=== PATIENT | female | born 2005 | race Caucasian/White ===

== ENCOUNTER 2023-05-20 01:05 | Emergency (ER) | payer OTHER, SELFPAY ==
[2023-05-20 01:08] VITALS: BP 148/87; PULSE 98; RESP 18; TEMP 36.8; O2SAT 100; BMI 17.7
--- NOTE | 2023-05-20 01:26 | ED_ITS ---
HPI - Female Genitourinary General Chief complaint: OB/Uterine Contractions Stated complaint: issues, Bleeding less than 20-weeks Time Seen by Provider: 05/20/23 01:14 Source: patient Mode of arrival: walk-in Limitations: no limitations History of Present Illness HPI Narrative: vaginal bleed. LMP March 2023. Has taken 2 home test and is positive. [id number]. tonight vaginal bleeding. Not much pain. States her last was complicated during the after . Describes Uterine prolaspe that had to be repaired. Has done well since. No urinary complaint or fever. Patient has no pain MD elicited complaint: Reports vaginal bleeding Related Data Home Medications Medication Instructions Recorded Confirmed No Known Home Medications 05/20/23 05/20/23 Allergies Allergy/AdvReac Type Severity Reaction Status Date / Time No Known Drug Allergies Allergy Verified 05/20/23 01:12 Review of Systems ROS Status of ROS 10 or more systems reviewed and unremarkable except as noted in history and below PFSH PFSH Social History Smoking status: Never smoker Exam Constitutional Vital Signs, click to edit/add: Last Vital Signs Temp 98.2 F 05/20/23 01:08 Pulse 98 H 05/20/23 01:08 Resp 18 05/20/23 01:08 BP 148/87 H 05/20/23 01:08 Pulse Ox 100 05/20/23 01:08 O2 Del Method Room Air 05/20/23 01:08 Common normals: no apparent distress, average body habitus, oriented x3, no limitations, healthy appearing, alert and well nourished Eye Common normals: PERRL, EOMs intact bilaterally and conjunctivae normal Respiratory Common normals: normal respiratory effort, no retractions, no use of accessory muscles and clear to auscultation bilaterally Cardio Common normals: regular rate, regular rhythm, S1 normal heart sound and S2 normal heart sound GI Common normals: Normal to inspection, nondistended, normoactive bowel sounds present, soft to palpation and non-tender Other: abdomen is nontender Common normals: external appearance normal, appearance of the vagina normal and appearance of the cervix normal Other: exam of the cervix demonstrates not active bleeding at this time Extremity Common normals: normal to inspection and full ROM Neuro Common normals: oriented x3, CN's II-XII intact bilaterally, moves all extremities, no focal motor deficits and no sensory deficits noted Psych Appearance: grossly normal Course Vital Signs Vital signs: Vital Signs Temperature 98.2 F 05/20/23 01:08 Pulse Rate 98 H 05/20/23 01:08 Respiratory Rate 18 05/20/23 01:08 Blood Pressure 148/87 H 05/20/23 01:08 Pulse Oximetry 100 05/20/23 01:08 Oxygen Delivery Method Room Air 05/20/23 01:08 Temperature 98.2 F 05/20/23 01:08 Pulse Rate 98 H 05/20/23 01:08 Respiratory Rate 18 05/20/23 01:08 Blood Pressure 148/87 H 05/20/23 01:08 Pulse Oximetry 100 05/20/23 01:08 Oxygen Delivery Method Room Air 05/20/23 01:08 MDM - Female Genitourinary MDM Narrative Medical decision making narrative: patient presents with less than one month . LMP 04/18. Bleeding before coming to the ER. None during exam. No pain or tenderness. This is her 2nd . First was complicated by complete uterine prolapse during passage of after . Labs with Hgb12.3 and Quant HCG 2751. 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 Lab Data Labs: Lab Results 05/20/23 Range/Units 01:30 WBC 8.7 (4.0-11.0) 10^3/uL RBC 4.29 (4.20-5.40) 10^6/uL Hgb 12.3 (12.0-16.0) g/dL Hct 38.3 (36.0-48.0) % MCV 89.3 (81.0-99.0) fL MCH 28.7 (26.7-34.0) pg MCHC 32.1 (29.9-35.2) g/dL RDW 12.3 (11.0-15.0) % Plt Count 378 (150-450) 10^3/uL MPV 9.7 (9.5-13.5) fL Neut % (Auto) 53.7 (43.0-75.0) % Lymph % (Auto) 38.8 (20.5-60.0) % [place] % (Auto) 6.7 (1.7-12.0) % Eos % (Auto) 0.1 L (0.9-7.0) % Baso % (Auto) 0.5 (0.2-2.0) % Neut # (Auto) 4.7 (1.4-6.5) 10^3/uL Lymph # (Auto) 3.4 (1.2-3.8) 10^3/uL Noble # (Auto) 0.6 (0.3-0.8) 10^3/uL Eos # (Auto) 0.0 (0.0-0.7) 10^3/uL Baso # (Auto) 0.0 (0.0-0.1) 10^3/uL Abs Immat Gran (auto) 0.02 (0.00-0.03) 10^3/uL Imm/Tot Granulo (auto) 0.2 (0.0-0.5) % Sodium 140 (136-145) mmol/L Potassium 3.5 (3.5-5.1) mmol/L Chloride 104 (98-107) mmol/L Carbon Dioxide 24.6 (21.0-32.0) mmol/L Anion Gap 14.9 BUN 15.0 (7.0-18.0) mg/dL Creatinine 0.75 (0.55-1.02) mg/dL Est GFR ( Amer) >60 (>=60) Est GFR (Non-Af Amer) >60 (>=60) BUN/Creatinine Ratio 20.0 Glucose 95 (74-106) mg/dL Calcium 8.9 (8.5-10.1) mg/dL HCG, Quant 2751 mIU/mL Urine Color Yellow (YELLOW) Urine Clarity Clear (CLEAR) Urine pH 6.0 (5.0-9.0) Ur Specific [place] >=1.030 A (1.005-1.025) Urine Protein 30 A (NEG/TRACE) mg/dL Urine Glucose (UA) Negative (NEGATIVE) mg/dL Urine Ketones Negative (NEGATIVE) mg/dL Urine Occult Blood Large A (NEGATIVE) Urine Nitrite Negative (NEGATIVE) Urine Bilirubin Negative (NEGATIVE) Urine Urobilinogen 1.0 (0.2-1.0) EU/dL Ur Leukocyte Esterase Negative (NEGATIVE) Urine RBC 10-20 A (0-2) #/HPF Urine WBC 0-2 A (NONE SEEN) #/HPF Ur Squamous Epith Cells Few A (NONE/RARE) #/LPF Urine Crystals None seen (None Seen) #/HPF Urine Bacteria None seen (NONE SEEN) #/HPF Urine Casts None seen (NONE SEEN) #/LPF Urine Mucus Small A (NONE SEEN) Ur Culture Indicated? 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
[2023-05-20 01:36] LABS: Basophils Percent Auto 0.5 % (0.2-2.0); Eosinophils Percent Auto 0.1 % (0.9-7.0); Hematocrit 38.3 % (36.0-48.0); Hemoglobin 12.3 g/dL (12.0-16.0); Immature Granulocytes Abs Auto 0.02 10^3/uL (0.00-0.03); Immature Granulocytes Pct Auto 0.2 % (0.0-0.5); Lymphocytes Absolute Auto 3.4 10^3/uL (1.2-3.8); Lymphocytes Percent Auto 38.8 % (20.5-60.0); Mean Corpuscular HGB Conc 32.1 g/dL (29.9-35.2); Mean Corpuscular Hemoglobin 28.7 pg (26.7-34.0); Mean Corpuscular Volume 89.3 fL (81.0-99.0); Mean Platelet Volume 9.7 fL (9.5-13.5); Monocytes Absolute Auto 0.6 10^3/uL (0.3-0.8); Monocytes Percent Auto 6.7 % (1.7-12.0); Neutrophils Absolute Auto 4.7 10^3/uL (1.4-6.5); Neutrophils Percent Auto 53.7 % (43.0-75.0); Platelet Count 378 10^3/uL (150-450); Red Blood Count 4.29 10^6/uL (4.20-5.40); Red Cell Distribution Width 12.3 % (11.0-15.0); White Blood Count 8.7 10^3/uL (4.0-11.0)
[2023-05-20 01:37] LABS: Bilirubin Urine NEGATIVE (NEGATIVE); Blood Urine LARGE (NEGATIVE); Clarity Urine CLEAR (CLEAR); Color Urine YELLOW (YELLOW); Glucose Urine UA NEGATIVE (NEGATIVE); Ketones Urine NEGATIVE (NEGATIVE); Leukocyte Esterase Urine NEGATIVE (NEGATIVE); Nitrite Urine NEGATIVE (NEGATIVE); Protein Urine 30 mg/dL (NEG/TRACE); Specific Gravity Urine >=1.030 (1.005-1.025)
[2023-05-20 01:43] LABS: Urine Microscopic Indicated YES
[2023-05-20 01:46] LABS: Bacteria Urine NONE SEEN #/HPF (NONE SEEN); Cast Seen? NONE SEEN #/LPF (NONE SEEN); Crystals Seen? None Seen #/HPF (None Seen); Mucus Urine SMALL (NONE SEEN); Squamous Epithelial Cell Urine FEW #/LPF (NONE/RARE); Urine Culture Indicated NO; WBC Urine 0-2 #/HPF (NONE SEEN)
[2023-05-20 02:18] LABS: Anion Gap 14.9; Calcium 8.9 mg/dL (8.5-10.1); Carbon Dioxide 24.6 mmol/L (21.0-32.0); Chloride 104 mmol/L (98-107); Estimated GFR (African America >60 (>=60); Estimated GFR (Non-African Ame >60 (>=60); Glucose 95 mg/dL (74-106); HCG Quantitative 2751 mIU/mL; Potassium 3.5 mmol/L (3.5-5.1); Sodium 140 mmol/L (136-145)
== END 2023-05-20 03:19 | disposition home or self-care (01) ==
PROVIDERS: Emergency Provider Internal Medicine
DX: O20.0 Threatened abortion (principal); Z3A.00 Weeks of gestation of pregnancy not specified
CPT/HCPCS: 36415; 80048; 81001; 84702; 85025; 86900; 86901; 99283

== ENCOUNTER 2023-05-21 16:20 | Outpatient (OUT) | payer OTHER, SELFPAY ==
[2023-05-21 17:28] LABS: HCG Quantitative 3973 mIU/mL
== END 2023-05-21 16:21 | disposition home or self-care (01) ==
LOC: LAB 16:21
PROVIDERS: Visit Provider Internal Medicine
DX: O20.0 Threatened abortion (principal)
CPT/HCPCS: 36415; 84702

== ENCOUNTER 2023-06-07 13:39 | Outpatient (OUT) | payer OTHER, SELFPAY ==
--- NOTE | 2023-06-07 13:42 | US_ITS ---
[address] [address] Patient Name: JAMES PURDY MRN: [id number] date: 2005 Sex: F Assigned Patient Location: US Current Patient Location: US Accession/Order Number: [id number] Exam Date: 06/07/2023 13:42 Report Date: 06/07/2023 17:16 At the request of: RICHARD EDDY Procedure: US OB transvaginal EXAMINATION: US OB transvaginal HISTORY: MISSED MENSES COMPARISON: No relevant comparison available. FINDINGS: GESTATIONAL SAC: Present and normal appearing. YOLK SAC: Present and normal appearing. POLE: Present and normal appearing. CARDIAC: Present. UTERUS: Normal size and appearance. OVARIES: Right: Normal. Left: Normal. CERVIX: 3.4 cm in length and closed. CUL-DE-SAC: Normal. OTHER: None. AGE BY LMP: 9 weeks 3 days FRANCIS[place] BY LMP: 01/07/2024 AGE BY US CRL: 7 weeks 1 day FRANCISCO BY US CRL: 01/23/2024 US/US OB transvaginal IMPRESSION: 1. Single live intrauterine . Electronically authenticated by: VI COOPER Date: 06/07/2023 17:16
== END 2023-06-07 13:40 | disposition home or self-care (01) ==
LOC: US 13:39
PROVIDERS: Visit Provider Obstetrics & Gynecology
DX: Z34.91 Encounter for supervision of normal pregnancy, unspecified, first trimester (principal); Z3A.09 9 weeks gestation of pregnancy
CPT/HCPCS: 76817

== ENCOUNTER 2023-06-21 16:05 | Outpatient (OUT) | payer OTHER, SELFPAY ==
[2023-06-21 16:45] LABS: Basophils Percent Auto 0.3 % (0.2-2.0); Eosinophils Percent Auto 0.1 % (0.9-7.0); Hematocrit 33.7 % (36.0-48.0); Immature Granulocytes Abs Auto 0.03 10^3/uL (0.00-0.03); Immature Granulocytes Pct Auto 0.3 % (0.0-0.5); Lymphocytes Absolute Auto 2.6 10^3/uL (1.2-3.8); Lymphocytes Percent Auto 27.1 % (20.5-60.0); Mean Corpuscular HGB Conc 32.6 g/dL (29.9-35.2); Mean Corpuscular Volume 88.9 fL (81.0-99.0); Mean Platelet Volume 9.9 fL (9.5-13.5); Monocytes Absolute Auto 0.6 10^3/uL (0.3-0.8); Monocytes Percent Auto 6.1 % (1.7-12.0); Neutrophils Absolute Auto 6.2 10^3/uL (1.4-6.5); Neutrophils Percent Auto 66.1 % (43.0-75.0); Platelet Count 254 10^3/uL (150-450); Red Blood Count 3.79 10^6/uL (4.20-5.40); Red Cell Distribution Width 13.3 % (11.0-15.0); White Blood Count 9.4 10^3/uL (4.0-11.0)
[2023-06-21 16:56] LABS: Estimated Average Glucose 94 mg/dL; Glycohemoglobin A1C 4.9 % (4.5-6.2)
[2023-06-21 17:20] LABS: Thyroid Stimulating Hormone 0.083 uIU/mL (0.358-3.740)
[2023-06-23 06:09] LABS: Rubella Antibodies, IgG 1.93 index (Immune >0.99)
[2023-06-23 07:09] LABS: HBsAg Screen Negative (Negative); HCV Ab Non Reactive (Non Reactive); HIV Ab/p24 Ag Screen Non Reactive (Non Reactive)
[2023-06-23 09:10] LABS: Rapid Plasma Reagin, Quant Non Reactive titer (NonRea<1:1)
== END 2023-06-21 16:06 | disposition home or self-care (01) ==
LOC: LAB 16:06
PROVIDERS: Visit Provider Obstetrics & Gynecology
DX: N91.2 Amenorrhea, unspecified (principal)
CPT/HCPCS: 36415; 83036; 84443; 85025; 86592; 86762; 86803; 86850; 86900; 86901; 87086; 87340; 87389

== ENCOUNTER 2023-07-18 15:10 | Outpatient (OUT) | payer OTHER, SELFPAY ==
[2023-07-18 15:33] LABS: BOX Test Sent Out Y
== END 2023-07-18 15:11 | disposition home or self-care (01) ==
LOC: LAB 15:12
PROVIDERS: Visit Provider Obstetrics & Gynecology
DX: Z34.80 Encounter for supervision of other normal pregnancy, unspecified trimester (principal)
CPT/HCPCS: 36415

== ENCOUNTER 2023-09-05 13:06 | Outpatient (OUT) | payer OTHER, SELFPAY ==
--- NOTE | 2023-09-05 13:09 | US_ITS ---
[address] [address] Patient Name: JAMES PURDY MRN: [id number] date: 2005 Sex: F Assigned Patient Location: US Current Patient Location: Accession/Order Number: [id number] Exam Date: 09/05/2023 13:10 Report Date: 09/05/2023 14:55 At the request of: RICHARD EDDY Procedure: US OB cervical length EXAMINATION: US OB anatomy, US OB cervical length HISTORY: ANATOMY COMPARISON: No relevant comparison available. TECHNIQUE: Transabdominal sonographic examination was performed for obstetrical and evaluation. FINDINGS: Number: 1 Heart Rate: Present; rate not recorded H.B. /min Amniotic Fluid Volume: Subjectively normal Placental Location: POSTERIOR with lower margin 7.0 cm from os. Cervix Length: 4.2 cm, closed. ANATOMY: Normal Structures -cerebellum, choroid plexus, cisterna magna, lateral cerebral ventricles, orbits, midline falx, hard palate, four-chamber heart, RVOT, LVOT, stomach, kidneys, bladder, umbilical cord insertion into abdomen, three-vessel cord, cervical spine, thoracic spine, lumbar spine, sacral spine, right upper extremity, left upper extremity, right lower extremity, left lower extremity. SUBOPTIMALLY SEEN: None ABNORMALITIES: None BIOMETRY: BPD: 4.9 cm 20 weeks 5 days HC: 18.3 cm 20 weeks 5 days AC: 15.6 cm 20 weeks 5 days FL: 3.2 cm 20 weeks 0 days EFW:353.9 grams; 71% FL/AC: 20.6 FL/BPD: 66.2 HC/AC: 1.2 GESTATIONAL AGE: Age by EDC: 20 weeks 0 days FRANCISCO by EDC: 01/23/2024 Age by current US: 20 weeks 4 days FRANCISCO by current US: 01/19/2024 US/US OB cervical length IMPRESSION: 1. Single live intrauterine with growth detailed above. Electronically authenticated by: VI COOPER Date: 09/05/2023 14:55
--- NOTE | 2023-09-05 13:09 | US_ITS ---
[address] [address] Patient Name: JAMES PURDY MRN: [id number] date: 2005 Sex: F Assigned Patient Location: US Current Patient Location: Accession/Order Number: [id number] Exam Date: 09/05/2023 13:10 Report Date: 09/05/2023 14:55 At the request of: RICHARD EDDY Procedure: US OB anatomy EXAMINATION: US OB anatomy, US OB cervical length HISTORY: ANATOMY COMPARISON: No relevant comparison available. TECHNIQUE: Transabdominal sonographic examination was performed for obstetrical and evaluation. FINDINGS: Number: 1 Heart Rate: Present; rate not recorded H.B. /min Amniotic Fluid Volume: Subjectively normal Placental Location: POSTERIOR with lower margin 7.0 cm from os. Cervix Length: 4.2 cm, closed. ANATOMY: Normal Structures -cerebellum, choroid plexus, cisterna magna, lateral cerebral ventricles, orbits, midline falx, hard palate, four-chamber heart, RVOT, LVOT, stomach, kidneys, bladder, umbilical cord insertion into abdomen, three-vessel cord, cervical spine, thoracic spine, lumbar spine, sacral spine, right upper extremity, left upper extremity, right lower extremity, left lower extremity. SUBOPTIMALLY SEEN: None ABNORMALITIES: None BIOMETRY: BPD: 4.9 cm 20 weeks 5 days HC: 18.3 cm 20 weeks 5 days AC: 15.6 cm 20 weeks 5 days FL: 3.2 cm 20 weeks 0 days EFW:353.9 grams; 71% FL/AC: 20.6 FL/BPD: 66.2 HC/AC: 1.2 GESTATIONAL AGE: Age by EDC: 20 weeks 0 days FRANCISCO by EDC: 01/23/2024 Age by current US: 20 weeks 4 days FRANCISCO by current US: 01/19/2024 US/US OB anatomy IMPRESSION: 1. Single live intrauterine with growth detailed above. Electronically authenticated by: VI COOPER Date: 09/05/2023 14:55
--- OUTSIDE RECORDS SUMMARY | 2023-09-05 13:09 | XMS_ITS | CCD ---
Author Name Unknown Address [address] [place] [address] Organization [facility] Care Team Providers Care Counseling Psychologist Name Role Phone NATE SNELL Unavailable Unavailable MARCELO, DEBBY Unavailable Unavailable MARCELO, DEBBY Unavailable Unavailable JOSE CULVER Unavailable Unavailable Nataliia Pérez Unavailable MISC, DR MARIN Primary Care Unavailable KARASIK, DR BLUM Attending Unavailable KARASIK, DR BLUM Admitting Unavailable KARASIK, DR BLUM Consulting Unavailable MISC, DR MARIN Primary Care Unavailable KARASIK, DR BLUM Attending Unavailable KARASIK, DR BLUM Admitting Unavailable KARASIK, DR BLUM Consulting Unavailable GRANT, DR JACOBO Bunn Consulting Unavailable KARASIK, DR BLUM Admitting Unavailable KARASIK, DR BLUM Consulting Unavailable KARASIK, DR BLUM Attending Unavailable MISC, DR MARIN Primary Care Unavailable KARASIK, DR BLUM Attending Unavailable KARASIK, DR BLUM Admitting Unavailable KARASIK, DR BLUM Consulting Unavailable MISC, DR MARIN Primary Care Unavailable KARASIK, DR BLUM Admitting Unavailable KARASIK, DR BLUM Consulting Unavailable KARASIK, DR BLUM Attending Unavailable MISC, DR MARIN Primary Care Unavailable KARASIK, DR BLUM Admitting Unavailable KARASIK, DR BLUM Attending Unavailable MISC, DR MARIN Primary Care Unavailable ANG, DR LARA Consulting Unavailable ANG, DR LARA Attending Unavailable MISC, DR MARIN Primary Care Unavailable ANG, DR LARA Admitting Unavailable NUNU, DR RAMOS Consulting Unavailable NUNU, DR RAMOS Attending Unavailable NUNU, DR RAMOS Admitting Unavailable MISC, DR MARIN Primary Care Unavailable CHOCO SAUNDERS Consulting Unavailable KARASIK, DR BLUM Admitting Unavailable KARASIK, DR BLUM Consulting Unavailable KARASIK, DR BLUM Attending Unavailable MISC, DR MARIN Primary Care Unavailable NUNU, DR RAMOS Consulting Unavailable MORGOS, EDWIGE Consulting Unavailable TREY, NELI BECK Consulting Unava ilable KARASIK, DR BLUM Procedure Practitioner Unava ilable KARASIK, DR BLUM Attending Unavailable KARASIK, DR BLUM Admitting Unavailable KARASIK, DR BLUM Consulting Unavailable REQUEST, DR NONE LISTED Primary Care Unavaila ble WEST, DR JACOBO Bunn Consulting Unavailable KARASIK, DR BLUM Attending Unavailable KARASIK, DR BLUM Admitting Unavailable KARASIK, DR BLUM Consulting Unavailable REQUEST, DR NONE LISTED Primary Care Unavaila ble WEST, DR JACOBO Bunn Consulting Unavailable KARASIK, DR BLUM Attending Unavailable KARASIK, DR BLUM Admitting Unavailable KARASIK, DR BLUM Consulting Unavailable MISC, DR MARIN Primary Care Unavailable Precious Mi Unavailable Iraida Btucher Referring Unavailable Iraida Butcher Attending Unavailable Iraida Butcher Admitting Unavailable DANYELLE GRACIA Attending Unavailable DANYELLE GRACIA Attending Unavailable Medications Current Medications Medication Drug Class(es) Dates Sig (Normalized) Sig (Original) amoxicillin 500 mg oral capsule (1 source) Penicillin-class Antibacterial Start: 05-28-2023 take 1 capsule by mouth every twelve hours Amoxicillin 500 MG 1 capsule Orally Twice a day for 10 days May, Active Pre- (3 sources) Pre- Active Problems Active Problems Problem Classification Problem Date Documented Date Episodic/Chronic Hemorrhage during ; abruptio placenta; placenta previa (4 sources) Antepartum hemorrhage, unspecified, third trimester; Translations: [ANTEPARTUM HEMORR UNS 3RD TRIMESTER] Onset: 03-09-2022 Episodic Immunizations and screening for infectious disease (5 sources) Encounter for screening for infections with a predominantly sexual mode of transmission; Translations: [Contact with and (suspected) exposure to infections with a predominantly sexual mode of transmission] Onset: 10-25-2021 Episodic Menstrual disorders (4 sources) Irregular menstruation, unspecified; Translations: [IRREGULAR MENSTRUATION UNSPECIFIED] Onset: 09-27-2021 Chronic Other complications of ; puerperium affecting management of mother (1 source) Obstetric laceration of cervix; Translations: [OBSTETRIC LACERATION OF CERVIX] Onset: 05-15-2022 Episodic Other complications of ; puerperium affecting management of mother (1 source) Other immediate hemorrhage; Translations: [OTH IMMEDIATE HEMORRHAGE] Onset: 05-15-2022 Episodic Other complications of ; puerperium affecting management of mother (1 source) inversion of uterus; Translations: [ INVERSION OF UTERUS] Onset: 05-15-2022 Episodic Other and delivery including normal (16 sources) Encounter for routine follow-up; Translations: [Encounter for supervision of normal first , third trimester] Onset: 09-29-2021 Episodic Other screening for suspected conditions (not mental disorders or infectious disease) (14 sources) Encounter for screening for Streptococcus B; Translations: [Encounter for screening for diabetes mellitus] Onset: 10-27-2021 Episodic Other upper respiratory infections (5 sources) Acute pharyngitis, unspecified; Translations: [Acute upper respiratory infection, unspecified] Onset: 08-13-2018 Resolved: 02-21-2022 Episodic Residual codes; unclassified (1 source) 39 weeks gestation of ; Translations: [39 WEEKS GESTATION OF ] Onset: 05-15-2022 Episodic Residual codes; unclassified (1 source) 31 weeks gestation of ; Translations: [31 WEEKS GESTATION OF ] Onset: 03-10-2022 Episodic Unclassified (2 sources) COUGH, UNSPECIFIED; Translations: [COUGH, UNSPECIFIED] Onset: 05-29-2022 Unclassified (1 source) CONTACT W/AND (SUSP) EXPOS COVID-19; Translations: [CONTACT W/AND (SUSP) EXPOS COVID-19] Onset: 05-29-2022 Past or Other Problems Problem Classification Problem Date Documented Da te Episodic/Chronic Other ear and sense organ disorders (1 source) Impacted cerumen, left ear Onset: 11-07-2021 Resolved: 11-07-2021 Episodic Residual codes; unclassified (1 source) 20 weeks gestation of ; Translations: [20 WEEKS GESTATION OF ] Onset: 12-21-2021 Episodic Superficial injury; contusion (1 source) Contusion of left foot, initial encounter; Translations: [Contusion of left foot, initial encounter] Onset: 01-30-2018 Episodic Unclassified (1 source) COUGH, UNSPECIFIED; Translations: [COUGH, UNSPECIFIED] Onset: 05-26-2022 Viral infection (1 source) COVID-19 Onset: 02-21-2022 Resolved: 02-21-2022 Results Test Name Value Interpretation Reference Range Facility Quick Strepon 05-28-2023 S. pyogenes Org specific cx Ql (Throat) Positive [employer] [facility] [employer] Other Quick Strep [employer] [facility] [employer] Other Covid-19 PCR ([facility])on 04-29 SARS-CoV-2 (COVID-19) RNA SHANEKA+probe Ql (Unsp spec) Not detected Normal NOT DETECTED [facility] Comment on above: Result Comment: When diagnostic testing is negative, the possibility of a false negative should be considered in the context of a patient's recent exposures and the presence of clinical signs and symptoms consistent with SARS-CoV-2. This test is not yet approved or cleared by the [place] FDA. When there are no FDA-approved or cleared tests available, and other criteria are met, FDA can make tests available under an emergency access mechanism called an Emergency Use Authorization (EUA). The EUA for this test is supported by the [place] of Health and Human Service's declaration that circumstances exist to justify the emergency use of in vitro diagnostics for the detection and/or diagnosis of the virus that causes COVID-19. This EUA will remain in effect for the duration of the COVID-19 declaration justifying emergency of IVDs, unless it is terminated or revoked by the FDA (after which the test may no longer be used). Performed By: #### H BSANS #### [facility] [address] [place] [address] Dr. Marvin Ashford GROUP A STREP CULTUREon 04-29 S. pyogenes Ag Ql (Unsp spec) Culture Observations: NEGATIVE FOR GROUP A STREPTOCOCCUS. Normal [facility] Comment on above: Performed By: #### C BC #### [facility] [address] [place] [address] Dr. Marvin Ashford STREPT SCREENon 05-26-2022 STREP SCREEN A Negative Normal NEGATIVE [facility] Comment on above: Performed By: #### C BC #### [facility] [address] [place] [address] Dr. Marvin Ashford FRESH FROZ PLASMAon 05-07-20 22 FRESH FROZ PLASMA Unit Blood Type A Pos Unit Number [id number] Status Information Transfused Product ID FFP Product Code [id number] [facility] Comment on above: Performed By: #### F FP #### [facility] [address] [place] [address] Dr. Marvin Ashford FRESH FROZ PLASMA Unit Blood Type A Pos Unit Number [id number] Status Information Transfused Product ID FFP Product Code [id number] Normal [facility] Comment on above: Performed By: #### F FP #### [facility] [address] [place] [address] Dr. Marvin Ashford PRBC LEUKOREDUCEDon 05-07-20 22 ABO and Rh group Nom (Bld) Cross Match Result Compatible Unit Blood Type A Pos Unit Number [id number] Status Information Transfused Product ID Red Blood Cells Product Code [id number] Cross Match Result Compatible Unit Blood Type A Pos Unit Number [id number] Status Information Released Specimen Exp Date Product ID Red Blood Cells Product Code [id number] [facility] Comment on above: Performed By: #### P RBC #### [facility] [address] [place] [address] Dr. Marvin Ashford ABO and Rh group Nom (Bld) Cross Match Result Compatible Unit Blood Type A Pos Unit Number [id number] Status Information Released Specimen Exp Date Product ID Red Blood Cells Product Code [id number] Cross Match Result Compatible Unit Blood Type A Pos Unit Number [id number] Status Information Transfused Product ID Red Blood Cells Product Code [id number] [facility] Comment on above: Performed By: #### H BSANS #### [facility] [address] [place] [address] Dr. Marvin Ashford CBC AUTO DIFFon 05-05-2022 BASO # 0.1 103/ul Normal 0.0-0.1 [facility] Comment on above: Performed By: #### G BSCX #### [facility] [address] [place] [address] Dr. Marvin Ashford Basophils/100 WBC (Bld) 0.3 % Normal 0.2-2.0 [facility] Comment on above: Performed By: #### G BSCX #### [facility] [address] [place] [address] Dr. Marvin Ashford EO # 0.0 103/ul Normal 0.0-0.7 [facility] Comment on above: Performed By: #### G BSCX #### [facility] [address] [place] [address] Dr. Marvin Ashford Eosinophils/100 WBC (Bld) 0.2 % Critically low 0.9-7.0 [facility] Comment on above: Performed By: #### G BSCX #### [facility] [address] [place] [address] Dr. Marvin Ashford Erythrocyte distribution width (RBC) [Ratio] 14.6 % Normal 11.0-15.0 [facility] Comment on above: Performed By: #### G BSCX #### [facility] [address] [place] [address] Dr. Marvin Ashford Hematocrit (Bld) [Volume fraction] 25.6 % Critically low 36.0-48.0 [facility] Comment on above: Performed By: #### G BSCX #### [facility] [address] [place] [address] Dr. Marvin Ashford Hemoglobin (Bld) [Mass/Vol] 8.8 g/dL Critically low 12.0-16.0 [facility] Comment on above: Performed By: #### G BSCX #### [facility] [address] [place] [address] Dr. Marvin Ashford IG # 0.14 10e3/ul Critically high 0.00-0.03 [facility] Comment on above: Performed By: #### G BSCX #### [facility] [address] [place] [address] Dr. Marvin Ashford IG % 0.9 % Critically high 0.0-0.5 [facility] Comment on above: Performed By: #### G BSCX #### [facility] [address] [address] [address] Marvin Ashford LYMPH # 2.7 103/ul Normal 1.2-3.8 [facility] Comment on above: Performed By: #### G BSCX #### [facility] [address] [place] [address] Dr. Marvin Ashford Lymphocytes/100 WBC (Bld) 17.1 % Critically low 20.5-60.0 [facility] Comment on above: Performed By: #### G BSCX #### [facility] [address] [place] [address] Dr. Marvin Ashford MANUAL DIFF REQ NO Normal [facility] Comment on above: Performed By: #### G BSCX #### [facility] [address] [place] [address] Dr. Marvin Ashford MCH (RBC) [Entitic mass] 31.1 pg Normal 26.7-34.0 [facility] Comment on above: Performed By: #### G BSCX #### [facility] [address] [place] [address] Dr. Marvin Ashford MCHC (RBC) [Mass/Vol] 34.4 g/dL Normal 29.9-35.2 [facility] Comment on above: Performed By: #### G BSCX #### [facility] [address] [place] [address] Dr. Marvin Ashford MCV (RBC) [Entitic vol] 90.5 fL Normal 81.0-99.0 [facility] Comment on above: Performed By: #### G BSCX #### [facility] [address] [address] [address] Marvin Ashford MONO # 1.0 103/ul Critically high 0.3-0.8 [facility] Comment on above: Performed By: #### G BSCX #### [facility] [address] [place] [address] Dr. Marvin Ashford Monocytes/100 WBC (Bld) 6.4 % Normal 1.7-12.0 [facility] Comment on above: Performed By: #### G BSCX #### [facility] [address] [address] [address] Marvin Ashford NEUT # 11.7 103/ul Critically high 1.4-6.5 [facility] Comment on above: Performed By: #### G BSCX #### [facility] [address] [address] [address] Marvin Ashford Neutrophils/100 WBC (Bld) 75.1 % Critically high 43.0-75.0 [facility] Comment on above: Performed By: #### G BSCX #### [facility] [address] [place] [address] Dr. Marvin Ashford Platelet mean volume (Bld) [Entitic vol] 10.2 fL Normal 9.5-13.5 [facility] Comment on above: Performed By: #### G BSCX #### [facility] [address] [place] [address] Dr. Marvin Ashford PLT 114 103/ul Critically low 150-450 [facility] Comment on above: Performed By: #### G BSCX #### [facility] [address] [place] [address] Dr. Marvin Ashford RBC 2.83 106/ul Critically low 4.20-5.40 [facility] Comment on above: Performed By: #### G BSCX #### [facility] [address] [place] [address] Dr. Marvin Ashford WBC 15.5 103/ul Critically high 4.0-11.0 [facility] Comment on above: Performed By: #### G BSCX #### [facility] [address] [place] [address] Dr. Marvin Ashford CBC AUTO DIFFon 05-04-2022 BASO # 0.1 103/ul Normal 0.0-0.1 [facility] Comment on above: Performed By: #### C BC #### [facility] [address] [place] [address] Dr. Marvin Ashford Basophils/100 WBC (Bld) 0.2 % Normal 0.2-2.0 [facility] Comment on above: Performed By: #### C BC #### [facility] [address] [place] [address] Dr. Marvin Ashford EO # 0.0 103/ul Normal 0.0-0.7 [facility] Comment on above: Performed By: #### C BC #### [facility] [address] [place] [address] Dr. Marvin Ashford Eosinophils/100 WBC (Bld) 0.0 % Critically low 0.9-7.0 [facility] Comment on above: Performed By: #### C BC #### [facility] [address] [place] [address] Dr. Marvin Ashford Erythrocyte distribution width (RBC) [Ratio] 14.1 % Normal 11.0-15.0 [facility] Comment on above: Performed By: #### C BC #### [facility] [address] [place] [address] Dr. Marvin Ashford Hematocrit (Bld) [Volume fraction] 26.6 % Critically low 36.0-48.0 [facility] Comment on above: Performed By: #### C BC #### [facility] [address] [place] [address] Dr. Marvin Ashford Hemoglobin (Bld) [Mass/Vol] 9.2 g/dL Critically low 12.0-16.0 [facility] Comment on above: Performed By: #### C BC #### [facility] [address] [place] [address] Dr. Marvin Ashford IG # 0.24 10e3/ul Critically high 0.00-0.03 [facility] Comment on above: Performed By: #### C BC #### [facility] [address] [place] [address] Dr. Marvin Ashford IG % 1.0 % Critically high 0.0-0.5 [facility] Comment on above: Performed By: #### C BC #### [facility] [address] [place] [address] Dr. Marvin Ashford LYMPH # 2.0 103/ul Normal 1.2-3.8 [facility] Comment on above: Performed By: #### C BC #### [facility] [address] [place] [address] Dr. Marvin Ashford Lymphocytes/100 WBC (Bld) 8.3 % Critically low 20.5-60.0 [facility] Comment on above: Performed By: #### C BC #### [facility] [address] [place] [address] Dr. Marvin Ashford MANUAL DIFF REQ NO Normal [facility] Comment on above: Performed By: #### C BC #### [facility] [address] [place] [address] Dr. Marvin Ashford MCH (RBC) [Entitic mass] 30.8 pg Normal 26.7-34.0 [facility] Comment on above: Performed By: #### C BC #### [facility] [address] [place] [address] Dr. Marvin Ashford MCHC (RBC) [Mass/Vol] 34.6 g/dL Normal 29.9-35.2 [facility] Comment on above: Performed By: #### C BC #### [facility] [address] [place] [address] Dr. Marvin Ashford MCV (RBC) [Entitic vol] 89.0 fL Normal 81.0-99.0 [facility] Comment on above: Performed By: #### C BC #### [facility] [address] [place] [address] Dr. Marvin Ashford MONO # 2.6 103/ul Critically high 0.3-0.8 [facility] Comment on above: Performed By: #### C BC #### [facility] [address] [place] [address] Dr. Marvin Ashford Monocytes/100 WBC (Bld) 10.6 % Normal 1.7-12.0 [facility] Comment on above: Performed By: #### C BC #### [facility] [address] [place] [address] Dr. Marvin Ashford NEUT # 19.3 103/ul Critically high 1.4-6.5 [facility] Comment on above: Performed By: #### C BC #### [facility] [address] [address] [address] Marvin Ashford Neutrophils/100 WBC (Bld) 79.9 % Critically high 43.0-75.0 [facility] Comment on above: Performed By: #### C BC #### [facility] [address] [address] [address] Marvin Ashford Platelet mean volume (Bld) [Entitic vol] 9.7 fL Normal 9.5-13.5 [facility] Comment on above: Performed By: #### C BC #### [facility] [address] [place] [address] Dr. Marvin Ashford PLT 98 103/ul Critically low 150-450 [facility] Comment on above: Performed By: #### C BC #### [facility] [address] [place] [address] Dr. Marvin Ashford RBC 2.99 106/ul Critically low 4.20-5.40 [facility] Comment on above: Performed By: #### C BC #### [facility] [address] [address] [address] Marvin Ashford WBC 24.1 103/ul Critically high 4.0-11.0 [facility] Comment on above: Performed By: #### C BC #### [facility] [address] [place] [address] Dr. Marvin Ashford CBC W MANUAL DIFFon 05-04-20 22 ATYPICAL LYMPH # Normal [facility] Comment on above: Performed By: #### H BSANS #### [facility] [address] [place] [address] Dr. Marvin Ashford ATYPICAL LYMPH % Normal [facility] Comment on above: Performed By: #### H BSANS #### [facility] [address] [place] [address] Dr. Marvin Ashford BAND # Normal 0.0-0.3 [facility] Comment on above: Performed By: #### H BSANS #### [facility] [address] [place] [address] Dr. Marvin Ashford BAND % Normal 0-5 [facility] Comment on above: Performed By: #### H BSANS #### [facility] [address] [place] [address] Dr. Marvin Ashford BASOM # 0.00 103/ul Normal 0.00-0.10 [facility] Comment on above: Performed By: #### H BSANS #### [facility] [address] [place] [address] Dr. Marvin Ashford BASOM % 0.0 % Critically low 0.2-2.0 [facility] Comment on above: Performed By: #### H BSANS #### [facility] [address] [place] [address] Dr. Marvin Ashford BLAST # Normal [facility] Comment on above: Performed By: #### H BSANS #### [facility] [address] [place] [address] Dr. Marvin Ashford BLAST % Normal [facility] Comment on above: Performed By: #### H BSANS #### [facility] [address] [place] [address] Dr. Marvin Ashford CORRECTED WBC Normal 4.0-11.0 [facility] Comment on above: Performed By: #### H BSANS #### [facility] [address] [place] [address] Dr. Marvin Ashford EOS # 0.00 103/ul Normal 0.00-0.70 [facility] Comment on above: Performed By: #### H BSANS #### [facility] [address] [place] [address] Dr. Marvin Ashford EOS% 0.0 % Critically low 0.9-7.0 [facility] Comment on above: Performed By: #### H BSANS #### [facility] [address] [place] [address] Dr. Marvin Ashford HCT 25.6 % Critically low 36.0-48.0 [facility] Comment on above: Performed By: #### H BSANS #### [facility] [address] [place] [address] Dr. Marvin Ashford HGB 8.9 g/dl Critically low 12.0-16.0 [facility] Comment on above: Performed By: #### H BSANS #### [facility] [address] [address] [address] Marvin Ashford HYPOCHROMASIA SLIGHT Normal [facility] Comment on above: Performed By: #### H BSANS #### [facility] [address] [address] [address] Marvin Ashford LYMPHM # 1.92 103/ul Normal 1.20-3.80 [facility] Comment on above: Performed By: #### H BSANS #### [facility] [address] [place] [address] Dr. Marvin Ashford LYMPHM% 8.0 % Critically low 20.5-60.0 [facility] Comment on above: Performed By: #### H BSANS #### [facility] [address] [place] [address] Dr. Marvin Ashford MCH 31.0 pg Normal 26.7-34.0 [facility] Comment on above: Performed By: #### H BSANS #### [facility] [address] [place] [address] Dr. Marvin Ashford MCHC 34.8 g/dl Normal 29.9-35.2 [facility] Comment on above: Performed By: #### H BSANS #### [facility] Laboratory [address] [place] [address] Dr. Marvin Ashford MCV 89.2 fL Normal 81.0-99.0 [facility] Comment on above: Performed By: #### H BSANS #### [facility] [address] [place] [address] Dr. Marvin Ashford METAMYELOCYTE # Normal [facility] Comment on above: Performed By: #### H BSANS #### [facility] [address] [place] [address] Dr. Marvin Ashford METAMYELOCYTE % Normal [facility] Comment on above: Performed By: #### H BSANS #### [facility] [address] [address] [address] Marvin Ashford MONOM# 0.48 103/ul Normal 0.30-0.80 [facility] Comment on above: Performed By: #### H BSANS #### [facility] [address] [address] [address] Marvin Ashford MONOM% 2.0 % Normal 1.7-12.0 [facility] Comment on above: Performed By: #### H BSANS #### [facility] [address] [place] [address] Dr. Marvin Ashford MPV 10.2 fL Normal 9.5-13.5 [facility] Comment on above: Performed By: #### H BSANS #### [facility] [address] [place] [address] Dr. Marvin Ashford MYELOCYTE # Normal [facility] Comment on above: Performed By: #### H BSANS #### [facility] [address] [place] [address] Dr. Marvin Ashford MYELOCYTE % Normal [facility] Comment on above: Performed By: #### H BSANS #### [facility] [address] [address] [address] Marvin Ashford NRBC Normal [facility] Comment on above: Performed By: #### H BSANS #### [facility] [address] [place] [address] Dr. Marvin Ashford PLT 104 103/ul Critically low 150-450 [facility] Comment on above: Performed By: #### H BSANS #### [facility] [address] [place] [address] Dr. Marvin Ashford RBC 2.87 106/ul Critically low 4.20-5.40 [facility] Comment on above: Performed By: #### H BSANS #### [facility] [address] [place] [address] Dr. Marvin Ashford RDW 14.4 % Normal 11.0-15.0 [facility] Comment on above: Performed By: #### H BSANS #### [facility] [address] [address] [address] Marvin Ashford SEG # 21.60 103/ul Critically high 1.40-6.50 [facility] Comment on above: Performed By: #### H BSANS #### [facility] [address] [place] [address] Dr. Marvin Ashford SEG % 90.0 % Critically high 43.0-75.0 [facility] Comment on above: Performed By: #### H BSANS #### [facility] [address] [address] [address] Marvin Ashford WBC 24.0 103/ul Critically high 4.0-11.0 [facility] Comment on above: Performed By: #### H BSANS #### [facility] [address] [place] [address] Dr. Marvin Ashford CBC AUTO DIFFon 05-03-2022 BASO # 0.1 103/ul Normal 0.0-0.1 [facility] Comment on above: Performed By: #### C BC #### [facility] [address] [place] [address] Dr. Marvin Ashford Basophils/100 WBC (Bld) 0.3 % Normal 0.2-2.0 [facility] Comment on above: Performed By: #### C BC #### [facility] [address] [place] [address] Dr. Marvin Ashford EO # 0.0 103/ul Normal 0.0-0.7 [facility] Comment on above: Performed By: #### C BC #### [facility] [address] [place] [address] Dr. Marvin Ashford Eosinophils/100 WBC (Bld) 0.0 % Critically low 0.9-7.0 [facility] Comment on above: Performed By: #### C BC #### [facility] [address] [place] [address] Dr. Marvin Ashford Erythrocyte distribution width (RBC) [Ratio] 13.3 % Normal 11.0-15.0 [facility] Comment on above: Performed By: #### C BC #### [facility] [address] [place] [address] Dr. Marvin Ashford Hematocrit (Bld) [Volume fraction] 26.6 % Critically low 36.0-48.0 [facility] Comment on above: Performed By: #### C BC #### [facility] [address] [place] [address] Dr. Marvin Ashford Hemoglobin (Bld) [Mass/Vol] 9.0 g/dL Critically low 12.0-16.0 [facility] Comment on above: Performed By: #### C BC #### [facility] [address] [place] [address] Dr. Marvin Ashford IG # 0.62 10e3/ul Critically high 0.00-0.03 [facility] Comment on above: Performed By: #### C BC #### [facility] [address] [place] [address] Dr. Marvin Ashford IG % 1.8 % Critically high 0.0-0.5 [facility] Comment on above: Performed By: #### C BC #### [facility] [address] [place] [address] Dr. Marvin Ashford LYMPH # 1.1 103/ul Critically low 1.2-3.8 [facility] Comment on above: Performed By: #### C BC #### [facility] [address] [place] [address] Dr. Marvin Ashford Lymphocytes/100 WBC (Bld) 3.3 % Critically low 20.5-60.0 [facility] Comment on above: Performed By: #### C BC #### [facility] [address] [place] [address] Dr. Marvin Ashford MANUAL DIFF REQ NO Normal [facility] Comment on above: Performed By: #### C BC #### [facility] [address] [place] [address] Dr. Marvin Ashford MCH (RBC) [Entitic mass] 31.9 pg Normal 26.7-34.0 [facility] Comment on above: Performed By: #### C BC #### [facility] [address] [place] [address] Dr. Marvin Ashford MCHC (RBC) [Mass/Vol] 33.8 g/dL Normal 29.9-35.2 [facility] Comment on above: Performed By: #### C BC #### [facility] [address] [address] [address] Marvin Ashford MCV (RBC) [Entitic vol] 94.3 fL Normal 81.0-99.0 [facility] Comment on above: Performed By: #### C BC #### [facility] [address] [address] [address] Marvin Ashford MONO # 2.3 103/ul Critically high 0.3-0.8 [facility] Comment on above: Performed By: #### C BC #### [facility] [address] [place] [address] Dr. Marvin Ashford Monocytes/100 WBC (Bld) 6.6 % Normal 1.7-12.0 [facility] Comment on above: Performed By: #### C BC #### [facility] [address] [address] [address] Marvin Ashford NEUT # 30.2 103/ul Critically high 1.4-6.5 [facility] Comment on above: Performed By: #### C BC #### [facility] [address] [place] [address] Dr. Marvin Ashford Neutrophils/100 WBC (Bld) 88.0 % Critically high 43.0-75.0 [facility] Comment on above: Performed By: #### C BC #### [facility] [address] [address] [address] Marvin Ashford Platelet mean volume (Bld) [Entitic vol] 10.2 fL Normal 9.5-13.5 [facility] Comment on above: Performed By: #### C BC #### [facility] [address] [address] [address] Marvin Ashford PLT 136 103/ul Critically low 150-450 [facility] Comment on above: Performed By: #### C BC #### [facility] [address] [address] [address] Marvin Ashford RBC 2.82 106/ul Critically low 4.20-5.40 [facility] Comment on above: Performed By: #### C BC #### [facility] [address] [place] [address] Dr. Marvin Ashford WBC 34.3 103/ul Critically high 4.0-11.0 [facility] Comment on above: Performed By: #### C BC #### [facility] [address] [place] [address] Dr. Marvin Ashford CBC AUTO DIFFon 05-01-2022 BASO # 0.0 103/ul Normal 0.0-0.1 [facility] Comment on above: Performed By: #### C BC #### [facility] [address] [place] [address] Dr. Marvin Ashford Basophils/100 WBC (Bld) 0.4 % Normal 0.2-2.0 [facility] Comment on above: Performed By: #### C BC #### [facility] [address] [place] [address] Dr. Marvin Ashford EO # 0.0 103/ul Normal 0.0-0.7 [facility] Comment on above: Performed By: #### C BC #### [facility] [address] [place] [address] Dr. Marvin Ashford Eosinophils/100 WBC (Bld) 0.2 % Critically low 0.9-7.0 [facility] Comment on above: Performed By: #### C BC #### [facility] [address] [place] [address] Dr. Marvin Ashford Erythrocyte distribution width (RBC) [Ratio] 12.9 % Normal 11.0-15.0 [facility] Comment on above: Performed By: #### C BC #### [facility] [address] [place] [address] Dr. Marvin Ashford Hematocrit (Bld) [Volume fraction] 35.5 % Critically low 36.0-48.0 [facility] Comment on above: Performed By: #### C BC #### [facility] [address] [place] [address] Dr. Marvin Ashford Hemoglobin (Bld) [Mass/Vol] 11.7 g/dL Critically low 12.0-16.0 [facility] Comment on above: Performed By: #### C BC #### [facility] [address] [place] [address] Dr. Marvin Ashford IG # 0.10 10e3/ul Critically high 0.00-0.03 [facility] Comment on above: Performed By: #### C BC #### [facility] [address] [place] [address] Dr. Marvin Ashford IG % 0.9 % Critically high 0.0-0.5 [facility] Comment on above: Performed By: #### C BC #### [facility] [address] [place] [address] Dr. Marvin Ashford LYMPH # 1.8 103/ul Normal 1.2-3.8 [facility] Comment on above: Performed By: #### C BC #### [facility] [address] [place] [address] Dr. Marvni Ashford Lymphocytes/100 WBC (Bld) 16.4 % Critically low 20.5-60.0 [facility] Comment on above: Performed By: #### C BC #### [facility] [address] [place] [address] Dr. Marvin Ashford MANUAL DIFF REQ NO Normal [facility] Comment on above: Performed By: #### C BC #### [facility] [address] [place] [address] Dr. Marvin Ashford MCH (RBC) [Entitic mass] 30.7 pg Normal 26.7-34.0 [facility] Comment on above: Performed By: #### C BC #### [facility] [address] [place] [address] Dr. Marvin Ashford MCHC (RBC) [Mass/Vol] 33.0 g/dL Normal 29.9-35.2 [facility] Comment on above: Performed By: #### C BC #### [facility] [address] [place] [address] Dr. Marvin Ashford MCV (RBC) [Entitic vol] 93.2 fL Normal 81.0-99.0 [facility] Comment on above: Performed By: #### C BC #### [facility] [address] [place] [address] Dr. Marvin Ashford MONO # 0.8 103/ul Normal 0.3-0.8 [facility] Comment on above: Performed By: #### C BC #### [facility] [address] [place] [address] Dr. Marvin Ashford Monocytes/100 WBC (Bld) 7.8 % Normal 1.7-12.0 [facility] Comment on above: Performed By: #### C BC #### [facility] [address] [place] [address] Dr. Marvin Ashford NEUT # 8.0 103/ul Critically high 1.4-6.5 [facility] Comment on above: Performed By: #### C BC #### [facility] [address] [place] [address] Dr. Marvin Ashford Neutrophils/100 WBC (Bld) 74.3 % Normal 43.0-75.0 [facility] Comment on above: Performed By: #### C BC #### [facility] [address] [place] [address] Dr. Marvin Ashford Platelet mean volume (Bld) [Entitic vol] 9.9 fL Normal 9.5-13.5 [facility] Comment on above: Performed By: #### C BC #### [facility] [address] [place] [address] Dr. Marvin Ashford PLT 211 103/ul Normal 150-450 [facility] Comment on above: Performed By: #### C BC #### [facility] [address] [place] [address] Dr. Marvin Ashford RBC 3.81 106/ul Critically low 4.20-5.40 [facility] Comment on above: Performed By: #### C BC #### [facility] [address] [place] [address] Dr. Marvin Ashford WBC 10.7 103/ul Normal 4.0-11.0 [facility] Comment on above: Performed By: #### C BC #### [facility] [address] [place] [address] Dr. Marvin Ashford Covid-19 PCR ([facility])on SARS-CoV-2 (COVID-19) RNA SHANEKA+probe Ql (Unsp spec) Not detected Normal NOT DETECTED [facility] Comment on above: Result Comment: When diagnostic testing is negative, the possibility of a false negative should be considered in the context of a patient's recent exposures and the presence of clinical signs and symptoms consistent with SARS-CoV-2. This test is not yet approved or cleared by the [place] FDA. When there are no FDA-approved or cleared tests available, and other criteria are met, FDA can make tests available under an emergency access mechanism called an Emergency Use Authorization (EUA). The EUA for this test is supported by the [employer] of Health and Human Service's declaration that circumstances exist to justify the emergency use of in vitro diagnostics for the detection and/or diagnosis of the virus that causes COVID-19. This EUA will remain in effect for the duration of the COVID-19 declaration justifying emergency of IVDs, unless it is terminated or revoked by the FDA (after which the test may no longer be used). Performed By: #### G BSCX #### [facility] [address] [place] [address] Dr. Marvin Ashford DRUG SCREEN RAPID (URINE)on 05-01-2022 AMP Negative Normal NEGATIVE [facility] Comment on above: Performed By: #### G BSCX #### [facility] [address] [place] [address] Dr. Marvin Ashford BAR Negative Normal NEGATIVE [facility] Comment on above: Performed By: #### G BSCX #### [facility] [address] [place] [address] Dr. Marvin Ashford BUP Negative Normal NEGATIVE [facility] Comment on above: Performed By: #### G BSCX #### [facility] [address] [place] [address] Dr. Marvin Ashford BZO Negative Normal NEGATIVE [facility] Comment on above: Performed By: #### G BSCX #### [facility] [address] [place] [address] Dr. Marvin Ashford MYNOR Negative Normal NEGATIVE [facility] Comment on above: Performed By: #### G BSCX #### [facility] [address] [place] [address] Dr. Marvin Ashford CUT-OFFS SEE BELOW Normal [facility] Comment on above: Result Comment: AMP (Amphetamine): 500ng/mL, BAR (Barbituates): 200 ng/mL, BZO (Benzodiazepines): 150 ng/mL, BUP (Buprenorphine): 10 ng/mL, MYNOR (Cocaine): 150 ng/mL, mAMP (Methamphetamine): 500 ng/mL, MTD (Methadone): 200 ng/mL, OPI (Opiates): 100 ng/mL, OXY (Oxycodone): 100 ng/mL, PCP (Phencyclidine): 25 ng/mL, PPX (Propoxyphene): 300 ng/mL, THC (Cannabinoids): 50 ng/mL, TCA (Trycyclic Antidepressants): 300 ng/mL Performed By: #### G BSCX #### [facility] [address] [place] [address] Dr. Marvin Ashford DRUG CUT HEADER DRUG CLASS TEST SYSTEM CUT-OFF CONCENTRATIONS ARE FOLLOWS: Normal [facility] Comment on above: Performed By: #### G BSCX #### [facility] [address] [place] [address] Dr. Marvin Ashford mAMP Negative Normal NEGATIVE [facility] Comment on above: Performed By: #### G BSCX #### [facility] [address] [place] [address] Dr. Marvin Ashford MTD Negative Normal NEGATIVE [facility] Comment on above: Performed By: #### G BSCX #### [facility] [address] [place] [address] Dr. Marvin Ashford OPI Negative Normal NEGATIVE [facility] Comment on above: Performed By: #### G BSCX #### [facility] [address] [place] [address] Dr. Marvin Ashford OXY Negative Normal NEGATIVE [facility] Comment on above: Performed By: #### G BSCX #### [facility] [address] [place] [address] Dr. Marvin Ashford PCP Negative Normal NEGATIVE [facility] Comment on above: Performed By: #### G BSCX #### [facility] [address] [place] [address] Dr. Marvin Ashford PPX Negative Normal NEGATIVE [facility] Comment on above: Performed By: #### G BSCX #### [facility] [address] [place] [address] Dr. Marvin Ashford TCA Negative Normal NEGATIVE [facility] Comment on above: Performed By: #### G BSCX #### [facility] [address] [place] [address] Dr. Marvin Ashford THC Negative Normal NEGATIVE [facility] Comment on above: Performed By: #### G BSCX #### [facility] [address] [place] [address] Dr. Marvin Ashford TYPE AND SCREENon 05-01-2022 TYPE AND SCREEN Negative Normal [facility] Comment on above: Performed By: #### T NS #### [facility] [address] [place] [address] Dr. Marvin Ashford CHLAMYDIA/GONOCOCCUS SHANEKA (SW AB/URINE/PAPon 04-17-2022 Chlamydia trachomatis, SHANEKA Negative Normal Negative [facility] Comment on above: Performed By: #### C BC #### [facility] [address] [place] [address] Dr. Marvin Ashford Neisseria gonorrhoeae, SHANEKA Negative Normal Negative [facility] Comment on above: Performed By: #### C BC #### [facility] [address] [place] [address] Dr. Marvin Ashford GROUP B STREP CULTUREon 03-27 S. agalactiae Ag Ql (Unsp spec) Culture Observations: NEGATIVE FOR GROUP B STREPTOCOCCUS. Normal [facility] Comment on above: Performed By: #### G BSCX #### [facility] [address] [place] [address] Dr. Marvin Ashford CULTURE URINEon 03-09-2022 CULTURE URINE Culture Observations: NO GROWTH. Normal [facility] Comment on above: Performed By: #### H BSANS #### [facility] [address] [place] [address] Dr. Marvin Ashford UA (CLEAN/CATCH) COBBLER MCKAY/MICRO I F IND.on 03-09-2022 Bilirubin Ql (U) Negative Normal NEGATIVE [facility] Comment on above: Performed By: #### G BSCX #### [facility] [address] [place] [address] Dr. Marvin Ashford Clarity (U) CLEAR Normal CLEAR [facility] Comment on above: Performed By: #### G BSCX #### [facility] [address] [place] [address] Dr. Marvin Ashford Color (U) YELLOW Normal YELLOW [facility] Comment on above: Performed By: #### G BSCX #### [facility] [address] [place] [address] Dr. Marvin Ashford Glucose Ql (U) Negative Normal NEGATIVE [facility] Comment on above: Performed By: #### G BSCX #### [facility] [address] [place] [address] Dr. Marvin Ashford Hemoglobin Ql (U) SMALL Abnormal NEGATIVE [facility] Comment on above: Performed By: #### G BSCX #### [facility] [address] [place] [address] Dr. Marvin Ashford Ketones Ql (U) TRACE Abnormal NEGATIVE [facility] Comment on above: Performed By: #### G BSCX #### [facility] [address] [place] [address] Dr. Marvin Ashford LEUKOCYTES TRACE Abnormal NEGATIVE [facility] Comment on above: Performed By: #### G BSCX #### [facility] [address] [place] [address] Dr. Marvin Ashford Nitrite Ql (U) Negative Normal NEGATIVE [facility] Comment on above: Performed By: #### G BSCX #### [facility] [address] [place] [address] Dr. Marvin Ashford pH (U) 6.0 [pH] Normal 5-9 [facility] Comment on above: Performed By: #### G BSCX #### [facility] [address] [place] [address] Dr. Marvin Ashford SPEC GRAVITY 1.025 Normal 1.005-<=1.025 [facility] Comment on above: Performed By: #### G BSCX #### [facility] [address] [place] [address] Dr. Marvin Ashford UA PROTEIN Negative Normal NEGATIVE/ TRACE [facility] Comment on above: Performed By: #### G BSCX #### [facility] [address] [place] [address] Dr. Marvin Ashford UR MICRO IND INDICATED Normal [facility] Comment on above: Performed By: #### G BSCX #### [facility] [address] [place] [address] Dr. Marvin Ashford Urobilinogen Qn (U) 1.0 {Ekta'U}/dL Normal 0.2 - 1. 0 [facility] Comment on above: Performed By: #### G BSCX #### [facility] [address] [place] [address] Dr. Marvin Ashford URINE MICROSCOPIC ONLYon BACTERIA TRACE Abnormal NONE SEEN [facility] Comment on above: Performed By: #### G BSCX #### [facility] [address] [place] [address] Dr. Marvin Ashford Bacteria identified Cx Nom (U) INDICATED Normal [facility] Comment on above: Performed By: #### G BSCX #### [facility] [address] [place] [address] Dr. Marvin Ashford CAST NONE SEEN Normal NONE SEEN [facility] Comment on above: Performed By: #### G BSCX #### [facility] [address] [place] [address] Dr. Marvin Ashford Crystals LM Nom (Urine sed) NONE SEEN Normal NONE SEEN [facility] Comment on above: Performed By: #### G BSCX #### [facility] [address] [address] [address] Marvin Ashford Epithelial cells LM Ql (Urine sed) MANY Abnormal NONE SEEN /RARE [facility] Comment on above: Performed By: #### G BSCX #### [facility] [address] [address] [address] Marvin Ashford MUCOUS TRACE Abnormal NONE SEEN [facility] Comment on above: Performed By: #### G BSCX #### [facility] [address] [place] [address] Dr. Marvin [place] RBC 2-5 Abnormal 0-2 [facility] Comment on above: Performed By: #### G BSCX #### [facility] [address] [place] [address] Dr. Marvin Ashford WBC 2-5 Abnormal NONE SEEN [facility] Comment on above: Performed By: #### G BSCX #### [facility] [address] [place] [address] Dr. Marvin Ashford US PREG PLACENTAon 2 US PREG PLACENTA EXAM: US PREG CERVICAL LENGTH, US PREG PLACENTA HISTORY: Abnormal vaginal bleeding COMPARISON: 12/19/2021. TECHNIQUE: Abbreviated grayscale and color Doppler evaluation of the cervix and placenta. This study does not serve as a anatomic survey. FINDINGS/IMPRESSION: 1. Anterior placenta with homogenous echotexture. Margin/distance from cervix not visualized given presentation. Mild subchorionic hemorrhage, likely within normal limits. 2. Cervix measures between 3.2-3.5 cm (with fundal and Valsalva), within normal limits. The cervix is closed and there is no endocervical fluid appreciated. No finally appreciated. 3. heart rate is 1 35 bpm. Cephalic presentation. This study does not constitute a anatomic survey. Electronically authenticated by: CHOCO SAUNDERS Date: 2022-03-09 17:20 Normal [facility] COVID + FLU Quick Testingon 02-21-2022 SARS-CoV-2 (COVID-19) RNA SHANEKA+probe Ql (Unsp spec) Positive [facility] Other COVID + FLU Quick Testing Negative [facility] Other Quick Strepon 02-21-2022 S. pyogenes Org specific cx Ql (Throat) Negative [facility] Other Quick Strep [employer] [facility] [employer] Other GLUCOSE - 1HRon 02-09-2022 Glucose [Mass/Vol] 133 mg/dL Critically high 74-106 T [facility] Comment on above: Performed By: #### G BSCX #### [facility] [address] [place] [address] Dr. Marvin Ashford HEMOGRAM AND PLATELon 2021 Hematocrit (Bld) [Volume fraction] 33.4 % Critically low 36.0-48.0 [facility] Comment on above: Performed By: #### H H #### [facility] [address] [place] [address] Dr. Marvin Ashford Hemoglobin (Bld) [Mass/Vol] 11.3 g/dL Critically low 12.0-16.0 [facility] Comment on above: Performed By: #### H H #### [facility] [address] [place] [address] Dr. Marvin Ashford MCH (RBC) [Entitic mass] 31.9 pg Normal 26.7-34.0 [facility] Comment on above: Performed By: #### H H #### [facility] [address] [place] [address] Dr. Marvin Ashford MCHC (RBC) [Mass/Vol] 33.8 g/dL Normal 29.9-35.2 [facility] Comment on above: Performed By: #### H H #### [facility] [address] [place] [address] Dr. Marvin Ashford MCV (RBC) [Entitic vol] 94.4 fL Normal 81.0-99.0 [facility] Comment on above: Performed By: #### H H #### [facility] [address] [place] [address] Dr. Marvin Ashford PLT 216 103/ul Normal 150-450 [facility] Comment on above: Performed By: #### H H #### [facility] [address] [place], [place] [address] Dr. Marvin Ashford RBC 3.54 106/ul Critically low 4.20-5.40 [facility] Comment on above: Performed By: #### H H #### [facility] [address] [place], [place] [address] Dr. Marvin Ashford WBC 10.1 103/ul Normal 4.0-11.0 [facility] Comment on above: Performed By: #### H H #### [facility] [address] [place], [place] [address] Dr. Marvin Ashford US PREG ANATOMY SINGLEon US PREG ANATOMY SINGLE EXAMINATION: US PREG ANATOMY SINGLE HISTORY: anatomy study COMPARISON: No relevant comparison available. TECHNIQUE: Transabdominal sonographic examination was performed for obstetrical and evaluation. FINDINGS: Number: 1 Heart Rate: 140.0 bpm H.B. /min Amniotic Fluid Volume: Subjectively normal position: Breech presentation, variable lie Placental Location: ANTERIOR, grade 0, placental edge is 8.2 cm from the cervical os Cervix Length: 4 cm , closed Normally visualized anatomy: Cerebellum, choroid plexus, cisterna magna, lateral cerebral ventricles, orbits, midline falx, hard palate, four-chamber heart, RVOT, LVOT, stomach, kidneys, bladder, umbilical cord insertion into the abdomen, three-vessel cord, cervical spine, thoracic spine, lumbar spine, sacral spine, right upper extremity, left upper extremity, right lower extremity, left lower extremity Suboptimally visualized anatomy: None BIOMETRY: BPD: 4.6 cm 19 weeks 6 days , 46% HC: 17.6 cm 20 weeks 1 days, 48% AC: 16.1 cm 21 weeks 1 days, 81% FL: 3.3 cm 20 weeks 1 days, 50% EFW:367.6 grams; 13 ounces, 81% FL/AC: 20.3 FL/BPD: 71.1 HC/AC: 1.1 GESTATIONAL AGE: Age by EDC: 20 weeks 0 days FRANCISCO by EDC: 05/06/2022 Age by current US: 20 weeks 2 days FRANCISCO by current US: 05/08/2022 IMPRESSION: Normal anatomy scan *Reference: [employer] Practice Guideline for the performance of Obstetric Ultrasound Examinations, May 27, 2007. Electronically authenticated by: JACOBO LATHAM Date: 2021-12-19 17:27 Normal [facility] AFP MATERNAL FOR SPINA BIFID Aon 12-11-2021 AFP MoM 0.90 Normal [facility] Comment on above: Performed By: #### H BSANS #### [facility] [address] [place] [address] [address] Marvin Ashford AFP Value 54.5 ng/mL Normal [facility] Comment on above: Performed By: #### H BSANS #### [facility] [address] [address] [address] Marvin Ashford AFP, Serum for Spina Bifida Report Normal [facility] Comment on above: Performed By: #### H BSANS #### [facility] [address] [address] [address] Marvin Ashford Comment Comment Normal [facility] Comment on above: Result Comment: Mindi Ribera, Ph.D., [facility] Director . References: Available Upon Request. . Multiples Of Median Cutoffs For AFP Elevations Hill 2.5 Black 2.8 IDD 2.0 Twins 4.5 Abbreviation Definitions IDD - Insulin Dep Diabetes OSBR - Open Spina Bifida Risk . For further inquiries contact [employer] [facility] at [phone]. Performed By: #### H BSANS #### [facility] [address] [place] [address] Dr. Marvin Downey Age Collection Date 18.6 weeks [facility] Comment on above: Performed By: #### H BSANS #### [facility] [address] [place] [address] Dr. Marvin Ashford Gestat, Age Based on As provided [facility] Comment on above: Result Comment: Reca lculations are not recommended when gestational dating by LMP and ultrasound are within 10 days. Performed By: #### H BSANS #### [facility] [address] [place] [address] [address] Marvin Ashford Insulin Dep Diabetes No Normal [facility] Comment on above: Performed By: #### H BSANS #### [facility] [address] [place] [address] Dr. Marvin Ashford Interpretation Comment Normal [facility] Comment on above: Result Comment: Inte rpretation: Screen Negative . This result is screen negative for OSB. The AFP MoM calculated is based on the gestational age provided. MS-AFP can identify up to 80% of open neural tube defects. Closed neural tube defects and some open defects may not be detected by this test. This test does not screen for Down Syndrome or Trisomy 18. If screening for Down Syndrome or Trisomy 18 is desired, contact [employer] to discuss available options. The [employer] recommends amniocentesis be offered to women age 35 and older. Performed By: #### H BSANS #### [facility] [address] [place] [address] Dr. Marvin Ashford [age] Normal [facility] Comment on above: Performed By: #### H BSANS #### [facility] [address] [place] [address] Dr. Marvin Ashford Multiple Gestation No Normal [facility] Comment on above: Performed By: #### H BSANS #### [facility] [address] [place] [address] [address] Marvin Ashford [place] [id number] Normal [facility] Comment on above: Performed By: #### H BSANS #### [facility] [address] [place] [address] Dr. Marvin Ashford PDF . Normal [facility] Comment on above: Result Comment: This test was developed and its performance characteristics determined by [facility]. It has not been cleared or approved by the Food and Drug Administration. Performed By: #### H BSANS #### [facility] [address] [place] [address] Dr. Marvin Ashford Race Normal [facility] Comment on above: Performed By: #### H BSANS #### [facility] [address] [place] [address] Dr. Marvin Ashford Test Results: Negative Normal [facility] Comment on above: Performed By: #### H BSANS #### [facility] [address] [place] [address] Dr. Marvin Ashford HEP B SURFACE ANTIGEN SCREEN on 10-26-2021 HBsAg Screen Negative Normal Negative [facility] Comment on above: Performed By: #### H BSANS #### [facility] [address] [place] [address] Dr. Marvin Ashford HEPATITIS C VIRUS AB W/ REFL EX QUANTon 10-26-2021 HCV AB <0.1 Normal 0.0-0.9 [facility] Comment on above: Performed By: #### C BC #### [facility] [address] [place] [address] Dr. Marvin Ashford Interpretation: Comment Normal [facility] Comment on above: Result Comment: Nega tive Not infected with HCV, unless recent infection is suspected or other evidence exists to indicate HCV infection. Performed By: #### C BC #### [facility] [address] [place] [address] Dr. Marvin Ashford HIV 1 AND 2 WITH REFLEXon HIV Screen 4th Generation wRfx Non-Reactive Normal Non Reactive [facility] Comment on above: Result Comment: HIV Negative HIV-1/HIV-2 antibodies and HIV-1 p24 antigen were NOT detected. There is no laboratory evidence of HIV infection. Performed By: #### G BSCX #### [facility] [address] [place] [address] Dr. Marvin Ashford RPR QUANTon 10-26-2021 Rapid Plasma Reagin, Quant Non-Reactive Normal NonRea<1:1 [facility] Comment on above: Performed By: #### C BC #### [facility] [address] [place] [address] Dr. Marvin Ashford RUBELLA AB IGGon 10-26-2021 Rubella Antibodies, IgG 1.87 index Normal Immune >0.99 [facility] Comment on above: Result Comment: Non- immune <0.90 Equivocal 0.90 - 0.99 Immune >0.99 Performed By: #### G BSCX #### [facility] [address] [place] [address] Dr. Marvin Ashford CBC AUTO DIFFon 10-25-2021 BASO # 0.0 103/ul Normal 0.0-0.1 [facility] Comment on above: Performed By: #### C BC #### [facility] [address] [place] [address] Dr. Marvin Ashford Basophils/100 WBC (Bld) 0.3 % Normal 0.2-2.0 [facility] Comment on above: Performed By: #### C BC #### [facility] [address] [place] [address] Dr. Marvin Ashford EO # 0.0 103/ul Normal 0.0-0.7 [facility] Comment on above: Performed By: #### C BC #### [facility] [address] [place] [address] Dr. Marvin Ashford Eosinophils/100 WBC (Bld) 0.1 % Critically low 0.9-7.0 [facility] Comment on above: Performed By: #### C BC #### [facility] [address] [place] [address] Dr. Marvin Ashford Erythrocyte distribution width (RBC) [Ratio] 13.1 % Normal 11.0-15.0 [facility] Comment on above: Performed By: #### C BC #### [facility] [address] [place] [address] Dr. Marvin Ashford Hematocrit (Bld) [Volume fraction] 34.7 % Critically low 36.0-48.0 [facility] Comment on above: Performed By: #### C BC #### [facility] [address] [place] [address] Dr. Marvin Ashford Hemoglobin (Bld) [Mass/Vol] 11.6 g/dL Critically low 12.0-16.0 [facility] Comment on above: Performed By: #### C BC #### [facility] [address] [place] [address] Dr. Marvin Ashford IG # 0.04 10e3/ul Critically high 0.00-0.03 [facility] Comment on above: Performed By: #### C BC #### [facility] [address] [place] [address] Dr. Marvin Ashford IG % 0.5 % Normal 0.0-0.5 [facility] Comment on above: Performed By: #### C BC #### [facility] [address] [place] [address] Dr. Marvin Ashford LYMPH # 1.9 103/ul Normal 1.2-3.8 [facility] Comment on above: Performed By: #### C BC #### [facility] [address] [place] [address] Dr. Marvin Ashford Lymphocytes/100 WBC (Bld) 22.4 % Normal 20.5-60.0 [facility] Comment on above: Performed By: #### C BC #### [facility] [address] [place] [address] Dr. Marvin Ashford MANUAL DIFF REQ NO Normal [facility] Comment on above: Performed By: #### C BC #### [facility] [address] [place] [address] Dr. Marvin Ashford MCH (RBC) [Entitic mass] 30.2 pg Normal 26.7-34.0 [facility] Comment on above: Performed By: #### C BC #### [facility] [address] [place] [address] Dr. Marvin Ashford MCHC (RBC) [Mass/Vol] 33.4 g/dL Normal 29.9-35.2 [facility] Comment on above: Performed By: #### C BC #### [facility] [address] [place] [address] Dr. Marvin Ashfodr MCV (RBC) [Entitic vol] 90.4 fL Normal 81.0-99.0 [facility] Comment on above: Performed By: #### C BC #### [facility] [address] [place] [address] Dr. Marvin Ashford MONO # 0.5 103/ul Normal 0.3-0.8 [facility] Comment on above: Performed By: #### C BC #### [facility] [address] [place] [address] Dr. Marvin Ashford Monocytes/100 WBC (Bld) 5.5 % Normal 1.7-12.0 [facility] Comment on above: Performed By: #### C BC #### [facility] [address] [place] [address] Dr. Marvin Ashford NEUT # 6.2 103/ul Normal 1.4-6.5 [facility] Comment on above: Performed By: #### C BC #### [facility] [address] [place] [address] Dr. Marvin Ashford Neutrophils/100 WBC (Bld) 71.2 % Normal 43.0-75.0 [facility] Comment on above: Performed By: #### C BC #### [facility] [address] [place] [address] Dr. Marvin Ashford Platelet mean volume (Bld) [Entitic vol] 9.5 fL Normal 9.5-13.5 [facility] Comment on above: Performed By: #### C BC #### [facility] [address] [place] [address] Dr. Marvin Ashford PLT 243 103/ul Normal 150-450 [facility] Comment on above: Performed By: #### C BC #### [facility] [address] [place] [address] Dr. Marvin Ashford RBC 3.84 106/ul Critically low 4.20-5.40 [facility] Comment on above: Performed By: #### C BC #### [facility] [address] [place] [address] Dr. Marvin Ashford WBC 8.7 103/ul Normal 4.0-11.0 [facility] Comment on above: Performed By: #### C BC #### [facility] [address] [place] [address] Dr. Marvin Ashford CULTURE URINEon 10-25-2021 CULTURE URINE Culture Observations: NO GROWTH. Normal [facility] Comment on above: Performed By: #### U RCX #### [facility] [address] [place] [address] Dr. Marvin Ashford GLYCOHEMOGLOBIN A1Con 2021 ADA RECOMMENDATION ADA THERAPEUTIC TARGET 6.0 - 7.0 ACTION SUGGESTED > 7.0 Normal [facility] Comment on above: Performed By: #### C BC #### [facility] [address] [address] [address] Marvin Ashford Glucose [Mass/Vol] 97 mg/dL Normal [facility] Comment on above: Performed By: #### C BC #### [facility] [address] [address] [address] Marvin Ashford HbA1c (Bld) [Mass fraction] 5.0 % Normal <=6.0 [facility] Comment on above: Performed By: #### C BC #### [facility] [address] [address] [address] Marvin Ashford TASHA BOX TEST PT SEND OUTo n 10-25-2021 SENT TO REF LAB 10/25/21 Normal [facility] Comment on above: Performed By: #### C BC #### [facility] [address] [place] [address] Dr. Marvin Ashford TYPE AND SCREENon 10-25-2021 TYPE AND SCREEN Negative Normal [facility] Comment on above: Performed By: #### T NS #### [facility] [address] [place] [address] Dr. Marvin Ashford US PREG TVon 09-27-2021 US PREG TV EXAMINATION: US PREG TV HISTORY: Missed period COMPARISON: 09/08/2021 FINDINGS: Transvaginal images Hill intrauterine gestation MSD: 2.57 cm, 7 weeks 4 days, normal morphology CRL: 1.75 cm, 8 weeks 1 day Yolk sac: 0.407 cm Heart rate: 174 bpm Cervix: Closed, 4.2 centimeters The uterus is normal in appearance, anteverted, anteflexed The right ovary is normal in appearance. The left ovary is not visualized Clinical age: Unknown Ultrasound age: 8 weeks 1 day Ultrasound FRANCISCO: 05/08/2022 IMPRESSION: Viable hill intrauterine gestation measuring 8 weeks 1 day Electronically authenticated by: JACOBO LATHAM Date: 2021-09-27 14:04 Normal [facility] US PREG TVon 09-08-2021 US PREG TV EXAMINATION: US PREG TV HISTORY: Missed period COMPARISON: No relevant comparison available. FINDINGS: Transvaginal images Hill intrauterine gestation Gestational sac: Mean sac diameter 0.909 cm, 5 weeks 3 days Yolk sac: 0.261 cm pole: Not visualized Cervix: Closed, 4.4 cm The uterus is normal in appearance. Anteverted, anteflexed The ovaries are normal in appearance. The right ovary measures 2.7 x 1.4 x 2.8 cm per the left ovary measures 2.2 x 1.9 x 2.9 cm. Clinical age: 10 weeks 3 days Clinical FRANCISCO: 04/03/2022 Ultrasound age: 5 weeks 3 days Ultrasound FRANCISCO: 05/08/2022 IMPRESSION: Viable early intrauterine gestation measuring 5 weeks 3 days Electronically authenticated by: JACOBO LATHAM Date: 2021-09-08 14:11 Normal [facility] Group A Strep DNAon 08-15-20 Group A Strep DNA Specimen Description .THROAT SWABSpecial Requests NOT REPORTEDDirect Exam Negative: Specimen negative for Streptococcus pyogenes by DNA amplification.Report Status FINAL 08/15/2018 Normal [facility] Comment on above: Performed By: #### G ASDNA ####[facility] [place], [place] [id number] [facility] [place] [address] Strep Gr A Direct Agon 08-13 S. pyogenes Ag IA Ql (Unsp spec) Specimen Description .THROATSpecial Requests NOT REPORTEDDirect Exam Rapid Strep A negative. A negative Rapid Group A Strep Screen result does not rule out the possibility of Group A Streptococci in the specimen. The [place] [employer] recommends confirmation testing. Therefore, a Group A Strep DNA test will be performed. Report Status FINAL 08/13/2018 [facility] Comment on above: Performed By: #### S GPA ####[facility] [place] [id number] XR FOOT LEFT (MIN 3 VIEWS)on 01-30-2018 XR FOOT LEFT (MIN 3 VIEWS) LEFT FOOT, 01/30/2018INDICATION: Foot pain.COMPARISON: None.FINDINGS: Three views of the left foot were obtained. There is no acute fracture or dislocation. Osseous structures are well mineralized. Visualized soft tissues appear unremarkable. No radiopaque foreign body.IMPRESSION: No acute osseous abnormality.Interpre jovanny by:MARÍA Quirosigned by:Robert Muse MD01/30/18inal result Normal [facility] Vital Signs Date Time Vital Sign Value Performing Clinician Facility 05-28-2023 14:25-0400 Body height 157.48 cm Mi Lang Other [facility] Other 05-28-2023 14:25-0400 Body mass index (BMI) [Ratio] 18.47 kg/m2 [facility] Other [facility] Other 05-28-2023 14:25-0400 Body temperature 97.5 [degF] Miserge Lang Other [facility] Other 05-28-2023 14:25-0400 Body weight 45.81 kg Mi Lang Other [facility] Other 05-28-2023 14:25-0400 Diastolic blood pressure 72 mm[Hg] Mi Lang Other [facility] Other 05-28-2023 14:25-0400 Respiratory rate 18 /min [facility] Other [facility] Other 05-28-2023 14:25-0400 SaO2% (BldA) [Mass fraction] 100 % [facility] Other [facility] Other 05-28-2023 14:25-0400 Systolic blood pressure 115 mm[Hg] Mi Lang Other [facility] Other 02-21-2022 13:15-0400 Body height 157.48 cm Nataliia Pérez Other [facility] Other 02-21-2022 13:15-0400 Body mass index (BMI) [Ratio] 23.77 kg/m2 Nataliia Elisa Other [facility] Other 02-21-2022 13:15-0400 Body temperature 101.1 [degF] Nataliia Paytonmond Other [facility] Other 02-21-2022 13:15-0400 Body weight 58.97 kg Nataliia Pérez Other [facility] Other 02-21-2022 13:15-0400 Respiratory rate 20 /min Nataliia Paytonmond Other [facility] Other 02-21-2022 13:15-0400 SaO2% (BldA) [Mass fraction] 99 % Nataliia Paytonmond Other [facility] Other 12-11-2021 02:05-0400 Body weight 50.[address] DOCTOR LUNA [facility] Comment on above: Performed By: #### HBSANS #### [facility] [address] [place] [address] Dr. Marvin Ashford 11-07-2021 16:50-0400 Body height 160.02 cm Nataliia Elisa Other [facility] Other 11-07-2021 16:50-0400 Body mass index (BMI) [Ratio] 19.31 kg/m2 Nataliia Elisa Other [facility] Other 11-07-2021 16:50-0400 Body weight 49.44 kg Nataliia Paytonmond Other [facility] Other Encounters Encounter Date Encounter Type Care Provider Facility Start: 08-30-2023 End: 08-30-2023 ambulatory DANYELLE GRACIA Not Available Start: 08-01-2023 End: 08-01-2023 ambulatory DANYELLE GRACIA Not Available Start: 05-28-2023 End: 05-28-2023 ambulatory Mi Lang Other [facility] Other Start: 05-28-2023 Office outpatient vi sit 15 minutes Mi Lang [facility] Start: 05-26-2022 End: 05-26-[address] MARCO FRY Facility:[facility] Start: 05-07-2022 End: 05-07-[address] VIKTORIA MCCOLLUM Facility:[facility] Start: 05-01-2022 End: 05-05-2022 Evaluation and management of inpatient DR VIKTORIA MCCOLLUM Facility:[facility] Start: 04-14-2022 End: 04-14-[address] VIKTORIA MCCOLLUM Facility:[facility] Start: 03-09-2022 End: 03-09-[address] RICHARD EDDY Facility:[facility] Start: 02-21-2022 End: 02-21-2022 ambulatory Nataliia Pérez Other [facility] Other Start: 02-21-2022 Office outpatient vi sit 15 minutes Nataliia Pérez [facility] Start: 02-09-2022 End: 02-10-[address] VIKTORIA MCCOLLUM Facility:[facility] Start: 12-19-2021 End: 12-20-[address] DOCTOR LUNA Facility:[facility] Start: 12-09-2021 End: 12-10-[address] DOCTOR LUNA Facility:[facility] Start: 11-07-2021 End: 11-07-2021 ambulatory Nataliia Pérez Other [facility] Other Start: 11-07-2021 Office outpatient vi sit 15 minutes Nataliia Pérez [facility] Start: 10-25-2021 End: 10-26-[address] VIKTORIA MCCOLLUM Facility:[facility] Start: 09-27-2021 End: 02-02-[address] VIKTORIA MCCOLLUM Facility:[facility] Start: 09-08-2021 End: 09-09-[address] VIKTORIA MCCOLLUM Facility:[facility] Start: 07-26-2021 ambulatory Iraida [place] ty:[facility] Start: 08-13-2018 End: 08-13-2018 Emergency department patient visit DEBBY ROBERTSON [facility] Start: 01-30-2018 End: 01-30-2018 Emergency department patient visit VESKAUSHIK CHANNING [facility] Procedures Date Procedure Procedure Detail Performing Clinician Start: 05-03-2022 Repair Cervix, Via N atural or Artificial Opening DR DOCTOR LUNA Start: 05-03-2022 Delivery of Products of Conception, External Approach DR DOCTOR LUNA Start: 05-03-2022 Transfusion of Nonau tologous Fresh Plasma into Peripheral Vein, Percutaneous Approach DR DOCTOR LUNA Start: 05-02-2022 Introduction of Horm one into Female Reproductive, Via Natural or Artificial Opening DR DOCTOR LUNA Start: 05-02-2022 Introduction of Othe r Hormone into Peripheral Vein, Percutaneous Approach DR DOCTOR LUNA Start: 05-01-2022 Introduction of Horm one into Female Reproductive, Via Natural or Artificial Opening DR DOCTOR LUNA Start: 08-13-2018 STREP A DNA PROBE, AMPLIFICATION VESELIN CHANNING Start: 08-13-2018 STREP SCREEN GROUP A THROAT VESELIN CHANNING Start: 01-30-2018 BANDAGE CLARK 4 VESELIN D IMITROV Start: 01-30-2018 Radex foot complete minimum 3 views VESELIN CHANNING Payers Date Payer Category Payer Medicaid [id number] 2003 Unknown [id number] 2.16.84 0.1.176554.3.579.2.593 2003 Unknown [id number] 2.16.84 0.1.795018.3.579.2.593 2003 Unknown [id number] 2.16.84 0.1.564895.3.579.2.593 2003 Unknown [id number] 2.16.84 0.1.225996.3.579.2.593 2003 Unknown [id number] 2.16.84 0.1.269991.3.579.2.593 2003 Unknown [id number] 2.16.84 0.1.687690.3.579.2.593 2003 Unknown [id number] 2.16.84 0.1.648916.3.579.2.593 2003 Unknown [id number] 2.16.84 0.1.444860.3.579.2.593 2003 Unknown [id number] 2.16.84 0.1.642956.3.579.2.593 2003 Unknown [id number] 2.16.84 0.1.281397.3.579.2.593 2003 Unknown [id number] 2.16.84 0.1.413048.3.579.2.593 2003 Unknown [id number] 2.16.840 .1.012677.3.579.2.1259 2003 Unknown [id number] 2.16.840 .1.983391.3.579.2.1259 1984 Unknown [id number] 2.16.84 0.1.964494.3.579.2.174 1984 Unknown [id number] 2.16.84 0.1.432911.3.579.2.174 1984 Unknown [id number] 2.16.8 40.1.845595.3.579.2.727 1959 Self-pay 1961 Unknown [id number] Unknown [id number] 2.16.84 0.1.608216.3.579.2.593 Social History Date Type Detail Facility Sex Assigned At [facility] Other Evaluation note 05-28-2023 Note Date & Type Note Facility 05-28-2023 Evaluation note Encounter Date Diagnosis Assessment Notes May, Sore throat (ICD-10 - J02.9) May, Strep pharyngitis (ICD-10 - J02.0) Rapid strep positive. Discussed strep is a bacterial throat infection. Will treat with amoxil. Discussed importance of finishing entire course of antibiotic. Recommend changing toothbrush and washing bedding after 48 hours on antibiotic to avoid re-exposure. Discussed less contagious after 24 hours on antibiotic. Avoid sharing cups or drinks. May use Tylenol/ibuprofe n, warm salt water gargles, topical throat sprays or throat lozenges for symptomatic treatment. Fluids/rest encouraged. Follow-up with PCP if not gradually improving over the next 4 to 5 days or continuing fever. Patient/parent verbalized understanding of treatment plan. [facility] Other Evaluation note 02-21-2022 Note Date & Type Note Facility 02-21-2022 Evaluation note Encounter Date Diagnosis Assessment Notes Jan, Sore throat (ICD-10 - J02.9) Jan, COVID-19 (ICD-10 - U07.1) Drink plenty fluids, get plenty of rest. Notify your dietary assistant of your positive COVID results. You must quarantine for 5 days after the onset of your symptoms, then you must wear a mask when out and about for the next 5 days. [facility] Other Evaluation note 11-07-2021 Note Date & Type Note Facility 11-07-2021 Evaluation note Encounter Date Diagnosis Assessment Notes Oct, Left ear impacted cerumen (ICD-10 - H61.22) Drink plenty fluids, get plenty of rest. Do not use Q-tips in your ears. Follow-up with your family physician for any further concerns. Follow the cerumen impaction home care instructions. [facility] Other Summary Purpose Family History No Family History Records FoundNo Family History Records FoundNo Family History Records FoundNo Family History Records Found Advance Directives No Advanced Directives Records FoundNo Advanced Directives Records FoundNo Advanced Directives Records FoundNo Advanced Directives Records Found Additional Source Comments INFORMATION SOURCE (unrecogn ized section and content) DATE CREATED AUTHOR 08/19/2018 Laquita pantoja DATE CREATED AUTHOR AUTHOR'S ORGANIZ ATION 05/30/2022 [facility] DATE CREATED AUTHOR AUTHOR'S ORGANIZ ATION 08/25/2023 [facility] DATE CREATED AUTHOR AUTHOR'S LEXX ATION 09/01/2023 [facility] EPIC REASON FOR VISIT (unrecogniz ed section and content) EARACHEYELLOW CAMARO, SORE T HROAT, DRY COUGH X 2 DAYSPOSSIBLE STREP THROAT FOR RECORDS PERTAINING TO PATIENTS WHO ARE OR HAVE BEEN ENROLLED IN A CHEMICAL DEPENDENCY/SUBSTANCEABUSE PROGRAM, SOME INFORMATION MAY BE OMITTED. This clinical summary was aggregated from multiple sources. Caution should be exercised in using it in the provision of clinical care. This summary normalizes information from multiple sources, and as a consequence, information in this document may materially change the coding, format and clinical context of patient data. In addition, data may be omitted in some cases. CLINICAL DECISIONS SHOULD BE BASED ON THE PRIMARY CLINICAL RECORDS. [employer] provides no warranty or guarantee of the accuracy or completeness of information in this document.
== END 2023-09-05 13:07 | disposition home or self-care (01) ==
LOC: US 13:06
PROVIDERS: Visit Provider Obstetrics & Gynecology
DX: Z36.89 Encounter for other specified antenatal screening (principal); Z3A.20 20 weeks gestation of pregnancy
CPT/HCPCS: 76805; 76817

== ENCOUNTER 2023-09-21 15:43 | Outpatient (OUT) | payer OTHER, SELFPAY ==
--- OUTSIDE RECORDS SUMMARY | 2023-09-21 15:41 | XMS_ITS | CCD ---
Author Name Unknown Address [address] [place] [address] Organization [facility] Care Team Providers Care Personnel Scheduler Name Role Phone NATE SNELL Unavailable Unavailable [...] Admitting Unavailable KARASIK, DR BLUM Consulting Unavailable LIBERTY, DR JACOBO Bunn Consult[employer] Unavailable KARASIK, DR [...] Primary Care Unavailable Precious Mi Unavailable Iraida Butcher Referring Unavailable Iraida Butcher Attending Unavailable Iraida [...] pyogenes Org specific cx Ql (Throat) Positive [facility] [employer] Other Quick Strep [facility] [employer] Other Covid-19 PCR ([facility])on 04-29 SARS-CoV-2 (COVID-19) RNA SHANEKA+probe Ql (Unsp spec) Not detected Normal NOT DETECTED [facility] Comment on above: Result Comment: When diagnostic [...] for this test is supported by the [place] of Health and Human Service's declaration that [...] used). Performed By: #### H BSANS #### [facility] [address] [place] [address] Dr. Marvin Ashford GROUP A STREP CULTUREon 04-29 S. pyogenes Ag Ql (Unsp spec) Culture Observations: NEGATIVE FOR GROUP A STREPTOCOCCUS. Normal [facility] Comment on above: Performed By: #### C BC #### [facility] [address] [place] [address] Dr. Marvin Ashford STREPT SCREENon 05-26-2022 STREP SCREEN A Negative Normal NEGATIVE [facility] Comment on above: Performed By: #### C BC #### [facility] [address] [place] [address] Dr. Marvin Ashford FRESH FROZ PLASMAon 05-07-20 22 FRESH FROZ PLASMA Unit Blood Type A Pos Unit Number [id number] Status Information Transfused Product ID FFP Product Code [id number] [facility] Comment on above: Performed By: #### F FP #### [facility] [address] [place] [address] Dr. Marvin Ashford FRESH FROZ PLASMA Unit Blood Type A Pos Unit Number [id number] Status Information Transfused Product ID FFP Product Code [id number] Normal [facility] Comment on above: Performed By: #### F FP #### [facility] [address] [place] [address] Dr. Marvin Ashford PRBC LEUKOREDUCEDon 05-07-20 22 ABO and Rh group Nom (Bld) Cross Match Result Compatible Unit Blood Type A Pos Unit Number [id number] Status Information Transfused Product ID Red Blood Cells Product Code [id number] Cross Match Result Compatible Unit Blood Type A Pos Unit Number [id number] Status Information Released Specimen Exp Date Product ID Red Blood Cells Product Code [id number] [facility] Comment on above: Performed By: #### P RBC #### [facility] [address] [place] [address] Dr. Marvin Ashford ABO and Rh group Nom (Bld) Cross Match Result Compatible Unit Blood Type A Pos Unit Number [id number] Status Information Released Specimen Exp Date Product ID Red Blood Cells Product Code [id number] Cross Match Result Compatible Unit Blood Type A Pos Unit Number [id number] Status Information Transfused Product ID Red Blood Cells Product Code [id number] [facility] Comment on above: Performed By: #### H BSANS #### [facility] [address] [place] [address] Dr. Marvin Ashford CBC AUTO DIFFon 05-05-2022 BASO # 0.1 103/ul Normal 0.0-0.1 [facility] Comment on above: Performed By: #### G BSCX #### [facility] [address] [place] [address] Dr. Marvin Ashford Basophils/100 WBC (Bld) 0.3 % Normal 0.2-2.0 [facility] Comment on above: Performed By: #### G BSCX #### [facility] [address] [place] [address] Dr. Marvin Ashford EO # 0.0 103/ul Normal 0.0-0.7 [facility] Comment on above: Performed By: #### G BSCX #### [facility] [address] [place] [address] Dr. Marvin Ashford Eosinophils/100 WBC (Bld) 0.2 % Critically low 0.9-7.0 [facility] Comment on above: Performed By: #### G BSCX #### [facility] [address] [place] [address] Dr. Marvin Ashford Erythrocyte distribution width (RBC) [Ratio] 14.6 % Normal 11.0-15.0 [facility] Comment on above: Performed By: #### G BSCX #### [facility] [address] [place] [address] Dr. Marvin Ashford Hematocrit (Bld) [Volume fraction] 25.6 % Critically low 36.0-48.0 [facility] Comment on above: Performed By: #### G BSCX #### [facility] [address] [place] [address] Dr. Marvin Ashford Hemoglobin (Bld) [Mass/Vol] 8.8 g/dL Critically low 12.0-16.0 [facility] Comment on above: Performed By: #### G BSCX #### [facility] [address] [place] [address] Dr. Marvin Ashford IG # 0.14 10e3/ul Critically high 0.00-0.03 [facility] Comment on above: Performed By: #### G BSCX #### [facility] [address] [place] [address] Dr. Marvin Ashford IG % 0.9 % Critically high 0.0-0.5 [facility] Comment on above: Performed By: #### G BSCX #### [facility] [address] [address] [address] Marvin Ashford LYMPH # 2.7 103/ul Normal 1.2-3.8 [facility] Comment on above: Performed By: #### G BSCX #### [facility] [address] [place] [address] Dr. Marvin Ashford Lymphocytes/100 WBC (Bld) 17.1 % Critically low 20.5-60.0 [facility] Comment on above: Performed By: #### G BSCX #### [facility] [address] [place] [address] Dr. Marvin Ashford MANUAL DIFF REQ NO Normal [facility] Comment on above: Performed By: #### G BSCX #### [facility] [address] [place] [address] Dr. Marvin Ashford MCH (RBC) [Entitic mass] 31.1 pg Normal 26.7-34.0 [facility] Comment on above: Performed By: #### G BSCX #### [facility] [address] [place] [address] Dr. Marvin Ashford MCHC (RBC) [Mass/Vol] 34.4 g/dL Normal 29.9-35.2 [facility] Comment on above: Performed By: #### G BSCX #### [facility] [address] [place] [address] Dr. Marvin Ashford MCV (RBC) [Entitic vol] 90.5 fL Normal 81.0-99.0 [facility] Comment on above: Performed By: #### G BSCX #### [facility] [address] [address] [address] Marvin Ashford MONO # 1.0 103/ul Critically high 0.3-0.[address] [facility] Comment on above: Performed By: #### G BSCX #### [facility] [address] [place] [address] Dr. Marvin Ashford Monocytes/100 WBC (Bld) 6.4 % Normal 1.7-12.0 [facility] Comment on above: Performed By: #### G BSCX #### [facility] [address] [address] [address] Marvin Ashford NEUT # 11.7 103/ul Critically high 1.4-6.5 [facility] Comment on above: Performed By: #### G BSCX #### [facility] [address] [address] [address] Marvin Ashford Neutrophils/100 WBC (Bld) 75.1 % Critically high 43.0-75.0 [facility] Comment on above: Performed By: #### G BSCX #### [facility] [address] [place] [address] Dr. Marvin Ashford Platelet mean volume (Bld) [Entitic vol] 10.2 fL Normal 9.5-13.5 [facility] Comment on above: Performed By: #### G BSCX #### [facility] [address] [place] [address] Dr. Marvin Ashford PLT 114 103/ul Critically low 150-450 [facility] Comment on above: Performed By: #### G BSCX #### [facility] [address] [place] [address] Dr. Marvin Ashford RBC 2.83 106/ul Critically low 4.20-5.[address] [facility] Comment on above: Performed By: #### G BSCX #### [facility] [address] [place] [address] Dr. Marvin Ashford WBC 15.5 103/ul Critically high 4.0-11.0 [facility] Comment on above: Performed By: #### G BSCX #### [facility] [address] [place] [address] Dr. Marvin Ashford CBC AUTO DIFFon 05-04-2022 BASO # 0.1 103/ul Normal 0.0-0.1 [facility] Comment on above: Performed By: #### C BC #### [facility] [address] [place] [address] Dr. Marvin Ashford Basophils/100 WBC (Bld) 0.2 % Normal 0.2-2.0 [facility] Comment on above: Performed By: #### C BC #### [facility] [address] [place] [address] Dr. Marvin Ashford EO # 0.0 103/ul Normal 0.0-0.7 [facility] Comment on above: Performed By: #### C BC #### [facility] [address] [place] [address] Dr. Marvin Ashford Eosinophils/100 WBC (Bld) 0.0 % Critically low 0.9-7.0 [facility] Comment on above: Performed By: #### C BC #### [facility] [address] [place] [address] Dr. Marvin Ashford Erythrocyte distribution width (RBC) [Ratio] 14.1 % Normal 11.0-15.0 [facility] Comment on above: Performed By: #### C BC #### [facility] [address] [place] [address] Dr. Marvin Ashford Hematocrit (Bld) [Volume fraction] 26.6 % Critically low 36.0-48.0 [facility] Comment on above: Performed By: #### C BC #### [facility] [address] [place] [address] Dr. Marvin Ashford Hemoglobin (Bld) [Mass/Vol] 9.2 g/dL Critically low 12.0-16.0 [facility] Comment on above: Performed By: #### C BC #### [facility] [address] [place] [address] Dr. Marvin Ashford IG # 0.24 10e3/ul Critically high 0.00-0.03 [facility] Comment on above: Performed By: #### C BC #### [facility] [address] [place] [address] Dr. Marvin Ashford IG % 1.0 % Critically high 0.0-0.[address] [facility] Comment on above: Performed By: #### C BC #### [facility] [address] [place] [address] Dr. Marvin Ashford LYMPH # 2.0 103/ul Normal 1.2-3.8 [facility] Comment on above: Performed By: #### C BC #### [facility] [address] [place] [address] Dr. Marvin Ashford Lymphocytes/100 WBC (Bld) 8.3 % Critically low 20.5-60.0 [facility] Comment on above: Performed By: #### C BC #### [facility] [address] [place] [address] Dr. Marvin Ashford MANUAL DIFF REQ NO Normal [facility] Comment on above: Performed By: #### C BC #### [facility] [address] [place] [address] Dr. Marvin Ashford MCH (RBC) [Entitic mass] 30.8 pg Normal 26.7-34.0 [facility] Comment on above: Performed By: #### C BC #### [facility] [address] [place] [address] Dr. Marvin Ashford MCHC (RBC) [Mass/Vol] 34.6 g/dL Normal 29.9-35.2 [facility] Comment on above: Performed By: #### C BC #### [facility] [address] [place] [address] Dr. Marvin Ashford MCV (RBC) [Entitic vol] 89.0 fL Normal 81.0-99.0 [facility] Comment on above: Performed By: #### C BC #### [facility] [address] [place] [address] Dr. Marvin Ashford MONO # 2.6 103/ul Critically high 0.3-0.[address] [facility] Comment on above: Performed By: #### C BC #### [facility] [address] [place] [address] Dr. Marvin Ashford Monocytes/100 WBC (Bld) 10.6 % Normal 1.7-12.0 [facility] Comment on above: Performed By: #### C BC #### [facility] [address] [place] [address] Dr. Marvin Ashford NEUT # 19.3 103/ul Critically high 1.4-6.5 [facility] Comment on above: Performed By: #### C BC #### [facility] [address] [address] [address] Marvin Ashford Neutrophils/100 WBC (Bld) 79.9 % Critically high 43.0-75.0 [facility] Comment on above: Performed By: #### C BC #### [facility] [address] [address] [address] Marvin Ashford Platelet mean volume (Bld) [Entitic vol] 9.7 fL Normal 9.5-13.5 [facility] Comment on above: Performed By: #### C BC #### [facility] [address] [place] [address] Dr. Marvin Ashford PLT 98 103/ul Critically low 150-450 [facility] Comment on above: Performed By: #### C BC #### [facility] [address] [place] [address] Dr. Marvin Ashford RBC 2.99 106/ul Critically low 4.20-5.[address] [facility] Comment on above: Performed By: #### C BC #### [facility] [address] [address] [address] Marvin Ashford WBC 24.1 103/ul Critically high 4.0-11.0 [facility] Comment on above: Performed By: #### C BC #### [facility] [address] [place] [address] Dr. Marvin Ashford CBC W MANUAL DIFFon 05-04-20 22 ATYPICAL LYMPH # Normal [facility] Comment on above: Performed By: #### H BSANS #### [facility] [address] [place] [address] Dr. Marvin Ashford ATYPICAL LYMPH % Normal [facility] Comment on above: Performed By: #### H BSANS #### [facility] [address] [place] [address] Dr. Marvin Ashford BAND # Normal 0.0-0.3 [facility] Comment on above: Performed By: #### H BSANS #### [facility] [address] [place] [address] Dr. Marvin Ashford BAND % Normal 0-5 [facility] Comment on above: Performed By: #### H BSANS #### [facility] [address] [place] [address] Dr. Marvin Ashford BASOM # 0.00 103/ul Normal 0.00-0.10 [facility] Comment on above: Performed By: #### H BSANS #### [facility] [address] [place] [address] Dr. Marvin Ashford BASOM % 0.0 % Critically low 0.2-2.0 [facility] Comment on above: Performed By: #### H BSANS #### [facility] [address] [place] [address] Dr. Marvin Ashford BLAST # Normal [facility] Comment on above: Performed By: #### H BSANS #### [facility] [address] [place] [address] Dr. Marvin Ashford BLAST % Normal [facility] Comment on above: Performed By: #### H BSANS #### [facility] [address] [place] [address] Dr. Marvin Ashford CORRECTED WBC Normal 4.0-11.0 [facility] Comment on above: Performed By: #### H BSANS #### [facility] [address] [place] [address] Dr. Marvin Ashford EOS # 0.00 103/ul Normal 0.00-0.70 [facility] Comment on above: Performed By: #### H BSANS #### [facility] [address] [place] [address] Dr. Marvin Ashford EOS% 0.0 % Critically low 0.9-7.0 [facility] Comment on above: Performed By: #### H BSANS #### [facility] [address] [place] [address] Dr. Marvin Ashford HCT 25.6 % Critically low 36.0-48.0 [facility] Comment on above: Performed By: #### H BSANS #### [facility] [address] [place] [address] Dr. Marvin Ashford HGB 8.9 g/dl Critically low 12.0-16.0 [facility] Comment on above: Performed By: #### H BSANS #### [facility] [address] [address] [address] Marvin Ashford HYPOCHROMASIA SLIGHT Normal [facility] Comment on above: Performed By: #### H BSANS #### [facility] [address] [address] [address] Marvin Ashford LYMPHM # 1.92 103/ul Normal 1.20-3.80 [facility] Comment on above: Performed By: #### H BSANS #### [facility] [address] [place] [address] Dr. Marvin Ashford LYMPHM% 8.0 % Critically low 20.5-60.0 [facility] Comment on above: Performed By: #### H BSANS #### [facility] [address] [place] [address] Dr. Marvin Ashford MCH 31.0 pg Normal 26.7-34.0 [facility] Comment on above: Performed By: #### H BSANS #### [facility] [address] [place] [address] Dr. Marvin Ashford MCHC 34.8 g/dl Normal 29.9-35.2 [facility] Comment on above: Performed By: #### H BSANS #### [facility] [address] [place] [address] Dr. Marvin Ashford MCV 89.2 fL Normal 81.0-99.0 [facility] Comment on above: Performed By: #### H BSANS #### [facility] [address] [place] [address] Dr. Marvin Ashford METAMYELOCYTE # Normal [facility] Comment on above: Performed By: #### H BSANS #### [facility] [address] [place] [address] Dr. Marvin Ashford METAMYELOCYTE % Normal [facility] Comment on above: Performed By: #### H BSANS #### [facility] [address] [address] [address] Marvin Ashford MONOM# 0.48 103/ul Normal 0.30-0.80 [facility] Comment on above: Performed By: #### H BSANS #### [facility] [address] [address] [address] Marvin Ashford MONOM% 2.0 % Normal 1.7-12.0 [facility] Comment on above: Performed By: #### H BSANS #### [facility] [address] [place] [address] Dr. Marvin Ashford MPV 10.2 fL Normal 9.5-13.5 [facility] Comment on above: Performed By: #### H BSANS #### [facility] [address] [place] [address] Dr. Marvin Ashford MYELOCYTE # Normal [facility] Comment on above: Performed By: #### H BSANS #### [facility] [address] [place] [address] Dr. Marvin Ashford MYELOCYTE % Normal [facility] Comment on above: Performed By: #### H BSANS #### [facility] [address] [address] [address] Marvin Ashford NRBC Normal [facility] Comment on above: Performed By: #### H BSANS #### [facility] [address] [place] [address] Dr. Marvin Ashford PLT 104 103/ul Critically low 150-450 [facility] Comment on above: Performed By: #### H BSANS #### [facility] [address] [place] [address] Dr. Marvin Ashford RBC 2.87 106/ul Critically low 4.20-5.[address] [facility] Comment on above: Performed By: #### H BSANS #### [facility] [address] [place] [address] Dr. Marvin Ashford RDW 14.4 % Normal 11.0-15.0 [facility] Comment on above: Performed By: #### H BSANS #### [facility] [address] [address] [address] Marvin Ashford SEG # 21.60 103/ul Critically high 1.40-6.50 [facility] Comment on above: Performed By: #### H BSANS #### [facility] [address] [place] [address] Dr. Marvin Ashford SEG % 90.0 % Critically high 43.0-75.0 [facility] Comment on above: Performed By: #### H BSANS #### [facility] [address] [address] [address] Marvin Ashford WBC 24.0 103/ul Critically high 4.0-11.0 [facility] Comment on above: Performed By: #### H BSANS #### [facility] [address] [place] [address] Dr. Marvin Ashford CBC AUTO DIFFon 05-03-2022 BASO # 0.1 103/ul Normal 0.0-0.1 [facility] Comment on above: Performed By: #### C BC #### [facility] [address] [place] [address] Dr. Marvin Ashford Basophils/100 WBC (Bld) 0.3 % Normal 0.2-2.0 [facility] Comment on above: Performed By: #### C BC #### [facility] [address] [place] [address] Dr. Marvin Ashford EO # 0.0 103/ul Normal 0.0-0.7 [facility] Comment on above: Performed By: #### C BC #### [facility] [address] [place] [address] Dr. Marvin Ashford Eosinophils/100 WBC (Bld) 0.0 % Critically low 0.9-7.0 [facility] Comment on above: Performed By: #### C BC #### [facility] [address] [place] [address] Dr. Marvin Ashford Erythrocyte distribution width (RBC) [Ratio] 13.3 % Normal 11.0-15.0 [facility] Comment on above: Performed By: #### C BC #### [facility] [address] [place] [address] Dr. Marvin Ashford Hematocrit (Bld) [Volume fraction] 26.6 % Critically low 36.0-48.0 [facility] Comment on above: Performed By: #### C BC #### [facility] [address] [place] [address] Dr. Marvin Ashford Hemoglobin (Bld) [Mass/Vol] 9.0 g/dL Critically low 12.0-16.0 [facility] Comment on above: Performed By: #### C BC #### [facility] [address] [place] [address] Dr. Marvin Ashford IG # 0.62 10e3/ul Critically high 0.00-0.03 [facility] Comment on above: Performed By: #### C BC #### [facility] [address] [place] [address] Dr. Marvin Ashford IG % 1.8 % Critically high 0.0-0.[address] [facility] Comment on above: Performed By: #### C BC #### [facility] [address] [place] [address] Dr. Marvin Ashford LYMPH # 1.1 103/ul Critically low 1.2-3.8 [facility] Comment on above: Performed By: #### C BC #### [facility] [address] [place] [address] Dr. Marvin Ashford Lymphocytes/100 WBC (Bld) 3.3 % Critically low 20.5-60.0 [facility] Comment on above: Performed By: #### C BC #### [facility] [address] [place] [address] Dr. Marvin Ashford MANUAL DIFF REQ NO Normal [facility] Comment on above: Performed By: #### C BC #### [facility] [address] [place] [address] Dr. Marvin Ashford MCH (RBC) [Entitic mass] 31.9 pg Normal 26.7-34.0 [facility] Comment on above: Performed By: #### C BC #### [facility] [address] [place] [address] Dr. Marvin Ashford MCHC (RBC) [Mass/Vol] 33.8 g/dL Normal 29.9-35.2 [facility] Comment on above: Performed By: #### C BC #### [facility] [address] [address] [address] Marvin Ashford MCV (RBC) [Entitic vol] 94.3 fL Normal 81.0-99.0 [facility] Comment on above: Performed By: #### C BC #### [facility] [address] [address] [address] Marvin Ashford MONO # 2.3 103/ul Critically high 0.3-0.8 [facility] Comment on above: Performed By: #### C BC #### [facility] [address] [place] [address] Dr. Marvin Ashford Monocytes/100 WBC (Bld) 6.6 % Normal 1.7-12.0 [facility] Comment on above: Performed By: #### C BC #### [facility] [address] [address] [address] Marvin Ashford NEUT # 30.2 103/ul Critically high 1.4-6.5 [facility] Comment on above: Performed By: #### C BC #### [facility] [address] [place] [address] Dr. Marvin Ashford Neutrophils/100 WBC (Bld) 88.0 % Critically high 43.0-75.0 [facility] Comment on above: Performed By: #### C BC #### [facility] [address] [address] [address] Marvin Ashford Platelet mean volume (Bld) [Entitic vol] 10.2 fL Normal 9.5-13.5 [facility] Comment on above: Performed By: #### C BC #### [facility] [address] [address] [address] Marvin Ashford PLT 136 103/ul Critically low 150-450 [facility] [place] [facility] Comment on above: Performed By: #### C BC #### [facility] [address] [address] [address] Marvin Ashford RBC 2.82 106/ul Critically low 4.20-5.40 [facility] Comment on above: Performed By: #### C BC #### [facility] [address] [place] [address] Dr. Marvin Ashford WBC 34.3 103/ul Critically high 4.0-11.0 [facility] Comment on above: Performed By: #### C BC #### [facility] [address] [place] [address] Dr. Marvin Ashford CBC AUTO DIFFon 05-01-2022 BASO # 0.0 103/ul Normal 0.0-0.1 [facility] Comment on above: Performed By: #### C BC #### [facility] [address] [place] [address] Dr. Marvin Ashford Basophils/100 WBC (Bld) 0.4 % Normal 0.2-2.0 [facility] Comment on above: Performed By: #### C BC #### [facility] [address] [place] [address] Dr. Marvin Ashford EO # 0.0 103/ul Normal 0.0-0.7 [facility] Comment on above: Performed By: #### C BC #### [facility] [address] [place] [address] Dr. Marvin Ashford Eosinophils/100 WBC (Bld) 0.2 % Critically low 0.9-7.0 [facility] Comment on above: Performed By: #### C BC #### [facility] [address] [place] [address] Dr. Marvin Ashford Erythrocyte distribution width (RBC) [Ratio] 12.9 % Normal 11.0-15.0 [facility] Comment on above: Performed By: #### C BC #### [facility] [address] [place] [address] Dr. Marvin Ashford Hematocrit (Bld) [Volume fraction] 35.5 % Critically low 36.0-48.0 [facility] Comment on above: Performed By: #### C BC #### [facility] [address] [place] [address] Dr. Marvin Ashford Hemoglobin (Bld) [Mass/Vol] 11.7 g/dL Critically low 12.0-16.0 [facility] Comment on above: Performed By: #### C BC #### [facility] [address] [place] [address] Dr. Marvin Ashford IG # 0.10 10e3/ul Critically high 0.00-0.03 [facility] Comment on above: Performed By: #### C BC #### [facility] [address] [place] [address] Dr. Marvin Ashford IG % 0.9 % Critically high 0.0-0.5 [facility] Comment on above: Performed By: #### C BC #### [facility] [address] [place] [address] Dr. Marvin Ashford LYMPH # 1.8 103/ul Normal 1.2-3.8 [facility] Comment on above: Performed By: #### C BC #### [facility] [address] [place] [address] Dr. Marvin Ashford Lymphocytes/100 WBC (Bld) 16.4 % Critically low 20.5-60.0 [facility] Comment on above: Performed By: #### C BC #### [facility] [address] [place] [address] Dr. Marvin Ashford MANUAL DIFF REQ NO Normal [facility] Comment on above: Performed By: #### C BC #### [facility] [address] [place] [address] Dr. Marvin Ashford MCH (RBC) [Entitic mass] 30.7 pg Normal 26.7-34.0 [facility] Comment on above: Performed By: #### C BC #### [facility] [address] [place] [address] Dr. Marvin Ashford MCHC (RBC) [Mass/Vol] 33.0 g/dL Normal 29.9-35.2 [facility] Comment on above: Performed By: #### C BC #### [facility] [address] [place] [address] Dr. Marvin Ashford MCV (RBC) [Entitic vol] 93.2 fL Normal 81.0-99.0 [facility] Comment on above: Performed By: #### C BC #### [facility] [address] [place] [address] Dr. Marvin Ashford MONO # 0.8 103/ul Normal 0.3-0.8 [facility] Comment on above: Performed By: #### C BC #### [facility] [address] [place] [address] Dr. Marvin Ashford Monocytes/100 WBC (Bld) 7.8 % Normal 1.7-12.0 [facility] Comment on above: Performed By: #### C BC #### [facility] [address] [place] [address] Dr. Marvin Ashford NEUT # 8.0 103/ul Critically high 1.4-6.5 [facility] Comment on above: Performed By: #### C BC #### [facility] [address] [place] [address] Dr. Marvni Ashford Neutrophils/100 WBC (Bld) 74.3 % Normal 43.0-75.0 [facility] Comment on above: Performed By: #### C BC #### [facility] [address] [place] [address] Dr. Marvin Ashford Platelet mean volume (Bld) [Entitic vol] 9.9 fL Normal 9.5-13.5 [facility] Comment on above: Performed By: #### C BC #### [facility] [address] [place] [address] Dr. Marvin Ashford PLT 211 103/ul Normal 150-450 [facility] Comment on above: Performed By: #### C BC #### [facility] [address] [place] [address] Dr. Marvin Ashford RBC 3.81 106/ul Critically low 4.20-5.40 [facility] Comment on above: Performed By: #### C BC #### [facility] [address] [place] [address] Dr. Marvin Ashford WBC 10.7 103/ul Normal 4.0-11.0 [facility] Comment on above: Performed By: #### C BC #### [facility] [address] [place] [address] Dr. Marvin Ashford Covid-19 PCR ([facility])on SARS-CoV-2 (COVID-19) RNA SHANEKA+probe Ql (Unsp spec) Not detected Normal NOT DETECTED [facility] Comment on above: Result Comment: When diagnostic [...] for this test is supported by the Boat [employer] of Health and Human Service's declaration that [...] used). Performed By: #### G BSCX #### [facility] [address] [place] [address] Dr. Marvin Ashford DRUG SCREEN RAPID (URINE)on 05-01-2022 AMP Negative Normal NEGATIVE [facility] Comment on above: Performed By: #### G BSCX #### [facility] [address] [place] [address] Dr. Marvin Ashford BAR Negative Normal NEGATIVE [facility] Comment on above: Performed By: #### G BSCX #### [facility] [address] [place] [address] Dr. Marvin Ashford BUP Negative Normal NEGATIVE [facility] Comment on above: Performed By: #### G BSCX #### [facility] [address] [place] [address] Dr. Marvin Ashford BZO Negative Normal NEGATIVE [facility] Comment on above: Performed By: #### G BSCX #### [facility] [address] [place] [address] Dr. Marvin Ashford MYNOR Negative Normal NEGATIVE [facility] Comment on above: Performed By: #### G BSCX #### [facility] [address] [place] [address] Dr. Marvin Ashford CUT-OFFS SEE BELOW Normal [facility] Comment on above: Result Comment: AMP (Amphetamine): 500ng/mL, BAR (Barbituates): 200 ng/mL, BZO (Benzodiazepines): 150 ng/mL, BUP (Buprenorphine): 10 ng/mL, MYNOR (Cocaine): 150 ng/mL, mAMP (Methamphetamine): 500 ng/mL, MTD (Methadone): 200 ng/mL, OPI (Opiates): 100 ng/mL, OXY (Oxycodone): 100 ng/mL, PCP (Phencyclidine): 25 ng/mL, PPX (Propoxyphene): 300 ng/mL, THC (Cannabinoids): 50 ng/mL, TCA (Trycyclic Antidepressants): 300 ng/mL Performed By: #### G BSCX #### [facility] [address] [place] [address] Dr. Marvin Ashford DRUG CUT HEADER DRUG CLASS TEST SYSTEM CUT-OFF CONCENTRATIONS ARE FOLLOWS: Normal [facility] Comment on above: Performed By: #### G BSCX #### [facility] [address] [place] [address] Dr. aMrvin Ashford mAMP Negative Normal NEGATIVE [facility] Comment on above: Performed By: #### G BSCX #### [facility] [address] [place] [address] Dr. Marvin Ashford MTD Negative Normal NEGATIVE [facility] Comment on above: Performed By: #### G BSCX #### [facility] [address] [place] [address] Dr. Marvin Ashford OPI Negative Normal NEGATIVE [facility] Comment on above: Performed By: #### G BSCX #### [facility] [address] [place] [address] Dr. Marvin Ashford OXY Negative Normal NEGATIVE [facility] Comment on above: Performed By: #### G BSCX #### [facility] [address] [place] [address] Dr. Marvin Ashford PCP Negative Normal NEGATIVE [facility] Comment on above: Performed By: #### G BSCX #### [facility] [address] [place] [address] Dr. Marvin Ashford PPX Negative Normal NEGATIVE [facility] Comment on above: Performed By: #### G BSCX #### [facility] [address] [place] [address] Dr. Marvin Ashford TCA Negative Normal NEGATIVE [facility] Comment on above: Performed By: #### G BSCX #### [facility] [address] [place] [address] Dr. Marvin Ashford THC Negative Normal NEGATIVE [facility] Comment on above: Performed By: #### G BSCX #### [facility] [address] [place] [address] Dr. Marvin Ashford TYPE AND SCREENon 05-01-2022 TYPE AND SCREEN Negative Normal [facility] Comment on above: Performed By: #### T NS #### [facility] [address] [place] [address] Dr. Marvin Ashford CHLAMYDIA/GONOCOCCUS SHANEKA (SW AB/URINE/PAPon 04-17-2022 Chlamydia trachomatis, SHANEKA Negative Normal Negative [facility] Comment on above: Performed By: #### C BC #### [facility] [address] [place] [address] Dr. Marvin Ashford Neisseria gonorrhoeae, SHANEKA Negative Normal Negative [facility] Comment on above: Performed By: #### C BC #### [facility] [address] [place] [address] Dr. Marvin Ashford GROUP B STREP CULTUREon 03-27 S. agalactiae Ag Ql (Unsp spec) Culture Observations: NEGATIVE FOR GROUP B STREPTOCOCCUS. Normal [facility] Comment on above: Performed By: #### G BSCX #### [facility] [address] [place] [address] Dr. Marvin Ashford CULTURE URINEon 03-09-2022 CULTURE URINE Culture Observations: NO GROWTH. Normal [facility] Comment on above: Performed By: #### H BSANS #### [facility] [address] [place] [address] Dr. Marvin Ashford UA (CLEAN/CATCH) INSTALLMENT LOAN COLLECTOR/MICRO I F IND.on 03-09-2022 Bilirubin Ql (U) Negative Normal NEGATIVE [facility] Comment on above: Performed By: #### G BSCX #### [facility] [address] [place] [address] Dr. Marvin Ashford Clarity (U) CLEAR Normal CLEAR [facility] Comment on above: Performed By: #### G BSCX #### [facility] [address] [place] [address] Dr. Marvin Ashford Color (U) YELLOW Normal YELLOW [facility] Comment on above: Performed By: #### G BSCX #### [facility] [address] [place] [address] Dr. Marvin Ashford Glucose Ql (U) Negative Normal NEGATIVE [facility] [place] [facility] Comment on above: Performed By: #### G BSCX #### [facility] [address] [place] [address] Dr. Marvin Ashford Hemoglobin Ql (U) SMALL Abnormal NEGATIVE [facility] Comment on above: Performed By: #### G BSCX #### [facility] [address] [place] [address] Dr. Marvin Ashford Ketones Ql (U) TRACE Abnormal NEGATIVE [facility] [place] [facility] Comment on above: Performed By: #### G BSCX #### [facility] [address] [place] [address] Dr. Marvin Ashford LEUKOCYTES TRACE Abnormal NEGATIVE [facility] Comment on above: Performed By: #### G BSCX #### [facility] [address] [place] [address] Dr. Marvin Ashford Nitrite Ql (U) Negative Normal NEGATIVE [facility] [place] [facility] Comment on above: Performed By: #### G BSCX #### [facility] [address] [place] [address] Dr. Marvin Ashford pH (U) 6.0 [pH] Normal 5-9 [facility] Comment on above: Performed By: #### G BSCX #### [facility] [address] [place] [address] Dr. Marvin Ashford SPEC GRAVITY 1.025 Normal 1.005-<=1.025 [facility] Comment on above: Performed By: #### G BSCX #### [facility] [address] [place] [address] Dr. Marvin Ashford UA PROTEIN Negative Normal NEGATIVE/ TRACE [facility] Comment on above: Performed By: #### G BSCX #### [facility] [address] [place] [address] Dr. Marvin Ashford UR MICRO IND INDICATED Normal [facility] Comment on above: Performed By: #### G BSCX #### [facility] [address] [place] [address] Dr. Marvin Ashford Urobilinogen Qn (U) 1.0 {Ekta'U}/dL Normal 0.2 - 1. 0 [facility] Comment on above: Performed By: #### G BSCX #### [facility] [address] [place] [address] Dr. Marvin Ashford URINE MICROSCOPIC ONLYon BACTERIA TRACE Abnormal NONE SEEN [facility] Comment on above: Performed By: #### G BSCX #### [facility] [address] [place] [address] Dr. Marvin Ashford Bacteria identified Cx Nom (U) INDICATED Normal [facility] Comment on above: Performed By: #### G BSCX #### [facility] [address] [place] [address] Dr. Marvin Ashford CAST NONE SEEN Normal NONE SEEN [facility] Comment on above: Performed By: #### G BSCX #### [facility] [address] [place] [address] Dr. Marvin Ashford Crystals LM Nom (Urine sed) NONE SEEN Normal NONE SEEN [facility] Comment on above: Performed By: #### G BSCX #### [facility] [address] [address] [address] Marvin Ashford Epithelial cells LM Ql (Urine sed) MANY Abnormal NONE SEEN /RARE [facility] Comment on above: Performed By: #### G BSCX #### [facility] [address] [address] [address] Marvin Ashford MUCOUS TRACE Abnormal NONE SEEN [facility] Comment on above: Performed By: #### G BSCX #### [facility] [address] [place] [address] Dr. Marvin Ashford RBC 2-5 Abnormal 0-2 [facility] Comment on above: Performed By: #### G BSCX #### [facility] [address] [place] [address] Dr. Marvin Ashford WBC 2-5 Abnormal NONE SEEN [facility] Comment on above: Performed By: #### G BSCX #### [facility] [address] [place] [address] Dr. Marvin Ashford US PREG PLACENTAon 2 [...] CHOCO SAUNDERS Date: 2022-03-09 17:20 Normal [facility] COVID + FLU Quick Testingon 02-21-2022 SARS-CoV-2 (COVID-19) RNA SHANEKA+probe Ql (Unsp spec) Positive [employer] Other COVID + FLU Quick Testing Negative [employer] Other Quick Strepon 02-21-2022 S. pyogenes Org specific cx Ql (Throat) Negative [employer] Other Quick Strep [facility] [employer] Other GLUCOSE - 1HRon 02-09-2022 Glucose [Mass/Vol] 133 mg/dL Critically high 74-106 T he [facility] Comment on above: Performed By: #### G BSCX #### [facility] [address] [place] [address] Dr. Marvin Ashford HEMOGRAM AND PLATELon 2021 Hematocrit (Bld) [Volume fraction] 33.4 % Critically low 36.0-48.0 [facility] Comment on above: Performed By: #### H H #### [facility] [address] [place] [address] Dr. Marvin Ashford Hemoglobin (Bld) [Mass/Vol] 11.3 g/dL Critically low 12.0-16.0 [facility] Comment on above: Performed By: #### H H #### [facility] [address] [place] [address] Dr. Marvin Ashford MCH (RBC) [Entitic mass] 31.9 pg Normal 26.7-34.0 [facility] Comment on above: Performed By: #### H H #### [facility] [address] [place] [address] Dr. Marvin Ashford MCHC (RBC) [Mass/Vol] 33.8 g/dL Normal 29.9-35.2 [facility] Comment on above: Performed By: #### H H #### [facility] [address] [place] [address] Dr. Marvin Ashford MCV (RBC) [Entitic vol] 94.4 fL Normal 81.0-99.0 [facility] Comment on above: Performed By: #### H H #### [facility] [address] [place] [address] Dr. Marvin Ashford PLT 216 103/ul Normal 150-450 [facility] Comment on above: Performed By: #### H H #### [facility] [address] [place], [place] [address] Dr. Marvin Ashfrod RBC 3.54 106/ul Critically low 4.20-5.[address] [facility] Comment on above: Performed By: #### H H #### [facility] [address] [place], [place] [address] Dr. Marvin Ashford WBC 10.1 103/ul Normal 4.0-11.0 [facility] Comment on above: Performed By: #### H H #### [facility] [address] [place], [place] [address] Dr. Marvin Ashford US PREG ANATOMY SINGLEon [...] JACOBO LATHAM Date: 2021-12-19 17:27 Normal [facility] AFP MATERNAL FOR SPINA BIFID Aon 12-11-2021 AFP MoM 0.90 Normal [facility] Comment on above: Performed By: #### H BSANS #### [facility] [address] [address] [address] Marvin Ashford AFP Value 54.5 ng/mL Normal [facility] Comment on above: Performed By: #### H BSANS #### [facility] [address] [address] [address] Marvin Ashford AFP, Serum for Spina Bifida Report Normal [facility] Comment on above: Performed By: #### H BSANS #### [facility] [address] [address] [address] Marvin Ashford Comment Comment Normal [facility] Comment on above: Result Comment: Mindi Ribera, Ph.D., [facility] Director . References: Available Upon Request. . Multiples Of Median Cutoffs For AFP Elevations Hill 2.5 Black 2.8 IDD 2.0 Twins 4.5 Abbreviation Definitions IDD - Insulin Dep Diabetes OSBR - Open Spina Bifida Risk . For further inquiries contact [facility] at [phone]. Performed By: #### H BSANS #### [facility] [address] [place] [address] Dr. Marvin Downey Age Collection Date 18.6 weeks [facility] Comment on above: Performed By: #### H BSANS #### [facility] [address] [place] [address] Dr. Marvin Ashford Gestat, Age Based on As provided [facility] Comment on above: Result Comment: Reca lculations are not recommended when gestational dating by LMP and ultrasound are within 10 days. Performed By: #### H BSANS #### [facility] [address] [address] [address] Marvin Ashford Insulin Dep Diabetes No Normal [facility] Comment on above: Performed By: #### H BSANS #### [facility] [address] [place] [address] Dr. Marvin Ashford Interpretation Comment Normal [facility] Comment on above: Result Comment: Inte rpretation: [...] Customer Services to discuss available options. The [employer] recommends amniocentesis be offered to women age 35 and older. Performed By: #### H BSANS #### [facility] [address] [place] [address] Dr. Marvin Ashford [age] Normal [facility] Comment on above: Performed By: #### H BSANS #### [facility] [address] [place] [address] Dr. Marvin Ashford Multiple Gestation No Normal [facility] Comment on above: Performed By: #### H BSANS #### [facility] [address] [address] [address] [place] Ashford [place] [id number] Normal [facility] Comment on above: Performed By: #### H BSANS #### [facility] [address] [place] [address] Dr. Marvin Ashford PDF . Normal [facility] Comment on above: Result Comment: This test was developed and its performance characteristics determined by [facility]. It has not been cleared or approved by the Food and Drug Administration. Performed By: #### H BSANS #### [facility] [address] [place] [address] Dr. Marvin Ashford Race Normal [facility] Comment on above: Performed By: #### H BSANS #### [facility] [address] [place] [address] Dr. Marvin Ashford Test Results: Negative Normal [facility] Comment on above: Performed By: #### H BSANS #### [facility] [address] [place] [address] Dr. Marvin Ashford HEP B SURFACE ANTIGEN SCREEN on 10-26-2021 HBsAg Screen Negative Normal Negative [facility] Comment on above: Performed By: #### H BSANS #### [facility] [address] [place] [address] Dr. Marvin Ashford HEPATITIS C VIRUS AB W/ REFL EX QUANTon 10-26-2021 HCV AB <0.1 Normal 0.0-0.9 [facility] Comment on above: Performed By: #### C BC #### [facility] [address] [place] [address] Dr. Marvin Ashford Interpretation: Comment Normal [facility] Comment on above: Result Comment: Nega tive Not infected with HCV, unless recent infection is suspected or other evidence exists to indicate HCV infection. Performed By: #### C BC #### [facility] [address] [place] [address] Dr. Marvin Ashford HIV 1 AND 2 WITH REFLEXon HIV Screen 4th Generation wRfx Non-Reactive Normal Non Reactive [facility] Comment on above: Result Comment: HIV Negative HIV-1/HIV-2 antibodies and HIV-1 p24 antigen were NOT detected. There is no laboratory evidence of HIV infection. Performed By: #### G BSCX #### [facility] [address] [place] [address] Dr. Marvin Ashford RPR QUANTon 10-26-2021 Rapid Plasma Reagin, Quant Non-Reactive Normal NonRea<1:1 [facility] Comment on above: Performed By: #### C BC #### [facility] [address] [place] [address] Dr. Marvin Ashford RUBELLA AB IGGon 10-26-2021 Rubella Antibodies, IgG 1.87 index Normal Immune >0.99 [facility] Comment on above: Result Comment: Non- immune <0.90 Equivocal 0.90 - 0.99 Immune >0.99 Performed By: #### G BSCX #### [facility] [address] [place] [address] Dr. Marvin Ashford CBC AUTO DIFFon 10-25-2021 BASO # 0.0 103/ul Normal 0.0-0.1 [facility] Comment on above: Performed By: #### C BC #### [facility] [address] [place] [address] Dr. Marvin Ashford Basophils/100 WBC (Bld) 0.3 % Normal 0.2-2.0 [facility] Comment on above: Performed By: #### C BC #### [facility] [address] [place] [address] Dr. Marvin Ashford EO # 0.0 103/ul Normal 0.0-0.7 [facility] Comment on above: Performed By: #### C BC #### [facility] [address] [place] [address] Dr. Marvin Ashford Eosinophils/100 WBC (Bld) 0.1 % Critically low 0.9-7.0 [facility] Comment on above: Performed By: #### C BC #### [facility] [address] [place] [address] Dr. Marvin Ashford Erythrocyte distribution width (RBC) [Ratio] 13.1 % Normal 11.0-15.0 [facility] Comment on above: Performed By: #### C BC #### [facility] Laboratory [address] [place] [address] Dr. Marvin Ashford Hematocrit (Bld) [Volume fraction] 34.7 % Critically low 36.0-48.0 [facility] Comment on above: Performed By: #### C BC #### [facility] [address] [place] [address] Dr. Marvin Ashford Hemoglobin (Bld) [Mass/Vol] 11.6 g/dL Critically low 12.0-16.0 [facility] Comment on above: Performed By: #### C BC #### [facility] [address] [place] [address] Dr. Marvin Ashford IG # 0.04 10e3/ul Critically high 0.00-0.03 [facility] Comment on above: Performed By: #### C BC #### [facility] [address] [place] [address] Dr. Marvin Ashford IG % 0.5 % Normal 0.0-0.5 [facility] Comment on above: Performed By: #### C BC #### [facility] [address] [place] [address] Dr. Marvin Ashford LYMPH # 1.9 103/ul Normal 1.2-3.8 [facility] Comment on above: Performed By: #### C BC #### [facility] [address] [place] [address] Dr. Marvin Ashford Lymphocytes/100 WBC (Bld) 22.4 % Normal 20.5-60.0 [facility] Comment on above: Performed By: #### C BC #### [facility] [address] [place] [address] Dr. Marvin Ashford MANUAL DIFF REQ NO Normal [facility] Comment on above: Performed By: #### C BC #### [facility] [address] [place] [address] Dr. Marvin Ashford MCH (RBC) [Entitic mass] 30.2 pg Normal 26.7-34.0 [facility] Comment on above: Performed By: #### C BC #### [facility] [address] [place] [address] Dr. Marvin Ashford MCHC (RBC) [Mass/Vol] 33.4 g/dL Normal 29.9-35.2 [facility] Comment on above: Performed By: #### C BC #### [facility] [address] [place] [address] Dr. Marvin Ashford MCV (RBC) [Entitic vol] 90.4 fL Normal 81.0-99.0 [facility] Comment on above: Performed By: #### C BC #### [facility] [address] [place] [address] Dr. Marvin Ashford MONO # 0.5 103/ul Normal 0.3-0.8 [facility] Comment on above: Performed By: #### C BC #### [facility] [address] [place] [address] Dr. Marvin Ashford Monocytes/100 WBC (Bld) 5.5 % Normal 1.7-12.0 [facility] Comment on above: Performed By: #### C BC #### [facility] [address] [place] [address] Dr. Marvin Ashford NEUT # 6.2 103/ul Normal 1.4-6.5 [facility] Comment on above: Performed By: #### C BC #### [facility] [address] [place] [address] Dr. Marvin Ashford Neutrophils/100 WBC (Bld) 71.2 % Normal 43.0-75.0 [facility] Comment on above: Performed By: #### C BC #### [facility] [address] [place] [address] Dr. Marvin Ashford Platelet mean volume (Bld) [Entitic vol] 9.5 fL Normal 9.5-13.5 [facility] Comment on above: Performed By: #### C BC #### [facility] [address] [place] [address] Dr. Marvin Ashford PLT 243 103/ul Normal 150-450 [facility] Comment on above: Performed By: #### C BC #### [facility] [address] [place] [address] Dr. Marvin Ashford RBC 3.84 106/ul Critically low 4.20-5.[address] [facility] Comment on above: Performed By: #### C BC #### [facility] [address] [place] [address] Dr. Marvin Ashford WBC 8.7 103/ul Normal 4.0-11.0 [facility] Comment on above: Performed By: #### C BC #### [facility] [address] [place] [address] Dr. Marvin Ashford CULTURE URINEon 10-25-2021 CULTURE URINE Culture Observations: NO GROWTH. Normal [facility] Comment on above: Performed By: #### U RCX #### [facility] [address] [place] [address] Dr. Marvin Ashford GLYCOHEMOGLOBIN A1Con 2021 ADA RECOMMENDATION ADA THERAPEUTIC TARGET 6.0 - 7.0 ACTION SUGGESTED > 7.0 Normal [facility] Comment on above: Performed By: #### C BC #### [facility] [address] [address] [address] Marvin Ashford Glucose [Mass/Vol] 97 mg/dL Normal [facility] Comment on above: Performed By: #### C BC #### [facility] [address] [address] [address] Marvin Ashford HbA1c (Bld) [Mass fraction] 5.0 % Normal <=6.0 [facility] Comment on above: Performed By: #### C BC #### [facility] [address] [address] [address] Marvin Ashford TASHA BOX TEST PT SEND OUTo n 10-25-2021 SENT TO REF LAB 10/25/[address] [facility] Comment on above: Performed By: #### C BC #### [facility] [address] [place] [address] Dr. Marvin Ashford TYPE AND SCREENon 10-25-2021 TYPE AND SCREEN Negative Normal [facility] Comment on above: Performed By: #### T NS #### [facility] [address] [place] [address] Dr. Marvin Ashford US PREG TVon 09-27-2021 [...] JACOBO LATHAM Date: 2021-09-27 14:04 Normal [facility] US PREG TVon 09-08-2021 US PREG TV [...] by: JACOBO LATHAM Date: 2021-09-08 14:11 Normal [facility] Group A Strep DNAon 08-15-20 Group A Strep DNA Specimen Description .THROAT SWABSpecial Requests NOT REPORTEDDirect Exam Negative: Specimen negative for Streptococcus pyogenes by DNA amplification.Report Status FINAL 08/15/2018 Normal [facility] Comment on above: Performed By: #### G ASDNA ####[facility] [place], [place] [id number] [facility] [place] [address] Strep Gr A Direct Agon 08-13 S. pyogenes Ag IA Ql (Unsp spec) Specimen Description .THROATSpecial Requests NOT REPORTEDDirect Exam Rapid Strep A negative. A negative Rapid Group A Strep Screen result does not rule out the possibility of Group A Streptococci in the specimen. The [employer] recommends confirmation testing. Therefore, a Group A Strep DNA test will be performed. Report Status FINAL 08/13/2018 [facility] Comment on above: Performed By: #### S GPA ####[facility] [place] [address] XR FOOT LEFT (MIN 3 VIEWS)on 01-30-2018 XR FOOT LEFT (MIN 3 VIEWS) LEFT FOOT, 01/30/2018INDICATION: Foot pain.COMPARISON: None.FINDINGS: Three views of the left foot were obtained. There is no acute fracture or dislocation. Osseous structures are well mineralized. Visualized soft tissues appear unremarkable. No radiopaque foreign body.IMPRESSION: No acute osseous abnormality.Interpre jovanny by:MARÍA Quirosigned by:Robert Muse MD01/30/18inal result Normal [facility] Vital Signs Date Time Vital Sign Value Performing Clinician Facility 05-28-2023 14:25-0400 Body height 157.48 cm Mi Lang Other [facility] Other 05-28-2023 14:25-0400 Body mass index (BMI) [Ratio] 18.47 kg/m2 Mi Lang Other [facility] Other 05-28-2023 14:25-0400 Body temperature 97.5 [degF] Miserge Lang Other [facility] Other 05-28-2023 14:25-0400 Body weight 45.81 kg Mi Lang Other [facility] Other 05-28-2023 14:25-0400 Diastolic blood pressure 72 mm[Hg] Mi Lang Other [facility] Other 05-28-2023 14:25-0400 Respiratory rate 18 /min Mi Lang Other [facility] Other 05-28-2023 14:25-0400 SaO2% (BldA) [Mass fraction] 100 % Mi Lang Other [facility] Other 05-28-2023 14:25-0400 Systolic blood pressure 115 mm[Hg] Mi Lang Other [facility] Other 02-21-2022 13:15-0400 Body height 157.48 cm Nataliia Pérez Other [facility] Other 02-21-2022 13:15-0400 Body mass index (BMI) [Ratio] 23.77 kg/m2 Nataliia Elisa Other [facility] Other 02-21-2022 13:15-0400 Body temperature 101.1 [degF] Nataliia Paytonmond Other [facility] Other 02-21-2022 13:15-0400 Body weight 58.97 kg Nataliia Pérez Other [facility] Other 02-21-2022 13:15-0400 Respiratory rate 20 /min Nataliia Paytonmond Other [facility] Other 02-21-2022 13:15-0400 SaO2% (BldA) [Mass fraction] 99 % Nataliia Paytonmond Other [facility] Other 12-11-2021 02:05-0400 Body weight 50.[address] DOCTOR LUNA [facility] Comment on above: Performed By: #### HBSANS #### [facility] [address] [place] [address] Dr. Marvin Ashford 11-07-2021 16:50-0400 Body height 160.02 cm Nataliia Elisa Other [facility] Other 11-07-2021 16:50-0400 Body mass index (BMI) [Ratio] 19.31 kg/m2 Nataliia Elisa Other [facility] Other 11-07-2021 16:50-0400 Body weight 49.44 kg Nataliia Paytonmond Other [facility] Other Encounters Encounter Date Encounter Type Care Provider Facility Start: 08-30-2023 End: 08-30-2023 ambulatory DANYELLE GRACIA Not Available Start: 08-01-2023 End: 08-01-2023 ambulatory DANYELLE GRACIA Not Available Start: 05-28-2023 End: 05-28-2023 ambulatory Mi Lang Other [facility] Other Start: 05-28-2023 Office outpatient vi sit [...] 02-21-2022 End: 02-21-2022 ambulatory Nataliia Pérez Other [facility] Other Start: 02-21-2022 Office outpatient vi sit 15 minutes Nataliia Pérez [facility] Start: 02-09-2022 End: 02-10-[address] VIKTORIA MCCOLLUM Facility:[facility] Start: 12-19-2021 End: 12-20-[address] DOCTOR LUNA Facility:[facility] Start: 12-09-2021 End: 12-10-[address] DOCTOR LUNA Facility:[facility] Start: 11-07-2021 End: 11-07-2021 ambulatory Nataliia Pérez Other [facility] Other Start: 11-07-2021 Office outpatient vi sit 15 minutes Nataliia Pérez [facility] Start: 10-25-2021 End: 10-26-[address] VIKTORIA MCCOLLUM Facility:[facility] Start: 09-27-2021 End: 02-02-[address] VIKTORIA MCCOLLUM Facility:[facility] Start: 09-08-2021 End: 09-09-[address] VIKTORIA MCCOLLUM Facility:[facility] Start: 07-26-2021 ambulatory Iraida Rivasphuc ty:[facility] Start: 08-13-2018 End: 08-13-2018 Emergency department patient visit DBEBY ROBERTSON [facility] Start: 01-30-2018 End: 01-30-2018 Emergency department patient visit VESKAUSHIK CHANNING [facility] Procedures Date Procedure Procedure Detail Performing Clinician [...] [place] Payers Date Payer Category Payer Medicaid [id number] 2003 Unknown [id number] 2.16.84 [id number] 2003 Unknown [id number] 2.16.84 0.1.801462.3.579.2.593 2003 Unknown [id number] 2.16.84 0.1.036332.3.579.2.593 2003 Unknown [id number] 2.16.84 0.1.890384.3.579.2.593 2003 Unknown [id number] 2.16.84 0.1.134754.3.579.2.593 2003 Unknown [id number] 2.16.84 0.1.308862.3.579.2.593 2003 Unknown [id number] 2.16.84 0.1.355534.3.579.2.593 2003 Unknown [id number] 2.16.84 0.1.641871.3.579.2.593 2003 Unknown [id number] 2.16.84 0.1.059589.3.579.2.593 2003 Unknown [id number] 2.16.84 0.1.559592.3.579.2.593 2003 Unknown [id number] 2.16.84 0.1.028566.3.579.2.593 2003 Unknown [id number] 2.16.840 .1.059914.3.579.2.1259 2003 Unknown [id number] 2.16.840 .1.593639.3.579.2.1259 1984 Unknown [id number] 2.16.84 0.1.647355.3.579.2.174 1984 Unknown [id number] 2.16.84 0.1.209428.3.579.2.174 1984 Unknown [id number] 2.16.8 40.1.690365.3.579.2.727 1959 Self-pay 1961 Unknown [id number] Unknown [id number] 2.16.84 0.1.918991.3.579.2.593 Social History Date Type Detail Facility Sex Assigned At [facility] Other Evaluation note 05-28-2023 Note Date & [...] fever. Patient/parent verbalized understanding of treatment plan. [facility] Other Evaluation note 02-21-2022 Note Date & Type Note Facility 02-21-2022 Evaluation note Encounter Date Diagnosis Assessment Notes Jan, Sore throat (ICD-10 - J02.9) Jan, COVID-19 (ICD-10 - U07.1) Drink plenty fluids, get plenty of rest. 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 You must quarantine for 5 days after the onset of your symptoms, then you must wear a mask when out and about for the next 5 days. [facility] Other Evaluation note 11-07-2021 Note Date & Type Note Facility 11-07-2021 Evaluation note Encounter Date Diagnosis Assessment Notes Oct, Left ear impacted cerumen (ICD-10 - H61.22) Drink plenty fluids, get plenty of rest. Do not use Q-tips in your ears. Follow-up with your family physician for any further concerns. Follow the cerumen impaction home care instructions. [facility] Other Summary Purpose Family History No Family [...] [facility] ical [facility] DATE CREATED AUTHOR AUTHOR'S ORGANCHAD ATION 09/06/2023 [facility] EPIC REASON FOR VISIT (unrecogniz [...] BE BASED ON THE PRIMARY CLINICAL RECORDS. [employer] provides no warranty or guarantee of the accuracy or completeness of information in this document.
--- OUTSIDE RECORDS SUMMARY | 2023-09-21 15:48 | XMS_ITS | CCD ---
Author Name Unknown Address [id number] [place] [address] Organization [facility] Care Team Providers Care Chips Screen Tender Name Role Phone NATE SNELL Unavailable Unavailable MARCELO, DEBBY Unavailable Unavailable MARCELO, DEBBY Unavailable Unavailable JOSE CULVER Unavailable Unavailable Nataliia Pérez Unavailable MISC, DR MRAIN Primary Care Unavailable KARASIK, DR BLUM Attending Unavailable KARASIK, DR BLUM Admitting Unavailable KARASIK, DR BLUM Consulting Unavailable MISC, DR MARIN Primary Care Unavailable KARASIK, DR BLUM Attending Unavailable KARASIK, DR BLUM Admitting Unavailable KARASIK, DR BLUM Consulting Unavailable REDLAKE, DR JACOBO Bunn Consulting Unavailable KARASIK, DR [...] pyogenes Org specific cx Ql (Throat) Positive [id number] [facility] Other Quick Strep [id number] [facility] Other Covid-19 PCR ([facility])on 04-29 SARS-CoV-2 (COVID-19) RNA SHANEKA+probe Ql (Unsp spec) Not detected Normal NOT DETECTED [facility] Comment on above: Result Comment: When [...] for this test is supported by the [place] of Health and Human Service's declaration that [...] used). Performed By: #### H BSANS #### [facility] [address] [place] [address] Dr. Marvin Ashford GROUP A STREP CULTUREon 04-29 S. pyogenes Ag Ql (Unsp spec) Culture Observations: NEGATIVE FOR GROUP A STREPTOCOCCUS. Normal [facility] Comment on above: Performed By: #### C BC #### [facility] [address] [place] [address] Dr. Marvin Ashford STREPT SCREENon 05-26-2022 STREP SCREEN A Negative Normal NEGATIVE [facility] Comment on above: Performed By: #### C BC #### [facility] [address] [place] [address] Dr. Marvin Ashford FRESH FROZ PLASMAon 05-07-20 22 FRESH FROZ PLASMA Unit Blood Type A Pos Unit Number [id number] Status Information Transfused Product ID FFP Product Code [id number] [facility] Comment on above: Performed By: #### F FP #### [facility] [address] [place] [address] Dr. Marvin Ashford FRESH FROZ PLASMA Unit Blood Type A Pos Unit Number [id number] Status Information Transfused Product ID FFP Product Code [id number] Normal [facility] Comment on above: Performed By: #### F FP #### [facility] [address] [place] [address] Dr. Marvin Ashford PRBC LEUKOREDUCEDon 05-07-20 22 ABO and Rh group Nom (Bld) Cross Match Result Compatible Unit Blood Type A Pos Unit Number [id number] Status Information Transfused Product ID Red Blood Cells Product Code [id number] Cross Match Result Compatible Unit Blood Type A Pos Unit Number [id number] Status Information Released Specimen Exp Date Product ID Red Blood Cells Product Code [id number] [facility] Comment on above: Performed By: #### P RBC #### [facility] [address] [place] [address] Dr. Marvin Ashford ABO and Rh group Nom (Bld) Cross Match Result Compatible Unit Blood Type A Pos Unit Number [id number] Status Information Released Specimen Exp Date Product ID Red Blood Cells Product Code [id number] Cross Match Result Compatible Unit Blood Type A Pos Unit Number [id number] Status Information Transfused Product ID Red Blood Cells Product Code [id number] [facility] Comment on above: Performed By: #### H BSANS #### [facility] [address] [place] [address] Dr. Marvin Ashford CBC AUTO DIFFon 05-05-2022 BASO # 0.1 103/ul Normal 0.0-0.1 [facility] Comment on above: Performed By: #### G BSCX #### [facility] [address] [place] [address] Dr. Marvin Asfhord Basophils/100 WBC (Bld) 0.3 % Normal 0.2-2.0 [facility] Comment on above: Performed By: #### G BSCX #### [facility] [address] [place] [address] Dr. Marvin Ashford EO # 0.0 103/ul Normal 0.0-0.7 [facility] Comment on above: Performed By: #### G BSCX #### [facility] [address] [place] [address] Dr. Marvin Ashford Eosinophils/100 WBC (Bld) 0.2 % Critically low 0.9-7.0 [facility] Comment on above: Performed By: #### G BSCX #### [facility] [address] [place] [address] Dr. Marvin Ashford Erythrocyte distribution width (RBC) [Ratio] 14.6 % Normal 11.0-15.0 [facility] Comment on above: Performed By: #### G BSCX #### [facility] [address] [place] [address] Dr. Marvin Ashford Hematocrit (Bld) [Volume fraction] 25.6 % Critically low 36.0-48.0 [facility] Comment on above: Performed By: #### G BSCX #### [facility] [address] [place] [address] Dr. Marvin Ashford Hemoglobin (Bld) [Mass/Vol] 8.8 g/dL Critically low 12.0-16.0 [facility] Comment on above: Performed By: #### G BSCX #### [facility] [address] [place] [address] Dr. Marvin Ashford IG # 0.14 10e3/ul Critically high 0.00-0.03 [facility] Comment on above: Performed By: #### G BSCX #### [facility] [address] [place] [address] Dr. Marvin Ashford IG % 0.9 % Critically high 0.0-0.5 [facility] Comment on above: Performed By: #### G BSCX #### [facility] [address] [address] [address] Marvin Ashford LYMPH # 2.7 103/ul Normal 1.2-3.8 [facility] Comment on above: Performed By: #### G BSCX #### [facility] [address] [place] [address] Dr. Marvin Ashford Lymphocytes/100 WBC (Bld) 17.1 % Critically low 20.5-60.0 [facility] Comment on above: Performed By: #### G BSCX #### [facility] [address] [place] [address] Dr. Marvin Ashford MANUAL DIFF REQ NO Normal [facility] Comment on above: Performed By: #### G BSCX #### [facility] [address] [place] [address] Dr. Marvin Ashford MCH (RBC) [Entitic mass] 31.1 pg Normal 26.7-34.0 [facility] Comment on above: Performed By: #### G BSCX #### [facility] [address] [place] [address] Dr. Marvin Ashford MCHC (RBC) [Mass/Vol] 34.4 g/dL Normal 29.9-35.2 [facility] Comment on above: Performed By: #### G BSCX #### [facility] [address] [place] [address] Dr. Marvin Ashford MCV (RBC) [Entitic vol] 90.5 fL Normal 81.0-99.0 [facility] Comment on above: Performed By: #### G BSCX #### [facility] [address] [address] [address] Marvin Ashford MONO # 1.0 103/ul Critically high 0.3-0.8 [facility] Comment on above: Performed By: #### G BSCX #### [facility] [address] [place] [address] Dr. Marvin Ashford Monocytes/100 WBC (Bld) 6.4 % Normal 1.7-12.0 [facility] Comment on above: Performed By: #### G BSCX #### [facility] [address] [address] [address] Marvin Ashford NEUT # 11.7 103/ul Critically high 1.4-6.5 [facility] Comment on above: Performed By: #### G BSCX #### [facility] [address] [address] [address] Marvin Ashford Neutrophils/100 WBC (Bld) 75.1 % Critically high 43.0-75.0 [facility] Comment on above: Performed By: #### G BSCX #### [facility] [address] [place] [address] Dr. Marvin Ashford Platelet mean volume (Bld) [Entitic vol] 10.2 fL Normal 9.5-13.5 [facility] Comment on above: Performed By: #### G BSCX #### [facility] [address] [place] [address] Dr. Marvin Ashford PLT 114 103/ul Critically low 150-450 [facility] Comment on above: Performed By: #### G BSCX #### [facility] [address] [place] [address] Dr. aMrvin Ashford RBC 2.83 106/ul Critically low 4.20-5.40 [facility] Comment on above: Performed By: #### G BSCX #### [facility] [address] [place] [address] Dr. Marvin Ashford WBC 15.5 103/ul Critically high 4.0-11.0 [facility] Comment on above: Performed By: #### G BSCX #### [facility] [address] [place] [address] Dr. Marvin Ashford CBC AUTO DIFFon 05-04-2022 BASO # 0.1 103/ul Normal 0.0-0.1 [facility] Comment on above: Performed By: #### C BC #### [facility] [address] [place] [address] Dr. Marvin Ashford Basophils/100 WBC (Bld) 0.2 % Normal 0.2-2.0 [facility] Comment on above: Performed By: #### C BC #### [facility] [address] [place] [address] Dr. Marvin Ashford EO # 0.0 103/ul Normal 0.0-0.7 [facility] Comment on above: Performed By: #### C BC #### [facility] [address] [place] [address] Dr. Marvin Ashford Eosinophils/100 WBC (Bld) 0.0 % Critically low 0.9-7.0 [facility] Comment on above: Performed By: #### C BC #### [facility] [address] [place] [address] Dr. Marvin Ashford Erythrocyte distribution width (RBC) [Ratio] 14.1 % Normal 11.0-15.0 [facility] Comment on above: Performed By: #### C BC #### [facility] [address] [place] [address] Dr. Marvin Ashford Hematocrit (Bld) [Volume fraction] 26.6 % Critically low 36.0-48.0 [facility] Comment on above: Performed By: #### C BC #### [facility] [address] [place] [address] Dr. Marvin Ashford Hemoglobin (Bld) [Mass/Vol] 9.2 g/dL Critically low 12.0-16.0 [facility] Comment on above: Performed By: #### C BC #### [facility] [address] [place] [address] Dr. Marvin Ashford IG # 0.24 10e3/ul Critically high 0.00-0.03 [facility] Comment on above: Performed By: #### C BC #### [facility] [address] [place] [address] Dr. Marvin Ashford IG % 1.0 % Critically high 0.0-0.5 [facility] Comment on above: Performed By: #### C BC #### [facility] [address] [place] [address] Dr. Marvin Ashford LYMPH # 2.0 103/ul Normal 1.2-3.8 [facility] Comment on above: Performed By: #### C BC #### [facility] [address] [place] [address] Dr. Marvin Ashford Lymphocytes/100 WBC (Bld) 8.3 % Critically low 20.5-60.0 [facility] Comment on above: Performed By: #### C BC #### [facility] [address] [place] [address] Dr. Marvin Ashford MANUAL DIFF REQ NO Normal [facility] Comment on above: Performed By: #### C BC #### [facility] [address] [place] [address] Dr. Marvin Ashford MCH (RBC) [Entitic mass] 30.8 pg Normal 26.7-34.0 [facility] Comment on above: Performed By: #### C BC #### [facility] [address] [place] [address] Dr. Marvin Ashford MCHC (RBC) [Mass/Vol] 34.6 g/dL Normal 29.9-35.2 [facility] Comment on above: Performed By: #### C BC #### [facility] [address] [place] [address] Dr. Marvin Ashford MCV (RBC) [Entitic vol] 89.0 fL Normal 81.0-99.0 [facility] Comment on above: Performed By: #### C BC #### [facility] [address] [place] [address] Dr. Marvin Ashford MONO # 2.6 103/ul Critically high 0.3-0.8 [facility] Comment on above: Performed By: #### C BC #### [facility] [address] [place] [address] Dr. Marvin Ashford Monocytes/100 WBC (Bld) 10.6 % Normal 1.7-12.0 [facility] Comment on above: Performed By: #### C BC #### [facility] [address] [place] [address] Dr. Marvin Ashford NEUT # 19.3 103/ul Critically high 1.4-6.5 [facility] Comment on above: Performed By: #### C BC #### [facility] [address] [address] [address] Marvin Ashford Neutrophils/100 WBC (Bld) 79.9 % Critically high 43.0-75.0 [facility] Comment on above: Performed By: #### C BC #### [facility] [address] [address] [address] Marvin Ashford Platelet mean volume (Bld) [Entitic vol] 9.7 fL Normal 9.5-13.5 [facility] Comment on above: Performed By: #### C BC #### [facility] [address] [place] [address] Dr. Marvin Ashford PLT 98 103/ul Critically low 150-450 [facility] Comment on above: Performed By: #### C BC #### [facility] [address] [place] [address] Dr. Marvin Ashford RBC 2.99 106/ul Critically low 4.20-5.40 [facility] Comment on above: Performed By: #### C BC #### [facility] [address] [address] [address] Marvin Ashford WBC 24.1 103/ul Critically high 4.0-11.0 [facility] Comment on above: Performed By: #### C BC #### [facility] [address] [place] [address] Dr. Marvin Ashford CBC W MANUAL DIFFon 05-04-20 22 ATYPICAL LYMPH # Normal [facility] Comment on above: Performed By: #### H BSANS #### [facility] [address] [place] [address] Dr. Marvin Ashford ATYPICAL LYMPH % Normal [facility] Comment on above: Performed By: #### H BSANS #### [facility] [address] [place] [address] Dr. Marvin Ashford BAND # Normal 0.0-0.3 [facility] Comment on above: Performed By: #### H BSANS #### [facility] [address] [place] [address] Dr. Marvin Ashford BAND % Normal 0-5 [facility] Comment on above: Performed By: #### H BSANS #### [facility] [address] [place] [address] Dr. Marvin Ashford BASOM # 0.00 103/ul Normal 0.00-0.10 [facility] Comment on above: Performed By: #### H BSANS #### [facility] [address] [place] [address] Dr. Marvin Ashford BASOM % 0.0 % Critically low 0.2-2.0 [facility] Comment on above: Performed By: #### H BSANS #### [facility] [address] [place] [address] Dr. Marvin Ashford BLAST # Normal [facility] Comment on above: Performed By: #### H BSANS #### [facility] [address] [place] [address] Dr. Marvin Ashford BLAST % Normal [facility] Comment on above: Performed By: #### H BSANS #### [facility] [address] [place] [address] Dr. Marvin Ashford CORRECTED WBC Normal 4.0-11.0 [facility] Comment on above: Performed By: #### H BSANS #### [facility] [address] [place] [address] Dr. Marvin Ashford EOS # 0.00 103/ul Normal 0.00-0.70 [facility] Comment on above: Performed By: #### H BSANS #### [facility] [address] [place] [address] Dr. Marvin Ashford EOS% 0.0 % Critically low 0.9-7.0 [facility] Comment on above: Performed By: #### H BSANS #### [facility] [address] [place] [address] Dr. Marvin Ashford HCT 25.6 % Critically low 36.0-48.0 [facility] Comment on above: Performed By: #### H BSANS #### [facility] [address] [place] [address] Dr. Marvin Ashford HGB 8.9 g/dl Critically low 12.0-16.0 [facility] Comment on above: Performed By: #### H BSANS #### [facility] [address] [address] [address] Marvin Ashford HYPOCHROMASIA SLIGHT Normal [facility] Comment on above: Performed By: #### H BSANS #### [facility] [address] [address] [address] Marvin Ashford LYMPHM # 1.92 103/ul Normal 1.20-3.80 [facility] Comment on above: Performed By: #### H BSANS #### [facility] [address] [place] [address] Dr. Marvin Ashford LYMPHM% 8.0 % Critically low 20.5-60.0 [facility] Comment on above: Performed By: #### H BSANS #### [facility] [address] [place] [address] Dr. Marvin Ashford MCH 31.0 pg Normal 26.7-34.0 [facility] Comment on above: Performed By: #### H BSANS #### [facility] [address] [place] [address] Dr. Marvin Ashford MCHC 34.8 g/dl Normal 29.9-35.2 [facility] Comment on above: Performed By: #### H BSANS #### [facility] [address] [place] [address] Dr. Marvin Ashford MCV 89.2 fL Normal 81.0-99.0 [facility] Comment on above: Performed By: #### H BSANS #### [facility] [address] [place] [address] Dr. Marvin Ashford METAMYELOCYTE # Normal [facility] Comment on above: Performed By: #### H BSANS #### [facility] [address] [place] [address] Dr. Marvin Ashford METAMYELOCYTE % Normal [facility] Comment on above: Performed By: #### H BSANS #### [facility] [address] [address] [address] Marvin Ashford MONOM# 0.48 103/ul Normal 0.30-0.80 [facility] Comment on above: Performed By: #### H BSANS #### [facility] [address] [address] [address] Marvin Ashford MONOM% 2.0 % Normal 1.7-12.0 [facility] Comment on above: Performed By: #### H BSANS #### [facility] [address] [place] [address] Dr. Marvin Ashford MPV 10.2 fL Normal 9.5-13.5 [facility] Comment on above: Performed By: #### H BSANS #### [facility] [address] [place] [address] Dr. Marvin Ashford MYELOCYTE # Normal [facility] Comment on above: Performed By: #### H BSANS #### [facility] [address] [place] [address] Dr. Marvin Ashford MYELOCYTE % Normal [facility] Comment on above: Performed By: #### H BSANS #### [facility] [address] [address] [address] Marvin Ashford NRBC Normal [facility] Comment on above: Performed By: #### H BSANS #### [facility] [address] [place] [address] Dr. Marvin Ashford PLT 104 103/ul Critically low 150-450 [facility] Comment on above: Performed By: #### H BSANS #### [facility] [address] [place] [address] Dr. Marvin Ashford RBC 2.87 106/ul Critically low 4.20-5.40 [facility] Comment on above: Performed By: #### H BSANS #### [facility] [address] [place] [address] Dr. Marvin Ashford RDW 14.4 % Normal 11.0-15.0 [facility] Comment on above: Performed By: #### H BSANS #### [facility] [address] [address] [address] Marvin Ashford SEG # 21.60 103/ul Critically high 1.40-6.50 [facility] Comment on above: Performed By: #### H BSANS #### [facility] [address] [place] [address] Dr. Marvin Ashford SEG % 90.0 % Critically high 43.0-75.0 [facility] Comment on above: Performed By: #### H BSANS #### [facility] [address] [address] [address] Marvin Ashford WBC 24.0 103/ul Critically high 4.0-11.0 [facility] Comment on above: Performed By: #### H BSANS #### [facility] [address] [place] [address] Dr. Marvin Ashford CBC AUTO DIFFon 05-03-2022 BASO # 0.1 103/ul Normal 0.0-0.1 [facility] Comment on above: Performed By: #### C BC #### [facility] [address] [place] [address] Dr. Marvin Ashford Basophils/100 WBC (Bld) 0.3 % Normal 0.2-2.0 [facility] Comment on above: Performed By: #### C BC #### [facility] [address] [place] [address] Dr. Marvin Ashford EO # 0.0 103/ul Normal 0.0-0.7 [facility] Comment on above: Performed By: #### C BC #### [facility] [address] [place] [address] Dr. Marvin Ashford Eosinophils/100 WBC (Bld) 0.0 % Critically low 0.9-7.0 [facility] Comment on above: Performed By: #### C BC #### [facility] [address] [place] [address] Dr. Marvin Ashford Erythrocyte distribution width (RBC) [Ratio] 13.3 % Normal 11.0-15.0 [facility] Comment on above: Performed By: #### C BC #### [facility] [address] [place] [address] Dr. Marvin Ashford Hematocrit (Bld) [Volume fraction] 26.6 % Critically low 36.0-48.0 [facility] Comment on above: Performed By: #### C BC #### [facility] [address] [place] [address] Dr. Marvin Ashford Hemoglobin (Bld) [Mass/Vol] 9.0 g/dL Critically low 12.0-16.0 [facility] Comment on above: Performed By: #### C BC #### [facility] [address] [place] [address] Dr. Marvin Ashford IG # 0.62 10e3/ul Critically high 0.00-0.03 [facility] Comment on above: Performed By: #### C BC #### [facility] [address] [place] [address] Dr. Marvin Ashford IG % 1.8 % Critically high 0.0-0.5 [facility] Comment on above: Performed By: #### C BC #### [facility] [address] [place] [address] Dr. Marvin Ashford LYMPH # 1.1 103/ul Critically low 1.2-3.8 [facility] Comment on above: Performed By: #### C BC #### [facility] [address] [place] [address] Dr. Marvin Ashford Lymphocytes/100 WBC (Bld) 3.3 % Critically low 20.5-60.0 [facility] Comment on above: Performed By: #### C BC #### [facility] [address] [place] [address] Dr. Marvin Ashford MANUAL DIFF REQ NO Normal [facility] Comment on above: Performed By: #### C BC #### [facility] [address] [place] [address] Dr. Marvin Ashford MCH (RBC) [Entitic mass] 31.9 pg Normal 26.7-34.0 [facility] Comment on above: Performed By: #### C BC #### [facility] [address] [place] [address] Dr. Marvin Ashford MCHC (RBC) [Mass/Vol] 33.8 g/dL Normal 29.9-35.2 [facility] Comment on above: Performed By: #### C BC #### [facility] [address] [address] [address] Marvin Ashford MCV (RBC) [Entitic vol] 94.3 fL Normal 81.0-99.0 [facility] Comment on above: Performed By: #### C BC #### [facility] [address] [address] [address] Marvin Ashford MONO # 2.3 103/ul Critically high 0.3-0.8 The [facility] Comment on above: Performed By: #### C BC #### [facility] [address] [place] [address] Dr. Marvin Ashford Monocytes/100 WBC (Bld) 6.6 % Normal 1.7-12.0 [facility] Comment on above: Performed By: #### C BC #### [facility] [address] [address] [address] Marvin Ashford NEUT # 30.2 103/ul Critically high 1.4-6.5 The [facility] Comment on above: Performed By: #### C BC #### [facility] [address] [place] [address] Dr. Marvin Ashford Neutrophils/100 WBC (Bld) 88.0 % Critically high 43.0-75.0 [facility] Comment on above: Performed By: #### C BC #### [facility] [address] [address] [address] Marvin Ashford Platelet mean volume (Bld) [Entitic vol] 10.2 fL Normal 9.5-13.5 [facility] Comment on above: Performed By: #### C BC #### [facility] [address] [address] [address] Marvin Ashford PLT 136 103/ul Critically low 150-450 The [facility] Comment on above: Performed By: #### C BC #### [facility] [address] [address] [address] Marvin Ashford RBC 2.82 106/ul Critically low 4.20-5.40 [facility] Comment on above: Performed By: #### C BC #### [facility] [address] [place] [address] Dr. Marvin Ashford WBC 34.3 103/ul Critically high 4.0-11.0 [facility] Comment on above: Performed By: #### C BC #### [facility] [address] [place] [address] Dr. Marvin Ashford CBC AUTO DIFFon 05-01-2022 BASO # 0.0 103/ul Normal 0.0-0.1 [facility] Comment on above: Performed By: #### C BC #### [facility] [address] [place] [address] Dr. Marvin Ashford Basophils/100 WBC (Bld) 0.4 % Normal 0.2-2.0 [facility] Comment on above: Performed By: #### C BC #### [facility] [address] [place] [address] Dr. Marvin Ashford EO # 0.0 103/ul Normal 0.0-0.7 [facility] Comment on above: Performed By: #### C BC #### [facility] [address] [place] [address] Dr. Marvin Ashford Eosinophils/100 WBC (Bld) 0.2 % Critically low 0.9-7.0 [facility] Comment on above: Performed By: #### C BC #### [facility] [address] [place] [address] Dr. Marvin Ashford Erythrocyte distribution width (RBC) [Ratio] 12.9 % Normal 11.0-15.0 [facility] Comment on above: Performed By: #### C BC #### [facility] [address] [place] [address] Dr. Marvin Ashford Hematocrit (Bld) [Volume fraction] 35.5 % Critically low 36.0-48.0 [facility] Comment on above: Performed By: #### C BC #### [facility] [address] [place] [address] Dr. Marvin Ashford Hemoglobin (Bld) [Mass/Vol] 11.7 g/dL Critically low 12.0-16.0 [facility] Comment on above: Performed By: #### C BC #### [facility] [address] [place] [address] Dr. Marvin Ashford IG # 0.10 10e3/ul Critically high 0.00-0.03 [facility] Comment on above: Performed By: #### C BC #### [facility] [address] [place] [address] Dr. Marvin Ashford IG % 0.9 % Critically high 0.0-0.5 [facility] Comment on above: Performed By: #### C BC #### [facility] [address] [place] [address] Dr. Marvin Ashford LYMPH # 1.8 103/ul Normal 1.2-3.8 [facility] Comment on above: Performed By: #### C BC #### [facility] [address] [place] [address] Dr. Marvin Ashford Lymphocytes/100 WBC (Bld) 16.4 % Critically low 20.5-60.0 [facility] Comment on above: Performed By: #### C BC #### [facility] [address] [place] [address] Dr. Marvin Ashford MANUAL DIFF REQ NO Normal [facility] Comment on above: Performed By: #### C BC #### [facility] [address] [place] [address] Dr. Marvin Ashford MCH (RBC) [Entitic mass] 30.7 pg Normal 26.7-34.0 [facility] Comment on above: Performed By: #### C BC #### [facility] [address] [place] [address] Dr. Marvin Ashford MCHC (RBC) [Mass/Vol] 33.0 g/dL Normal 29.9-35.2 [facility] Comment on above: Performed By: #### C BC #### [facility] [address] [place] [address] Dr. Marvin Ashford MCV (RBC) [Entitic vol] 93.2 fL Normal 81.0-99.0 [facility] Comment on above: Performed By: #### C BC #### [facility] [address] [place] [address] Dr. Marvin Ashford MONO # 0.8 103/ul Normal 0.3-0.8 [facility] Comment on above: Performed By: #### C BC #### [facility] [address] [place] [address] Dr. Marvin Ashford Monocytes/100 WBC (Bld) 7.8 % Normal 1.7-12.0 [facility] Comment on above: Performed By: #### C BC #### [facility] [address] [place] [address] Dr. Marvin Ashford NEUT # 8.0 103/ul Critically high 1.4-6.5 [facility] Comment on above: Performed By: #### C BC #### [facility] [address] [place] [address] Dr. Marvin Ashford Neutrophils/100 WBC (Bld) 74.3 % Normal 43.0-75.0 [facility] Comment on above: Performed By: #### C BC #### [facility] [address] [place] [address] Dr. Marvin Ashford Platelet mean volume (Bld) [Entitic vol] 9.9 fL Normal 9.5-13.5 [facility] Comment on above: Performed By: #### C BC #### [facility] [address] [place] [address] Dr. Marvin Ashford PLT 211 103/ul Normal 150-450 [facility] Comment on above: Performed By: #### C BC #### [facility] [address] [place] [address] Dr. Marvin Ashford RBC 3.81 106/ul Critically low 4.20-5.40 [facility] Comment on above: Performed By: #### C BC #### [facility] [address] [place] [address] Dr. Marvin Ashford WBC 10.7 103/ul Normal 4.0-11.0 [facility] Comment on above: Performed By: #### C BC #### [facility] [address] [place] [address] Dr. Marvin Ashford Covid-19 PCR ([facility])on SARS-CoV-2 (COVID-19) RNA SHANEKA+probe Ql (Unsp spec) Not detected Normal NOT DETECTED [facility] Comment on above: Result Comment: When [...] for this test is supported by the Combination Worker of Health and Human Service's declaration that [...] used). Performed By: #### G BSCX #### [facility] [address] [place] [address] Dr. Marvin Ashford DRUG SCREEN RAPID (URINE)on 05-01-2022 AMP Negative Normal NEGATIVE [facility] Comment on above: Performed By: #### G BSCX #### [facility] [address] [place] [address] Dr. Marvin Ashford BAR Negative Normal NEGATIVE [facility] Comment on above: Performed By: #### G BSCX #### [facility] [address] [place] [address] Dr. Marvin Ashford BUP Negative Normal NEGATIVE [facility] Comment on above: Performed By: #### G BSCX #### [facility] [address] [place] [address] Dr. Marvin Ashford BZO Negative Normal NEGATIVE [facility] Comment on above: Performed By: #### G BSCX #### [facility] [address] [place] [address] Dr. Marvin Ashford MYNOR Negative Normal NEGATIVE [facility] Comment on above: Performed By: #### G BSCX #### [facility] [address] [place] [address] Dr. Marvin Ashford CUT-OFFS SEE BELOW Normal [facility] Comment on above: Result Comment: AMP [...] ng/mL Performed By: #### G BSCX #### [facility] [address] [place] [address] Dr. Marvin Ashford DRUG CUT HEADER DRUG CLASS TEST SYSTEM CUT-OFF CONCENTRATIONS ARE FOLLOWS: Normal [facility] Comment on above: Performed By: #### G BSCX #### [facility] [address] [place] [address] Dr. Marvin Ashford mAMP Negative Normal NEGATIVE [facility] Comment on above: Performed By: #### G BSCX #### [facility] [address] [place] [address] Dr. Marvin Ashford MTD Negative Normal NEGATIVE [facility] Comment on above: Performed By: #### G BSCX #### [facility] [address] [place] [address] Dr. Marvin Ashford OPI Negative Normal NEGATIVE [facility] Comment on above: Performed By: #### G BSCX #### [facility] [address] [place] [address] Dr. Marvin Ashford OXY Negative Normal NEGATIVE [facility] Comment on above: Performed By: #### G BSCX #### [facility] [address] [place] [address] Dr. Marvin Ashford PCP Negative Normal NEGATIVE [facility] Comment on above: Performed By: #### G BSCX #### [facility] [address] [place] [address] Dr. Marvin Ashford PPX Negative Normal NEGATIVE [facility] Comment on above: Performed By: #### G BSCX #### [facility] [address] [place] [address] Dr. Marvin Ashford TCA Negative Normal NEGATIVE [facility] Comment on above: Performed By: #### G BSCX #### [facility] [address] [place] [address] Dr. Marvin Ashford THC Negative Normal NEGATIVE [facility] Comment on above: Performed By: #### G BSCX #### [facility] [address] [place] [address] Dr. Marvin Ashford TYPE AND SCREENon 05-01-2022 TYPE AND SCREEN Negative Normal [facility] Comment on above: Performed By: #### T NS #### [facility] [address] [place] [address] Dr. Marvin Ashford CHLAMYDIA/GONOCOCCUS SHANEKA (SW AB/URINE/PAPon 04-17-2022 Chlamydia trachomatis, SHANEKA Negative Normal Negative [facility] Comment on above: Performed By: #### C BC #### [facility] [address] [place] [address] Dr. Marvin Ashford Neisseria gonorrhoeae, SHANEKA Negative Normal Negative [facility] Comment on above: Performed By: #### C BC #### [facility] [address] [place] [address] Dr. Marvin Ashford GROUP B STREP CULTUREon 03-27 S. agalactiae Ag Ql (Unsp spec) Culture Observations: NEGATIVE FOR GROUP B STREPTOCOCCUS. Normal [facility] Comment on above: Performed By: #### G BSCX #### [facility] [address] [place] [address] Dr. Marvin Ashford CULTURE URINEon 03-09-2022 CULTURE URINE Culture Observations: NO GROWTH. Normal [facility] Comment on above: Performed By: #### H BSANS #### [facility] [address] [place] [address] Dr. Marvin Ashford UA (CLEAN/CATCH) MECHANICAL TECHNICAL SERVICE SPECIALIST/MICRO I F IND.on 03-09-2022 Bilirubin Ql (U) Negative Normal NEGATIVE [facility] Comment on above: Performed By: #### G BSCX #### [facility] [address] [place] [address] Dr. Marvin Ashford Clarity (U) CLEAR Normal CLEAR [facility] Comment on above: Performed By: #### G BSCX #### [facility] [address] [place] [address] Dr. Marvin Ashford Color (U) YELLOW Normal YELLOW [facility] Comment on above: Performed By: #### G BSCX #### [facility] [address] [place] [address] Dr. Marvin Ashford Glucose Ql (U) Negative Normal NEGATIVE [facility] Comment on above: Performed By: #### G BSCX #### [facility] [address] [place] [address] Dr. Marvin Ashford Hemoglobin Ql (U) SMALL Abnormal NEGATIVE [facility] Comment on above: Performed By: #### G BSCX #### [facility] [address] [place] [address] Dr. Marvin Ashford Ketones Ql (U) TRACE Abnormal NEGATIVE [facility] Comment on above: Performed By: #### G BSCX #### [facility] [address] [place] [address] Dr. Marvin Ashford LEUKOCYTES TRACE Abnormal NEGATIVE [facility] Comment on above: Performed By: #### G BSCX #### [facility] [address] [place] [address] Dr. Marvin Ashford Nitrite Ql (U) Negative Normal NEGATIVE [facility] Comment on above: Performed By: #### G BSCX #### [facility] [address] [place] [address] Dr. Marvin Ashford pH (U) 6.0 [pH] Normal 5-9 [facility] Comment on above: Performed By: #### G BSCX #### [facility] [address] [place] [address] Dr. Marvin Ashford SPEC GRAVITY 1.025 Normal 1.005-<=1.025 [facility] Comment on above: Performed By: #### G BSCX #### [facility] [address] [place] [address] Dr. Marvin Ashford UA PROTEIN Negative Normal NEGATIVE/ TRACE [facility] Comment on above: Performed By: #### G BSCX #### [facility] [address] [place] [address] Dr. Marvin Ashford UR MICRO IND INDICATED Normal [facility] Comment on above: Performed By: #### G BSCX #### [facility] [address] [place] [address] Dr. Marvin Ashford Urobilinogen Qn (U) 1.0 {Ekta'U}/dL Normal 0.2 - 1. 0 [facility] Comment on above: Performed By: #### G BSCX #### [facility] [address] [place] [address] Dr. Marvin Ashford URINE MICROSCOPIC ONLYon BACTERIA TRACE Abnormal NONE SEEN [facility] Comment on above: Performed By: #### G BSCX #### [facility] [address] [place] [address] Dr. Marvin Ashford Bacteria identified Cx Nom (U) INDICATED Normal [facility] Comment on above: Performed By: #### G BSCX #### [facility] [address] [place] [address] Dr. Marvin Ashford CAST NONE SEEN Normal NONE SEEN [facility] Comment on above: Performed By: #### G BSCX #### [facility] [address] [place] [address] Dr. Marvin Ashford Crystals LM Nom (Urine sed) NONE SEEN Normal NONE SEEN [facility] Comment on above: Performed By: #### G BSCX #### [facility] [address] [address] [address] Marvin Ashford Epithelial cells LM Ql (Urine sed) MANY Abnormal NONE SEEN /RARE [facility] Comment on above: Performed By: #### G BSCX #### [facility] [address] [address] [address] Marvin Ashford MUCOUS TRACE Abnormal NONE SEEN [facility] Comment on above: Performed By: #### G BSCX #### [facility] [address] [place] [address] Dr. Marvin Ashford RBC 2-5 Abnormal 0-2 [facility] Comment on above: Performed By: #### G BSCX #### [facility] [address] [place] [address] Dr. Marvin Ashford WBC 2-5 Abnormal NONE SEEN [facility] Comment on above: Performed By: #### G BSCX #### [facility] [address] [place] [address] Dr. Marvin Ashford US PREG PLACENTAon 2 [...] CHOCO SAUNDERS Date: 2022-03-09 17:20 Normal [facility] COVID + FLU Quick Testingon 02-21-2022 SARS-CoV-2 (COVID-19) RNA SHANEKA+probe Ql (Unsp spec) Positive [employer] Other COVID + FLU Quick Testing Negative [employer] Other Quick Strepon 02-21-2022 S. pyogenes Org specific cx Ql (Throat) Negative [employer] Other Quick Strep [id number] [facility] Other GLUCOSE - 1HRon 02-09-2022 Glucose [Mass/Vol] 133 mg/dL Critically high 74-106 T he [facility] Comment on above: Performed By: #### G BSCX #### [facility] [address] [place] [address] Dr. Marvin Ashford HEMOGRAM AND PLATELon 2021 Hematocrit (Bld) [Volume fraction] 33.4 % Critically low 36.0-48.0 [facility] Comment on above: Performed By: #### H H #### [facility] [address] [place] [address] Dr. Marvin Ashford Hemoglobin (Bld) [Mass/Vol] 11.3 g/dL Critically low 12.0-16.0 [facility] Comment on above: Performed By: #### H H #### [facility] [address] [place] [address] Dr. Marvin Ashford MCH (RBC) [Entitic mass] 31.9 pg Normal 26.7-34.0 [facility] Comment on above: Performed By: #### H H #### [facility] [address] [place] [address] Dr. Marvin Ashford MCHC (RBC) [Mass/Vol] 33.8 g/dL Normal 29.9-35.2 [facility] Comment on above: Performed By: #### H H #### [facility] [address] [place] [address] Dr. Marvin Ashford MCV (RBC) [Entitic vol] 94.4 fL Normal 81.0-99.0 [facility] Comment on above: Performed By: #### H H #### [facility] [address] [place] [address] Dr. Marvin Ashford PLT 216 103/ul Normal 150-450 [facility] Comment on above: Performed By: #### H H #### [facility] [address], [place] [address] Dr. Marvin Ashford RBC 3.54 106/ul Critically low 4.20-5.40 [facility] Comment on above: Performed By: #### H H #### [facility] [address], [place] [address] Dr. Marvin Ashford WBC 10.1 103/ul Normal 4.0-11.0 [facility] Comment on above: Performed By: #### H H #### [facility] [address], [place] [address] Dr. Marvin Ashford US PREG ANATOMY SINGLEon [...] JACOBO LATHAM Date: 2021-12-19 17:27 Normal [facility] AFP MATERNAL FOR SPINA BIFID Aon 12-11-2021 AFP MoM 0.90 Normal [facility] Comment on above: Performed By: #### H BSANS #### [facility] [address] [address] [address] Marvin Ashford AFP Value 54.5 ng/mL Normal [facility] Comment on above: Performed By: #### H BSANS #### [facility] [address] [address] [address] Marvin Ashford AFP, Serum for Spina Bifida Report Normal [facility] Comment on above: Performed By: #### H BSANS #### [facility] [address] [address] [address] Marvin Ashford Comment Comment Normal [facility] Comment on above: Result Comment: Mindi Ribera, Ph.D., [facility] Director . References: Available Upon Request. . Multiples Of Median Cutoffs For AFP Elevations Hill 2.5 Black 2.8 IDD 2.0 Twins 4.5 Abbreviation Definitions IDD - Insulin Dep Diabetes OSBR - Open Spina Bifida Risk . For further inquiries contact [employer] [facility] at [phone]. Performed By: #### H BSANS #### [facility] [address] [place] [address] Dr. Marvin Downey Age Collection Date 18.6 weeks [facility] Comment on above: Performed By: #### H BSANS #### [facility] [address] [place] [address] Dr. Marvin Ashford Gestat, Age Based on As provided [facility] Comment on above: Result Comment: Reca lculations are not recommended when gestational dating by LMP and ultrasound are within 10 days. Performed By: #### H BSANS #### [facility] [address] [address] [address] Marvin Ashford Insulin Dep Diabetes No Normal [facility] Comment on above: Performed By: #### H BSANS #### [facility] [address] [place] [address] Dr. Marvin Ashford Interpretation Comment Normal [facility] Comment on above: Result Comment: Inte [...] Customer Services to discuss available options. The [employer] recommends amniocentesis be offered to women age 35 and older. Performed By: #### H BSANS #### [facility] [address] [place] [address] Dr. Marvin Ashford [age] Normal [facility] Comment on above: Performed By: #### H BSANS #### [facility] [address] [place] [address] Dr. Marvin Ashford Multiple Gestation No Normal [facility] Comment on above: Performed By: #### H BSANS #### [facility] [address] [address] [address] Marvin Ashford OS[place] [address] Normal [facility] Comment on above: Performed By: #### H BSANS #### [facility] [address] [place] [address] Dr. Marvin Ashford PDF . Normal [facility] Comment on above: Result Comment: This test was developed and its performance characteristics determined by [facility]. It has not been cleared or approved by the Food and Drug Administration. Performed By: #### H BSANS #### [facility] [address] [place] [address] Dr. Marvin Ashford Race Normal [facility] Comment on above: Performed By: #### H BSANS #### [facility] [address] [place] [address] Dr. Marvin Ashford Test Results: Negative Normal [facility] Comment on above: Performed By: #### H BSANS #### [facility] [address] [place] [address] Dr. Marvin Ashford HEP B SURFACE ANTIGEN SCREEN on 10-26-2021 HBsAg Screen Negative Normal Negative [facility] Comment on above: Performed By: #### H BSANS #### [facility] [address] [place] [address] Dr. Marvin Ashford HEPATITIS C VIRUS AB W/ REFL EX QUANTon 10-26-2021 HCV AB <0.1 Normal 0.0-0.9 [facility] Comment on above: Performed By: #### C BC #### [facility] [address] [place] [address] Dr. Marvin Ashford Interpretation: Comment Normal [facility] Comment on above: Result Comment: Nega tive Not infected with HCV, unless recent infection is suspected or other evidence exists to indicate HCV infection. Performed By: #### C BC #### [facility] [address] [place] [address] Dr. Marvin Ashford HIV 1 AND 2 WITH REFLEXon HIV Screen 4th Generation wRfx Non-Reactive Normal Non Reactive [facility] Comment on above: Result Comment: HIV Negative HIV-1/HIV-2 antibodies and HIV-1 p24 antigen were NOT detected. There is no laboratory evidence of HIV infection. Performed By: #### G BSCX #### [facility] [address] [place] [address] Dr. Marvin Ashford RPR QUANTon 10-26-2021 Rapid Plasma Reagin, Quant Non-Reactive Normal NonRea<1:1 [facility] Comment on above: Performed By: #### C BC #### [facility] [address] [place] [address] Dr. Marvin Ashford RUBELLA AB IGGon 10-26-2021 Rubella Antibodies, IgG 1.87 index Normal Immune >0.99 [facility] Comment on above: Result Comment: Non- immune <0.90 Equivocal 0.90 - 0.99 Immune >0.99 Performed By: #### G BSCX #### [facility] [address] [place] [address] Dr. Marvin Ashford CBC AUTO DIFFon 10-25-2021 BASO # 0.0 103/ul Normal 0.0-0.1 [facility] Comment on above: Performed By: #### C BC #### [facility] [address] [place] [address] Dr. Marvin Ashford Basophils/100 WBC (Bld) 0.3 % Normal 0.2-2.0 [facility] Comment on above: Performed By: #### C BC #### [facility] [address] [place] [address] Dr. Marvin Ashford EO # 0.0 103/ul Normal 0.0-0.7 [facility] Comment on above: Performed By: #### C BC #### [facility] [address] [place] [address] Dr. Marvin Ashford Eosinophils/100 WBC (Bld) 0.1 % Critically low 0.9-7.0 [facility] Comment on above: Performed By: #### C BC #### [facility] [address] [place] [address] Dr. Marvin Ashford Erythrocyte distribution width (RBC) [Ratio] 13.1 % Normal 11.0-15.0 [facility] Comment on above: Performed By: #### C BC #### [facility] [address] [place] [address] Dr. Marvin Ashford Hematocrit (Bld) [Volume fraction] 34.7 % Critically low 36.0-48.0 [facility] Comment on above: Performed By: #### C BC #### [facility] [address] [place] [address] Dr. Marvin Ashford Hemoglobin (Bld) [Mass/Vol] 11.6 g/dL Critically low 12.0-16.0 [facility] Comment on above: Performed By: #### C BC #### [facility] [address] [place] [address] Dr. Marvin Ashford IG # 0.04 10e3/ul Critically high 0.00-0.03 [facility] Comment on above: Performed By: #### C BC #### [facility] [address] [place] [address] Dr. Marvin Ashford IG % 0.5 % Normal 0.0-0.5 [facility] Comment on above: Performed By: #### C BC #### [facility] [address] [place] [address] Dr. Marvin Ashford LYMPH # 1.9 103/ul Normal 1.2-3.8 [facility] Comment on above: Performed By: #### C BC #### [facility] [address] [place] [address] Dr. Marvin Ashford Lymphocytes/100 WBC (Bld) 22.4 % Normal 20.5-60.0 [facility] Comment on above: Performed By: #### C BC #### [facility] [address] [place] [address] Dr. Marvin Ashford MANUAL DIFF REQ NO Normal [facility] Comment on above: Performed By: #### C BC #### [facility] [address] [place] [address] Dr. Marvin Ashford MCH (RBC) [Entitic mass] 30.2 pg Normal 26.7-34.0 [facility] Comment on above: Performed By: #### C BC #### [facility] [address] [place] [address] Dr. Marvin Ashford MCHC (RBC) [Mass/Vol] 33.4 g/dL Normal 29.9-35.2 [facility] Comment on above: Performed By: #### C BC #### [facility] [address] [place] [address] Dr. Marvin Ashford MCV (RBC) [Entitic vol] 90.4 fL Normal 81.0-99.0 [facility] Comment on above: Performed By: #### C BC #### [facility] [address] [place] [address] Dr. Marvin Ashford MONO # 0.5 103/ul Normal 0.3-0.8 [facility] Comment on above: Performed By: #### C BC #### [facility] [address] [place] [address] Dr. Marvin Ashford Monocytes/100 WBC (Bld) 5.5 % Normal 1.7-12.0 [facility] Comment on above: Performed By: #### C BC #### [facility] [address] [place] [address] Dr. Marvin Ashford NEUT # 6.2 103/ul Normal 1.4-6.5 [facility] Comment on above: Performed By: #### C BC #### [facility] [address] [place] [address] Dr. Marvin Ashford Neutrophils/100 WBC (Bld) 71.2 % Normal 43.0-75.0 [facility] Comment on above: Performed By: #### C BC #### [facility] [address] [place] [address] Dr. Marvin Ashford Platelet mean volume (Bld) [Entitic vol] 9.5 fL Normal 9.5-13.5 [facility] Comment on above: Performed By: #### C BC #### [facility] [address] [place] [address] Dr. Marvin Ashford PLT 243 103/ul Normal 150-450 [facility] Comment on above: Performed By: #### C BC #### [facility] [address] [place] [address] Dr. Marvin Ashford RBC 3.84 106/ul Critically low 4.20-5.40 [facility] Comment on above: Performed By: #### C BC #### [facility] [address] [place] [address] Dr. Marvin Ashford WBC 8.7 103/ul Normal 4.0-11.0 [facility] Comment on above: Performed By: #### C BC #### [facility] [address] [place] [address] Dr. Marvin Ashford CULTURE URINEon 10-25-2021 CULTURE URINE Culture Observations: NO GROWTH. Normal [facility] Comment on above: Performed By: #### U RCX #### [facility] [address] [place] [address] Dr. Marvin Ashford GLYCOHEMOGLOBIN A1Con 2021 ADA RECOMMENDATION ADA THERAPEUTIC TARGET 6.0 - 7.0 ACTION SUGGESTED > 7.0 Normal [facility] Comment on above: Performed By: #### C BC #### [facility] [address] [address] [address] Marvin Ashford Glucose [Mass/Vol] 97 mg/dL Normal [facility] Comment on above: Performed By: #### C BC #### [facility] [address] [address] [address] Marvin Ashford HbA1c (Bld) [Mass fraction] 5.0 % Normal <=6.0 [facility] Comment on above: Performed By: #### C BC #### [facility] [address] [address] [address] Marvin Ashford TASHA BOX TEST PT SEND OUTo n 10-25-2021 SENT TO REF LAB 10/25/21 Normal [facility] Comment on above: Performed By: #### C BC #### [facility] [address] [place] [address] Dr. Marvin Ashford TYPE AND SCREENon 10-25-2021 TYPE AND SCREEN Negative Normal [facility] Comment on above: Performed By: #### T NS #### [facility] [address] [place] [address] Dr. Marvin Ashford US PREG TVon 09-27-2021 [...] JACOBO LATHAM Date: 2021-09-27 14:04 Normal [facility] US PREG TVon 09-08-2021 US PREG [...] by: JACOBO LATHAM Date: 2021-09-08 14:11 Normal [facility] Group A Strep DNAon 08-15-20 Group A Strep DNA Specimen Description .THROAT SWABSpecial Requests NOT REPORTEDDirect Exam Negative: Specimen negative for Streptococcus pyogenes by DNA amplification.Report Status FINAL 08/15/2018 Normal [facility] Comment on above: Performed By: #### G ASDNA ####[facility] [place], [place] [id number] [facility] [place] [address] Strep Gr A Direct Agon 08-13 S. pyogenes Ag IA Ql (Unsp spec) Specimen Description .THROATSpecial Requests NOT REPORTEDDirect Exam Rapid Strep A negative. A negative Rapid Group A Strep Screen result does not rule out the possibility of Group A Streptococci in the specimen. The [place] [employer] recommends confirmation testing. Therefore, a Group A Strep DNA test will be performed. Report Status FINAL 08/13/2018 [facility] Comment on above: Performed By: #### S GPA ####[facility] [place] [address] XR FOOT LEFT (MIN 3 VIEWS)on 01-30-2018 XR FOOT LEFT (MIN 3 VIEWS) LEFT FOOT, 01/30/2018INDICATION: Foot pain.COMPARISON: None.FINDINGS: Three views of the left foot were obtained. There is no acute fracture or dislocation. Osseous structures are well mineralized. Visualized soft tissues appear unremarkable. No radiopaque foreign body.IMPRESSION: No acute osseous abnormality.Interpre jovanny by:MARÍA Quirosigned by:Robert Muse MD01/30/18inal result Normal [facility] Vital Signs Date Time Vital Sign Value Performing Clinician Facility 05-28-2023 14:25-0400 Body height 157.48 cm Mi [facility] Other [facility] 05-28-2023 14:25-0400 Body mass index (BMI) [Ratio] 18.47 kg/m2 [facility] Other [facility] 05-28-2023 14:25-0400 Body temperature 97.5 [degF] Miserge Lang Other [facility] Other 05-28-2023 14:25-0400 Body weight 45.81 kg Mi Lang Other [facility] Other 05-28-2023 14:25-0400 Diastolic blood pressure 72 mm[Hg] [facility] Other [facility] Other 05-28-2023 14:25-0400 Respiratory rate 18 /min [facility] Other [facility] Other 05-28-2023 14:25-0400 SaO2% (BldA) [Mass fraction] 100 % [facility] Other [facility] Other 05-28-2023 14:25-0400 Systolic blood pressure 115 mm[Hg] [facility] Other [facility] Other 02-21-2022 13:15-0400 Body height 157.48 cm Nataliia Pérez Other [facility] Other 02-21-2022 13:15-0400 Body mass index (BMI) [Ratio] 23.77 kg/m2 Nataliia Elisa Other [facility] Other 02-21-2022 13:15-0400 Body temperature 101.1 [degF] Nataliia Paytonmond Other [facility] Other 02-21-2022 13:15-0400 Body weight 58.97 kg Nataliia Pérez Other [facility] Other 02-21-2022 13:15-0400 Respiratory rate 20 /min Nataliia Paytonmond Other [facility] Other 02-21-2022 13:15-0400 SaO2% (BldA) [Mass fraction] 99 % Nataliia Paytonmond Other [facility] Other 12-11-2021 02:05-0400 Body weight 50.[address] DOCTOR LUNA [facility] Comment on above: Performed By: #### HBSANS #### [facility] [address] [place] [address] Dr. Marvin Ashford 11-07-2021 16:50-0400 Body height 160.02 cm Nataliia Elisa Other [facility] 11-07-2021 16:50-0400 Body mass index (BMI) [Ratio] 19.31 kg/m2 Nataliia Elisa Other [facility] Other 11-07-2021 16:50-0400 Body weight 49.44 kg Nataliia Paytonmond Other [facility] Other Encounters Encounter Date Encounter Type Care Provider Facility Start: 08-30-2023 End: 08-30-2023 ambulatory DANYELLE GRACIA Not Available Start: 08-01-2023 End: 08-01-2023 ambulatory DANYELLE GRACIA Not Available Start: 05-28-2023 End: 05-28-2023 ambulatory Mi Lang Other [facility] Other Start: 05-28-2023 Office outpatient vi sit [...] 02-21-2022 End: 02-21-2022 ambulatory Nataliia Pérez Other [facility] Start: 02-21-2022 Office outpatient vi sit 15 minutes Nataliia Pérez [facility] Start: 02-09-2022 End: 02-10-[address] VIKTORIA MCCOLLUM Facility:[facility] Start: 12-19-2021 End: 12-20-[address] DOCTOR LUNA Facility:[facility] Start: 12-09-2021 End: 12-10-[address] DOCTOR LUNA Facility:[facility] Start: 11-07-2021 End: 11-07-2021 ambulatory Nataliia Pérez Other [facility] Other Start: 11-07-2021 Office outpatient vi sit 15 minutes Nataliia Pérez [facility] Start: 10-25-2021 End: 10-26-[address] VIKTORIA MCCOLLUM Facility:[facility] Start: 09-27-2021 End: 02-02-[address] VIKTORIA MCCOLLUM Facility:[facility] Start: 09-08-2021 End: 09-09-[address] VIKTORIA MCCOLLUM Facility:[facility] Start: 07-26-2021 ambulatory Iraida Rivasphuc ty:[facility] Start: 08-13-2018 End: 08-13-2018 Emergency department patient visit DEBBY ROBERTSON [facility] Start: 01-30-2018 End: 01-30-2018 Emergency department patient visit VESKAUSHIK CHANNING [facility] Procedures Date Procedure Procedure Detail Performing [...] [place]ANN[place] Payers Date Payer Category Payer Medicaid [id number] 2005 Unknown [id number] 2.16.84 [id number] 2003 Unknown [id number] 2.16.84 0.1.709500.3.579.2.593 2003 Unknown [id number] 2.16.84 0.1.526453.3.579.2.593 2003 Unknown [id number] 2.16.84 0.1.977227.3.579.2.593 2003 Unknown [id number] 2.16.84 0.1.518573.3.579.2.593 2003 Unknown [id number] 2.16.84 0.1.330215.3.579.2.593 2003 Unknown [id number] 2.16.84 0.1.763304.3.579.2.593 2003 Unknown [id number] 2.16.84 0.1.237720.3.579.2.593 2003 Unknown [id number] 2.16.84 0.1.250005.3.579.2.593 2003 Unknown [id number] 2.16.84 0.1.699033.3.579.2.593 2003 Unknown [id number] 2.16.84 0.1.824935.3.579.2.593 2003 Unknown [id number] 2.16.840 .1.661604.3.579.2.1259 2003 Unknown [id number] 2.16.840 .1.795263.3.579.2.1259 1984 Unknown [id number] 2.16.84 0.1.411640.3.579.2.174 1984 Unknown [id number] 2.16.84 0.1.063872.3.579.2.174 1984 Unknown [id number] 2.16.8 40.1.385061.3.579.2.727 1959 Self-pay 1961 Unknown [id number] Unknown [id number] 2.16.84 0.1.855517.3.579.2.593 Social History Date Type Detail Facility Sex Assigned At [facility] Evaluation note 05-28-2023 Note Date & [...] fever. Patient/parent verbalized understanding of treatment plan. [facility] Other Evaluation note 02-21-2022 Note Date & Type Note Facility 02-21-2022 Evaluation note Encounter Date Diagnosis Assessment Notes Jan, Sore throat (ICD-10 - J02.9) Jan, COVID-19 (ICD-10 - U07.1) Drink plenty fluids, get plenty of rest. Notify your cardiac exercise specialist of your positive COVID results. You must quarantine for 5 days after the onset of your symptoms, then you must wear a mask when out and about for the next 5 days. [facility] Other Evaluation note 11-07-2021 Note Date & Type Note Facility 11-07-2021 Evaluation note Encounter Date Diagnosis Assessment Notes Oct, Left ear impacted cerumen (ICD-10 - H61.22) Drink plenty fluids, get plenty of rest. Do not use Q-tips in your ears. Follow-up with your family physician for any further concerns. Follow the cerumen impaction home care instructions. [facility] Other Summary Purpose Family History No Family [...] DATE CREATED AUTHOR AUTHOR'S ORGANCHAD ATION 09/06/2023 [facility] EPIC REASON FOR VISIT (unrecogniz [...] BE BASED ON THE PRIMARY CLINICAL RECORDS. [employer] provides no warranty or guarantee of the accuracy or completeness of information in this document.
[2023-11-23 11:26] LABS: Results Report
[2023-11-23 11:29] LABS: Insulin Dep Diabetes No
== END 2023-09-21 15:44 | disposition home or self-care (01) ==
PROVIDERS: Visit Provider Obstetrics & Gynecology
DX: Z34.92 Encounter for supervision of normal pregnancy, unspecified, second trimester (principal); Z36.1 Encounter for antenatal screening for raised alphafetoprotein level
CPT/HCPCS: 36415; 82105

== ENCOUNTER 2023-10-24 12:25 | Outpatient (OUT) | payer OTHER, SELFPAY ==
[2023-10-24 13:41] LABS: Basophils Percent Auto 0.4 % (0.2-2.0); Eosinophils Percent Auto 0.1 % (0.9-7.0); Hematocrit 32.3 % (36.0-48.0); Hemoglobin 10.1 g/dL (12.0-16.0); Immature Granulocytes Abs Auto 0.09 10^3/uL (0.00-0.03); Immature Granulocytes Pct Auto 0.9 % (0.0-0.5); Lymphocytes Absolute Auto 2.3 10^3/uL (1.2-3.8); Lymphocytes Percent Auto 21.5 % (20.5-60.0); Mean Corpuscular HGB Conc 31.3 g/dL (29.9-35.2); Mean Corpuscular Hemoglobin 28.9 pg (26.7-34.0); Mean Corpuscular Volume 92.6 fL (81.0-99.0); Mean Platelet Volume 9.5 fL (9.5-13.5); Monocytes Absolute Auto 0.7 10^3/uL (0.3-0.8); Monocytes Percent Auto 6.3 % (1.7-12.0); Neutrophils Absolute Auto 7.5 10^3/uL (1.4-6.5); Neutrophils Percent Auto 70.8 % (43.0-75.0); Platelet Count 235 10^3/uL (150-450); Red Blood Count 3.49 10^6/uL (4.20-5.40); White Blood Count 10.6 10^3/uL (4.0-11.0)
[2023-10-24 14:30] LABS: Glucose 1 Hour 82 mg/dL (<130)
== END 2023-10-24 12:26 | disposition home or self-care (01) ==
LOC: LAB 12:26
PROVIDERS: Visit Provider Obstetrics & Gynecology
DX: Z34.90 Encounter for supervision of normal pregnancy, unspecified, unspecified trimester (principal)
CPT/HCPCS: 36415; 82950; 85025

== ENCOUNTER 2023-11-27 10:31 | Outpatient (OUT) | payer OTHER, SELFPAY ==
--- NOTE | 2023-11-27 10:36 | US_ITS ---
[address] [address] Patient Name: JAMES PURDY MRN: [id number] date: 2005 Sex: F Assigned Patient Location: [facility] Current Patient Location: [facility] Accession/Order Number: [id number] Exam Date: 11/27/2023 10:38 Report Date: 11/27/2023 11:28 At the request of: RICHARD EDDY Procedure: US OB growth EXAMINATION: US OB growth HISTORY: LGA COMPARISON: Ultrasound OB anatomy 09/05/2023 FINDINGS: Heart Rate: 136.0 bpm Number: 1.0 Position: CEPHALIC Amniotic Fluid Volume: 13.1 cm Maximum Vertical Pocket: 4.4 cm BIOMETRY: BPD: 7.5 cm cm; 30 weeks 1 days; 5% HC: 30.2 cmcm; 33 weeks 4 days ; 58% AC: 29.5 cm cm; 33 weeks 3 days; 88% FL: 5.8 cm cm; 30 weeks 2 days; 6% EFW: 1928.7 grams; 51% FL/AC: 19.6 FL/BPD: 77.0 HC/AC: 1.0 GESTATIONAL AGE: Age by EDC: 31 weeks 6 days FRANCISCO by EDC: 01/23/2024 Age by US: 31 weeks 2 days FRANCISCO by US: 01/27/2024 US/US OB growth IMPRESSION: 1. Single live intrauterine with growth detailed above. 2. Mild dilation of left renal pelvis/hydronephrosis approaching upper limits of normal (currently 8 mm in width). 3. Trace amount of scrotal fluid/hydrocele. Electronically authenticated by: IV COOPER Date: 11/27/2023 11:28
--- OUTSIDE RECORDS SUMMARY | 2023-11-27 10:41 | XMS_ITS | CCD ---
Author Organization [facility] Care Team Providers Care Brokerage Manager Name Role Phone NATE SNELL Unavailable Unavailable DEBBY ROBERTSON Unavailable Unavailable DEBBY ROBERTSON Unavailable Unavailable JOSE CULVER Unavailable Unavailable Nataliia Pérez Unavailable MISC, DR MARIN Primary Care Unavailable KARASIK, DR BLUM Attending Unavailable KARASIK, DR BLUM Admitting Unavailable KARASIK, DR BLUM Consulting Unavailable MISC, DR MARIN Primary Care Unavailable KARASIK, DR BLUM Attending Unavailable KARASIK, DR BLUM Admitting Unavailable KARASIK, DR BLUM Consulting Unavailable RALEIGH, DR JACOBO Bunn Consulting Unavailable KARASIK, DR [...] Unavailable MISC, DR MARIN Primary Care Unavailable NAG, DR LARA Consulting Unavailable ANG, DR LARA Attending Unavailable MISC, DR MARIN Primary Care Unavailable ANG, DR LARA Admitting Unavailable HILTON, DR RAMOS Consulting Unavailable HILTON, DR RAMOS Attending Unavailable HILTON, DR RAMOS Admitting Unavailable MISC, DR MARIN Primary Care Unavailable CHOCO SAUNDERS Consulting Unavailable KARASIK, DR BLUM Admitting Unavailable KARASIK, DR BLUM Consulting Unavailable KARASIK, DR BLUM Attending Unavailable MISC, DR MARIN Primary Care Unavailable HILTON, DR RAMOS Consulting Unavailable EDWIGE SEGOVIA Consulting Unavailable TREY, NELI BECK Consulting Unava [...] Unavailable MISC, DR MARIN Primary Care Unavailable Mi Lang Unavailable Iraida Butcher Referring Unavailable Iraida Butcher Attending Unavailable Iraida Butcher Admitting Unavailable Unavailable Primary Care Provider UnavailDANYELLE Gonzalez Attending Unavailable HILTON, RICHARD Attending Unavailable DANYELLE GRACIA Attending Unavailable HILTONRICHARD SNYDER Attending Unavailable HILTON, RICHARD Attending Unavailable Medications Current Medications Medication Drug Class(es) Dates Sig (Normalized) Sig (Original) amoxicillin 500 mg oral capsule (1 source) Penicillin-class Antibacterial Start: 05-28-2023 take 1 capsule by mouth every twelve hours Amoxicillin 500 MG 1 capsule Orally Twice a day for 10 days May, Active Pre-Kailey (3 sources) Pre-Kailey Active Vit-Fe Fumarate-FA ( Plus) 27-1 MG tablet (2 sources) Vit-Fe Fumarate-FA ( Plus) 27-1 MG tablet 1 (one) time each day at the same time. 0 Active Problems Active Problems Problem Classification Problem [...] 05-15-2022 Episodic Other and delivery including normal (20 sources) Encounter for routine follow-up; Translations: [Encounter [...] Test Name Value Interpretation Reference Range Facility Urinalysis macro (dipstick) panel (U)on 10-02-2023 Bilirubin, UA Negative Negative - 4(70) +++ mg/dL [facility] Blood, UA Negative Negative - 50 Oneal/mcL [facility] Clarity, UA Clear [facility] re Color, UA Yellow [facility] Gl[facility], UA Negative Negative - 1999(110) ++++ mg/dL [facility] Interpretation and review of laboratory results Normal [facility] Ketones, UA Negative Negative - 160(16) ++++ mg/dL [facility] Leukocytes, UA Negative Negative - 500+++ Phlilip/mcL [facility] Nitrite, UA Negative Negative - Positive [facility] pH, UA 5.5 5 - [address] [facility] e Protein, UA Negative Negative - 2000(20) ++++ mg/dL [facility] Spec Grav, UA 1.010 1 - 1.03 [facility] Urobilinogen, UA 1.0 0.2 - 12 mg/dL [facility] Quick Strepon 05-28-2023 S. pyogenes Org specific cx Ql (Throat) Positive [facility] Other Quick Strep [facility] Track[employer]uck Other Covid-19 PCR ([facility])on 04-29 SARS-CoV-2 (COVID-19) RNA SHANEKA+probe Ql (Unsp spec) Not detected Normal NOT DETECTED [facility] Comment on above: Result Comment: When [...] for this test is supported by the [place] of Health and Human Service's declaration that [...] used). Performed By: #### H BSANS #### [facility] [address] [place] [address] Dr. Marvin Ashford GROUP A STREP CULTUREon 04-29 S. pyogenes Ag Ql (Unsp spec) Culture Observations: NEGATIVE FOR GROUP A STREPTOCOCCUS. Normal [facility] Comment on above: Performed By: #### C BC #### [facility] [address] [place] [address] Dr. Marvin Ashford STREPT SCREENon 05-26-2022 STREP SCREEN A Negative Normal NEGATIVE [facility] Comment on above: Performed By: #### C BC #### [facility] [address] [place] [address] Dr. Marvin Ashford FRESH FROZ PLASMAon 05-07-20 22 FRESH FROZ PLASMA Unit Blood Type A Pos Unit Number [id number] Status Information Transfused Product ID FFP Product Code [id number] Normal [facility] Comment on above: Performed By: #### F FP #### [facility] [address] [place] [address] Dr. Marvin Ashford FRESH FROZ PLASMA Unit Blood Type A Pos Unit Number [id number] Status Information Transfused Product ID FFP Product Code [id number] [facility] Comment on above: Performed By: #### F FP #### [facility] [address] [place] [address] Dr. Marvin Ashford PRBC LEUKOREDUCEDon 05-07-20 22 ABO and Rh group Nom (Bld) Cross Match Result Compatible Unit Blood Type A Pos Unit Number [id number] Status Information Transfused Product ID Red Blood Cells Product Code [id number] Cross Match Result Compatible Unit Blood Type A Pos Unit Number [id number] Status Information Released Specimen Exp Date Product ID Red Blood Cells Product Code [id number] Normal [facility] Comment on above: Performed By: #### P RBC #### [facility] [address] [place] [address] Dr. Marvin Ashford ABO and Rh group Nom (Bld) Cross Match Result Compatible Unit Blood Type A Pos Unit Number [id number] Status Information Released Specimen Exp Date Product ID Red Blood Cells Product Code [id number] Cross Match Result Compatible Unit Blood Type A Pos Unit Number [id number] Status Information Transfused Product ID Red Blood Cells Product Code [id number] Normal [facility] Comment on above: Performed By: #### H BSANS #### [facility] [address] [place] [address] Dr. Marvin Ashford CBC AUTO DIFFon 05-05-2022 BASO # 0.1 103/ul Normal 0.0-0.1 [facility] Comment on above: Performed By: #### G BSCX #### [facility] [address] [place] [address] Dr. Marvin Ashford Basophils/100 WBC (Bld) 0.3 % Normal 0.2-2.0 [facility] Comment on above: Performed By: #### G BSCX #### [facility] [address] [place] [address] Dr. Marvin Ashford EO # 0.0 103/ul Normal 0.0-0.7 [facility] Comment on above: Performed By: #### G BSCX #### [facility] [address] [place] [address] Dr. Marvin Ashford Eosinophils/100 WBC (Bld) 0.2 % Critically low 0.9-7.0 [facility] Comment on above: Performed By: #### G BSCX #### [facility] [address] [place] [address] Dr. Marvin Ashford Erythrocyte distribution width (RBC) [Ratio] 14.6 % Normal 11.0-15.0 [facility] Comment on above: Performed By: #### G BSCX #### [facility] [address] [place] [address] Dr. Marvin Ashford Hematocrit (Bld) [Volume fraction] 25.6 % Critically low 36.0-48.0 [facility] Comment on above: Performed By: #### G BSCX #### [facility] [address] [place] [address] Dr. Marvin Ashford Hemoglobin (Bld) [Mass/Vol] 8.8 g/dL Critically low 12.0-16.0 [facility] Comment on above: Performed By: #### G BSCX #### [facility] [address] [place] [address] Dr. Marvin Ashford IG # 0.14 10e3/ul Critically high 0.00-0.03 [facility] Comment on above: Performed By: #### G BSCX #### [facility] [address] [place] [address] Dr. Marvin Ashford IG % 0.9 % Critically high 0.0-0.5 [facility] Comment on above: Performed By: #### G BSCX #### [facility] [address] [place] [address] Dr. Marvin Ashford LYMPH # 2.7 103/ul Normal 1.2-3.8 [facility] Comment on above: Performed By: #### G BSCX #### [facility] [address] [place] [address] Dr. Marvin Ashford Lymphocytes/100 WBC (Bld) 17.1 % Critically low 20.5-60.0 [facility] Comment on above: Performed By: #### G BSCX #### [facility] [address] [place] [address] Dr. Marvin Ashford MANUAL DIFF REQ NO Normal [facility] Comment on above: Performed By: #### G BSCX #### [facility] [address] [place] [address] Dr. Marvin Ashford MCH (RBC) [Entitic mass] 31.1 pg Normal 26.7-34.0 [facility] Comment on above: Performed By: #### G BSCX #### [facility] [address] [place] [address] Dr. Marvin Ashford MCHC (RBC) [Mass/Vol] 34.4 g/dL Normal 29.9-35.2 [facility] Comment on above: Performed By: #### G BSCX #### [facility] [address] [place] [address] Dr. Marvin Ashford MCV (RBC) [Entitic vol] 90.5 fL Normal 81.0-99.0 [facility] Comment on above: Performed By: #### G BSCX #### [facility] [address] [place] [address] Dr. Marvin Ashford MONO # 1.0 103/ul Critically high 0.3-0.8 [facility] Comment on above: Performed By: #### G BSCX #### [facility] [address] [place] [address] Dr. Marvin Ashfrod Monocytes/100 WBC (Bld) 6.4 % Normal 1.7-12.0 [facility] Comment on above: Performed By: #### G BSCX #### [facility] [address] [place] [address] Dr. Marvin Ashford NEUT # 11.7 103/ul Critically high 1.4-6.5 [facility] Comment on above: Performed By: #### G BSCX #### [facility] [address] [place] [address] Dr. Marvin Ashford Neutrophils/100 WBC (Bld) 75.1 % Critically high 43.0-75.0 [facility] Comment on above: Performed By: #### G BSCX #### [facility] [address] [place] [address] Dr. Marvin Ashford Platelet mean volume (Bld) [Entitic vol] 10.2 fL Normal 9.5-13.5 [facility] Comment on above: Performed By: #### G BSCX #### [facility] [address] [place] [address] Dr. Marvin Ashford PLT 114 103/ul Critically low 150-450 [facility] Comment on above: Performed By: #### G BSCX #### [facility] [address] [place] [address] Dr. Marvin Ashford RBC 2.83 106/ul Critically low 4.20-5.40 [facility] Comment on above: Performed By: #### G BSCX #### [facility] [address] [place] [address] Dr. Marvin Ashford WBC 15.5 103/ul Critically high 4.0-11.0 [facility] Comment on above: Performed By: #### G BSCX #### [facility] [address] [place] [address] Dr. Marvin Ashford CBC AUTO DIFFon 05-04-2022 BASO # 0.1 103/ul Normal 0.0-0.1 [facility] Comment on above: Performed By: #### C BC #### [facility] [address] [place] [address] Dr. Marvin Ashford Basophils/100 WBC (Bld) 0.2 % Normal 0.2-2.0 [facility] Comment on above: Performed By: #### C BC #### [facility] [address] [place] [address] Dr. Marvin Ashford EO # 0.0 103/ul Normal 0.0-0.7 [facility] Comment on above: Performed By: #### C BC #### [facility] [address] [place] [address] Dr. Marvin Ashford Eosinophils/100 WBC (Bld) 0.0 % Critically low 0.9-7.0 [facility] Comment on above: Performed By: #### C BC #### [facility] [address] [place] [address] Dr. Marvin Ashford Erythrocyte distribution width (RBC) [Ratio] 14.1 % Normal 11.0-15.0 [facility] Comment on above: Performed By: #### C BC #### [facility] [address] [address] [address] Marvin Ashford Hematocrit (Bld) [Volume fraction] 26.6 % Critically low 36.0-48.0 [facility] Comment on above: Performed By: #### C BC #### [facility] [address] [address] [address] Marvin Ashford Hemoglobin (Bld) [Mass/Vol] 9.2 g/dL Critically low 12.0-16.0 [facility] Comment on above: Performed By: #### C BC #### [facility] [address] [address] [address] Marvin Ashford IG # 0.24 10e3/ul Critically high 0.00-0.03 [facility] Comment on above: Performed By: #### C BC #### [facility] [address] [place] [address] Dr. Marvin Ashford IG % 1.0 % Critically high 0.0-0.5 [facility] Comment on above: Performed By: #### C BC #### [facility] [address] [place] [address] Dr. Marvin Ashford LYMPH # 2.0 103/ul Normal 1.2-3.8 [facility] Comment on above: Performed By: #### C BC #### [facility] [address] [place] [address] Dr. Marvin Ashford Lymphocytes/100 WBC (Bld) 8.3 % Critically low 20.5-60.0 [facility] Comment on above: Performed By: #### C BC #### [facility] [address] [place] [address] Dr. Marvin Ashford MANUAL DIFF REQ NO Normal [facility] Comment on above: Performed By: #### C BC #### [facility] [address] [place] [address] Dr. Marvin Ashford MCH (RBC) [Entitic mass] 30.8 pg Normal 26.7-34.0 [facility] Comment on above: Performed By: #### C BC #### [facility] [address] [address] [address] Marvin Ashford MCHC (RBC) [Mass/Vol] 34.6 g/dL Normal 29.9-35.2 [facility] Comment on above: Performed By: #### C BC #### [facility] [address] [address] [address] Marvin Ashford MCV (RBC) [Entitic vol] 89.0 fL Normal 81.0-99.0 [facility] Comment on above: Performed By: #### C BC #### [facility] [address] [address] [address] Marvin Ashford MONO # 2.6 103/ul Critically high 0.3-0.8 [facility] Comment on above: Performed By: #### C BC #### [facility] [address] [address] [address] Marvin Ashford Monocytes/100 WBC (Bld) 10.6 % Normal 1.7-12.0 [facility] Comment on above: Performed By: #### C BC #### [facility] [address] [address] [address] Marvin Ashford NEUT # 19.3 103/ul Critically high 1.4-6.5 [facility] Comment on above: Performed By: #### C BC #### [facility] [address] [address] [address] Marvin Ashford Neutrophils/100 WBC (Bld) 79.9 % Critically high 43.0-75.0 [facility] Comment on above: Performed By: #### C BC #### [facility] [address] [address] [address] Marvin Ashford Platelet mean volume (Bld) [Entitic vol] 9.7 fL Normal 9.5-13.5 [facility] Comment on above: Performed By: #### C BC #### [facility] [address] [address] [address] Marvin Ashford PLT 98 103/ul Critically low 150-450 [facility] Comment on above: Performed By: #### C BC #### [facility] [address] [place] [address] Dr. Marvin Ashford RBC 2.99 106/ul Critically low 4.20-5.40 [facility] Comment on above: Performed By: #### C BC #### [facility] [address] [place] [address] Dr. Marvin Ashford WBC 24.1 103/ul Critically high 4.0-11.0 [facility] Comment on above: Performed By: #### C BC #### [facility] [address] [place] [address] Dr. Marvin Ashford CBC W MANUAL DIFFon 05-04-20 22 ATYPICAL LYMPH # Normal [facility] Comment on above: Performed By: #### H BSANS #### [facility] [address] [place] [address] Dr. Marvin Ashford ATYPICAL LYMPH % Normal [facility] Comment on above: Performed By: #### H BSANS #### [facility] [address] [place] [address] Dr. Marvin Ashford BAND # Normal 0.0-0.3 [facility] Comment on above: Performed By: #### H BSANS #### [facility] [address] [place] [address] Dr. Marvin Ashford BAND % Normal 0-5 [facility] Comment on above: Performed By: #### H BSANS #### [facility] [address] [place] [address] Dr. Marvin Ashford BASOM # 0.00 103/ul Normal 0.00-0.10 [facility] Comment on above: Performed By: #### H BSANS #### [facility] [address] [place] [address] Dr. Marvin Ashford BASOM % 0.0 % Critically low 0.2-2.0 [facility] Comment on above: Performed By: #### H BSANS #### [facility] [address] [place] [address] Dr. Marvin Ashford BLAST # Normal [facility] Comment on above: Performed By: #### H BSANS #### [facility] [address] [place] [address] Dr. Marvin Ashford BLAST % Normal [facility] Comment on above: Performed By: #### H BSANS #### [facility] [address] [place] [address] Dr. Marvin Ashford CORRECTED WBC Normal 4.0-11.0 [facility] Comment on above: Performed By: #### H BSANS #### [facility] [address] [place] [address] Dr. Marvin Ashford EOS # 0.00 103/ul Normal 0.00-0.70 [facility] Comment on above: Performed By: #### H BSANS #### [facility] [address] [place] [address] Dr. Marvin Ashford EOS% 0.0 % Critically low 0.9-7.0 [facility] Comment on above: Performed By: #### H BSANS #### [facility] [address] [place] [address] Dr. Marvin Ashford HCT 25.6 % Critically low 36.0-48.0 [facility] Comment on above: Performed By: #### H BSANS #### [facility] [address] [place] [address] Dr. Marvin Ashford HGB 8.9 g/dl Critically low 12.0-16.0 [facility] Comment on above: Performed By: #### H BSANS #### [facility] [address] [place] [address] Dr. Marvin Ashford HYPOCHROMASIA SLIGHT Normal [facility] Comment on above: Performed By: #### H BSANS #### [facility] [address] [place] [address] Dr. Marvin Ashford LYMPHM # 1.92 103/ul Normal 1.20-3.80 [facility] Comment on above: Performed By: #### H BSANS #### [facility] [address] [place] [address] Dr. Marvin Ashford LYMPHM% 8.0 % Critically low 20.5-60.0 [facility] Comment on above: Performed By: #### H BSANS #### [facility] [address] [address] [address] Marvin Ashford MCH 31.0 pg Normal 26.7-34.0 [facility] Comment on above: Performed By: #### H BSANS #### [facility] [address] [address] [address] Marvin Ashford MCHC 34.8 g/dl Normal 29.9-35.2 [facility] Comment on above: Performed By: #### H BSANS #### [facility] [address] [address] [address] Marvin Ashford MCV 89.2 fL Normal 81.0-99.0 [facility] Comment on above: Performed By: #### H BSANS #### [facility] [address] [place] [address] Dr. Marvin Ashford METAMYELOCYTE # Normal [facility] Comment on above: Performed By: #### H BSANS #### [facility] [address] [place] [address] Dr. Marvin Ashford METAMYELOCYTE % Normal [facility] Comment on above: Performed By: #### H BSANS #### [facility] [address] [place] [address] Dr. Marvin Ashford MONOM# 0.48 103/ul Normal 0.30-0.80 [facility] Comment on above: Performed By: #### H BSANS #### [facility] [address] [place] [address] Dr. Marvin Ashford MONOM% 2.0 % Normal 1.7-12.0 [facility] Comment on above: Performed By: #### H BSANS #### [facility] [address] [place] [address] Dr. Marvin Ashford MPV 10.2 fL Normal 9.5-13.5 [facility] Comment on above: Performed By: #### H BSANS #### [facility] [address] [place] [address] Dr. Marvin Ashford MYELOCYTE # Normal [facility] Comment on above: Performed By: #### H BSANS #### [facility] [address] [address] [address] Marvin Ashford MYELOCYTE % Normal [facility] Comment on above: Performed By: #### H BSANS #### [facility] [address] [address] [address] Marvin Ashford NRBC Normal [facility] Comment on above: Performed By: #### H BSANS #### [facility] [address] [address] [address] Marvin Ashford PLT 104 103/ul Critically low 150-450 [facility] Comment on above: Performed By: #### H BSANS #### [facility] [address] [address] [address] Marvin Ashford RBC 2.87 106/ul Critically low 4.20-5.40 [facility] Comment on above: Performed By: #### H BSANS #### [facility] [address] [address] [address] Marvin Ashford RDW 14.4 % Normal 11.0-15.0 [facility] Comment on above: Performed By: #### H BSANS #### [facility] [address] [address] [address] Marvin Ashford SEG # 21.60 103/ul Critically high 1.40-6.50 [facility] Comment on above: Performed By: #### H BSANS #### [facility] [address] [address] [address] Marvin Ashford SEG % 90.0 % Critically high 43.0-75.0 [facility] Comment on above: Performed By: #### H BSANS #### [facility] [address] [address] [address] Marvin Ashford WBC 24.0 103/ul Critically high 4.0-11.0 [facility] Comment on above: Performed By: #### H BSANS #### [facility] [address] [address] [address] Marvin Ashford CBC AUTO DIFFon 05-03-2022 BASO # 0.1 103/ul Normal 0.0-0.1 [facility] Comment on above: Performed By: #### C BC #### [facility] [address] [place] [address] Dr. Marvin Ashford Basophils/100 WBC (Bld) 0.3 % Normal 0.2-2.0 [facility] Comment on above: Performed By: #### C BC #### [facility] [address] [place] [address] Dr. Marvin Ashford EO # 0.0 103/ul Normal 0.0-0.7 [facility] Comment on above: Performed By: #### C BC #### [facility] [address] [place] [address] Dr. Marvin Ashford Eosinophils/100 WBC (Bld) 0.0 % Critically low 0.9-7.0 [facility] Comment on above: Performed By: #### C BC #### [facility] [address] [place] [address] Dr. Marvin Ashford Erythrocyte distribution width (RBC) [Ratio] 13.3 % Normal 11.0-15.0 [facility] [facility] Comment on above: Performed By: #### C BC #### [facility] [address] [place] [address] Dr. Marvin Ashford Hematocrit (Bld) [Volume fraction] 26.6 % Critically low 36.0-48.0 [facility] Comment on above: Performed By: #### C BC #### [facility] [address] [place] [address] Dr. Marvin Ashford Hemoglobin (Bld) [Mass/Vol] 9.0 g/dL Critically low 12.0-16.0 [facility] Comment on above: Performed By: #### C BC #### [facility] [address] [place] [address] Dr. Marvin Ashford IG # 0.62 10e3/ul Critically high 0.00-0.03 [facility] Comment on above: Performed By: #### C BC #### [facility] [address] [place] [address] Dr. Marvin Ashford IG % 1.8 % Critically high 0.0-0.5 [facility] Comment on above: Performed By: #### C BC #### [facility] [address] [place] [address] Dr. Marvin Ashford LYMPH # 1.1 103/ul Critically low 1.2-3.8 [facility] Comment on above: Performed By: #### C BC #### [facility] [address] [place] [address] Dr. Marvin Ashford Lymphocytes/100 WBC (Bld) 3.3 % Critically low 20.5-60.0 [facility] Comment on above: Performed By: #### C BC #### [facility] [address] [place] [address] Dr. Marvin Ashford MANUAL DIFF REQ NO Normal [facility] Comment on above: Performed By: #### C BC #### [facility] [address] [place] [address] Dr. Marvin Ashford MCH (RBC) [Entitic mass] 31.9 pg Normal 26.7-34.0 [facility] Comment on above: Performed By: #### C BC #### [facility] [address] [place] [address] Dr. Marvin Ashford MCHC (RBC) [Mass/Vol] 33.8 g/dL Normal 29.9-35.2 [facility] Comment on above: Performed By: #### C BC #### [facility] [address] [place] [address] Dr. Marvin Ashford MCV (RBC) [Entitic vol] 94.3 fL Normal 81.0-99.0 [facility] Comment on above: Performed By: #### C BC #### [facility] [address] [place] [address] Dr. Marvin Ashford MONO # 2.3 103/ul Critically high 0.3-0.8 [facility] Comment on above: Performed By: #### C BC #### [facility] [address] [place] [address] Dr. Marvin Ashford Monocytes/100 WBC (Bld) 6.6 % Normal 1.7-12.0 [facility] Comment on above: Performed By: #### C BC #### [facility] [address] [place] [address] Dr. Marvin Ashford NEUT # 30.2 103/ul Critically high 1.4-6.5 [facility] Comment on above: Performed By: #### C BC #### [facility] [address] [address] [address] Marvin Ashford Neutrophils/100 WBC (Bld) 88.0 % Critically high 43.0-75.0 [facility] Comment on above: Performed By: #### C BC #### [facility] [address] [place] [address] Dr. Marvin Ashford Platelet mean volume (Bld) [Entitic vol] 10.2 fL Normal 9.5-13.5 [facility] Comment on above: Performed By: #### C BC #### [facility] [address] [place] [address] Dr. Marvin Ashford PLT 136 103/ul Critically low 150-450 [facility] Comment on above: Performed By: #### C BC #### [facility] [address] [place] [address] Dr. Marvin Ashford RBC 2.82 106/ul Critically low 4.20-5.40 [facility] Comment on above: Performed By: #### C BC #### [facility] [address] [place] [address] Dr. Marvin Ashford WBC 34.3 103/ul Critically high 4.0-11.0 [facility] Comment on above: Performed By: #### C BC #### [facility] [address] [place] [address] Dr. Marvin Ashford CBC AUTO DIFFon 05-01-2022 BASO # 0.0 103/ul Normal 0.0-0.1 [facility] Comment on above: Performed By: #### C BC #### [facility] [address] [place] [address] Dr. Marvin Ashford Basophils/100 WBC (Bld) 0.4 % Normal 0.2-2.0 [facility] Comment on above: Performed By: #### C BC #### [facility] [address] [place] [address] Dr. Marvin Ashford EO # 0.0 103/ul Normal 0.0-0.7 [facility] Comment on above: Performed By: #### C BC #### [facility] [address] [place] [address] Dr. Marvin Ashford Eosinophils/100 WBC (Bld) 0.2 % Critically low 0.9-7.0 [facility] Comment on above: Performed By: #### C BC #### [facility] [address] [place] [address] Dr. Marvin Ashford Erythrocyte distribution width (RBC) [Ratio] 12.9 % Normal 11.0-15.0 [facility] Comment on above: Performed By: #### C BC #### [facility] [address] [place] [address] Dr. Marvin Ashford Hematocrit (Bld) [Volume fraction] 35.5 % Critically low 36.0-48.0 [facility] Comment on above: Performed By: #### C BC #### [facility] [address] [place] [address] Dr. Marvin Ashford Hemoglobin (Bld) [Mass/Vol] 11.7 g/dL Critically low 12.0-16.0 [facility] Comment on above: Performed By: #### C BC #### [facility] [address] [place] [address] Dr. Marvin Ashford IG # 0.10 10e3/ul Critically high 0.00-0.03 [facility] Comment on above: Performed By: #### C BC #### [facility] [address] [place] [address] Dr. Marvin Ashford IG % 0.9 % Critically high 0.0-0.5 [facility] Comment on above: Performed By: #### C BC #### [facility] [address] [place] [address] Dr. Marvin Ashford LYMPH # 1.8 103/ul Normal 1.2-3.8 [facility] Comment on above: Performed By: #### C BC #### [facility] [address] [place] [address] Dr. Marvin Ashford Lymphocytes/100 WBC (Bld) 16.4 % Critically low 20.5-60.0 [facility] Comment on above: Performed By: #### C BC #### [facility] [address] [place] [address] Dr. Marvin Ashford MANUAL DIFF REQ NO Normal [facility] Comment on above: Performed By: #### C BC #### [facility] [address] [place] [address] Dr. Marvin Ashford MCH (RBC) [Entitic mass] 30.7 pg Normal 26.7-34.0 [facility] Comment on above: Performed By: #### C BC #### [facility] [address] [place] [address] Dr. Marvin Ashford MCHC (RBC) [Mass/Vol] 33.0 g/dL Normal 29.9-35.2 [facility] Comment on above: Performed By: #### C BC #### [facility] [address] [place] [address] Dr. Marvin Ashford MCV (RBC) [Entitic vol] 93.2 fL Normal 81.0-99.0 [facility] Comment on above: Performed By: #### C BC #### [facility] [address] [place] [address] Dr. Marvin Ashford MONO # 0.8 103/ul Normal 0.3-0.8 [facility] Comment on above: Performed By: #### C BC #### [facility] [address] [place] [address] Dr. Marvin Ashford Monocytes/100 WBC (Bld) 7.8 % Normal 1.7-12.0 [facility] Comment on above: Performed By: #### C BC #### [facility] [address] [place] [address] Dr. Marvin Ashford NEUT # 8.0 103/ul Critically high 1.4-6.5 [facility] Comment on above: Performed By: #### C BC #### [facility] [address] [address] [address] Marvin Ashford Neutrophils/100 WBC (Bld) 74.3 % Normal 43.0-75.0 [facility] Comment on above: Performed By: #### C BC #### [facility] [address] [address] [address] Marvin Ashford Platelet mean volume (Bld) [Entitic vol] 9.9 fL Normal 9.5-13.5 [facility] Comment on above: Performed By: #### C BC #### [facility] [address] [address] [address] Marvin Ashford PLT 211 103/ul Normal 150-450 [facility] Comment on above: Performed By: #### C BC #### [facility] [address] [place] [address] Dr. Marvin Ashford RBC 3.81 106/ul Critically low 4.20-5.40 [facility] Comment on above: Performed By: #### C BC #### [facility] [address] [address] [address] Marvin Ashford WBC 10.7 103/ul Normal 4.0-11.0 [facility] Comment on above: Performed By: #### C BC #### [facility] [address] [place] [address] Dr. Marvin Ashford [facility]on SARS-CoV-2 (COVID-19) RNA SHANEKA+probe Ql (Unsp spec) Not detected Normal NOT DETECTED [facility] Comment on above: Result Comment: When [...] for this test is supported by the [employer] [place] of Health and Human Service's declaration that [...] used). Performed By: #### G BSCX #### [facility] [address] [place] [address] Dr. Marvin Ashford DRUG SCREEN RAPID (URINE)on 05-01-2022 AMP Negative Normal NEGATIVE [facility] Comment on above: Performed By: #### G BSCX #### [facility] [address] [place] [address] Dr. Marvin Ashford BAR Negative Normal NEGATIVE [facility] Comment on above: Performed By: #### G BSCX #### [facility] [address] [place] [address] Dr. Marvin Ashford BUP Negative Normal NEGATIVE [facility] Comment on above: Performed By: #### G BSCX #### [facility] [address] [place] [address] Dr. Marvin Ashford BZO Negative Normal NEGATIVE [facility] Comment on above: Performed By: #### G BSCX #### [facility] [address] [place] [address] Dr. Marvin Ashford MYNRO Negative Normal NEGATIVE [facility] Comment on above: Performed By: #### G BSCX #### [facility] [address] [place] [address] Dr. Marvin Ashford CUT-OFFS SEE BELOW Normal [facility] Comment on above: Result Comment: AMP [...] ng/mL Performed By: #### G BSCX #### [facility] [address] [place] [address] Dr. Marvin Ashford DRUG CUT HEADER DRUG CLASS TEST SYSTEM CUT-OFF CONCENTRATIONS ARE FOLLOWS: Normal [facility] Comment on above: Performed By: #### G BSCX #### [facility] [address] [place] [address] Dr. Marvin Ashford mAMP Negative Normal NEGATIVE [facility] Comment on above: Performed By: #### G BSCX #### [facility] [address] [place] [address] Dr. Marvin Ashford MTD Negative Normal NEGATIVE [facility] Comment on above: Performed By: #### G BSCX #### [facility] [address] [place] [address] Dr. Marvin Ashford OPI Negative Normal NEGATIVE [facility] Comment on above: Performed By: #### G BSCX #### [facility] [address] [place] [address] Dr. Marvin Ashford OXY Negative Normal NEGATIVE [facility] Comment on above: Performed By: #### G BSCX #### [facility] [address] [place] [address] Dr. Marvin Ashford PCP Negative Normal NEGATIVE [facility] Comment on above: Performed By: #### G BSCX #### [facility] [address] [place] [address] Dr. Marvin Ashford PPX Negative Normal NEGATIVE [facility] Comment on above: Performed By: #### G BSCX #### [facility] [address] [place] [address] Dr. Marvin Ashford TCA Negative Normal NEGATIVE [facility] Comment on above: Performed By: #### G BSCX #### [facility] [address] [place] [address] Dr. Marvin Ashford THC Negative Normal NEGATIVE [facility] Comment on above: Performed By: #### G BSCX #### [facility] [address] [place] [address] Dr. Marvin Ashford TYPE AND SCREENon 05-01-2022 TYPE AND SCREEN Negative Normal [facility] Comment on above: Performed By: #### T NS #### [facility] [address] [place] [address] Dr. Marvin Ashford CHLAMYDIA/GONOCOCCUS SHANEKA (SW AB/URINE/PAPon 04-17-2022 Chlamydia trachomatis, SHANEKA Negative Normal Negative [facility] Comment on above: Performed By: #### C BC #### [facility] [address] [place] [address] Dr. Marvin Ashford Neisseria gonorrhoeae, SHANEKA Negative Normal Negative [facility] Comment on above: Performed By: #### C BC #### [facility] [address] [place] [address] Dr. Marvin Ashford GROUP B STREP CULTUREon 03-27 S. agalactiae Ag Ql (Unsp spec) Culture Observations: NEGATIVE FOR GROUP B STREPTOCOCCUS. Normal [facility] Comment on above: Performed By: #### G BSCX #### [facility] [address] [place] [address] Dr. Marvin Ashford CULTURE URINEon 03-09-2022 CULTURE URINE Culture Observations: NO GROWTH. Normal [facility] Comment on above: Performed By: #### H BSANS #### [facility] [address] [place] [address] Dr. Marvin Ashford UA (CLEAN/CATCH) ETHNOGRAPHIC MATERIALS CONSERVATOR/MICRO I F IND.on 03-09-2022 Bilirubin Ql (U) Negative Normal NEGATIVE [facility] Comment on above: Performed By: #### G BSCX #### [facility] [address] [place] [address] Dr. Marvin Ashford Clarity (U) CLEAR Normal CLEAR [facility] Comment on above: Performed By: #### G BSCX #### [facility] [address] [place] [address] Dr. Marvin Ashford Color (U) YELLOW Normal YELLOW [facility] Comment on above: Performed By: #### G BSCX #### [facility] [address] [address] [address] Marvin Ashford Glucose Ql (U) Negative Normal NEGATIVE [facility] Comment on above: Performed By: #### G BSCX #### [facility] [address] [address] [address] Marvin Ashford Hemoglobin Ql (U) SMALL Abnormal NEGATIVE [facility] Comment on above: Performed By: #### G BSCX #### [facility] [address] [place] [address] Dr. Marvin Ashford Ketones Ql (U) TRACE Abnormal NEGATIVE [facility] Comment on above: Performed By: #### G BSCX #### [facility] [address] [place] [address] Dr. Marvin Ashford LEUKOCYTES TRACE Abnormal NEGATIVE [facility] Comment on above: Performed By: #### G BSCX #### [facility] [address] [place] [address] Dr. Marvin Ashford Nitrite Ql (U) Negative Normal NEGATIVE [facility] Comment on above: Performed By: #### G BSCX #### [facility] [address] [place] [address] Dr. Marvin Ashford pH (U) 6.0 [pH] Normal 5-9 [facility] Comment on above: Performed By: #### G BSCX #### [facility] [address] [place] [address] Dr. Marvin Ashford SPEC GRAVITY 1.025 Normal 1.005-<=1.025 [facility] Comment on above: Performed By: #### G BSCX #### [facility] [address] [place] [address] Dr. Marvin Ashford UA PROTEIN Negative Normal NEGATIVE/ TRACE [facility] Comment on above: Performed By: #### G BSCX #### [facility] [address] [place] [address] Dr. Marvin Ashford UR MICRO IND INDICATED Normal [facility] Comment on above: Performed By: #### G BSCX #### [facility] [address] [place] [address] Dr. Marvin Ashford Urobilinogen Qn (U) 1.0 {Ekta'U}/dL Normal 0.2 - 1. 0 [facility] Comment on above: Performed By: #### G BSCX #### [facility] [address] [place] [address] Dr. Marvin Ashford URINE MICROSCOPIC ONLYon BACTERIA TRACE Abnormal NONE SEEN [facility] Comment on above: Performed By: #### G BSCX #### [facility] [address] [place] [address] Dr. Marvin Ashford Bacteria identified Cx Nom (U) INDICATED Normal [facility] Comment on above: Performed By: #### G BSCX #### [facility] [address] [place] [address] Dr. Marvin Ashford CAST NONE SEEN Normal NONE SEEN [facility] Comment on above: Performed By: #### G BSCX #### [facility] [address] [place] [address] Dr. Marvin Ashford Crystals LM Nom (Urine sed) NONE SEEN Normal NONE SEEN [facility] Comment on above: Performed By: #### G BSCX #### [facility] [address] [place] [address] Dr. Marvin Ashford Epithelial cells LM Ql (Urine sed) MANY Abnormal NONE SEEN /RARE [facility] Comment on above: Performed By: #### G BSCX #### [facility] [address] [place] [address] Dr. Marvin Ashford MUCOUS TRACE Abnormal NONE SEEN [facility] Comment on above: Performed By: #### G BSCX #### [facility] [address] [place] [address] Dr. Marvin Ashford RBC 2-5 Abnormal 0-2 [facility] Comment on above: Performed By: #### G BSCX #### [facility] [address] [place] [address] Dr. Marvin Ashford WBC 2-5 Abnormal NONE SEEN [facility] Comment on above: Performed By: #### G BSCX #### [facility] [address] [address] [address] Marvin Ashford US PREG PLACENTAon 2 [...] by: CHOCO SAUNDERS Date: 2022-03-09 17:20 Normal [facility] COVID + FLU Quick Testingon 02-21-2022 SARS-CoV-2 (COVID-19) RNA SHANEKA+probe Ql (Unsp spec) Positive [facility] Other COVID + FLU Quick Testing Negative [facility] [employer] Other Quick Strepon 02-21-2022 S. pyogenes Org specific cx Ql (Throat) Negative [facility] [employer] Other Quick Strep [facility] [employer] Other GLUCOSE - 1HRon 02-09-2022 Glucose [Mass/Vol] 133 mg/dL Critically high 74-106 T [facility] Comment on above: Performed By: #### G BSCX #### [facility] [address] [address] [address] Marvin Ashford HEMOGRAM AND PLATELon 2021 Hematocrit (Bld) [Volume fraction] 33.4 % Critically low 36.0-48.0 [facility] Comment on above: Performed By: #### H H #### [facility] [address] [address] [address] Marvin Ashford Hemoglobin (Bld) [Mass/Vol] 11.3 g/dL Critically low 12.0-16.0 [facility] Comment on above: Performed By: #### H H #### [facility] [address] [place] [address] Dr. Marvin Ashford MCH (RBC) [Entitic mass] 31.9 pg Normal 26.7-34.0 [facility] Comment on above: Performed By: #### H H #### [facility] [address] [place] [address] Dr. Marvin Ashford MCHC (RBC) [Mass/Vol] 33.8 g/dL Normal 29.9-35.2 [facility] Comment on above: Performed By: #### H H #### [facility] [address] [place] [address] Dr. Marvin Ashford MCV (RBC) [Entitic vol] 94.4 fL Normal 81.0-99.0 [facility] Comment on above: Performed By: #### H H #### [facility] [address] [place] [address] Dr. Marvin Ashford PLT 216 103/ul Normal 150-450 [facility] Comment on above: Performed By: #### H H #### [facility] [address] [place] [address] Dr. Marvin Ashford RBC 3.54 106/ul Critically low 4.20-5.40 [facility] Comment on above: Performed By: #### H H #### [facility] [address] [place] [address] Dr. Marvin Ashford WBC 10.1 103/ul Normal 4.0-11.0 [facility] Comment on above: Performed By: #### H H #### [facility] [address] [place] [address] Dr. Marvin Ashford US PREG ANATOMY SINGLEon [...] JACOBO LATHAM Date: 2021-12-19 17:27 Normal [facility] AFP MATERNAL FOR SPINA BIFID Aon 12-11-2021 AFP MoM 0.90 Normal [facility] Comment on above: Performed By: #### H BSANS #### [facility] [address] [address] [address] Marvin Ashford AFP Value 54.5 ng/mL Normal [facility] Comment on above: Performed By: #### H BSANS #### [facility] [address] [address] [address] Marvin Ashford AFP, Serum for Spina Bifida Report Normal [facility] Comment on above: Performed By: #### H BSANS #### [facility] [address] [address] [address] Marvin Ashford Comment Comment Normal [facility] Comment on above: Result Comment: Mindi Ribera, Ph.D., [facility] Director . References: Available Upon Request. . Multiples Of Median Cutoffs For AFP Elevations Hill 2.5 Black 2.8 IDD 2.0 Twins 4.5 Abbreviation Definitions IDD - Insulin Dep Diabetes OSBR - Open Spina Bifida Risk . For further inquiries contact [employer] at [phone]. Performed By: #### H BSANS #### [facility] [address] [address] [address] Marvin Downey Age Collection Date 18.6 weeks [facility] Comment on above: Performed By: #### H BSANS #### [facility] [address] [address] [address] Marvin Ashford Gestat, Age Based on As provided [facility] Comment on above: Result Comment: Reca lculations are not recommended when gestational dating by LMP and ultrasound are within 10 days. Performed By: #### H BSANS #### [facility] [address] [address] [address] Marvin Ashford Insulin Dep Diabetes No Normal [facility] Comment on above: Performed By: #### H BSANS #### [facility] [address] [place] [address] Dr. Marvin Ashford Interpretation Comment Normal [facility] Comment on above: Result Comment: Inte [...] Customer Services to discuss available options. The [employer] recommends amniocentesis be offered to women age 35 and older. Performed By: #### H BSANS #### [facility] [address] [address] [address] Marvin Ashford [age] Normal [facility] Comment on above: Performed By: #### H BSANS #### [facility] [address] [place] [address] Dr. Marvin Ashford Multiple Gestation No Normal [facility] Comment on above: Performed By: #### H BSANS #### [facility] [address] [place] [address] Dr. Marvin Ashford [place] [id number] Normal [facility] Comment on above: Performed By: #### H BSANS #### [facility] [address] [place] [address] Dr. Marvin Ashford PDF . Normal [facility] Comment on above: Result Comment: This test was developed and its performance characteristics determined by [facility]. It has not been cleared or approved by the Food and Drug Administration. Performed By: #### H BSANS #### [facility] [address] [place] [address] Dr. Marvin Ashford Race Normal [facility] Comment on above: Performed By: #### H BSANS #### [facility] [address] [place] [address] Dr. Marvin Ashford Test Results: Negative Normal [facility] Comment on above: Performed By: #### H BSANS #### [facility] [address] [place] [address] Dr. Marvin Ashford HEP B SURFACE ANTIGEN SCREEN on 10-26-2021 HBsAg Screen Negative Normal Negative [facility] Comment on above: Performed By: #### H BSANS #### [facility] [address] [place] [address] Dr. Marvin Ashford HEPATITIS C VIRUS AB W/ REFL EX QUANTon 10-26-2021 HCV AB <0.1 Normal 0.0-0.9 [facility] Comment on above: Performed By: #### C BC #### [facility] [address] [place] [address] Dr. Marvin Ashford Interpretation: Comment Normal [facility] Comment on above: Result Comment: Nega tive Not infected with HCV, unless recent infection is suspected or other evidence exists to indicate HCV infection. Performed By: #### C BC #### [facility] [address] [place] [address] Dr. Marvin Ashford HIV 1 AND 2 WITH REFLEXon HIV Screen 4th Generation wRfx Non-Reactive Normal Non Reactive [facility] Comment on above: Result Comment: HIV Negative HIV-1/HIV-2 antibodies and HIV-1 p24 antigen were NOT detected. There is no laboratory evidence of HIV infection. Performed By: #### G BSCX #### [facility] [address] [place] [address] Dr. Marvin Ashford RPR QUANTon 10-26-2021 Rapid Plasma Reagin, Quant Non-Reactive Normal NonRea<1:1 [facility] Comment on above: Performed By: #### C BC #### [facility] [address] [place] [address] Dr. Marvin Ashford RUBELLA AB IGGon 10-26-2021 Rubella Antibodies, IgG 1.87 index Normal Immune >0.99 [facility] Comment on above: Result Comment: Non- immune <0.90 Equivocal 0.90 - 0.99 Immune >0.99 Performed By: #### G BSCX #### [facility] [address] [place] [address] Dr. Marvin Ahsford CBC AUTO DIFFon 10-25-2021 BASO # 0.0 103/ul Normal 0.0-0.1 [facility] Comment on above: Performed By: #### C BC #### [facility] [address] [place] [address] Dr. Marvin Ashford Basophils/100 WBC (Bld) 0.3 % Normal 0.2-2.0 [facility] Comment on above: Performed By: #### C BC #### [facility] [address] [place] [address] Dr. Marvin Ashford EO # 0.0 103/ul Normal 0.0-0.7 [facility] Comment on above: Performed By: #### C BC #### [facility] [address] [place] [address] Dr. Marvin Ashford Eosinophils/100 WBC (Bld) 0.1 % Critically low 0.9-7.0 [facility] Comment on above: Performed By: #### C BC #### [facility] [address] [place] [address] Dr. Marvin Ashford Erythrocyte distribution width (RBC) [Ratio] 13.1 % Normal 11.0-15.0 [facility] Comment on above: Performed By: #### C BC #### [facility] [address] [place] [address] Dr. Marvin Ashford Hematocrit (Bld) [Volume fraction] 34.7 % Critically low 36.0-48.0 [facility] Comment on above: Performed By: #### C BC #### [facility] [address] [place] [address] Dr. Marvin Ashford Hemoglobin (Bld) [Mass/Vol] 11.6 g/dL Critically low 12.0-16.0 [facility] Comment on above: Performed By: #### C BC #### [facility] [address] [place] [address] Dr. Marvin Ashford IG # 0.04 10e3/ul Critically high 0.00-0.03 [facility] Comment on above: Performed By: #### C BC #### [facility] [address] [place] [address] Dr. Mravin Ashford IG % 0.5 % Normal 0.0-0.5 [facility] Comment on above: Performed By: #### C BC #### [facility] [address] [place] [address] Dr. Marvin Ashford LYMPH # 1.9 103/ul Normal 1.2-3.8 [facility] Comment on above: Performed By: #### C BC #### [facility] [address] [place] [address] Dr. Marvin Ashford Lymphocytes/100 WBC (Bld) 22.4 % Normal 20.5-60.0 [facility] Comment on above: Performed By: #### C BC #### [facility] [address] [place] [address] Dr. Marvin Ashford MANUAL DIFF REQ NO Normal [facility] Comment on above: Performed By: #### C BC #### [facility] [address] [place] [address] Dr. Marvin Ashford MCH (RBC) [Entitic mass] 30.2 pg Normal 26.7-34.0 [facility] Comment on above: Performed By: #### C BC #### [facility] [address] [place] [address] Dr. Marvin Ashford MCHC (RBC) [Mass/Vol] 33.4 g/dL Normal 29.9-35.2 [facility] Comment on above: Performed By: #### C BC #### [facility] [address] [place] [address] Dr. Marvin Ashford MCV (RBC) [Entitic vol] 90.4 fL Normal 81.0-99.0 [facility] Comment on above: Performed By: #### C BC #### [facility] [address] [place] [address] Dr. Marvin Ashford MONO # 0.5 103/ul Normal 0.3-0.8 [facility] Comment on above: Performed By: #### C BC #### [facility] [address] [place] [address] Dr. Marvin Ashford Monocytes/100 WBC (Bld) 5.5 % Normal 1.7-12.0 [facility] Comment on above: Performed By: #### C BC #### [facility] [address] [place] [address] Dr. Marvin Ashford NEUT # 6.2 103/ul Normal 1.4-6.5 [facility] Comment on above: Performed By: #### C BC #### [facility] [address] [place] [address] Dr. Marvin Ashford Neutrophils/100 WBC (Bld) 71.2 % Normal 43.0-75.0 [facility] Comment on above: Performed By: #### C BC #### [facility] [address] [place] [address] Dr. Marvin Ashford Platelet mean volume (Bld) [Entitic vol] 9.5 fL Normal 9.5-13.5 [facility] Comment on above: Performed By: #### C BC #### [facility] [address] [place] [address] Dr. Marvin Ashford PLT 243 103/ul Normal 150-450 [facility] Comment on above: Performed By: #### C BC #### [facility] [address] [place] [address] Dr. Marvin Ashford RBC 3.84 106/ul Critically low 4.20-5.40 [facility] Comment on above: Performed By: #### C BC #### [facility] [address] [place] [address] Dr. Marvin Ashford WBC 8.7 103/ul Normal 4.0-11.0 [facility] Comment on above: Performed By: #### C BC #### [facility] [address] [place] [address] Dr. Marvin Ashford CULTURE URINEon 10-25-2021 CULTURE URINE Culture Observations: NO GROWTH. Normal [facility] Comment on above: Performed By: #### U RCX #### [facility] [address] [place] [address] Dr. Marvin Ashford GLYCOHEMOGLOBIN A1Con 2021 ADA RECOMMENDATION ADA THERAPEUTIC TARGET 6.0 - 7.0 ACTION SUGGESTED > 7.0 [facility] Comment on above: Performed By: #### C BC #### [facility] [address] [place] [address] Dr. Marvin Ashford Glucose [Mass/Vol] 97 mg/dL Normal [facility] Comment on above: Performed By: #### C BC #### [facility] [address] [place] [address] Dr. Marvin Ashford HbA1c (Bld) [Mass fraction] 5.0 % Normal <=6.0 [facility] Comment on above: Performed By: #### C BC #### [facility] [address] [place] [address] Dr. Marvin Ashford TASHA BOX TEST PT SEND OUTo n 10-25-2021 SENT TO REF LAB 10/25/21 [facility] Comment on above: Performed By: #### C BC #### [facility] [address] [place], [place] [address] Dr. Marvin Ashford TYPE AND SCREENon 10-25-2021 TYPE AND SCREEN Negative Normal [facility] Comment on above: Performed By: #### T NS #### [facility] [address] [place] [address] [address] Marvin Ashford US PREG TVon 09-27-2021 [...] by: JACOBO LATHAM Date: 2021-09-27 14:04 Normal [facility] US PREG TVon 09-08-2021 US PREG [...] by: JACOBO LATHAM Date: 2021-09-08 14:11 Normal [facility] Group A Strep DNAon 08-15-20 18 Group A Strep DNA Specimen Description .THROAT SWABSpecial Requests NOT REPORTEDDirect Exam Negative: Specimen negative for Streptococcus pyogenes by DNA amplification.Report Status FINAL 08/15/2018 Normal [facility] Comment on above: Performed By: #### G ASDNA ####[facility] [address] [place], [place] [id number] [facility] [place] [address] Strep Gr A Direct Agon 08-13 S. pyogenes Ag IA Ql (Unsp spec) Specimen Description .THROATSpecial Requests NOT REPORTEDDirect Exam Rapid Strep A negative. A negative Rapid Group A Strep Screen result does not rule out the possibility of Group A Streptococci in the specimen. The [employer] recommends confirmation testing. Therefore, a Group A Strep DNA test will be performed. Report Status FINAL 08/13/2018 Normal [facility] Comment on above: Performed By: #### S GPA ####[facility] [place] [address] XR FOOT LEFT (MIN 3 VIEWS)on 01-30-2018 XR FOOT LEFT (MIN 3 VIEWS) LEFT FOOT, 01/30/2018INDICATION: Foot pain.COMPARISON: None.FINDINGS: Three views of the left foot were obtained. There is no acute fracture or dislocation. Osseous structures are well mineralized. Visualized soft tissues appear unremarkable. No radiopaque foreign body.IMPRESSION: No acute osseous abnormality.Interpre jovanny by:MARÍA Quirosigned by:Robert Muse MD01/30/18inal result Normal [facility] Vital Signs Date Time Vital Sign Value Performing Clinician Facility 10-02-2023 15:05-0500 Body mass index (BMI) [Ratio] 22.7 kg/m2 Copyright Agent Work Phone: [facility] 10-02-2023 15:05-0500 Body weight 56.3 kg Copyright Agent Work Phone: [facility] 10-02-2023 15:05-0500 Diastolic blood pressure 64 mm[Hg] Copyright Agent Work Phone: [facility] 10-02-2023 15:05-0500 Systolic blood pressure 100 mm[Hg] Richard Hilton DO Work Phone: [facility] 05-28-2023 14:25-0400 Body height 157.48 cm Mi Lang Other [facility] Other 05-28-2023 14:25-0400 Body mass index (BMI) [Ratio] 18.47 kg/m2 Mi Lang Other [facility] Other 05-28-2023 14:25-0400 Body temperature 97.5 [degF] Miserge Lang Other [facility] Other 05-28-2023 14:25-0400 Body weight 45.81 kg Mi Lang Other [facility] Other 05-28-2023 14:25-0400 Diastolic blood pressure 72 mm[Hg] Mi Lang Other [facility] Other 05-28-2023 14:25-0400 Respiratory rate 18 /min Mi Lang Other [facility] Other 05-28-2023 14:25-0400 SaO2% (BldA) [Mass fraction] 100 % Mi Lang Other [facility] Other 05-28-2023 14:25-0400 Systolic blood pressure 115 mm[Hg] Mi Lang Other [facility] Other 02-21-2022 13:15-0400 Body height 157.48 cm Nataliia Pérez Other [facility] Other 02-21-2022 13:15-0400 Body mass index (BMI) [Ratio] 23.77 kg/m2 Nataliia Pérez Other [facility] Other 02-21-2022 13:15-0400 Body temperature 101.1 [degF] Nataliia Paytonmond Other [facility] Other 02-21-2022 13:15-0400 Body weight 58.97 kg Nataliia Pérez Other [facility] Other 02-21-2022 13:15-0400 Respiratory rate 20 /min Nataliia Paytonmond Other [facility] Other 02-21-2022 13:15-0400 SaO2% (BldA) [Mass fraction] 99 % Nataliia Paytonmond Other [facility] Other 12-11-2021 02:05-0400 Body weight 50.[address] DOCTOR DUNHAM [facility] Comment on above: Performed By: #### HBSANS #### [facility] [address] [place] [address] Dr. Marvin Ashford 11-07-2021 16:50-0400 Body height 160.02 cm Nataliia Elisa Other [facility] Other 11-07-2021 16:50-0400 Body mass index (BMI) [Ratio] 19.31 kg/m2 Nataliia Elisa Other [facility] Other 11-07-2021 16:50-0400 Body weight 49.44 kg Nataliia Elisa Other [facility] Other Encounters Encounter Date Encounter Type Care Provider Facility Start: 11-13-2023 End: 11-13-2023 ambulatory RICHARD HILTON Not Available Start: 10-30-2023 End: 10-30-2023 ambulatory RICHARD HILTON Not Available Start: 10-02-2023 End: 10-02-2023 ambulatory RICHARD CANELA Not Available Start: 10-02-2023 End: 10-02-2023 Office outpatient visit 15 minutes Richard Canela DO Work Phone: [facility] Comment on above: Second trimester pre gnancy; with normal glucose tolerance test (GTT) Start: 08-30-2023 End: 08-30-2023 ambulatory DANYELLE GRACIA Not Available Start: 08-01-2023 End: 08-01-2023 ambulatory DANYELLE GRACIA Not Available Start: 05-28-2023 End: 05-28-2023 ambulatory Mi Lang Other [facility] Other Start: 05-28-2023 Office outpatient vi sit 15 minutes Mi Lang [facility] Start: 05-26-2022 End: 05-26-[address] MARCO FRY Facility:[facility] Start: 05-07-2022 End: 05-07-[address] VIKTORIA MCCOLLUM Facility:[facility] Start: 05-01-2022 End: 05-05-2022 Evaluation and management of inpatient DR VIKTORIA MCCOLLUM Facility:[facility] Start: 04-14-2022 End: 04-14-[address] VIKTORIA MCCOLLUM Facility:[facility] Start: 03-09-2022 End: 03-09-[address] RICHARD CANELA Facility:[facility] Start: 02-21-2022 End: 02-21-2022 ambulatory Nataliia Pérez Other [facility] Other Start: 02-21-2022 Office outpatient vi sit 15 minutes Nataliia Pérez [facility] Start: 02-09-2022 End: 02-10-[address] VIKTORIA MCCOLLUM Facility:[facility] Start: 12-19-2021 End: 12-20-[address] DOCTOR LUNA Facility:[facility] Start: 12-09-2021 End: 12-10-[address] DOCTOR LUNA Facility:[facility] Start: 11-07-2021 End: 11-07-2021 ambulatory Nataliia Pérez Other [facility] Other Start: 11-07-2021 Office outpatient vi sit 15 minutes Nataliia Pérez [facility] Start: 10-25-2021 End: 10-26-[address] VIKTORIA MCCOLLUM Facility:[facility] Start: 09-27-2021 End: 09-28-[address] VIKTORIA MCCOLLUM Facility:[facility] Start: 09-08-2021 End: 09-09-[address] VIKTORIA MCCOLLUM Facility:[facility] Start: 07-26-2021 ambulatory Iraida [place] Start: 08-13-2018 End: 08-13-2018 Emergency department patient visit [facility] Start: 01-30-2018 End: 01-30-2018 Emergency department patient visit VESELIN CHANNING [facility] Procedures Date Procedure Procedure Detail Performing Clinician Start: 10-02-2023 Urnls dip stick/tabl et rgnt non-auto w/o micrscp Richard Hilton DO Work Phone: Start: 05-03-2022 Repair Cervix, Via N atural or Artificial Opening DR DOCTOR LUNA Start: 05-03-2022 Delivery of Products of Conception, External Approach DR DOCTOR LUNA Start: 05-03-2022 Transfusion of Nonautologous Fresh Plasma into Peripheral Vein, Percutaneous Approach [...] foot complete minimum 3 views VESELIN CHANNING Plan of Treatment Date Care Activity Detail Author Start: 10-30-2023 End: 10-30-2023 Patient encounter procedure 10/30/2023 11:20 AM EST Routine [facility] [address] [place] [id number] Richard Canela, DO [address] [facility] [place] [address] [facility] CBC panel - Blood by Automated count CBC Lab Routine with normal glucose tolerance test (GTT) Ordered: 10/02/2023 [facility] Comment on above: Ordered: 10/02/2023 Measurement of gluco se 1 hour after glucose challenge for glucose tolerance test GTT, 1 hour Lab Routine with normal glucose tolerance test (GTT) Ordered: 10/02/2023 [facility] Work Phone: Comment on above: Ordered: 10/02/2023 Payers Date Payer Category Payer Medicaid [facility] [place] [id number] 2022-Present [address] [place] [address] [id number] 2022 Medicaid [id number] 2003 Unknown [id number] [id number]3 2003 Unknown [id number] 2.16.840.1.164332.3.579.2.593 2003 Unknown [id number] 2.16.840.1.937670.3.579.2.593 2003 Unknown [id number] 2.16.840.1.899774.3.579.2.593 2003 Unknown [id number] 2.16.840.1.200288.3.579.2.593 2003 Unknown [id number] 2.16.840.1.076640.3.579.2.593 2003 Unknown [id number] 2.16.840.1.988223.3.579.2.593 2003 Unknown [id number] 2.16.840.1.313750.3.579.2.593 2003 Unknown [id number] 2.16.840.1.225985.3.579.2.593 2003 Unknown [id number] 2.16.840.1.935544.3.579.2.593 2003 Unknown [id number] 2.16.840.1.794663.3.579.2.593 2003 Unknown [id number] 2.16.840.1.065583.3.579.2.1259 2003 Unknown [id number] 2.16.840.1.023471.3.579.2.1259 2003 Unknown [id number] 2.16.840.1.442329.3.579.2.1259 2003 Unknown [id number] 2.16.840.1.891935.3.579.2.1259 2003 Unknown [id number] 2.16.840.1.368240.3.579.2.1259 1984 Unknown [id number] 2.16.840.1.918495.3.579.2.174 1984 Unknown [id number] 2.16.840.1.794499.3.579.2.174 1984 Unknown [id number] 2.16.840.1.156781.3.579.2.727 1959 Self-pay 1959 Unknown [id number] Unknown [id number] 2.16.840.1.057791.3.579.2.593 Social History Date Type Detail Facility Start: 06-14-2023 Sex Assigned At [facility] Other Start: 06-14-2023 Tobacco smoking status OKIS Never smoked tobacco [facility] Start: 06-14-2023 Tobacco use and exposure Smokeless tobacco non-user [facility] Start: 10-02-2023 Alcohol intake Lifetime non-d misty (finding) [facility] Start: 06-14-2023 History of Social function [facility] Start: 05-02-2023 [facility] Start: 2003 Sex Assigned At [facility] Start: 05-22-2023 Gender identity Identifies as female gender (finding) [facility] History of Present illness Narrative 10-02-2023 Belinda Rankin, SR. MANAGER - 10/02/2023 2:50 PM EST Note Date & Type Note Facility 10-02-2023 History of Presen t illness Narrative Reason for Appointment: Patient ID: Morena Harrell is a 18 y.o. female who presents for Routine Visit Patient presents today for Return OB appointment. Current Medications: has a current medication list which includes the following prescription(s): plus. Medical History: Active Ambulatory Problems Diagnosis Date Noted No Active Ambulatory Problems Resolved Ambulatory Problems Diagnosis Date Noted No Resolved Ambulatory Problems Past Medical History: Diagnosis Date 6 weeks follow-up Acute pharyngitis BMI 21.0-21.9, adult Family History Problem Relation Name Age of Onset Diabetes Maternal Grandfather Hypertension Paternal Grandmother Diabetes Paternal Grandfather Hypertension Paternal Grandfather No Known Problems Son Social History Tobacco Use Smoking status: Never Smokeless tobacco: Never Substance Use Topics Alcohol use: Never Drug use: Never History reviewed. No pertinent surgical history. No Known Allergies Review of Systems: Review of Systems Constitutional: Negative. HENT: Negative. Eyes: Negative. Respiratory: Negative. Cardiovascular: Negative. Gastrointestinal: Negative. Genitourinary: Negative. Musculoskeletal: Negative. Skin: Negative. Neurological: Negative. All other systems reviewed and are negative. Hematological: Negative. Endocrine: Negative. Allergic/Immunologic: Negative. Objective Physical Exam Constitutional: Appearance: Normal appearance. She is well-developed. Cardiovascular: Rate and Rhythm: Normal rate and regular rhythm. Pulmonary: Effort: Pulmonary effort is normal. Breath sounds: Normal breath sounds. Abdominal: General: Bowel sounds are normal. There is no distension. Palpations: Abdomen is soft. Tenderness: There is no abdominal tenderness. There is no guarding or rebound. Musculoskeletal: General: No swelling. Normal range of motion. Right lower leg: No edema. Left lower leg: No edema. Neurological: Mental Status: She is alert and oriented to person, place, and time. Skin: General: Skin is warm and dry. Psychiatric: Mood and Affect: Mood normal. Behavior: Behavior normal. Vitals and nursing note reviewed. Exam conducted with a gusset ripper present. Vitals: Estimated body mass index is 22.7 kg/m as calculated from the following: Height as of 23: 5' 2 . Weight as of this encounter: 124 lb 1.9 oz. BP: 100/64 Patient's last menstrual period was 04/02/2023. Assessment/Plan Encounter Diagnoses Name Primary? Second trimester with normal glucose tolerance test (GTT) Patient presents today for a routine obstetrics appointment. Patient is currently 23w6d with a Estimated Date of Delivery: 01/23/24. Pt doing well with no complaints. Pt given one hour glucola. Pt to return in 4 weeks for scheduled OB appt. Documented by Belinda Rankin LPN on behalf of: Richard Canela DO documented in this encounter [facility] Evaluation note 05-28-2023 Note Date & Type [...] fever. Patient/parent verbalized understanding of treatment plan. [facility] Other Evaluation note 02-21-2022 Note Date & Type Note Facility 02-21-2022 Evaluation note Encounter Date Diagnosis Assessment Notes Jan, Sore throat (ICD-10 - J02.9) Jan, COVID-19 (ICD-10 - U07.1) Drink plenty fluids, get plenty of rest. 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 You must quarantine for 5 days after the onset of your symptoms, then you must wear a mask when out and about for the next 5 days. [facility] Other Evaluation note 11-07-2021 Note Date & Type Note Facility 11-07-2021 Evaluation note Encounter Date Diagnosis Assessment Notes Oct, Left ear impacted cerumen (ICD-10 - H61.22) Drink plenty fluids, get plenty of rest. Do not use Q-tips in your ears. Follow-up with your family physician for any further concerns. Follow the cerumen impaction home care instructions. [facility] Other Evaluation note Note Date & Type Note Facility Evaluation note Diagnosis Second trimester state, incidental with normal glucose tolerance test (GTT) documented in this encounter [facility] Summary Purpose Family History No Family History Records FoundNo Family History Records FoundNo Family History Records FoundNo Family History Records Found Advance Directives No Advanced Directives Records FoundNo Advanced Directives Records FoundNo Advanced Directives Records FoundNo Advanced Directives Records Found Additional Source Comments INFORMATION SOURCE (unrecogn ized section and content) DATE CREATED AUTHOR 08/19/2018 Laquita Paz [facility] DATE CREATED AUTHOR AUTHOR'S ORGANIZ ATION 05/30/2022 [facility] DATE CREATED AUTHOR AUTHOR'S ORGANIZ ATION 08/25/2023 [facility] DATE CREATED AUTHOR AUTHOR'S ORGANIZ ATION 11/14/2023 [facility] EPIC REASON FOR VISIT (unrecogniz ed section and content) Reason Comments Routine Visit FOR RECORDS PERTAINING TO PATIENTS WHO ARE [...] BE BASED ON THE PRIMARY CLINICAL RECORDS. [employer]. provides no warranty or guarantee of the accuracy or completeness of information in this document.
== END 2023-11-27 10:32 | disposition home or self-care (01) ==
LOC: NOMS 10:33
PROVIDERS: Visit Provider Obstetrics & Gynecology
DX: O36.63X0 Maternal care for excessive fetal growth, third trimester, not applicable or unspecified (principal); Z3A.31 31 weeks gestation of pregnancy
CPT/HCPCS: 76816

== ENCOUNTER 2023-12-26 22:21 | Outpatient (REF) | payer OTHER, SELFPAY ==
--- OUTSIDE RECORDS SUMMARY | 2023-12-26 22:26 | XMS_ITS | CCD ---
Author Organization [facility] Care Team Providers Care Dye Boarding Machine Operator Name Role Phone NATE SNELL Unavailable Unavailable [...] Admitting Unavailable KARASIK, DR BLUM Consulting Unavailable WEST, DR JACOBO Bunn Consulting Unavailable KARASIK, [...] Unavailable TREY, NELI BECK Consulting Unava ilable VEDA, DR BLUM Procedure Practitioner Unava ilable KARASIK, [...] Admitting Unavailable KARASIK, DR BLUM Consulting Unavailable JEREYM, DR MARIN Primary Care Unavailable Mi Lang Unavailable RingIraida bland Referring Unavailable Ringle, Iraida P Attending Unavailable Ringbaldo, Iraida P Admitting Unavailable Unavailable Primary Care Provider UnavailDANYELLE Gonzalez Attending Unavailable HILTON, RICHARD Attending Unavailable HILTON, RICHARD Attending Unavailable HILTON, RICHARD Attending Unavailable SAMIADANYELLE MORLEY Attending Unavailable HILTON, RICHARD Attending Unavailable SAMIA, DANYELLE Attending Unavailable JOYE WATTERS Referring Unavailable DEBBY KUMAR Primary Care Unavailable Medications Current Medications Medication Drug Class(es) Dates Sig (Normalized) Sig (Original) amoxicillin 500 mg oral capsule (1 source) Penicillin-class Antibacterial Start: 05-28-2023 take 1 capsule by mouth every twelve hours Amoxicillin 500 MG 1 capsule Orally Twice a day for 10 days May, Active Pre- (3 sources) Pre- Active Vit-Fe Fumarate-FA ( Plus) 27-1 MG tablet (2 sources) Vit-Fe Fumarate-FA ( Plus) 27-1 MG tablet 1 (one) time each day at the same time. 0 Active Problems Active Problems Problem Classification Problem Date Documented Date Episodic/Chronic Contraceptive and procreative management (2 sources) Encounter of female for testing for genetic disease carrier status for procreative management; Translations: [Encounter of female for testing for genetic disease carrier status for procreative management] Onset: 12-13-2023 Episodic Hemorrhage during ; abruptio placenta; placenta previa [...] INVERSION OF UTERUS] Onset: 05-15-2022 Episodic Other complications of (2 sources) Supervision of other high risk pregnancies, second trimester; Translations: [Supervision of other high risk pregnancies, second trimester] Onset: 12-13-2023 Episodic Other complications of (2 sources) Abnormal ultrasonic finding on screening of mother; Translations: [Abnormal ultrasonic finding on screening of mother] Onset: 12-13-2023 Episodic Other and delivery including normal (20 [...] Test Name Value Interpretation Reference Range Facility [place] B Abon 12-24-2023 Jorge payton. B1 <1:10 Normal <1:10 [facility] Comment on above: Performed By: #### A COXA9, APARVP, ACOXAB #### [facility] [address] [place] [address] Watch Assembler: Demetrio Keller MD #### TOXOM, CMVG, CMVM, TOXOG #### [facility] [employer] [address] [place] [id number] Watch Assembler: MD Jorge Forbes. B2 <1:10 Normal <1:10 [facility] Comment on above: Performed By: #### A COXA9, APARVP, ACOXAB #### [facility] [address] [place] [address] Watch Assembler: Demetrio Keller MD #### TOXOM, CMVG, CMVM, TOXOG #### [address] [address] Watch Assembler: MD Jorge Forbes B3 1:80 Abnormal <1:10 [facility] Comment on above: Performed By: #### A COXA9, APARVP, ACOXAB #### [facility] [address] [place] [address] Watch Assembler: Demetrio Keller MD #### TOXOM, CMVG, CMVM, TOXOG #### [address] [id number] Watch Assembler: MD Jorge Forbes B4 1:20 Normal <1:10 [facility] Comment on above: Performed By: #### A COXA9, APARVP, ACOXAB #### [facility] [address] [place] [id number] Watch Assembler: Demetrio Keller MD #### TOXOM, CMVG, CMVM, TOXOG #### [address] [id number] Watch Assembler: MD Jorge Forbes B5 1:80 Abnormal <1:10 [facility] Comment on above: Performed By: #### A COXA9, APARVP, ACOXAB #### [facility] [address] [place] [id number] Watch Assembler: Demetrio Keller MD #### TOXOM, CMVG, CMVM, TOXOG #### [address] [id number] Watch Assembler: MD Jorge Forbes. B6 <1:10 Normal <1:10 [facility] Comment on above: Result Comment: (NOT E) INTERPRETIVE INFORMATION: Coxsackie B Virus Single positive antibody titers of greater than or equal to 1:80 may indicate past or current infection. Sero- conversion or an increase in titers between acute and convalescent sera of at least fourfold is considered strong evidence of current or recent infection. Performed By: [facility] [address] [place] [address] Mixer Whipped Topping: Ravi Mejia MD, PhD CLIA Number: [id number] Performed By: #### A COXA9, APARVP, ACOXAB #### [place] [address] Watch Assembler: Demetrio Keller MD #### TOXOM, CMVG, CMVM, TOXOG #### [address] [address] Watch Assembler: Edy Mark MD Coxsackie A9 Titeron 024 [place]ackie A9 Titer 1:8 Normal <1:8 [facility] Comment on above: Result Comment: (NOT E) INTERPRETIVE INFORMATION: Coxsackie A Serotype 9 Titer Single positive antibody titers of greater than 1:32 may indicate past or current infection. Seroconversion or an increase in titers between acute and convalescent sera of at least fourfold is considered strong evidence of current or recent infection. Performed By: [facility] [address] [place] [address] Mixer Whipped Topping: Ravi Mejia MD, PhD CLIA Number: [id number] Performed By: #### A COXA9, APARVP, ACOXAB #### [place] [id number] Watch Assembler: Demetrio Keller MD #### TOXOM, CMVG, CMVM, TOXOG #### [address] [address] Watch Assembler: Edy Mark MD Parvovirus B19 Panelon 12-15 Parvovirus IgG B19 6.58 IV High <=0.90 [facility] Comment on above: Result Comment: (NOT E) INTERPRETIVE INFORMATION: Parvovirus B19 Antibody, IgG 0.90 IV or less .......... Negative - No significant level of detectable Parvovirus B19 IgG antibody. 0.91 - 1.09 IV ........... Equivocal - Repeat testing in 7-21 days may be helpful. 1.10 IV or greater ....... Positive - IgG antibody to Parvovirus B19 detected which may indicate a current or past infection. The best evidence for current infection is a significant change on two appropriately timed specimens, where both tests are done in the same laboratory at the same time. Performed By: #### A COXA9, APARVP, ACOXAB #### [facility] [employer] [address] [place] [address] Watch Assembler: Demetrio Keller MD #### TOXOM, CMVG, CMVM, TOXOG #### [place] [id number] [place] [address] Watch Assembler: Edy Mark MD Parvovirus IgM B19 0.13 IV Normal <=0.90 [facility] Comment on above: Result Comment: (NOT E) INTERPRETIVE INFORMATION: Parvovirus B19 Antibody, IgM EFFECTIVE 07/05/2023 REFERENCE INTERVAL CHANGE Due to reagent kit corporate sales representative recall, an alternate kit has been validated and implemented by [facility]. The following Reference Interval applies to this result: 0.90 IV or less .......... Negative - No significant level of detectable Parvovirus B19 IgM antibody. 0.91 - 1.10 IV ........... Equivocal - Repeat testing in 7-21 days may be helpful. 1.11 IV or greater ........ Positive - IgM antibody to Parvovirus B19 detected which may indicate a current or recent infection. However, low levels of IgM antibodies may occasionally persist for more than 12 months post-infection. The best evidence for current infection is a significant change on two appropriately timed specimens, where both tests are done in the same laboratory at the same time. Appearance of an IgM antibody response normally occurs 7 to 14 days after the onset of disease. Testing immediately post-exposure is of no value without a later convalescent specimen. A residual IgM response may be distinguished from early IgM response to infection by testing sera from patients three to four weeks later for changing levels of specific IgM antibodies. Performed By: [facility] [address] [place] [address] Mixer Whipped Topping: Ravi Mejia MD, PhD CLIA Number: [id number] Performed By: #### A COXA9, APARVP, ACOXAB #### [facility] [address] [place] [address] Watch Assembler: Demetrio Keller MD #### TOXOM, CMVG, CMVM, TOXOG #### [address] [address] Watch Assembler: Edy Mark MD Miscellaneouson 12-14-2023 Send Out Report FORWARD UNITY KIT FED EX [id number] [facility] Comment on above: Performed By: #### C MIS #### [address] [address] Watch Assembler: Edy Mark MD Toxoplasma Ab,IgGon 12-14-19 24 Toxoplasma Ab,IgG <0.5 [facility] Comment on above: Result Comment: REFERENCE RANGE: <6.3 NON-REACTIVE 6.4 TO 9.9 EQUIVOCAL >=10.0 REACTIVE THE PRESENCE OF TOXOPLASMA GONDII IgG ANTIBODIES IS INDICATIVE OF EXPOSURE TO THE PROTOZOAN. THE ABSENCE OF TOXOPLASMA IgG ANTIBODIES SUGGESTS THAT THE PATIENT HAS NOT BEEN EXPOSED TO THIS ORGANISM AND IS SUSCEPTIBLE TO PRIMARY INFECTION. DETERMINATION OF PRIMARY OR RECENT INFECTION REQUIRES DEMONSTRATING SEROCONVERSION BETWEEN ACUTE AND CONVALESCENT SERA. Performed By: #### A COXA9, APARVP, ACOXAB #### [facility] [address] [place] [address] Watch Assembler: Demetrio Keller MD #### TOXOM, CMVG, CMVM, TOXOG #### [address] [address] Watch Assembler: Edy Mark MD Toxoplasma Ab,IgMon 12-14-19 24 Toxoplasma Ab,IgM 0.31 Index Normal [facility] Comment on above: Result Comment: REFERENCE RANGE: <0.90 NON-REACTIVE 0.90 TO 0.99 INDETERMINANT >=1.00 REACTIVE Performed By: #### A COXA9, APARVP, ACOXAB #### [facility] [address] [place] [address] Watch Assembler: Demetrio Keller MD #### TOXOM, CMVG, CMVM, TOXOG #### [address] [id number] Watch Assembler: Edy Mark MD CMV Ab,IgGon 12-13-2023 CMV Ab,IgG 441.0 High <0.5 [facility] Comment on above: Result Comment: Reference Range: <0.5 Non Reactive 0.5 to 0.9 Borderline >0.9 Reactive The absence of CMV antibodies suggests that the patient has not been exposed to the virus and is susceptible to primary infection. The presence of CMV IgG antibodies is indicative of previous exposure to the virus, but cannot distinguish between active or past infection. Patients suspected of having primary or active infection should be tested for the concurrent presence of CMV IgM antibodies and/or retested for seroconversion in 3 to 4 weeks. These results are not intended to replace virus isolation and should be interpreted within the context of clinical and other findings. Performed By: #### A COXA9, APARVP, ACOXAB #### [facility] [address] [place], [place] [id number] Watch Assembler: Demetrio Keller MD #### TOXOM, CMVG, CMVM, TOXOG #### [address] [id number] Watch Assembler: Edy Mark MD CMV Ab,IgMon 12-13-2023 CMV Ab,IgM 0.2 Normal <0.7 [facility] Comment on above: Result Comment: Reference Range: <0.7 Non Reactive 0.7 to 0.9 Borderline >0.9 Reactive The absence of CMV antibodies suggests that the patient has not been exposed to the virus and is susceptible to primary infection. The presence of CMV IgM antibodies is indicative of recent exposure to the virus. These results are not intended to replace virus isolation and should be interpreted within the context of clinical and other findings. The Renaat ECLIA assay is used. Results obtained with different assay methods cannot be used interchangeably. Performed By: #### A COXA9, APARVP, ACOXAB #### [facility] [address] [place] [address] Watch Assembler: Demetrio Keller MD #### TOXOM, CMVG, CMVM, TOXOG #### [facility] [address] [place], [place] [id number] Watch Assembler: Edy Mark MD Miscellaneouson 12-13-2023 Test Name UNITY Normal [facility] Comment on above: Performed By: #### C MIS #### [facility] [address] [place], [place] [id number] Watch Assembler: Edy Mark MD Urinalysis macro (dipstick) panel (U)on 10-02-2023 Bilirubin, UA Negative Negative - 4(70) +++ mg/dL [facility] Blood, UA Negative Negative - 50 Oneal/mcL [facility] Clarity, UA Clear [facility] re Color, UA Yellow [facility] Healthcar e Glucose, UA Negative Negative - 1999(110) ++++ mg/dL [facility] Interpretation and review of laboratory results Normal [facility] Ketones, UA Negative Negative - 160(16) ++++ mg/dL [facility] Leukocytes, UA Negative Negative - 500+++ Phillip/mcL [facility] Nitrite, UA Negative Negative - Positive [facility] pH, UA 5.5 5 - 9 [facility] Health[facility] Protein, UA Negative Negative - 1999(20) ++++ mg/dL [facility] Spec Grav, UA 1.010 1 - 1.03 [facility] Urobilinogen, UA 1.0 0.2 - 12 mg/dL [facility] Quick Strepon 05-28-2023 S. pyogenes Org specific cx Ql (Throat) Positive [facility] Other Quick Strep [facility] Other Covid-19 PCR (CVDTB)on 04-29 SARS-CoV-2 (COVID-19) RNA SHANEKA+probe Ql (Unsp spec) Not detected Normal NOT DETECTED [facility] Comment on above: Result Comment: [...] for this test is supported by the Binding Folder Machine of Health and Human Service's declaration that [...] used). Performed By: #### H BSANS #### [facility] [address] [place] [address] Dr. Marvin Ashford GROUP A STREP CULTUREon 04-29 S. pyogenes Ag Ql (Unsp spec) Culture Observations: NEGATIVE FOR GROUP A STREPTOCOCCUS. Normal [facility] Comment on above: Performed By: #### C BC #### [facility] [address] [place] [address] Dr. Marvin Ashford STREPT SCREENon 05-26-2022 STREP SCREEN A Negative Normal NEGATIVE [facility] Comment on above: Performed By: #### C BC #### [facility] [address] [place] [address] Dr. Marvin Ashford FRESH FROZ PLASMAon 05-07-20 FRESH FROZ PLASMA Unit Blood Type A Pos Unit Number [id number] Status Information Transfused Product ID FFP Product Code [id number] Normal [facility] Comment on above: Performed By: #### F FP #### [facility] [address] [place] [address] Dr. Marvin Ashford FRESH FROZ PLASMA Unit Blood Type A Pos Unit Number [id number] Status Information Transfused Product ID FFP Product Code [id number] Normal [facility] Comment on above: Performed By: #### F FP #### [facility] [address] [place] [address] Dr. Marvin Ashford PRBC LEUKOREDUCEDon 05-07-20 ABO and Rh group Nom (Bld) Cross Match Result Compatible Unit Blood Type A Pos Unit Number [id number] Status Information Transfused Product ID Red Blood Cells Product Code [id number] Cross Match Result Compatible Unit Blood Type A Pos Unit Number [id number] Status Information Released Specimen Exp Date Product ID Red Blood Cells Product Code [id number] Normal [facility] Comment on above: Performed By: #### P RBC #### [facility] [address] [place] [address] Dr. Marvin Ashford ABO and Rh group Nom (Bld) Cross Match Result Compatible Unit Blood Type A Pos Unit Number [id number] Status Information Released Specimen Exp Date Product ID Red Blood Cells Product Code [id number] Cross Match Result Compatible Unit Blood Type A Pos Unit Number [id number] Status Information Transfused Product ID Red Blood Cells Product Code [id number] [facility] Comment on above: Performed By: #### H BSANS #### [facility] [address] [place] [address] Dr. Marvin Ashford CBC AUTO DIFFon 05-05-2022 BASO # 0.1 103/ul Normal 0.0-0.1 [facility] Comment on above: Performed By: #### G BSCX #### [facility] [address] [place] [address] Dr. Marvin Ashford Basophils/100 WBC (Bld) 0.3 % Normal 0.2-2.0 [facility] Comment on above: Performed By: #### G BSCX #### [facility] [address] [place] [address] Dr. Marvin Ashford EO # 0.0 103/ul Normal 0.0-0.7 [facility] Comment on above: Performed By: #### G BSCX #### [facility] [address] [place] [address] Dr. Marvin Ashford Eosinophils/100 WBC (Bld) 0.2 % Critically low 0.9-7.0 [facility] Comment on above: Performed By: #### G BSCX #### [facility] [address] [place] [address] Dr. Marvin Ashford Erythrocyte distribution width (RBC) [Ratio] 14.6 % Normal 11.0-15.0 [facility] Comment on above: Performed By: #### G BSCX #### [facility] [address] [place] [address] Dr. Marvin Ashford Hematocrit (Bld) [Volume fraction] 25.6 % Critically low 36.0-48.0 [facility] Comment on above: Performed By: #### G BSCX #### [facility] [address] [place] [address] Dr. Marvin Ashford Hemoglobin (Bld) [Mass/Vol] 8.8 g/dL Critically low 12.0-16.0 [facility] Comment on above: Performed By: #### G BSCX #### [facility] [address] [place] [address] Dr. Marvin Ashford IG # 0.14 10e3/ul Critically high 0.00-0.03 [facility] Comment on above: Performed By: #### G BSCX #### [facility] [address] [place] [address] Dr. Marvin Ashford IG % 0.9 % Critically high 0.0-0.5 [facility] Comment on above: Performed By: #### G BSCX #### [facility] [address] [place] [address] Dr. Marvin Ashford LYMPH # 2.7 103/ul Normal 1.2-3.8 [facility] Comment on above: Performed By: #### G BSCX #### [facility] [address] [place] [address] Dr. Marvin Ashford Lymphocytes/100 WBC (Bld) 17.1 % Critically low 20.5-60.0 [facility] Comment on above: Performed By: #### G BSCX #### [facility] [address] [place] [address] Dr. Marvin Ashford MANUAL DIFF REQ NO Normal [facility] Comment on above: Performed By: #### G BSCX #### [facility] [address] [place] [address] Dr. Marvin Ashford MCH (RBC) [Entitic mass] 31.1 pg Normal 26.7-34.0 [facility] Comment on above: Performed By: #### G BSCX #### [facility] [address] [place] [address] Dr. Marvin Ashford MCHC (RBC) [Mass/Vol] 34.4 g/dL Normal 29.9-35.2 [facility] Comment on above: Performed By: #### G BSCX #### [facility] [address] [place] [address] Dr. Marvin Ashford MCV (RBC) [Entitic vol] 90.5 fL Normal 81.0-99.0 [facility] Comment on above: Performed By: #### G BSCX #### [facility] [address] [place] [address] Dr. Marvin Ashford MONO # 1.0 103/ul Critically high 0.3-0.8 [facility] Comment on above: Performed By: #### G BSCX #### [facility] [address] [place] [address] Dr. Marvin Ashford Monocytes/100 WBC (Bld) 6.4 % Normal 1.7-12.0 [facility] Comment on above: Performed By: #### G BSCX #### [facility] [address] [place] [address] Dr. Marvin Ashford NEUT # 11.7 103/ul Critically high 1.4-6.5 [facility] Comment on above: Performed By: #### G BSCX #### [facility] [address] [place] [address] Dr. Marvin Ashford Neutrophils/100 WBC (Bld) 75.1 % Critically high 43.0-75.0 [facility] Comment on above: Performed By: #### G BSCX #### [facility] [address] [place] [address] Dr. Marvin Ashford Platelet mean volume (Bld) [Entitic vol] 10.2 fL Normal 9.5-13.5 [facility] Comment on above: Performed By: #### G BSCX #### [facility] [address] [place] [address] Dr. Marvin Ashford PLT 114 103/ul Critically low 150-450 [facility] Comment on above: Performed By: #### G BSCX #### [facility] [address] [place] [address] Dr. Marvin Ashford RBC 2.83 106/ul Critically low 4.20-5.40 [facility] Comment on above: Performed By: #### G BSCX #### [facility] [address] [place] [address] Dr. Marvin Ashford WBC 15.5 103/ul Critically high 4.0-11.0 [facility] Comment on above: Performed By: #### G BSCX #### [facility] [address] [place] [address] Dr. Marvin Ashford CBC AUTO DIFFon 05-04-2022 BASO # 0.1 103/ul Normal 0.0-0.1 [facility] Comment on above: Performed By: #### C BC #### [facility] [address] [place] [address] Dr. Marvin Ashford Basophils/100 WBC (Bld) 0.2 % Normal 0.2-2.0 [facility] Comment on above: Performed By: #### C BC #### [facility] [address] [place] [address] Dr. Marvin Ashford EO # 0.0 103/ul Normal 0.0-0.7 [facility] Comment on above: Performed By: #### C BC #### [facility] [address] [place] [address] Dr. Marvin Ashford Eosinophils/100 WBC (Bld) 0.0 % Critically low 0.9-7.0 [facility] Comment on above: Performed By: #### C BC #### [facility] [address] [place] [address] [address] Marvin Ashford Erythrocyte distribution width (RBC) [Ratio] 14.1 % Normal 11.0-15.0 [facility] Comment on above: Performed By: #### C BC #### [facility] [address] [place] [address] [address] Marvin Ashford Hematocrit (Bld) [Volume fraction] 26.6 % Critically low 36.0-48.0 [facility] Comment on above: Performed By: #### C BC #### [facility] [address] [place] [address] Dr. Marvin Ashford Hemoglobin (Bld) [Mass/Vol] 9.2 g/dL Critically low 12.0-16.0 [facility] Comment on above: Performed By: #### C BC #### [facility] [address] [place] [address] [address] Marvin Ashford IG # 0.24 10e3/ul Critically high 0.00-0.03 [facility] Comment on above: Performed By: #### C BC #### [facility] [address] [place] [address] Dr. Marvin Ashford IG % 1.0 % Critically high 0.0-0.5 [facility] Comment on above: Performed By: #### C BC #### [facility] [address] [place] [address] Dr. Marvin Ashford LYMPH # 2.0 103/ul Normal 1.2-3.8 [facility] Comment on above: Performed By: #### C BC #### [facility] [address] [place] [address] [address] Marvin Ashford Lymphocytes/100 WBC (Bld) 8.3 % Critically low 20.5-60.0 [facility] Comment on above: Performed By: #### C BC #### [facility] [address] [place] [address] Dr. Marvin Ashford MANUAL DIFF REQ NO Normal [facility] Comment on above: Performed By: #### C BC #### [facility] [address] [place] [address] Dr. Marvin Ashford MCH (RBC) [Entitic mass] 30.8 pg Normal 26.7-34.0 [facility] Comment on above: Performed By: #### C BC #### [facility] [address] [place] [address] Dr. Marvin Ashford MCHC (RBC) [Mass/Vol] 34.6 g/dL Normal 29.9-35.2 [facility] Comment on above: Performed By: #### C BC #### [facility] [address] [place] [address] Dr. Marvin Ashford MCV (RBC) [Entitic vol] 89.0 fL Normal 81.0-99.0 [facility] Comment on above: Performed By: #### C BC #### [facility] [address] [place] [address] Dr. Marvin Ashford MONO # 2.6 103/ul Critically high 0.3-0.8 [facility] Comment on above: Performed By: #### C BC #### [facility] [address] [place] [address] Dr. Marvin Ashford Monocytes/100 WBC (Bld) 10.6 % Normal 1.7-12.0 [facility] Comment on above: Performed By: #### C BC #### [facility] [address] [place] [address] Dr. Marvin Ashford NEUT # 19.3 103/ul Critically high 1.4-6.5 [facility] Comment on above: Performed By: #### C BC #### [facility] [address] [place] [address] Dr. Marvin [place] Neutrophils/100 WBC (Bld) 79.9 % Critically high 43.0-75.0 [facility] Comment on above: Performed By: #### C BC #### [facility] [address] [place] [address] Dr. Marvin [place] Platelet mean volume (Bld) [Entitic vol] 9.7 fL Normal 9.5-13.5 [facility] Comment on above: Performed By: #### C BC #### [facility] [address] [place] [address] Dr. Marvin [place] PLT 98 103/ul Critically low 150-[address] [facility] Comment on above: Performed By: #### C BC #### [facility] [address] [place] [address] Dr. Marvin [place] RBC 2.99 106/ul Critically low 4.20-5.40 [facility] Comment on above: Performed By: #### C BC #### [facility] [address] [place] [address] Dr. Marvin [place] WBC 24.1 103/ul Critically high 4.0-11.0 [facility] Comment on above: Performed By: #### C BC #### [facility] [address] [place] [address] Dr. Marvin [place] CBC W MANUAL DIFFon 05-04-20 22 ATYPICAL LYMPH # Normal [facility] Comment on above: Performed By: #### H BSANS #### [facility] [address] [place] [address] Dr. Marvin [place] ATYPICAL LYMPH % Normal [facility] Comment on above: Performed By: #### H BSANS #### [facility] [address] [place] [address] Dr. Marvin [place] BAND # Normal 0.0-0.3 [facility] Comment on above: Performed By: #### H BSANS #### [facility] [address] [place] [address] Dr. Marvin [place] BAND % Normal 0-5 [facility] Comment on above: Performed By: #### H BSANS #### [facility] [address] [place] [address] Dr. Marvin [place] BASOM # 0.00 103/ul Normal 0.00-0.10 [facility] Comment on above: Performed By: #### H BSANS #### [facility] [address] [address] [address] Marvin [place] BASOM % 0.0 % Critically low 0.2-2.0 [facility] Comment on above: Performed By: #### H BSANS #### [facility] [address] [address] [address] Marvin [place] BLAST # Normal [facility] Comment on above: Performed By: #### H BSANS #### [facility] [address] [address] [address] Marvin [place] BLAST % Normal [facility] Comment on above: Performed By: #### H BSANS #### [facility] [address] [address] [address] Marvin [place] CORRECTED WBC Normal 4.0-11.0 [facility] Comment on above: Performed By: #### H BSANS #### [facility] [address] [place] [address] Dr. Marvin [place] EOS # 0.00 103/ul Normal 0.00-0.70 [facility] Comment on above: Performed By: #### H BSANS #### [facility] [address] [address] [address] Marvin [place] EOS% 0.0 % Critically low 0.9-7.0 [facility] Comment on above: Performed By: #### H BSANS #### [facility] [address] [place] [address] Dr. Marvin [place] HCT 25.6 % Critically low 36.0-48.[address] [facility] Comment on above: Performed By: #### H BSANS #### [facility] [address] [place] [address] Dr. Marvin [place] HGB 8.9 g/dl Critically low 12.0-16.0 [facility] Comment on above: Performed By: #### H BSANS #### [facility] [address] [place] [address] Dr. Marvin [place] HYPOCHROMASIA SLIGHT Normal [facility] Comment on above: Performed By: #### H BSANS #### [facility] [address] [address] [address] Marvin [place] LYMPHM # 1.92 103/ul Normal 1.20-3.80 [facility] Comment on above: Performed By: #### H BSANS #### [facility] [address] [address] [address] Marvin [place] LYMPHM% 8.0 % Critically low 20.5-60.0 [facility] Comment on above: Performed By: #### H BSANS #### [facility] [address] [place] [address] Dr. Marvin [place] MCH 31.0 pg Normal 26.7-34.0 [facility] Comment on above: Performed By: #### H BSANS #### [facility] [address] [place] [address] Dr. Marvin [place] MCHC 34.8 g/dl Normal 29.9-35.2 [facility] Comment on above: Performed By: #### H BSANS #### [facility] [address] [place] [address] Dr. Marvin [place] MCV 89.2 fL Normal 81.0-99.0 [facility] Comment on above: Performed By: #### H BSANS #### [facility] [address] [place] [address] Dr. Marvin [place] METAMYELOCYTE # Normal [facility] Comment on above: Performed By: #### H BSANS #### [facility] [address] [place] [address] Dr. Marvin [place] METAMYELOCYTE % Normal [facility] Comment on above: Performed By: #### H BSANS #### [facility] [address] [address] [address] Marvin [place] MONOM# 0.48 103/ul Normal 0.30-0.80 [facility] Comment on above: Performed By: #### H BSANS #### [facility] [address] [place] [address] Dr. Marvin [place] MONOM% 2.0 % Normal 1.7-12.0 [facility] Comment on above: Performed By: #### H BSANS #### [facility] [address] [address] [address] Marvin [place] MPV 10.2 fL Normal 9.5-13.5 [facility] Comment on above: Performed By: #### H BSANS #### [facility] [address] [address] [address] Marvin [place] MYELOCYTE # Normal [facility] Comment on above: Performed By: #### H BSANS #### [facility] [address] [address] [address] Marvin [place] MYELOCYTE % Normal [facility] Comment on above: Performed By: #### H BSANS #### [facility] [address] [address] [address] Marvin [place] NRBC Normal [facility] Comment on above: Performed By: #### H BSANS #### [facility] [address] [address] [address] Marvin [place] PLT 104 103/ul Critically low 150-450 [facility] Comment on above: Performed By: #### H BSANS #### [facility] [address] [address] [address] Marvin [place] RBC 2.87 106/ul Critically low 4.20-5.40 [facility] Comment on above: Performed By: #### H BSANS #### [facility] [address] [address] [address] Marvin [place] RDW 14.4 % Normal 11.0-15.0 [facility] Comment on above: Performed By: #### H BSANS #### [facility] [address] [address] [address] Marvin [place] SEG # 21.60 103/ul Critically high 1.40-6.50 [facility] Comment on above: Performed By: #### H BSANS #### [facility] [address] [address] [address] Marvin [place] SEG % 90.0 % Critically high 43.0-75.0 [facility] Comment on above: Performed By: #### H BSANS #### [facility] [address] [address] [address] Marvin [place] WBC 24.0 103/ul Critically high 4.0-11.0 [facility] Comment on above: Performed By: #### H BSANS #### [facility] [address] [place] [address] Dr. Marvin [place] CBC AUTO DIFFon 05-03-2022 BASO # 0.1 103/ul Normal 0.0-0.1 [facility] Comment on above: Performed By: #### C BC #### [facility] [address] [place] [address] Dr. Marvin [place] Basophils/100 WBC (Bld) 0.3 % Normal 0.2-2.0 [facility] Comment on above: Performed By: #### C BC #### [facility] [address] [place] [address] Dr. Marvin [place] EO # 0.0 103/ul Normal 0.0-0.7 [facility] Comment on above: Performed By: #### C BC #### [facility] [address] [place] [address] Dr. Marvin [place] Eosinophils/100 WBC (Bld) 0.0 % Critically low 0.9-7.0 [facility] Comment on above: Performed By: #### C BC #### [facility] [address] [place] [address] Dr. Marvin [place] Erythrocyte distribution width (RBC) [Ratio] 13.3 % Normal 11.0-15.0 [facility] Comment on above: Performed By: #### C BC #### [facility] [address] [place] [address] Dr. Marvin [place] Hematocrit (Bld) [Volume fraction] 26.6 % Critically low 36.0-48.0 [facility] Comment on above: Performed By: #### C BC #### [facility] [address] [place] [address] Dr. Marvin [place] Hemoglobin (Bld) [Mass/Vol] 9.0 g/dL Critically low 12.0-16.0 [facility] Comment on above: Performed By: #### C BC #### [facility] [address] [address] [address] Marvin [place] IG # 0.62 10e3/ul Critically high 0.00-0.03 [facility] Comment on above: Performed By: #### C BC #### [facility] [address] [address] [address] Marvin [place] IG % 1.8 % Critically high 0.0-0.5 [facility] Comment on above: Performed By: #### C BC #### [facility] [address] [address] [address] Marvin [place] LYMPH # 1.1 103/ul Critically low 1.2-3.8 [facility] Comment on above: Performed By: #### C BC #### [facility] [address] [place] [address] Dr. Marvin [place] Lymphocytes/100 WBC (Bld) 3.3 % Critically low 20.5-60.0 [facility] Comment on above: Performed By: #### C BC #### [facility] [address] [address] [address] Marvin [place] MANUAL DIFF REQ NO Normal [facility] Comment on above: Performed By: #### C BC #### [facility] [address] [place] [address] Dr. Marvin [place] MCH (RBC) [Entitic mass] 31.9 pg Normal 26.7-34.0 [facility] Comment on above: Performed By: #### C BC #### [facility] [address] [address] [address] Marvin [place] MCHC (RBC) [Mass/Vol] 33.8 g/dL Normal 29.9-35.2 [facility] Comment on above: Performed By: #### C BC #### [facility] [address] [address] [address] Marvin [place] MCV (RBC) [Entitic vol] 94.3 fL Normal 81.0-99.0 [facility] Comment on above: Performed By: #### C BC #### [facility] [address] [address] [address] Marvin [place] MONO # 2.3 103/ul Critically high 0.3-0.8 [facility] Comment on above: Performed By: #### C BC #### [facility] [address] [address] [address] Marvin [place] Monocytes/100 WBC (Bld) 6.6 % Normal 1.7-12.0 [facility] Comment on above: Performed By: #### C BC #### [facility] [address] [address] [address] Marvin [place] NEUT # 30.2 103/ul Critically high 1.4-6.5 [facility] Comment on above: Performed By: #### C BC #### [facility] [address] [address] [address] Marvin [place] Neutrophils/100 WBC (Bld) 88.0 % Critically high 43.0-75.0 [facility] Comment on above: Performed By: #### C BC #### [facility] [address] [address] [address] Marvin [place] Platelet mean volume (Bld) [Entitic vol] 10.2 fL Normal 9.5-13.5 [facility] Comment on above: Performed By: #### C BC #### [facility] [address] [address] [address] Marvin [place] PLT 136 103/ul Critically low 150-[address] [facility] Comment on above: Performed By: #### C BC #### [facility] [address] [address] [address] Marvin [place] RBC 2.82 106/ul Critically low 4.20-5.40 [facility] Comment on above: Performed By: #### C BC #### [facility] [address] [address] [address] Marvin [place] WBC 34.3 103/ul Critically high 4.0-11.0 [facility] Comment on above: Performed By: #### C BC #### [facility] [address] [address] [address] Marvin [place] CBC AUTO DIFFon 05-01-2022 BASO # 0.0 103/ul Normal 0.0-0.1 [facility] Comment on above: Performed By: #### C BC #### [facility] [address] [place] [address] Dr. Marvin [place] Basophils/100 WBC (Bld) 0.4 % Normal 0.2-2.0 [facility] Comment on above: Performed By: #### C BC #### [facility] [address] [place] [address] Dr. Marvin [place] EO # 0.0 103/ul Normal 0.0-0.7 [facility] Comment on above: Performed By: #### C BC #### [facility] [address] [place] [address] Dr. Marvin [place] Eosinophils/100 WBC (Bld) 0.2 % Critically low 0.9-7.0 [facility] Comment on above: Performed By: #### C BC #### [facility] [address] [place] [address] Dr. Marvin [place] Erythrocyte distribution width (RBC) [Ratio] 12.9 % Normal 11.0-15.0 [facility] Comment on above: Performed By: #### C BC #### [facility] [address] [place] [address] Dr. Marvin [place] Hematocrit (Bld) [Volume fraction] 35.5 % Critically low 36.0-48.0 [facility] Comment on above: Performed By: #### C BC #### [facility] [address] [place] [address] Dr. Marvin [place] Hemoglobin (Bld) [Mass/Vol] 11.7 g/dL Critically low 12.0-16.0 [facility] Comment on above: Performed By: #### C BC #### [facility] [address] [place] [address] Dr. Marvin Ash[place] IG # 0.10 10e3/ul Critically high 0.00-0.03 [facility] Comment on above: Performed By: #### C BC #### [facility] [address] [place] [address] Dr. Marvin [place] IG % 0.9 % Critically high 0.0-0.5 [facility] Comment on above: Performed By: #### C BC #### [facility] [address] [place] [address] Dr. Marvin [place] LYMPH # 1.8 103/ul Normal 1.2-3.8 [facility] Comment on above: Performed By: #### C BC #### [facility] [address] [place] [address] Dr. Marvin [place] Lymphocytes/100 WBC (Bld) 16.4 % Critically low 20.5-60.0 [facility] Comment on above: Performed By: #### C BC #### [facility] [address] [place] [address] Dr. Marvin [place] MANUAL DIFF REQ NO Normal [facility] Comment on above: Performed By: #### C BC #### [facility] [address] [place] [address] Dr. Marvin [place] MCH (RBC) [Entitic mass] 30.7 pg Normal 26.7-34.0 [facility] Comment on above: Performed By: #### C BC #### [facility] [address] [place] [address] Dr. Marvin [place] MCHC (RBC) [Mass/Vol] 33.0 g/dL Normal 29.9-35.2 [facility] Comment on above: Performed By: #### C BC #### [facility] [address] [place] [address] Dr. Marvin [place] MCV (RBC) [Entitic vol] 93.2 fL Normal 81.0-99.0 [facility] Comment on above: Performed By: #### C BC #### [facility] [address] [place] [address] Dr. Marvin [place] MONO # 0.8 103/ul Normal 0.3-0.8 [facility] Comment on above: Performed By: #### C BC #### [facility] [address] [place] [address] Dr. Marvin [place] Monocytes/100 WBC (Bld) 7.8 % Normal 1.7-12.0 [facility] Comment on above: Performed By: #### C BC #### [facility] [address] [place] [address] Dr. Marvin [place] NEUT # 8.0 103/ul Critically high 1.4-6.5 [facility] Comment on above: Performed By: #### C BC #### [facility] [address] [place] [address] Dr. Marvin [place] Neutrophils/100 WBC (Bld) 74.3 % Normal 43.0-75.0 [facility] Comment on above: Performed By: #### C BC #### [facility] [address] [place] [address] Dr. Marvin [place] Platelet mean volume (Bld) [Entitic vol] 9.9 fL Normal 9.5-13.5 [facility] Comment on above: Performed By: #### C BC #### [facility] [address] [place] [address] Dr. Marvin Ashford PLT 211 103/ul Normal 150-450 [facility] Comment on above: Performed By: #### C BC #### [facility] [address] [place] [address] Dr. Marvin [place] RBC 3.81 106/ul Critically low 4.20-5.40 [facility] Comment on above: Performed By: #### C BC #### [facility] [address] [place] [address] Dr. Marvin Ash[place] WBC 10.7 103/ul Normal 4.0-11.0 [facility] Comment on above: Performed By: #### C BC #### [facility] [address] [place] [address] Dr. Marvin [place] [facility]on SARS-CoV-2 (COVID-19) RNA SHANEKA+probe Ql (Unsp spec) Not detected Normal NOT DETECTED [facility] Comment on above: Result Comment: [...] for this test is supported by the [place] of Health and Human Service's declaration that [...] used). Performed By: #### G BSCX #### [facility] [address] [place] [address] Dr. Marvin Ash[place] DRUG SCREEN RAPID (URINE)on 05-01-2022 AMP Negative Normal NEGATIVE [facility] Comment on above: Performed By: #### G BSCX #### [facility] [address] [place] [address] Dr. Marvin Ashford BAR Negative Normal NEGATIVE [facility] Comment on above: Performed By: #### G BSCX #### [facility] [address] [place] [address] Dr. Marvin Ash[place] BUP Negative Normal NEGATIVE [facility] Comment on above: Performed By: #### G BSCX #### [facility] [address] [place] [address] Dr. Marvin Ashford BZO Negative Normal NEGATIVE [facility] Comment on above: Performed By: #### G BSCX #### [facility] [address] [place] [address] Dr. Marvin Ashford MYNOR Negative Normal NEGATIVE [facility] Comment on above: Performed By: #### G BSCX #### [facility] [address] [place] [address] Dr. Marvin Ashford CUT-OFFS SEE BELOW Normal [facility] Comment on above: Result Comment: AMP [...] ng/mL Performed By: #### G BSCX #### [facility] [address] [place] [address] Dr. Marvin Ashford DRUG CUT HEADER DRUG CLASS TEST SYSTEM CUT-OFF CONCENTRATIONS ARE FOLLOWS: Normal [facility] Comment on above: Performed By: #### G BSCX #### [facility] [address] [place] [address] Dr. Marvin Ashford mAMP Negative Normal NEGATIVE [facility] Comment on above: Performed By: #### G BSCX #### [facility] [address] [place] [address] Dr. Marvin Ashford MTD Negative Normal NEGATIVE [facility] Comment on above: Performed By: #### G BSCX #### [facility] [address] [place] [address] Dr. Marvin Ashford OPI Negative Normal NEGATIVE [facility] Comment on above: Performed By: #### G BSCX #### [facility] [address] [place] [address] Dr. Marvin Ashford OXY Negative Normal NEGATIVE [facility] Comment on above: Performed By: #### G BSCX #### [facility] [address] [place] [address] Dr. Marvin Ashford PCP Negative Normal NEGATIVE [facility] Comment on above: Performed By: #### G BSCX #### [facility] [address] [place] [address] Dr. Marvin Ashford PPX Negative Normal NEGATIVE [facility] Comment on above: Performed By: #### G BSCX #### [facility] [address] [place] [address] Dr. Marvin Ashford TCA Negative Normal NEGATIVE [facility] Comment on above: Performed By: #### G BSCX #### [facility] [address] [place] [address] Dr. Marvin Ashford THC Negative Normal NEGATIVE [facility] Comment on above: Performed By: #### G BSCX #### [facility] [address] [place] [address] Dr. Marvin Ashford TYPE AND SCREENon 05-01-2022 TYPE AND SCREEN Negative Normal [facility] Comment on above: Performed By: #### T NS #### [facility] [address] [place] [address] Dr. Marvin Ashford CHLAMYDIA/GONOCOCCUS SHANEKA (SW AB/URINE/PAPon 04-17-2022 Chlamydia trachomatis, SHANEKA Negative Normal Negative [facility] Comment on above: Performed By: #### C BC #### [facility] [address] [place] [address] Dr. Marvin Ashford Neisseria gonorrhoeae, SHANEKA Negative Normal Negative [facility] Comment on above: Performed By: #### C BC #### [facility] [address] [place] [address] Dr. Marvin Ashford GROUP B STREP CULTUREon 03-27 S. agalactiae Ag Ql (Unsp spec) Culture Observations: NEGATIVE FOR GROUP B STREPTOCOCCUS. Normal [facility] Comment on above: Performed By: #### G BSCX #### [facility] [address] [place] [address] Dr. Marvin Ashford CULTURE URINEon 03-09-2022 CULTURE URINE Culture Observations: NO GROWTH. Normal [facility] Comment on above: Performed By: #### H BSANS #### [facility] [address] [place] [address] Dr. Marvin Ashford UA (CLEAN/CATCH) AUTOMOTIVE INSTRUCTOR/MICRO I F IND.on 03-09-2022 Bilirubin Ql (U) Negative Normal NEGATIVE [facility] Comment on above: Performed By: #### G BSCX #### [facility] [address] [place] [address] Dr. Marvin Ashford Clarity (U) CLEAR Normal CLEAR [facility] Comment on above: Performed By: #### G BSCX #### [facility] [address] [place] [address] Dr. Marvin Ashford Color (U) YELLOW Normal YELLOW [facility] Comment on above: Performed By: #### G BSCX #### [facility] [address] [place] [address] Dr. Marvin Ashford Glucose Ql (U) Negative Normal NEGATIVE [facility] Comment on above: Performed By: #### G BSCX #### [facility] [address] [place] [address] Dr. Marvin Ashford Hemoglobin Ql (U) SMALL Abnormal NEGATIVE [facility] Comment on above: Performed By: #### G BSCX #### [facility] [address] [place] [address] Dr. Marvin Ashford Ketones Ql (U) TRACE Abnormal NEGATIVE [facility] Comment on above: Performed By: #### G BSCX #### [facility] [address] [place] [address] Dr. Marvin Ashford LEUKOCYTES TRACE Abnormal NEGATIVE [facility] Comment on above: Performed By: #### G BSCX #### [facility] [address] [place] [address] Dr. Marvin Ashford Nitrite Ql (U) Negative Normal NEGATIVE [facility] Comment on above: Performed By: #### G BSCX #### [facility] [address] [place] [address] Dr. Marvin Ashford pH (U) 6.0 [pH] Normal 5-9 [facility] Comment on above: Performed By: #### G BSCX #### [facility] [address] [place] [address] Dr. Marvin Ashford SPEC GRAVITY 1.025 Normal 1.005-<=1.025 [facility] Comment on above: Performed By: #### G BSCX #### [facility] [address] [place] [address] Dr. Marvin Ashford UA PROTEIN Negative Normal NEGATIVE/ TRACE [facility] Comment on above: Performed By: #### G BSCX #### [facility] [address] [place] [address] Dr. Marvin Ashford UR MICRO IND INDICATED Normal [facility] Comment on above: Performed By: #### G BSCX #### [facility] [address] [place] [address] Dr. Marvin Ashford Urobilinogen Qn (U) 1.0 {Ekta'U}/dL Normal 0.2 - 1. 0 The [facility] Comment on above: Performed By: #### G BSCX #### [facility] [address] [place] [address] Dr. Marvin Ashford URINE MICROSCOPIC ONLYon BACTERIA TRACE Abnormal NONE SEEN [facility] Comment on above: Performed By: #### G BSCX #### [facility] [address] [place] [address] Dr. Marvin Ashford Bacteria identified Cx Nom (U) INDICATED Normal [facility] Comment on above: Performed By: #### G BSCX #### [facility] [address] [place] [address] Dr. Marvin Ashford CAST NONE SEEN Normal NONE SEEN [facility] Comment on above: Performed By: #### G BSCX #### [facility] [address] [place] [address] Dr. Marvin Ashford Crystals LM Nom (Urine sed) NONE SEEN Normal NONE SEEN [facility] Comment on above: Performed By: #### G BSCX #### [facility] [address] [place] [address] Dr. Marvin Ashford Epithelial cells LM Ql (Urine sed) MANY Abnormal NONE SEEN /RARE [facility] Comment on above: Performed By: #### G BSCX #### [facility] [address] [place] [address] Dr. Marvin Ashford MUCOUS TRACE Abnormal NONE SEEN [facility] Comment on above: Performed By: #### G BSCX #### [facility] [address] [address] [address] Marvin Ashford RBC 2-5 Abnormal 0-2 [facility] Comment on above: Performed By: #### G BSCX #### [facility] [address] [address] [address] Marvin Ashford WBC 2-5 Abnormal NONE SEEN [facility] Comment on above: Performed By: #### G BSCX #### [facility] [address] [address] [address] Marvin Ashford US PREG PLACENTAon 2 [...] CHOCO SAUNDERS Date: 2022-03-09 17:20 Normal [facility] COVID + FLU Quick Testingon 02-21-2022 SARS-CoV-2 (COVID-19) RNA SHANEKA+probe Ql (Unsp spec) Positive [facility] Other COVID + FLU Quick Testing Negative [facility] Other Quick Strepon 02-21-2022 S. pyogenes Org specific cx Ql (Throat) Negative [facility] Other Quick Strep [facility] Other GLUCOSE - 1HRon 02-09-2022 Glucose [Mass/Vol] 133 mg/dL Critically high 74-106 [facility] Comment on above: Performed By: #### G BSCX #### [facility] [address] [place] [address] Dr. Marvin Ashford HEMOGRAM AND PLATELon 2021 Hematocrit (Bld) [Volume fraction] 33.4 % Critically low 36.0-48.0 [facility] Comment on above: Performed By: #### H H #### [facility] [address] [place] [address] Dr. Marvin Ashford Hemoglobin (Bld) [Mass/Vol] 11.3 g/dL Critically low 12.0-16.0 [facility] Comment on above: Performed By: #### H H #### [facility] [address] [place] [address] Dr. Marvin Ashford MCH (RBC) [Entitic mass] 31.9 pg Normal 26.7-34.0 [facility] Comment on above: Performed By: #### H H #### [facility] [address] [place] [address] Dr. Marvin Ashford MCHC (RBC) [Mass/Vol] 33.8 g/dL Normal 29.9-35.2 [facility] Comment on above: Performed By: #### H H #### [facility] [address] [place] [address] Dr. Marvin Ashford MCV (RBC) [Entitic vol] 94.4 fL Normal 81.0-99.0 [facility] Comment on above: Performed By: #### H H #### [facility] [address] [place] [address] Dr. Marvin Ashford PLT 216 103/ul Normal 150-450 [facility] Comment on above: Performed By: #### H H #### [facility] [address] [place] [address] Dr. Marvin Ashford RBC 3.54 106/ul Critically low 4.20-5.40 [facility] Comment on above: Performed By: #### H H #### [facility] [address] [place] [address] Dr. Marvin Ashford WBC 10.1 103/ul Normal 4.0-11.0 [facility] Comment on above: Performed By: #### H H #### [facility] [address] [address] [address] Marvin Ashford US PREG ANATOMY SINGLEon [...] JACOBO LATHAM Date: 2021-12-19 17:27 Normal [facility] AFP MATERNAL FOR SPINA BIFID Aon 12-11-2021 AFP MoM 0.90 Normal [facility] Comment on above: Performed By: #### H BSANS #### [facility] [address] [address] [address] Marvin Ashford AFP Value 54.5 ng/mL Normal [facility] Comment on above: Performed By: #### H BSANS #### [facility] [address] [address] [address] Marvin Ashford AFP, Serum for Spina Bifida Report Normal [facility] Comment on above: Performed By: #### H BSANS #### [facility] [address] [address] [address] Marvin Ashford Comment Comment Normal [facility] Comment on above: Result Comment: Mindi Ribera, Ph.D., [facility] Director . References: Available Upon Request. . Multiples Of Median Cutoffs For AFP Elevations Hill 2.5 Black 2.8 IDD 2.0 Twins 4.5 Abbreviation Definitions IDD - Insulin Dep Diabetes OSBR - Open Spina Bifida Risk . For further inquiries contact [employer] [facility] at [phone]. Performed By: #### H BSANS #### [facility] [address] [address] [address] Marvin Ashford Gest Age Collection Date 18.6 weeks Normal [facility] Comment on above: Performed By: #### H BSANS #### [facility] [address] [address] [address] Marvin Ashford Gestat, Age Based on As provided Normal [facility] Comment on above: Result Comment: Reca lculations are not recommended when gestational dating by LMP and ultrasound are within 10 days. Performed By: #### H BSANS #### [facility] [address] [address] [address] Marvin Ashford Insulin Dep Diabetes No Normal [facility] Comment on above: Performed By: #### H BSANS #### [facility] [address] [address] [address] Marvin Ashford Interpretation Comment Normal [facility] Comment on above: Result Comment: Inte [...] Customer Services to discuss available options. The [employer] recommends amniocentesis be offered to women age 35 and older. Performed By: #### H BSANS #### [facility] [address] [place] [address] Dr. Marvin Ashford [age] Normal [facility] Comment on above: Performed By: #### H BSANS #### [facility] [address] [place] [address] Dr. Marvin Ashford Multiple Gestation No Normal [facility] Comment on above: Performed By: #### H BSANS #### [facility] [address] [place] [address] Dr. Marvin Ashford OS[place] [address] Normal [facility] Comment on above: Performed By: #### H BSANS #### [facility] [address] [place] [address] Dr. Marvin Ashford PDF . Normal [facility] Comment on above: Result Comment: This test was developed and its performance characteristics determined by [employer]. It has not been cleared or approved by the Food and Drug Administration. Performed By: #### H BSANS #### [facility] [address] [place] [address] Dr. Marvin Ashford Race Normal [facility] Comment on above: Performed By: #### H BSANS #### [facility] [address] [place] [address] Dr. Marvin Ashford Test Results: Negative Normal [facility] Comment on above: Performed By: #### H BSANS #### [facility] [address] [place] [address] Dr. Marvin Ashford HEP B SURFACE ANTIGEN SCREEN on 10-26-2021 HBsAg Screen Negative Normal Negative [facility] Comment on above: Performed By: #### H BSANS #### [facility] [address] [place] [address] Dr. Marvin Ashford HEPATITIS C VIRUS AB W/ REFL EX QUANTon 10-26-2021 HCV AB <0.1 Normal 0.0-0.9 [facility] Comment on above: Performed By: #### C BC #### [facility] [address] [place] [address] Dr. Marvin Ashford Interpretation: Comment Normal [facility] Comment on above: Result Comment: Nega tive Not infected with HCV, unless recent infection is suspected or other evidence exists to indicate HCV infection. Performed By: #### C BC #### [facility] [address] [place] [address] Dr. Marvin Ashford HIV 1 AND 2 WITH REFLEXon HIV Screen 4th Generation wRfx Non-Reactive Normal Non Reactive [facility] Comment on above: Result Comment: HIV Negative HIV-1/HIV-2 antibodies and HIV-1 p24 antigen were NOT detected. There is no laboratory evidence of HIV infection. Performed By: #### G BSCX #### [facility] [address] [place] [address] Dr. Marvin Ashford RPR QUANTon 10-26-2021 Rapid Plasma Reagin, Quant Non-Reactive Normal NonRea<1:1 [facility] Comment on above: Performed By: #### C BC #### [facility] [address] [place] [address] Dr. Marvin Ashford RUBELLA AB IGGon 10-26-2021 Rubella Antibodies, IgG 1.87 index Normal Immune >0.99 [facility] Comment on above: Result Comment: Non- immune <0.90 Equivocal 0.90 - 0.99 Immune >0.99 Performed By: #### G BSCX #### [facility] [address] [place] [address] Dr. Marvin Ashford CBC AUTO DIFFon 10-25-2021 BASO # 0.0 103/ul Normal 0.0-0.1 [facility] Comment on above: Performed By: #### C BC #### [facility] [address] [place] [address] Dr. Marvin Ashford Basophils/100 WBC (Bld) 0.3 % Normal 0.2-2.0 [facility] Comment on above: Performed By: #### C BC #### [facility] [address] [place] [address] Dr. Marvin Ashford EO # 0.0 103/ul Normal 0.0-0.7 [facility] Comment on above: Performed By: #### C BC #### [facility] [address] [place] [address] Dr. Marvin Ashford Eosinophils/100 WBC (Bld) 0.1 % Critically low 0.9-7.0 [facility] Comment on above: Performed By: #### C BC #### [facility] [address] [place] [address] Dr. Marvin Ashford Erythrocyte distribution width (RBC) [Ratio] 13.1 % Normal 11.0-15.0 [facility] Comment on above: Performed By: #### C BC #### [facility] [address] [place] [address] Dr. Marvin Ashford Hematocrit (Bld) [Volume fraction] 34.7 % Critically low 36.0-48.0 [facility] Comment on above: Performed By: #### C BC #### [facility] [address] [place] [address] Dr. Marvin Ashford Hemoglobin (Bld) [Mass/Vol] 11.6 g/dL Critically low 12.0-16.0 [facility] Comment on above: Performed By: #### C BC #### [facility] [address] [place] [address] Dr. Marvin Ashford IG # 0.04 10e3/ul Critically high 0.00-0.03 [facility] Comment on above: Performed By: #### C BC #### [facility] [address] [place] [address] Dr. Marvin Ashford IG % 0.5 % Normal 0.0-0.5 [facility] Comment on above: Performed By: #### C BC #### [facility] [address] [place] [address] Dr. Marvin Ashford LYMPH # 1.9 103/ul Normal 1.2-3.8 [facility] Comment on above: Performed By: #### C BC #### [facility] [address] [place] [address] Dr. Marvin Ashford Lymphocytes/100 WBC (Bld) 22.4 % Normal 20.5-60.0 [facility] Comment on above: Performed By: #### C BC #### [facility] [address] [place] [address] Dr. Marvin Ashford MANUAL DIFF REQ NO Normal [facility] Comment on above: Performed By: #### C BC #### [facility] [address] [place] [address] Dr. Marvin Ashford MCH (RBC) [Entitic mass] 30.2 pg Normal 26.7-34.0 [facility] Comment on above: Performed By: #### C BC #### [facility] [address] [place] [address] Dr. Marvin Ashford MCHC (RBC) [Mass/Vol] 33.4 g/dL Normal 29.9-35.2 [facility] Comment on above: Performed By: #### C BC #### [facility] [address] [place] [address] Dr. Marvin Ashford MCV (RBC) [Entitic vol] 90.4 fL Normal 81.0-99.0 [facility] Comment on above: Performed By: #### C BC #### [facility] [address] [place] [address] Dr. Marvin Ashford MONO # 0.5 103/ul Normal 0.3-0.8 [facility] Comment on above: Performed By: #### C BC #### [facility] [address] [place] [address] Dr. Marvin Ashford Monocytes/100 WBC (Bld) 5.5 % Normal 1.7-12.0 [facility] Comment on above: Performed By: #### C BC #### [facility] [address] [place] [address] Dr. Marvin Ashford NEUT # 6.2 103/ul Normal 1.4-6.5 [facility] Comment on above: Performed By: #### C BC #### [facility] [address] [place] [address] Dr. Marvin Ashford Neutrophils/100 WBC (Bld) 71.2 % Normal 43.0-75.0 [facility] Comment on above: Performed By: #### C BC #### [facility] [address] [address] [address] Marvin Ashford Platelet mean volume (Bld) [Entitic vol] 9.5 fL Normal 9.5-13.5 [facility] Comment on above: Performed By: #### C BC #### [facility] [address] [address] [address] Marvin Ashford PLT 243 103/ul Normal 150-450 [facility] Comment on above: Performed By: #### C BC #### [facility] [address] [address] [address] Marvin Ashford RBC 3.84 106/ul Critically low 4.20-5.40 [facility] Comment on above: Performed By: #### C BC #### [facility] [address] [address] [address] Marvin Ashford WBC 8.7 103/ul Normal 4.0-11.0 [facility] Comment on above: Performed By: #### C BC #### [facility] [address] [place] [address] Dr. Marvin Ashford CULTURE URINEon 10-25-2021 CULTURE URINE Culture Observations: NO GROWTH. Normal [facility] Comment on above: Performed By: #### U RCX #### [facility] [address] [place] [address] Dr. Marvin Ashford GLYCOHEMOGLOBIN A1Con 2021 ADA RECOMMENDATION ADA THERAPEUTIC TARGET 6.0 - 7.0 ACTION SUGGESTED > 7.0 Normal [facility] Comment on above: Performed By: #### C BC #### [facility] [address] [place] [address] Dr. Marvin Ashford Glucose [Mass/Vol] 97 mg/dL Normal [facility] Comment on above: Performed By: #### C BC #### [facility] [address] [place] [address] Dr. Marvin Ashford HbA1c (Bld) [Mass fraction] 5.0 % Normal <=6.0 [facility] Comment on above: Performed By: #### C BC #### [facility] [address] [place] [address] Dr. Marvin Ashford TASHA BOX TEST PT SEND OUTo n 10-25-2021 SENT TO REF LAB 10/25/21 Normal [facility] Comment on above: Performed By: #### C BC #### [facility] [address] [place] [address] Dr. Marvin Ashford TYPE AND SCREENon 10-25-2021 TYPE AND SCREEN Negative Normal [facility] Comment on above: Performed By: #### T NS #### [facility] [address] [place] [address] Dr. Marvin Ashford US PREG TVon 09-27-2021 [...] JACOBO LATHAM Date: 2021-09-27 14:04 Normal [facility] US PREG TVon 09-08-2021 US PREG [...] by: JACOBO LATHAM Date: 2021-09-08 14:11 Normal [facility] Group A Strep DNAon 08-15-20 Group A Strep DNA Specimen Description .THROAT SWABSpecial Requests NOT REPORTEDDirect Exam Negative: Specimen negative for Streptococcus pyogenes by DNA amplification.Report Status FINAL 08/15/2018 [facility] Comment on above: Performed By: #### G ASDNA ####[facility] [place], [place] [id number] [facility] [place] [address] Strep Gr A Direct Agon 08-13 S. pyogenes Ag IA Ql (Unsp spec) Specimen Description .THROATSpecial Requests NOT REPORTEDDirect Exam Rapid Strep A negative. A negative Rapid Group A Strep Screen result does not rule out the possibility of Group A Streptococci in the specimen. The [employer] recommends confirmation testing. Therefore, a Group A Strep DNA test will be performed. Report Status FINAL 08/13/2018 [facility] Comment on above: Performed By: #### S GPA ####[address] [address] XR FOOT LEFT (MIN 3 VIEWS)on 01-30-2018 XR FOOT LEFT (MIN 3 VIEWS) LEFT FOOT, 01/30/2018INDICATION: Foot pain.COMPARISON: None.FINDINGS: Three views of the left foot were obtained. There is no acute fracture or dislocation. Osseous structures are well mineralized. Visualized soft tissues appear unremarkable. No radiopaque foreign body.IMPRESSION: No acute osseous abnormality.Interpre jovanny by:MARÍA Quirosigned by:Robert Muse MD01/30/18inal result [facility] Vital Signs Date Time Vital Sign Value Performing Clinician Facility 10-02-2023 15:05-0500 Body mass index (BMI) [Ratio] 22.7 kg/m2 [facility] DO Work Phone: [facility] 10-02-2023 15:05-0500 Body weight 56.3 kg Richard Hilton DO Work Phone: [facility] 10-02-2023 15:05-0500 Diastolic blood pressure 64 mm[Hg] Richard Hilton DO Work Phone: [facility] 10-02-2023 15:05-0500 Systolic blood pressure 100 mm[Hg] Richard Hilton DO Work Phone: [facility] 05-28-2023 14:25-0400 Body height 157.48 cm Mi Lang Other [facility] Other 05-28-2023 14:25-0400 Body mass index (BMI) [Ratio] 18.47 kg/m2 Mi Lang Other [facility] Other 05-28-2023 14:25-0400 Body temperature 97.5 [degF] Mi Lang Other [facility] Other 05-28-2023 14:25-0400 Body weight 45.81 kg Mi Lang Other [facility] Other 05-28-2023 14:25-0400 Diastolic blood pressure 72 mm[Hg] Mi Lang Other [facility] Other 05-28-2023 14:25-0400 Respiratory rate 18 /min Mi Lang Other [facility] Other 05-28-2023 14:25-0400 SaO2% (BldA) [Mass fraction] 100 % Mi Lang Other [facility] Other 05-28-2023 14:25-0400 Systolic blood pressure 115 mm[Hg] Mi Lang Other [facility] Other 02-21-2022 13:15-0400 Body height 157.48 cm Nataliia Pérez Other [facility] Other 02-21-2022 13:15-0400 Body mass index (BMI) [Ratio] 23.77 kg/m2 Nataliia Paytonmond Other [facility] Other 02-21-2022 13:15-0400 Body temperature 101.1 [degF] Nataliia Paytonmond Other [facility] Other 02-21-2022 13:15-0400 Body weight 58.97 kg Nataliia Pérez Other [facility] Other 02-21-2022 13:15-0400 Respiratory rate 20 /min Nataliia Pérez Other [facility] Other 02-21-2022 13:15-0400 SaO2% (BldA) [Mass fraction] 99 % Nataliia Pérez Other [facility] Other 12-11-2021 02:05-0400 Body weight 50.[address] DOCTOR DUNHAM [facility] Comment on above: Performed By: #### HBSANS #### [facility] [address] [place] [address] Dr. Marvin Ashford 11-07-2021 16:50-0400 Body height 160.02 cm Nataliia Elisa Other [facility] Other 11-07-2021 16:50-0400 Body mass index (BMI) [Ratio] 19.31 kg/m2 Nataliia Pérez Other [facility] Other 11-07-2021 16:50-9370 Body weight 49.44 kg Nataliia Pérez Other [facility] Other Encounters Encounter Date Encounter Type Care Provider Facility Start: 12-13-2023 End: 12-14-2023 ambulatory JOEY RHODESLENORA [facility] Start: 12-11-2023 End: 12-11-2023 ambulatory RICHARD HILTON Not Available Start: 11-27-2023 End: 11-27-2023 ambulatory DANYELLE SAMIA Not Available Start: 11-13-2023 End: 11-13-2023 ambulatory RICHARD HILTON Not Available Start: 10-30-2023 End: 10-30-2023 ambulatory RICHARD HILTON Not Available Start: 10-02-2023 End: 10-02-2023 ambulatory RICHARD HILTON Not Available Start: 10-02-2023 End: 10-02-2023 Office outpatient visit 15 minutes Richard Hilton DO Work Phone: [facility] Comment on above: Second trimester pre gnancy; with normal glucose tolerance test (GTT) Start: 08-30-2023 End: 08-30-2023 ambulatory DANYELLE GRACIA Not Available Start: 08-01-2023 End: 08-01-2023 ambulatory DANYELLE SAMIA Not Available Start: 05-28-2023 End: 05-28-2023 ambulatory Mi Lang Other [facility] Other Start: 05-28-2023 Office outpatient vi sit [...] Facility:[facility] Start: 02-21-2022 End: 02-21-2022 ambulatory Nataliia Paytonmond Other [facility] Other Start: 02-21-2022 Office outpatient vi sit 15 minutes Nataliia Elisa [facility] Start: 02-09-2022 End: 02-10-[address] VIKTORIA MCCOLLUM Facility:[facility] Start: 12-19-2021 End: 12-20-[address] DOCTOR LUNA Facility:[facility] Start: 12-09-2021 End: 12-10-[address] DOCTOR LUNA Facility:[facility] Start: 11-07-2021 End: 11-07-2021 ambulatory Nataliia Elisa Other [facility] Other Start: 11-07-2021 Office outpatient vi sit 15 minutes Nataliia Elisa [facility] Start: 10-25-2021 End: 10-26-[address] VIKTORIA MCCOLLUM Facility:[facility] Start: 09-27-2021 End: 09-28-[address] VIKTORIA MCCOLLUM Facility:[facility] Start: 09-08-2021 End: 09-09-[address] VIKTORIA MCCOLLUM Facility:[facility] Start: 07-26-2021 ambulatory Iraida Oliveira ty:[facility] Start: 08-13-2018 End: 08-13-2018 Emergency department patient visit [facility] Start: 01-30-2018 End: 01-30-2018 Emergency department patient visit [facility] Procedures Date Procedure Procedure Detail Performing Clinician Start: 10-02-2023 Urnls dip stick/tabl et rgnt non-auto w/o micrscp Richard Canela DO Work Phone: Start: 05-03-2022 Repair Cervix, [...] encounter procedure 10/30/2023 11:20 AM EST Routine [facility] [address] [place] [address] Richard Canela, DO [address] Val [place], [facility] CBC panel - Blood by Automated count CBC Lab Routine with normal glucose tolerance test (GTT) Ordered: 10/02/2023 [facility] Comment on above: Ordered: 10/02/2023 Measurement of gluco se 1 hour after glucose challenge for glucose tolerance test GTT, 1 hour Lab Routine with normal glucose tolerance test (GTT) Ordered: 10/02/2023 [facility] Work Phone: Comment on above: Ordered: 10/02/2023 Payers Date Payer Category Payer Medicaid [employer] [place] [id number] 2022-Present [address] [place] [address] [id number] 2014 Medicaid [id number] 2003 Unknown [id number] [id number]3 2003 Unknown [id number] 2.16.840.1.401922.3.579.2.593 2003 Unknown [id number] 2.16.840.1.790401.3.579.2.593 2003 Unknown [id number] 2.16.840.1.915425.3.579.2.593 2003 Unknown [id number] 2.16.840.1.299843.3.579.2.593 2003 Unknown [id number] 2.16.840.1.334289.3.579.2.593 2003 Unknown [id number] 2.16.840.1.622682.3.579.2.593 2003 Unknown [id number] 2.16.840.1.843879.3.579.2.593 2003 Unknown [id number] 2.16.840.1.489729.3.579.2.593 2003 Unknown [id number] 2.16.840.1.570871.3.579.2.593 2003 Unknown [id number] 2.16.840.1.057238.3.579.2.593 2003 Unknown [id number] 2.16.840.1.798323.3.579.2.1259 2003 Unknown [id number] 2.16.840.1.518398.3.579.2.1259 2003 Unknown [id number] 2.16.840.1.444554.3.579.2.1259 2003 Unknown [id number] 2.16.840.1.274524.3.579.2.1259 2003 Unknown [id number] 2.16.840.1.180353.3.579.2.1259 2003 Unknown [id number] 2.16.840.1.000857.3.579.2.1259 2003 Unknown [id number] 2.16.840.1.634740.3.579.2.1259 2003 Unknown [id number] 2.16.840.1.954041.3.579.2.175 1984 Unknown [id number] 2.16.840.1.955898.3.579.2.174 1984 Unknown [id number] 2.16.840.1.080850.3.579.2.174 1984 Unknown [id number] 2.16.840.1.758179.3.579.2.727 1959 Self-pay 1959 Unknown [id number] Unknown [id number] 2.16.840.1.228441.3.579.2.593 Social History Date Type Detail Facility Start: 06-14-2023 Sex Assigned At [facility] Other Start: 06-14-2023 Tobacco smoking status [facility] Never smoked tobacco [facility] Start: 06-14-2023 Tobacco use and exposure Smokeless tobacco non-user [facility] Start: 10-02-2023 Alcohol intake Lifetime non-d misty (finding) [facility] Start: 06-14-2023 History of Social function [facility] Start: 05-02-2023 [facility] Start: [facility] Sex Assigned At Female [facility] Start: 05-22-2023 Gender identity Identifies as female gender (finding) [facility] History of Present illness Narrative 10-02-2023 Belinda Rankin LPN - 10/02/2023 2:50 PM EST Note Date [...] nursing note reviewed. Exam conducted with a admission liaison present. Vitals: Estimated body mass index is 22.7 kg/m as calculated from the following: Height as of 11/17/22: 5' 2 . Weight as of this [...] Richard Canela DO documented in this encounter [facility] Evaluation note 05-28-2023 Note Date & [...] fever. Patient/parent verbalized understanding of treatment plan. [facility] Other Evaluation note 02-21-2022 Note Date & Type Note Facility 02-21-2022 Evaluation note Encounter Date Diagnosis Assessment Notes Jan, Sore throat (ICD-10 - J02.9) Jan, COVID-19 (ICD-10 - U07.1) Drink plenty fluids, get plenty of rest. Notify your epic kaleidoscope analyst of your positive COVID results. You must quarantine for 5 days after the onset of your symptoms, then you must wear a mask when out and about for the next 5 days. [facility] Other Evaluation note 11-07-2021 Note Date & Type Note Facility 11-07-2021 Evaluation note Encounter Date Diagnosis Assessment Notes Oct, Left ear impacted cerumen (ICD-10 - H61.22) Drink plenty fluids, get plenty of rest. Do not use Q-tips in your ears. Follow-up with your family physician for any further concerns. Follow the cerumen impaction home care instructions. [facility] Other Evaluation note Note Date & Type [...] section and content) DATE CREATED AUTHOR 08/19/2018 [facility] DATE CREATED AUTHOR AUTHOR'S ORGANIZ ATION 05/30/2022 [facility] DATE CREATED AUTHOR AUTHOR'S ORGANIZ ATION 08/25/2023 [facility] DATE CREATED AUTHOR AUTHOR'S ORGANIZ ATION 12/12/2023 [facility] DATE CREATED AUTHOR AUTHOR'S ORGANIZ ATION 12/25/2023 [facility] REASON FOR VISIT (unrecogniz ed section and [...] BE BASED ON THE PRIMARY CLINICAL RECORDS. [email or web address] [facility]. provides no warranty or guarantee of the accuracy or completeness of information in this document.
== END 2023-12-26 22:22 | disposition home or self-care (01) ==
LOC: LAB 22:21
PROVIDERS: Visit Provider Physician Assistant
DX: Z34.93 Encounter for supervision of normal pregnancy, unspecified, third trimester (principal)
CPT/HCPCS: 87081

== ENCOUNTER 2024-01-15 23:05 | Inpatient (IN) | payer OTHER, SELFPAY ==
--- OUTSIDE RECORDS SUMMARY | 2024-01-15 23:09 | XMS_ITS | CCD ---
Author Organization [facility] Care Team Providers Care Community Theater Actor Name Role Phone NATE SNELL Unavailable Unavailable [...] Admitting Unavailable KARASIK, DR BLUM Consulting Unavailable MALTA, DR JACOBO Bunn Consulting Unavailable KARASIK, DR [...] MARIN Primary Care Unavailable Mi Lang Unavailable Hadley, Iraida Talavera Referring Unavailable Ringbaldo, Iraida Talavera Attending Unavailable RingIraida bland Admitting Unavailable Unavailable Primary Care Provider UnavailJOEY Valladares Referring Unavailable DEBBY KUMAR Primary Care Unavailable DANYELLE GRACIA Attending Unavailable HILTON, RICHARD Attending Unavailable HILTON, RICHARD Attending Unavailable HILTON, RICHARD Attending Unavailable SAMIA, DANYELLE Attending Unavailable HILTON, RICHARD Attending Unavailable SAMIA, DANYELLE Attending Unavailable SAMIA, DANYELLE Attending Unavailable HILTON, RICHARD Attending Unavailable HILTON, RICHARD Attending Unavailable Medications [...] Test Name Value Interpretation Reference Range Facility [place] [facility] [place] 12-24-2023 [place] tp. B1 <1:10 Normal <1:10 [facility] Comment on above: Performed By: #### A COXA9, APARVP, ACOXAB #### [facility] [address] [place] [address] Manager [employer]: Demetrio Keller MD #### TOXOM, CMVG, CMVM, TOXOG #### [facility] [employer] [facility] [place], [place] [id number] Manager [employer]: Edy Mark MD [place] tp. B2 <1:10 Normal <1:10 [facility] Comment on above: Performed By: #### A COXA9, APARVP, ACOXAB #### [facility] [address] [place] [address] Manager [employer]: Demetrio Keller MD #### TOXOM, CMVG, CMVM, TOXOG #### [facility] [address] [place] [id number] [employer]: MD Jorge Forbes B3 1:80 Abnormal <1:10 [facility] Comment on above: Performed By: #### A COXA9, APARVP, ACOXAB #### [facility] [address] [place] [address] Manager [employer]: Demetrio Keller MD #### TOXOM, CMVG, CMVM, TOXOG #### [address] [address] Manager [employer]: MD Jorge Forbes B4 1:20 Normal <1:10 [facility] Comment on above: Performed By: #### A COXA9, APARVP, ACOXAB #### [facility] [address] [place] [address] Manager [employer]: Demetrio Keller MD #### TOXOM, CMVG, CMVM, TOXOG #### [address] [address] Manager [employer]: MD Jorge Forbes B5 1:80 Abnormal <1:10 [facility] Comment on above: Performed By: #### A COXA9, APARVP, ACOXAB #### [facility] [address] [place] [address] Manager [employer]: Demetrio Keller MD #### TOXOM, CMVG, CMVM, TOXOG #### [address] [address] Manager [employer]: MD Jorge Forbes B6 <1:10 Normal <1:10 [facility] Comment on above: Result Comment: (NOT E) INTERPRETIVE INFORMATION: [place] B Virus Single positive antibody titers of greater than or equal to 1:80 may indicate past or current infection. Sero- conversion or an increase in titers between acute and convalescent sera of at least fourfold is considered strong evidence of current or recent infection. Performed By: [facility] [address] [place] [address] Cattyman: Ravi Mejia MD, PhD CLIA Number: [id number] Performed By: #### A COXA9, APARVP, ACOXAB #### [address] [address] Manager [employer]: Demetrio Keller MD #### TOXOM, CMVG, CMVM, TOXOG #### [address] [address] Manager [employer]: Edy Mark MD [place] A9 Titeron 024 [place] A9 Titer 1:8 Normal <1:8 [facility] Comment on above: Result Comment: (NOT E) INTERPRETIVE INFORMATION: [place] A Serotype 9 Titer Single positive antibody titers of greater than 1:32 may indicate past or current infection. Seroconversion or an increase in titers between acute and convalescent sera of at least fourfold is considered strong evidence of current or recent infection. Performed By: [facility] [address] [place] [address] Cattyman: Ravi Mejia MD, PhD CLIA Number: [id number] Performed By: #### A COXA9, APARVP, ACOXAB #### [address] [address] Manager [employer]: Demetrio Keller MD #### TOXOM, CMVG, CMVM, TOXOG #### [address] [phone] [employer]: Edy Mark MD Parvovirus B19 Panelon 12-15 Parvovirus IgG B19 6.58 IV High <=0.90 [facility] Comment on above: Result Comment: [...] By: #### A COXA9, APARVP, ACOXAB #### [facility] [employer] [address] [place] [address] Manager [employer]: Demetrio Keller MD #### TOXOM, CMVG, CMVM, TOXOG #### [address] [address] Manager [employer]: Edy Mark MD Parvovirus IgM B19 0.13 IV Normal <=0.90 [facility] Comment on above: Result Comment: (NOT E) INTERPRETIVE INFORMATION: Parvovirus B19 Antibody, IgM EFFECTIVE 07/05/2023 REFERENCE INTERVAL CHANGE Due to reagent kit route sales delivery drivers supervisor recall, an alternate kit has been validated and implemented by [facility]. The following Reference Interval applies to [...] levels of specific IgM antibodies. Performed By: [employer] [address] [place] [address] Cattyman: Ravi Mejia MD, PhD CLIA Number: [id number] Performed By: #### A COXA9, APARVP, ACOXAB #### [facility] [address] [place] [address] Manager [employer]: Demetrio Keller MD #### TOXOM, CMVG, CMVM, TOXOG #### [address] [address] Manager [employer]: Edy Mark MD Miscellaneouson 12-14-2023 Send Out Report [employer] KIT FED EX [id number] Normal [facility] Comment on above: Performed By: #### C MIS #### [address] [address] Manager [employer]: Edy Mark MD Toxoplasma Ab,IgGon 12-14-19 24 Toxoplasma Ab,IgG <0.5 Normal [facility] Comment on above: Result Comment: REFERENCE [...] By: #### A COXA9, APARVP, ACOXAB #### [facility] [address] [place] [address] Manager [employer]: Demetrio Keller MD #### TOXOM, CMVG, CMVM, TOXOG #### [address] [address] Manager [employer]: Edy Mark MD Toxoplasma Ab,IgMon 12-14-19 24 Toxoplasma Ab,IgM 0.31 Index Normal [facility] Comment on above: Result Comment: REFERENCE RANGE: <0.90 NON-REACTIVE 0.90 TO 0.99 INDETERMINANT >=1.00 REACTIVE Performed By: #### A COXA9, APARVP, ACOXAB #### [facility] [address] [place], [place] [id number] Manager [employer]: Demetrio Keller MD #### TOXOM, CMVG, CMVM, TOXOG #### [address] [address] Manager [employer]: Edy Mark MD CMV Ab,IgGon 12-13-2023 CMV Ab,IgG 441.0 High <0.5 [facility] Comment on above: Result Comment: [...] COXA9, APARVP, ACOXAB #### [facility] [address] [place], [place] [id number] Manager [employer]: Demetrio Keller MD #### TOXOM, CMVG, CMVM, TOXOG #### [address] [address] Manager [employer]: Edy Mark MD CMV Ab,IgMon 12-13-2023 CMV Ab,IgM 0.2 Normal <0.7 [facility] Comment on above: Result Comment: [...] context of clinical and other findings. The Renata ECLIA assay is used. Results obtained with different assay methods cannot be used interchangeably. Performed By: #### A COXA9, APARVP, ACOXAB #### [facility] [address] [place] [address] Manager [employer]: Demetrio Keller MD #### TOXOM, CMVG, CMVM, TOXOG #### [facility] [address] [place], [place] [id number] Manager [employer]: Edy Mark MD Miscellaneouson 12-13-2023 Test Name UNITY Normal [facility] Comment on above: Performed By: #### C MIS #### [facility] [address] [place], [place] [id number] Manager [employer]: Edy Mark MD Urinalysis macro (dipstick) panel (U)on 10-02-2023 Bilirubin, UA Negative Negative - 4(70) +++ mg/dL [facility] Blood, UA Negative Negative - 50 Oneal/mcL [facility] Clarity, UA Clear [facility] re Color, UA Yellow [facility] e Glucose, UA Negative Negative - 1999(110) ++++ mg/dL [facility] Interpretation and review of laboratory results Normal [facility] Ketones, UA Negative Negative - 160(16) ++++ mg/dL [facility] Leukocytes, UA Negative Negative - 500+++ Phililp/mcL [facility] Nitrite, UA Negative Negative - Positive [facility] pH, UA 5.5 5 - [facility], [facility]A Negative Negative - 1999(20) ++++ mg/dL [facility] Spec Grav, UA 1.010 1 - 1.03 [facility] care Urobilinogen, UA 1.0 0.2 - 12 mg/dL [facility] Quick Strepon 10-02-2023 S. pyogenes Org specific cx Ql (Throat) Positive [employer] Other Quick Strep [employer] Other Covid-19 PCR ([facility])on 04-29 SARS-CoV-2 (COVID-19) RNA SHANEKA+probe Ql (Unsp spec) Not detected Normal NOT DETECTED [facility] Comment on above: Result Comment: [...] for this test is supported by the [place] of Health and Human Service's declaration that [...] used). Performed By: #### H BSANS #### [facility] [address] [place] [address] Dr. Marvin Ashford GROUP A STREP CULTUREon 04-29 S. pyogenes Ag Ql (Unsp spec) Culture Observations: NEGATIVE FOR GROUP A STREPTOCOCCUS. Normal [facility] Comment on above: Performed By: #### C BC #### [facility] [address] [place] [address] Dr. Marvin Ashford STREPT SCREENon 05-26-2022 STREP SCREEN A Negative Normal NEGATIVE [facility] Comment on above: Performed By: #### C BC #### [facility] [address] [place] [address] Dr. Marvin Ashford FRESH FROZ PLASMAon 05-07-20 FRESH FROZ PLASMA Unit Blood Type A Pos Unit Number [id number] Status Information Transfused Product ID FFP Product Code [id number] [facility] Comment on above: Performed By: #### F FP #### [facility] [address] [place] [address] Dr. Marvin Ashford FRESH FROZ PLASMA Unit Blood Type A Pos Unit Number [id number] Status Information Transfused Product ID FFP Product Code [id number] Normal [facility] Comment on above: Performed By: #### F FP #### [facility] [address] [place] [address] Dr. Marvin Ashford PRBC LEUKOREDUCEDon 05-07-20 ABO and Rh group Nom (Bld) Cross Match Result Compatible Unit Blood Type A Pos Unit Number [id number] Status Information Transfused Product ID Red Blood Cells Product Code [id number] Cross Match Result Compatible Unit Blood Type A Pos Unit Number [id number] Status Information Released Specimen Exp Date Product ID Red Blood Cells Product Code [id number] [facility] Comment on above: Performed By: #### P RBC #### [facility] [address] [place] [address] Dr. Marvin Ashford ABO and Rh group Nom (Bld) Cross Match Result Compatible Unit Blood Type A Pos Unit Number [id number] Status Information Released Specimen Exp Date Product ID Red Blood Cells Product Code [id number] Cross Match Result Compatible Unit Blood Type A Pos Unit Number [id number] Status Information Transfused Product ID Red Blood Cells Product Code [id number] [facility] Comment on above: Performed By: #### H BSANS #### [facility] [address] [place] [address] Dr. Marvin Ashford CBC AUTO DIFFon 05-05-2022 BASO # 0.1 103/ul Normal 0.0-0.1 [facility] Comment on above: Performed By: #### G BSCX #### [facility] [address] [place] [address] Dr. Marvin Ashford Basophils/100 WBC (Bld) 0.3 % Normal 0.2-2.0 [facility] Comment on above: Performed By: #### G BSCX #### [facility] [address] [place] [address] Dr. Marvin Ashford EO # 0.0 103/ul Normal 0.0-0.7 [facility] Comment on above: Performed By: #### G BSCX #### [facility] [address] [place] [address] Dr. Marvin Ashford Eosinophils/100 WBC (Bld) 0.2 % Critically low 0.9-7.0 [facility] Comment on above: Performed By: #### G BSCX #### [facility] [address] [place] [address] Dr. Marvin Ashford Erythrocyte distribution width (RBC) [Ratio] 14.6 % Normal 11.0-15.0 [facility] Comment on above: Performed By: #### G BSCX #### [facility] [address] [place] [address] Dr. Marvin Ashford Hematocrit (Bld) [Volume fraction] 25.6 % Critically low 36.0-48.0 [facility] Comment on above: Performed By: #### G BSCX #### [facility] [address] [place] [address] Dr. Marvin Ashford Hemoglobin (Bld) [Mass/Vol] 8.8 g/dL Critically low 12.0-16.0 [facility] Comment on above: Performed By: #### G BSCX #### [facility] [address] [place] [address] Dr. Marvin Ashford IG # 0.14 10e3/ul Critically high 0.00-0.03 [facility] Comment on above: Performed By: #### G BSCX #### [facility] [address] [place] [address] Dr. Marvin Ashford IG % 0.9 % Critically high 0.0-0.5 [facility] Comment on above: Performed By: #### G BSCX #### [facility] [address] [place] [address] Dr. Marvin Ashford LYMPH # 2.7 103/ul Normal 1.2-3.8 [facility] Comment on above: Performed By: #### G BSCX #### [facility] [address] [place] [address] Dr. Marvin Ashford Lymphocytes/100 WBC (Bld) 17.1 % Critically low 20.5-60.0 [facility] Comment on above: Performed By: #### G BSCX #### [facility] [address] [place] [address] Dr. Marvin Ashford MANUAL DIFF REQ NO Normal [facility] Comment on above: Performed By: #### G BSCX #### [facility] [address] [place] [address] Dr. Marvin Ashford MCH (RBC) [Entitic mass] 31.1 pg Normal 26.7-34.0 [facility] Comment on above: Performed By: #### G BSCX #### [facility] [address] [place] [address] Dr. Marvin Ashford MCHC (RBC) [Mass/Vol] 34.4 g/dL Normal 29.9-35.2 [facility] Comment on above: Performed By: #### G BSCX #### [facility] [address] [place] [address] Dr. Marvin Ashford MCV (RBC) [Entitic vol] 90.5 fL Normal 81.0-99.0 [facility] Comment on above: Performed By: #### G BSCX #### [facility] [address] [place] [address] Dr. Marvin Ashford MONO # 1.0 103/ul Critically high 0.3-0.8 [facility] Comment on above: Performed By: #### G BSCX #### [facility] [address] [place] [address] Dr. Marvin Ashford Monocytes/100 WBC (Bld) 6.4 % Normal 1.7-12.0 [facility] Comment on above: Performed By: #### G BSCX #### [facility] [address] [place] [address] Dr. Marvin Ashford NEUT # 11.7 103/ul Critically high 1.4-6.5 [facility] Comment on above: Performed By: #### G BSCX #### [facility] [address] [address] [address] Marvin Ashford Neutrophils/100 WBC (Bld) 75.1 % Critically high 43.0-75.0 [facility] Comment on above: Performed By: #### G BSCX #### [facility] [address] [address] [address] Marvin Ashford Platelet mean volume (Bld) [Entitic vol] 10.2 fL Normal 9.5-13.5 [facility] Comment on above: Performed By: #### G BSCX #### [facility] [address] [address] [address] Marvin Ashford PLT 114 103/ul Critically low 150-450 [facility] Comment on above: Performed By: #### G BSCX #### [facility] [address] [address] [address] Marvin Ashford RBC 2.83 106/ul Critically low 4.20-5.40 [facility] Comment on above: Performed By: #### G BSCX #### [facility] [address] [address] [address] Marvin Ashford WBC 15.5 103/ul Critically high 4.0-11.0 [facility] Comment on above: Performed By: #### G BSCX #### [facility] [address] [address] [address] Marvin Ashford CBC AUTO DIFFon 05-04-2022 BASO # 0.1 103/ul Normal 0.0-0.1 [facility] Comment on above: Performed By: #### C BC #### [facility] [address] [address] [address] Marvin Ashford Basophils/100 WBC (Bld) 0.2 % Normal 0.2-2.0 [facility] Comment on above: Performed By: #### C BC #### [facility] [address] [place] [address] Dr. Marvin Ashford EO # 0.0 103/ul Normal 0.0-0.7 [facility] Comment on above: Performed By: #### C BC #### [facility] [address] [place] [address] Dr. Marvin Ashford Eosinophils/100 WBC (Bld) 0.0 % Critically low 0.9-7.0 [facility] Comment on above: Performed By: #### C BC #### [facility] [address] [place] [address] Dr. Marvin Ashford Erythrocyte distribution width (RBC) [Ratio] 14.1 % Normal 11.0-15.0 [facility] Comment on above: Performed By: #### C BC #### [facility] [address] [place] [address] Dr. Marvin Ashford Hematocrit (Bld) [Volume fraction] 26.6 % Critically low 36.0-48.0 [facility] Comment on above: Performed By: #### C BC #### [facility] [address] [place] [address] Dr. Marvin Ashford Hemoglobin (Bld) [Mass/Vol] 9.2 g/dL Critically low 12.0-16.0 [facility] Comment on above: Performed By: #### C BC #### [facility] [address] [place] [address] Dr. Marvin Ashford IG # 0.24 10e3/ul Critically high 0.00-0.03 [facility] Comment on above: Performed By: #### C BC #### [facility] [address] [place] [address] Dr. Marvin Ashford IG % 1.0 % Critically high 0.0-0.5 [facility] Comment on above: Performed By: #### C BC #### [facility] [address] [place] [address] Dr. Marvin Ashford LYMPH # 2.0 103/ul Normal 1.2-3.8 [facility] Comment on above: Performed By: #### C BC #### [facility] [address] [place] [address] Dr. Marvin Ashford Lymphocytes/100 WBC (Bld) 8.3 % Critically low 20.5-60.0 [facility] Comment on above: Performed By: #### C BC #### [facility] [address] [place] [address] Dr. Marvin Ashford MANUAL DIFF REQ NO Normal [facility] Comment on above: Performed By: #### C BC #### [facility] [address] [place] [address] Dr. Marvin Ashford MCH (RBC) [Entitic mass] 30.8 pg Normal 26.7-34.0 [facility] Comment on above: Performed By: #### C BC #### [facility] [address] [place] [address] Dr. Marvin Ashford MCHC (RBC) [Mass/Vol] 34.6 g/dL Normal 29.9-35.2 [facility] Comment on above: Performed By: #### C BC #### [facility] [address] [place] [address] Dr. Marvin Ashford MCV (RBC) [Entitic vol] 89.0 fL Normal 81.0-99.0 [facility] Comment on above: Performed By: #### C BC #### [facility] [address] [place] [address] Dr. Marvin Ashford MONO # 2.6 103/ul Critically high 0.3-0.8 [facility] Comment on above: Performed By: #### C BC #### [facility] [address] [place] [address] Dr. Marvin Ashford Monocytes/100 WBC (Bld) 10.6 % Normal 1.7-12.0 [facility] Comment on above: Performed By: #### C BC #### [facility] [address] [place] [address] Dr. Marvin Ashford NEUT # 19.3 103/ul Critically high 1.4-6.5 [facility] Comment on above: Performed By: #### C BC #### [facility] [address] [place] [address] Dr. Marvin Ashford Neutrophils/100 WBC (Bld) 79.9 % Critically high 43.0-75.0 [facility] Comment on above: Performed By: #### C BC #### [facility] [address] [address] [address] Marvin Ashford Platelet mean volume (Bld) [Entitic vol] 9.7 fL Normal 9.5-13.5 [facility] Comment on above: Performed By: #### C BC #### [facility] [address] [address] [address] Marvin Ashford PLT 98 103/ul Critically low 150-450 [facility] Comment on above: Performed By: #### C BC #### [facility] [address] [address] [address] Marvin Ashford RBC 2.99 106/ul Critically low 4.20-5.40 [facility] Comment on above: Performed By: #### C BC #### [facility] [address] [place] [address] Dr. Marvin Ashford WBC 24.1 103/ul Critically high 4.0-11.0 [facility] Comment on above: Performed By: #### C BC #### [facility] [address] [place] [address] Dr. Marvin Ashford CBC W MANUAL DIFFon 05-04-20 22 ATYPICAL LYMPH # Normal [facility] Comment on above: Performed By: #### H BSANS #### [facility] [address] [place] [address] Dr. Marvin Ashford ATYPICAL LYMPH % Normal [facility] Comment on above: Performed By: #### H BSANS #### [facility] [address] [place] [address] Dr. Marvin Ashford BAND # Normal 0.0-0.3 [facility] Comment on above: Performed By: #### H BSANS #### [facility] [address] [place] [address] Dr. Marvin Ashford BAND % Normal 0-5 [facility] Comment on above: Performed By: #### H BSANS #### [facility] [address] [place] [address] Dr. Marvin Ashford BASOM # 0.00 103/ul Normal 0.00-0.10 [facility] Comment on above: Performed By: #### H BSANS #### [facility] [facility] [address] [place] [address] Dr. Marvin Ashford BASOM % 0.0 % Critically low 0.2-2.0 [facility] Comment on above: Performed By: #### H BSANS #### [facility] [address] [place] [address] Dr. Marvin Ashford BLAST # Normal [facility] Comment on above: Performed By: #### H BSANS #### [facility] [address] [place] [address] Dr. Marvin Ashford BLAST % Normal [facility] Comment on above: Performed By: #### H BSANS #### [facility] [address] [place] [address] Dr. Marvin Ashford CORRECTED WBC Normal 4.0-11.0 [facility] Comment on above: Performed By: #### H BSANS #### [facility] [address] [place] [address] Dr. Marvin Ashford EOS # 0.00 103/ul Normal 0.00-0.70 [facility] Comment on above: Performed By: #### H BSANS #### [facility] [address] [place] [address] Dr. Marvin Ashford EOS% 0.0 % Critically low 0.9-7.0 [facility] Comment on above: Performed By: #### H BSANS #### [facility] [address] [place] [address] Dr. Marvin Ashford HCT 25.6 % Critically low 36.0-48.0 [facility] Comment on above: Performed By: #### H BSANS #### [facility] [address] [place] [address] Dr. Marvin Ashford HGB 8.9 g/dl Critically low 12.0-16.0 [facility] Comment on above: Performed By: #### H BSANS #### [facility] [address] [place] [address] Dr. Marvin Ashford HYPOCHROMASIA SLIGHT Normal [facility] Comment on above: Performed By: #### H BSANS #### [facility] [address] [address] [address] Marvin Ashford LYMPHM # 1.92 103/ul Normal 1.20-3.80 [facility] Comment on above: Performed By: #### H BSANS #### [facility] [address] [address] [address] Marvin Ashford LYMPHM% 8.0 % Critically low 20.5-60.0 [facility] Comment on above: Performed By: #### H BSANS #### [facility] [address] [place] [address] Dr. Marvin Ashford MCH 31.0 pg Normal 26.7-34.0 [facility] Comment on above: Performed By: #### H BSANS #### [facility] [address] [place] [address] Dr. Marvin Ashford MCHC 34.8 g/dl Normal 29.9-35.2 [facility] Comment on above: Performed By: #### H BSANS #### [facility] [address] [place] [address] Dr. Marvin Ashford MCV 89.2 fL Normal 81.0-99.0 [facility] Comment on above: Performed By: #### H BSANS #### [facility] [address] [place] [address] Dr. Marvin Ashford METAMYELOCYTE # Normal [facility] Comment on above: Performed By: #### H BSANS #### [facility] [address] [place] [address] Dr. Marvin Ashford METAMYELOCYTE % Normal [facility] Comment on above: Performed By: #### H BSANS #### [facility] [address] [place] [address] Dr. Marvin Ashford MONOM# 0.48 103/ul Normal 0.30-0.80 [facility] Comment on above: Performed By: #### H BSANS #### [facility] [address] [address] [address] Marvin Ashford MONOM% 2.0 % Normal 1.7-12.0 [facility] Comment on above: Performed By: #### H BSANS #### [facility] [address] [address] [address] Marvin Ashford MPV 10.2 fL Normal 9.5-13.5 [facility] Comment on above: Performed By: #### H BSANS #### [facility] [address] [address] [address] Marvin Ashford MYELOCYTE # Normal [facility] Comment on above: Performed By: #### H BSANS #### [facility] [address] [place] [address] Dr. Marvin Ashford MYELOCYTE % Normal [facility] Comment on above: Performed By: #### H BSANS #### [facility] [address] [place] [address] Dr. Marvin Ashford NRBC Normal [facility] Comment on above: Performed By: #### H BSANS #### [facility] [address] [address] [address] Marvin Ashford PLT 104 103/ul Critically low 150-450 [facility] Comment on above: Performed By: #### H BSANS #### [facility] [address] [place] [address] Dr. Marvin Ashford RBC 2.87 106/ul Critically low 4.20-5.40 [facility] Comment on above: Performed By: #### H BSANS #### [facility] [address] [place] [address] Dr. Marvin Ashford RDW 14.4 % Normal 11.0-15.0 [facility] Comment on above: Performed By: #### H BSANS #### [facility] [address] [place] [address] Dr. Marvin Ashford SEG # 21.60 103/ul Critically high 1.40-6.50 [facility] Comment on above: Performed By: #### H BSANS #### [facility] [address] [place] [address] Dr. Marvin Ashford SEG % 90.0 % Critically high 43.0-75.0 [facility] Comment on above: Performed By: #### H BSANS #### [facility] [address] [place] [address] Dr. Marvin Ashford WBC 24.0 103/ul Critically high 4.0-11.0 [facility] Comment on above: Performed By: #### H BSANS #### [facility] [address] [place] [address] Dr. Marvin Ashford CBC AUTO DIFFon 05-03-2022 BASO # 0.1 103/ul Normal 0.0-0.1 [facility] Comment on above: Performed By: #### C BC #### [facility] [address] [place] [address] Dr. Marvin Ashford Basophils/100 WBC (Bld) 0.3 % Normal 0.2-2.0 [facility] Comment on above: Performed By: #### C BC #### [facility] [address] [place] [address] Dr. Marvin Ashford EO # 0.0 103/ul Normal 0.0-0.7 [facility] Comment on above: Performed By: #### C BC #### [facility] [address] [place] [address] Dr. Marvin Ashford Eosinophils/100 WBC (Bld) 0.0 % Critically low 0.9-7.0 [facility] Comment on above: Performed By: #### C BC #### [facility] [address] [place] [address] Dr. Marvin Ashford Erythrocyte distribution width (RBC) [Ratio] 13.3 % Normal 11.0-15.0 [facility] Comment on above: Performed By: #### C BC #### [facility] [address] [place] [address] Dr. Marvin Ashford Hematocrit (Bld) [Volume fraction] 26.6 % Critically low 36.0-48.0 [facility] Comment on above: Performed By: #### C BC #### [facility] [address] [address] [address] Marvin Ashford Hemoglobin (Bld) [Mass/Vol] 9.0 g/dL Critically low 12.0-16.0 [facility] Comment on above: Performed By: #### C BC #### [facility] [address] [place] [address] Dr. Marvin Ashford IG # 0.62 10e3/ul Critically high 0.00-0.03 [facility] Comment on above: Performed By: #### C BC #### [facility] [address] [place] [address] Dr. Marvin Ashford IG % 1.8 % Critically high 0.0-0.5 [facility] Comment on above: Performed By: #### C BC #### [facility] [address] [place] [address] Dr. Marvin Ashford LYMPH # 1.1 103/ul Critically low 1.2-3.8 [facility] Comment on above: Performed By: #### C BC #### [facility] [address] [place] [address] Dr. Marvin Ashford Lymphocytes/100 WBC (Bld) 3.3 % Critically low 20.5-60.0 [facility] Comment on above: Performed By: #### C BC #### [facility] [address] [place] [address] Dr. Marvin Ashford MANUAL DIFF REQ NO Normal [facility] Comment on above: Performed By: #### C BC #### [facility] [address] [address] [address] Marvin Ashford MCH (RBC) [Entitic mass] 31.9 pg Normal 26.7-34.0 [facility] Comment on above: Performed By: #### C BC #### [facility] [address] [place] [address] Dr. Marvin Ashford MCHC (RBC) [Mass/Vol] 33.8 g/dL Normal 29.9-35.2 [facility] Comment on above: Performed By: #### C BC #### [facility] [address] [place] [address] Dr. Marvin Ashford MCV (RBC) [Entitic vol] 94.3 fL Normal 81.0-99.0 [facility] Comment on above: Performed By: #### C BC #### [facility] [address] [place] [address] Dr. Marvin Ashford MONO # 2.3 103/ul Critically high 0.3-0.8 [facility] Comment on above: Performed By: #### C BC #### [facility] [address] [place] [address] Dr. Marvin Ashford Monocytes/100 WBC (Bld) 6.6 % Normal 1.7-12.0 [facility] Comment on above: Performed By: #### C BC #### [facility] [address] [place] [address] Dr. Marvin Ashford NEUT # 30.2 103/ul Critically high 1.4-6.5 [facility] Comment on above: Performed By: #### C BC #### [facility] [address] [place] [address] Dr. Marvin Ashford Neutrophils/100 WBC (Bld) 88.0 % Critically high 43.0-75.0 [facility] Comment on above: Performed By: #### C BC #### [facility] [address] [place] [address] Dr. Marvin Ashford Platelet mean volume (Bld) [Entitic vol] 10.2 fL Normal 9.5-13.5 [facility] Comment on above: Performed By: #### C BC #### [facility] [address] [place] [address] Dr. Marvin Ashford PLT 136 103/ul Critically low 150-450 [facility] Comment on above: Performed By: #### C BC #### [facility] [address] [place] [address] Dr. Marvin Ashford RBC 2.82 106/ul Critically low 4.20-5.40 [facility] Comment on above: Performed By: #### C BC #### [facility] [address] [place] [address] Dr. Marvin Ashford WBC 34.3 103/ul Critically high 4.0-11.0 [facility] Comment on above: Performed By: #### C BC #### [facility] [address] [place] [address] Dr. Marvin Ashford CBC AUTO DIFFon 05-01-2022 BASO # 0.0 103/ul Normal 0.0-0.1 [facility] Comment on above: Performed By: #### C BC #### [facility] [address] [place] [address] Dr. Marvin Ashford Basophils/100 WBC (Bld) 0.4 % Normal 0.2-2.0 [facility] Comment on above: Performed By: #### C BC #### [facility] [address] [place] [address] Dr. Marvin Ashford EO # 0.0 103/ul Normal 0.0-0.7 [facility] Comment on above: Performed By: #### C BC #### [facility] [address] [place] [address] Dr. Marvin Ashford Eosinophils/100 WBC (Bld) 0.2 % Critically low 0.9-7.0 [facility] Comment on above: Performed By: #### C BC #### [facility] [address] [place] [address] Dr. Marvin Ashford Erythrocyte distribution width (RBC) [Ratio] 12.9 % Normal 11.0-15.0 [facility] Comment on above: Performed By: #### C BC #### [facility] [address] [place] [address] Dr. Marvin Ashford Hematocrit (Bld) [Volume fraction] 35.5 % Critically low 36.0-48.0 [facility] Comment on above: Performed By: #### C BC #### [facility] [address] [place] [address] Dr. Marvin Ashford Hemoglobin (Bld) [Mass/Vol] 11.7 g/dL Critically low 12.0-16.0 [facility] Comment on above: Performed By: #### C BC #### [facility] [address] [place] [address] Dr. Marvin Ashford IG # 0.10 10e3/ul Critically high 0.00-0.03 [facility] Comment on above: Performed By: #### C BC #### [facility] [address] [place] [address] Dr. Marvin Ashford IG % 0.9 % Critically high 0.0-0.5 [facility] Comment on above: Performed By: #### C BC #### [facility] [address] [place] [address] Dr. Marvin Ashford LYMPH # 1.8 103/ul Normal 1.2-3.8 [facility] Comment on above: Performed By: #### C BC #### [facility] [address] [place] [address] Dr. Marvin Ashford Lymphocytes/100 WBC (Bld) 16.4 % Critically low 20.5-60.0 [facility] Comment on above: Performed By: #### C BC #### [facility] [address] [place] [address] Dr. Marvin Ashford MANUAL DIFF REQ NO Normal [facility] Comment on above: Performed By: #### C BC #### [facility] [address] [place] [address] Dr. Marvin Ashford MCH (RBC) [Entitic mass] 30.7 pg Normal 26.7-34.0 [facility] Comment on above: Performed By: #### C BC #### [facility] [address] [place] [address] Dr. Marvin Ashford MCHC (RBC) [Mass/Vol] 33.0 g/dL Normal 29.9-35.2 [facility] Comment on above: Performed By: #### C BC #### [facility] [address] [place] [address] Dr. Marvin Ashford MCV (RBC) [Entitic vol] 93.2 fL Normal 81.0-99.0 [facility] Comment on above: Performed By: #### C BC #### [facility] [address] [place] [address] Dr. Marvin Ashford MONO # 0.8 103/ul Normal 0.3-0.8 [facility] Comment on above: Performed By: #### C BC #### [facility] [address] [place] [address] Dr. Marvin Ashford Monocytes/100 WBC (Bld) 7.8 % Normal 1.7-12.0 [facility] Comment on above: Performed By: #### C BC #### [facility] [address] [place] [address] Dr. Marvin Ashford NEUT # 8.0 103/ul Critically high 1.4-6.5 [facility] Comment on above: Performed By: #### C BC #### [facility] [address] [place] [address] Dr. Marvin Ashford Neutrophils/100 WBC (Bld) 74.3 % Normal 43.0-75.0 [facility] Comment on above: Performed By: #### C BC #### [facility] [address] [place] [address] Dr. Marvin Ashford Platelet mean volume (Bld) [Entitic vol] 9.9 fL Normal 9.5-13.5 [facility] Comment on above: Performed By: #### C BC #### [facility] [address] [place] [address] Dr. Marvin Ashford PLT 211 103/ul Normal 150-450 [facility] Comment on above: Performed By: #### C BC #### [facility] [address] [place] [address] Dr. Marvin Ashford RBC 3.81 106/ul Critically low 4.20-5.40 [facility] Comment on above: Performed By: #### C BC #### [facility] [address] [place] [address] Dr. Marvin Ashford WBC 10.7 103/ul Normal 4.0-11.0 [facility] Comment on above: Performed By: #### C BC #### [facility] [address] [place] [address] Dr. Marvin Ashford Covid-19 PCR ([facility])on SARS-CoV-2 (COVID-19) RNA SHANEKA+probe Ql (Unsp spec) Not detected Normal NOT DETECTED [facility] Comment on above: Result Comment: [...] for this test is supported by the [employer] Economist of Health and Human Service's declaration that [...] used). Performed By: #### G BSCX #### [facility] [address] [place] [address] Dr. Marvin Ashford DRUG SCREEN RAPID (URINE)on 05-01-2022 AMP Negative Normal NEGATIVE [facility] Comment on above: Performed By: #### G BSCX #### [facility] [address] [place] [address] Dr. Marvin Ashford BAR Negative Normal NEGATIVE [facility] Comment on above: Performed By: #### G BSCX #### [facility] [address] [place] [address] Dr. Marvin Ashford BUP Negative Normal NEGATIVE [facility] Comment on above: Performed By: #### G BSCX #### [facility] [address] [place] [address] Dr. Marvin Ashford BZO Negative Normal NEGATIVE [facility] Comment on above: Performed By: #### G BSCX #### [facility] [address] [place] [address] Dr. Marvin Ashford MYNOR Negative Normal NEGATIVE [facility] Comment on above: Performed By: #### G BSCX #### [facility] [address] [place] [address] Dr. Marvin Ashford CUT-OFFS SEE BELOW Normal [facility] Comment on above: Result Comment: AMP (Amphetamine): 500ng/mL, BAR (Barbituates): 200 ng/mL, BZO (Benzodiazepines): 150 ng/mL, BUP (Buprenorphine): 10 ng/mL, MYNOR (Cocaine): 150 ng/mL, mAMP (Methamphetamine): 500 ng/mL, MTD (Methadone): 200 ng/mL, OPI (Opiates): 100 ng/mL, OXY (Oxycodone): 100 ng/mL, PCP (Phencyclidine): 25 ng/mL, PPX (Propoxyphene): 300 ng/mL, THC (Cannabinoids): 50 ng/mL, TCA (Trycyclic Antidepressants): 300 ng/mL Performed By: #### G BSCX #### [facility] [address] [place] [address] Dr. Marvin Ashford DRUG CUT HEADER DRUG CLASS TEST SYSTEM CUT-OFF CONCENTRATIONS ARE FOLLOWS: Normal [facility] Comment on above: Performed By: #### G BSCX #### [facility] [address] [place] [address] Dr. Marvin Ashford mAMP Negative Normal NEGATIVE [facility] Comment on above: Performed By: #### G BSCX #### [facility] [address] [place] [address] Dr. Marvin Ashford MTD Negative Normal NEGATIVE [facility] Comment on above: Performed By: #### G BSCX #### [facility] [address] [place] [address] Dr. Marvin Ashford OPI Negative Normal NEGATIVE [facility] Comment on above: Performed By: #### G BSCX #### [facility] [address] [place] [address] Dr. Marvin Ashford OXY Negative Normal NEGATIVE [facility] Comment on above: Performed By: #### G BSCX #### [facility] [address] [place] [address] Dr. Marvin Ashford PCP Negative Normal NEGATIVE [facility] Comment on above: Performed By: #### G BSCX #### [facility] [address] [place] [address] Dr. Marvin Ashford PPX Negative Normal NEGATIVE [facility] Comment on above: Performed By: #### G BSCX #### [facility] [address] [place] [address] Dr. Marvin Ashford TCA Negative Normal NEGATIVE [facility] Comment on above: Performed By: #### G BSCX #### [facility] [address] [place] [address] Dr. Marvin Ashford THC Negative Normal NEGATIVE [facility] Comment on above: Performed By: #### G BSCX #### [facility] [address] [place] [address] Dr. Marvin Ashford TYPE AND SCREENon 05-01-2022 TYPE AND SCREEN Negative Normal [facility] Comment on above: Performed By: #### T NS #### [facility] [address] [place] [address] Dr. Marvin Ashford CHLAMYDIA/GONOCOCCUS SHANEKA (SW AB/URINE/PAPon 04-17-2022 Chlamydia trachomatis, SHANEKA Negative Normal Negative [facility] Comment on above: Performed By: #### C BC #### [facility] [address] [place] [address] Dr. Marvin Ashford Neisseria gonorrhoeae, SHANEKA Negative Normal Negative [facility] Comment on above: Performed By: #### C BC #### [facility] [address] [place] [address] Dr. Marvin Ashford GROUP B STREP CULTUREon 03-27 S. agalactiae Ag Ql (Unsp spec) Culture Observations: NEGATIVE FOR GROUP B STREPTOCOCCUS. Normal [facility] Comment on above: Performed By: #### G BSCX #### [facility] [address] [place] [address] Dr. Marvin Ashford CULTURE URINEon 03-09-2022 CULTURE URINE Culture Observations: NO GROWTH. Normal [facility] Comment on above: Performed By: #### H BSANS #### [facility] [address] [place] [address] Dr. Marvin Ashford UA (CLEAN/CATCH) DECK MECHANIC/MICRO I F IND.on 03-09-2022 Bilirubin Ql (U) Negative Normal NEGATIVE [facility] Comment on above: Performed By: #### G BSCX #### [facility] [address] [place] [address] Dr. Marvin Ashford Clarity (U) CLEAR Normal CLEAR [facility] Comment on above: Performed By: #### G BSCX #### [facility] [address] [place] [address] Dr. Marvin Ashford Color (U) YELLOW Normal YELLOW [facility] Comment on above: Performed By: #### G BSCX #### [facility] [address] [place] [address] Dr. Marvin Ashford Glucose Ql (U) Negative Normal NEGATIVE [facility] Comment on above: Performed By: #### G BSCX #### [facility] [address] [place] [address] Dr. Marvin Ashford Hemoglobin Ql (U) SMALL Abnormal NEGATIVE [facility] Comment on above: Performed By: #### G BSCX #### [facility] [address] [place] [address] Dr. Marvin Ashford Ketones Ql (U) TRACE Abnormal NEGATIVE [facility] Comment on above: Performed By: #### G BSCX #### [facility] [address] [place] [address] Dr. Marvin Ashford LEUKOCYTES TRACE Abnormal NEGATIVE [facility] Comment on above: Performed By: #### G BSCX #### [facility] [address] [place] [address] Dr. Marvin Ashford Nitrite Ql (U) Negative Normal NEGATIVE The [facility] Comment on above: Performed By: #### G BSCX #### [facility] [address] [place] [address] Dr. Marvin Ashford pH (U) 6.0 [pH] Normal 5-9 [facility] Comment on above: Performed By: #### G BSCX #### [facility] [address] [place] [address] Dr. Marvin Ashford SPEC GRAVITY 1.025 Normal 1.005-<=1.025 The [facility] Comment on above: Performed By: #### G BSCX #### [facility] [address] [place] [address] Dr. Marvin Ashford UA PROTEIN Negative Normal NEGATIVE/ TRACE [facility] Comment on above: Performed By: #### G BSCX #### [facility] [address] [place] [address] Dr. Marvin Ashford UR MICRO IND INDICATED Normal [facility] Comment on above: Performed By: #### G BSCX #### [facility] [address] [place] [address] Dr. Marvin Ashford Urobilinogen Qn (U) 1.0 {Ekta'U}/dL Normal 0.2 - 1. 0 [facility] Comment on above: Performed By: #### G BSCX #### [facility] [address] [place] [address] Dr. Marvin Ashford URINE MICROSCOPIC ONLYon BACTERIA TRACE Abnormal NONE SEEN [facility] Comment on above: Performed By: #### G BSCX #### [facility] [address] [place] [address] Dr. Marvin Ashford Bacteria identified Cx Nom (U) INDICATED Normal [facility] Comment on above: Performed By: #### G BSCX #### [facility] [address] [place] [address] Dr. Marvin Ashford CAST NONE SEEN Normal NONE SEEN [facility] Comment on above: Performed By: #### G BSCX #### [facility] [address] [place] [address] Dr. Marvin Ashford Crystals LM Nom (Urine sed) NONE SEEN Normal NONE SEEN [facility] Comment on above: Performed By: #### G BSCX #### [facility] [address] [place] [address] Dr. Marvin Ashford Epithelial cells LM Ql (Urine sed) MANY Abnormal NONE SEEN /RARE The [facility] Comment on above: Performed By: #### G BSCX #### [facility] [address] [address] [address] Marvin Ashford MUCOUS TRACE Abnormal NONE SEEN The [facility] Comment on above: Performed By: #### G BSCX #### [facility] [address] [address] [address] Marvin Ashford RBC 2-5 Abnormal 0-2 [facility] Comment on above: Performed By: #### G BSCX #### [facility] [address] [address] [address] Marvin Ashford WBC 2-5 Abnormal NONE SEEN The [facility] Comment on above: Performed By: #### G BSCX #### [facility] [address] [address] [address] Marvin Ashford US PREG PLACENTAon 2 [...] CHOCO SAUNDERS Date: 2022-03-09 17:20 Normal [facility] COVID + FLU Quick Testingon 02-21-2022 SARS-CoV-2 (COVID-19) RNA SHANEKA+probe Ql (Unsp spec) Positive [facility] Other COVID + FLU Quick Testing Negative [facility] Other Quick Strepon 02-21-2022 S. pyogenes Org specific cx Ql (Throat) Negative [facility] Other Quick Strep [facility] Other GLUCOSE - 1HRon 02-09-2022 Glucose [Mass/Vol] 133 mg/dL Critically high 74-106 [facility] Comment on above: Performed By: #### G BSCX #### [facility] [address] [place] [address] Dr. Marvin Ashford HEMOGRAM AND PLATELon 2021 Hematocrit (Bld) [Volume fraction] 33.4 % Critically low 36.0-48.0 [facility] Comment on above: Performed By: #### H H #### [facility] [address] [place] [address] Dr. Marvin Ashford Hemoglobin (Bld) [Mass/Vol] 11.3 g/dL Critically low 12.0-16.0 [facility] Comment on above: Performed By: #### H H #### [facility] [address] [place] [address] Dr. Marvin Ashford MCH (RBC) [Entitic mass] 31.9 pg Normal 26.7-34.0 [facility] Comment on above: Performed By: #### H H #### [facility] [address] [place] [address] Dr. Marvin Ashford MCHC (RBC) [Mass/Vol] 33.8 g/dL Normal 29.9-35.2 [facility] Comment on above: Performed By: #### H H #### [facility] [address] [place] [address] Dr. Marvin Ashford MCV (RBC) [Entitic vol] 94.4 fL Normal 81.0-99.0 [facility] Comment on above: Performed By: #### H H #### [facility] [address] [place] [address] Dr. Marvin Ashford PLT 216 103/ul Normal 150-450 [facility] Comment on above: Performed By: #### H H #### [facility] [address] [place] [address] Dr. Marvin Ashford RBC 3.54 106/ul Critically low 4.20-5.40 [facility] Comment on above: Performed By: #### H H #### [facility] [address] [place], [place] [address] Dr. Marvin Ashford WBC 10.1 103/ul Normal 4.0-11.0 [facility] Comment on above: Performed By: #### H H #### [facility] [address] [place], [place] [address] Dr. Marvin Ashford US PREG ANATOMY SINGLEon [...] by: JACOBO LATHAM Date: 2021-12-19 17:27 Normal [facility] AFP MATERNAL FOR SPINA BIFID Aon 12-11-2021 AFP MoM 0.90 Normal [facility] Comment on above: Performed By: #### H BSANS #### [facility] [address] [address] [address] Marvin Ashford AFP Value 54.5 ng/mL Normal [facility] Comment on above: Performed By: #### H BSANS #### [facility] [address] [address] [address] Marvin Ashford AFP, Serum for Spina Bifida Report Normal [facility] Comment on above: Performed By: #### H BSANS #### [facility] [address] [address] [address] Marvin Ashford Comment Comment Normal [facility] Comment on above: Result Comment: Mindi Ribera, Ph.D., [facility] Director . References: Available Upon Request. . Multiples Of Median Cutoffs For AFP Elevations Hill 2.5 Black 2.8 IDD 2.0 Twins 4.5 Abbreviation Definitions IDD - Insulin Dep Diabetes OSBR - Open Spina Bifida Risk . For further inquiries contact [employer] at [phone]. Performed By: #### H BSANS #### [facility] [address] [address] [address] Marvin Downey Age Collection Date 18.6 weeks Normal [facility] Comment on above: Performed By: #### H BSANS #### [facility] [address] [address] [address] Marvin Ashford Gestat, Age Based on As provided Normal [facility] Comment on above: Result Comment: Reca lculations are not recommended when gestational dating by LMP and ultrasound are within 10 days. Performed By: #### H BSANS #### [facility] [address] [address] [address] Marvin Ashford Insulin Dep Diabetes No Normal [facility] Comment on above: Performed By: #### H BSANS #### [facility] [address] [address] [address] Marvin Ashford Interpretation Comment Normal [facility] Comment on above: Result Comment: [...] Customer Services to discuss available options. The [employer] recommends amniocentesis be offered to women age 35 and older. Performed By: #### H BSANS #### [facility] [address] [place] [address] Dr. Marvin Ashford [age] Normal [facility] Comment on above: Performed By: #### H BSANS #### [facility] [address] [place] [address] Dr. Marvin Ashford Multiple Gestation No Normal [facility] Comment on above: Performed By: #### H BSANS #### [facility] [address] [place] [address] Dr. [place] Ashford [place] [address] Normal [facility] Comment on above: Performed By: #### H BSANS #### [facility] [address] [place] [address] Dr. Marvin Ashford PDF . Normal [facility] Comment on above: Result Comment: This test was developed and its performance characteristics determined by [facility]. It has not been cleared or approved by the Food and Drug Administration. Performed By: #### H BSANS #### [facility] [address] [place] [address] Dr. Marvin Ashford Race Normal [facility] Comment on above: Performed By: #### H BSANS #### [facility] [address] [place] [address] Dr. Marvin Ashford Test Results: Negative Normal [facility] Comment on above: Performed By: #### H BSANS #### [facility] [address] [place] [address] Dr. Marvin Ashford HEP B SURFACE ANTIGEN SCREEN on 10-26-2021 HBsAg Screen Negative Normal Negative [facility] Comment on above: Performed By: #### H BSANS #### [facility] [address] [place] [address] Dr. Marvin Ashford HEPATITIS C VIRUS AB W/ REFL EX QUANTon 10-26-2021 HCV AB <0.1 Normal 0.0-0.9 [facility] Comment on above: Performed By: #### C BC #### [facility] [address] [place] [address] Dr. Marvin Ashford Interpretation: Comment Normal [facility] Comment on above: Result Comment: Nega tive Not infected with HCV, unless recent infection is suspected or other evidence exists to indicate HCV infection. Performed By: #### C BC #### [facility] [address] [place] [address] Dr. Marvin Ashford HIV 1 AND 2 WITH REFLEXon HIV Screen 4th Generation wRfx Non-Reactive Normal Non Reactive [facility] Comment on above: Result Comment: HIV Negative HIV-1/HIV-2 antibodies and HIV-1 p24 antigen were NOT detected. There is no laboratory evidence of HIV infection. Performed By: #### G BSCX #### [facility] [address] [place] [address] Dr. Marvin Ashford RPR QUANTon 10-26-2021 Rapid Plasma Reagin, Quant Non-Reactive Normal NonRea<1:1 [facility] Comment on above: Performed By: #### C BC #### [facility] [address] [place] [address] Dr. Marvin Ashford RUBELLA AB IGGon 10-26-2021 Rubella Antibodies, IgG 1.87 index Normal Immune >0.99 [facility] Comment on above: Result Comment: Non- immune <0.90 Equivocal 0.90 - 0.99 Immune >0.99 Performed By: #### G BSCX #### [facility] [address] [place] [address] Dr. Marvin Ashford CBC AUTO DIFFon 10-25-2021 BASO # 0.0 103/ul Normal 0.0-0.1 [facility] Comment on above: Performed By: #### C BC #### [facility] [address] [place] [address] Dr. Marvin Ashford Basophils/100 WBC (Bld) 0.3 % Normal 0.2-2.0 [facility] Comment on above: Performed By: #### C BC #### [facility] [address] [place] [address] Dr. Marvin Ashford EO # 0.0 103/ul Normal 0.0-0.7 [facility] Comment on above: Performed By: #### C BC #### [facility] [address] [place] [address] Dr. Marivn Ashford Eosinophils/100 WBC (Bld) 0.1 % Critically low 0.9-7.0 [facility] Comment on above: Performed By: #### C BC #### [facility] [address] [place] [address] Dr. Marvin Ashford Erythrocyte distribution width (RBC) [Ratio] 13.1 % Normal 11.0-15.0 [facility] Comment on above: Performed By: #### C BC #### [facility] [address] [place] [address] Dr. Marvin Ashford Hematocrit (Bld) [Volume fraction] 34.7 % Critically low 36.0-48.0 [facility] Comment on above: Performed By: #### C BC #### [facility] [address] [place] [address] Dr. Marvin Ashford Hemoglobin (Bld) [Mass/Vol] 11.6 g/dL Critically low 12.0-16.0 [facility] Comment on above: Performed By: #### C BC #### [facility] [address] [place] [address] Dr. Marvin Ashford IG # 0.04 10e3/ul Critically high 0.00-0.03 [facility] Comment on above: Performed By: #### C BC #### [facility] [address] [place] [address] Dr. Marvin Ashford IG % 0.5 % Normal 0.0-0.5 [facility] Comment on above: Performed By: #### C BC #### [facility] [address] [place] [address] Dr. Marvin Ashford LYMPH # 1.9 103/ul Normal 1.2-3.8 [facility] Comment on above: Performed By: #### C BC #### [facility] [address] [place] [address] Dr. Marvin Ashford Lymphocytes/100 WBC (Bld) 22.4 % Normal 20.5-60.0 [facility] Comment on above: Performed By: #### C BC #### [facility] [address] [place] [address] Dr. Marvin Ashford MANUAL DIFF REQ NO Normal [facility] Comment on above: Performed By: #### C BC #### [facility] [address] [place] [address] Dr. Marvin Ashford MCH (RBC) [Entitic mass] 30.2 pg Normal 26.7-34.0 [facility] Comment on above: Performed By: #### C BC #### [facility] [address] [place] [address] Dr. Marvin Ashford MCHC (RBC) [Mass/Vol] 33.4 g/dL Normal 29.9-35.2 [facility] Comment on above: Performed By: #### C BC #### [facility] [address] [place] [address] Dr. Marvin Ashford MCV (RBC) [Entitic vol] 90.4 fL Normal 81.0-99.0 [facility] Comment on above: Performed By: #### C BC #### [facility] [address] [place] [address] Dr. Marvin Ashford MONO # 0.5 103/ul Normal 0.3-0.8 [facility] Comment on above: Performed By: #### C BC #### [facility] [address] [place] [address] Dr. Marvin Ashford Monocytes/100 WBC (Bld) 5.5 % Normal 1.7-12.0 [facility] Comment on above: Performed By: #### C BC #### [facility] [address] [place] [address] Dr. Marvin Ashford NEUT # 6.2 103/ul Normal 1.4-6.5 [facility] Comment on above: Performed By: #### C BC #### [facility] [address] [address] [address] Marvin Ashford Neutrophils/100 WBC (Bld) 71.2 % Normal 43.0-75.0 [facility] Comment on above: Performed By: #### C BC #### [facility] [address] [address] [address] Marvin Ashford Platelet mean volume (Bld) [Entitic vol] 9.5 fL Normal 9.5-13.5 [facility] Comment on above: Performed By: #### C BC #### [facility] [address] [address] [address] Marvin Ashford PLT 243 103/ul Normal 150-450 [facility] Comment on above: Performed By: #### C BC #### [facility] [address] [place] [address] Dr. Marvin Ashford RBC 3.84 106/ul Critically low 4.20-5.40 [facility] Comment on above: Performed By: #### C BC #### [facility] [address] [address] [address] Marvin Ashford WBC 8.7 103/ul Normal 4.0-11.0 [facility] Comment on above: Performed By: #### C BC #### [facility] [address] [address] [address] Marvin Ashford CULTURE URINEon 10-25-2021 CULTURE URINE Culture Observations: NO GROWTH. Normal [facility] Comment on above: Performed By: #### U RCX #### [facility] [address] [place] [address] Dr. Marvin Ashford GLYCOHEMOGLOBIN A1Con 2021 ADA RECOMMENDATION ADA THERAPEUTIC TARGET 6.0 - 7.0 ACTION SUGGESTED > 7.0 [facility] Comment on above: Performed By: #### C BC #### [facility] [address] [address] [address] Marvin Ashford Glucose [Mass/Vol] 97 mg/dL Normal [facility] Comment on above: Performed By: #### C BC #### [facility] [address] [address] [address] Marvin Ashford HbA1c (Bld) [Mass fraction] 5.0 % Normal <=6.0 [facility] Comment on above: Performed By: #### C BC #### [facility] [address] [address] [address] Marvin Ashford TASHA BOX TEST PT SEND OUTo n 10-25-2021 SENT TO REF LAB 10/25/21 Normal [facility] Comment on above: Performed By: #### C BC #### [facility] [address] [address] [address] Marvin Ashford TYPE AND SCREENon 10-25-2021 TYPE AND SCREEN Negative Normal [facility] Comment on above: Performed By: #### T NS #### [facility] [address] [place] [address] Dr. Marvin Ashford US PREG TVon 09-27-2021 [...] JACOBO LATHAM Date: 2021-09-27 14:04 Normal [facility] US PREG TVon 09-08-2021 US [...] by: JACOBO LATHAM Date: 2021-09-08 14:11 Normal [facility] Group A Strep DNAon 08-15-20 Group A Strep DNA Specimen Description .THROAT SWABSpecial Requests NOT REPORTEDDirect Exam Negative: Specimen negative for Streptococcus pyogenes by DNA amplification.Report Status FINAL 08/15/2018 [facility] Comment on above: Performed By: #### G ASDNA ####[address] [place], [place] [id number] [facility] [place] [address] Strep Gr A Direct Agon 08-13 S. pyogenes Ag IA Ql (Unsp spec) Specimen Description .THROATSpecial Requests NOT REPORTEDDirect Exam Rapid Strep A negative. A negative Rapid Group A Strep Screen result does not rule out the possibility of Group A Streptococci in the specimen. The [employer] recommends confirmation testing. Therefore, a Group A Strep DNA test will be performed. Report Status FINAL 08/13/2018 [facility] Comment on above: Performed By: #### S GPA ####[address] [address] XR FOOT LEFT (MIN 3 VIEWS)on 01-30-2018 XR FOOT LEFT (MIN 3 VIEWS) LEFT FOOT, 01/30/2018INDICATION: Foot pain.COMPARISON: None.FINDINGS: Three views of the left foot were obtained. There is no acute fracture or dislocation. Osseous structures are well mineralized. Visualized soft tissues appear unremarkable. No radiopaque foreign body.IMPRESSION: No acute osseous abnormality.Interpre jovanny by:MARÍA Quirosigned by:Robert Muse MD01/30/18inal result Normal [facility] Vital Signs Date Time Vital Sign Value Performing Clinician Facility 10-02-2023 15:05-0500 Body mass index (BMI) [Ratio] 22.7 kg/m2 Richard Hilton DO Work Phone: [facility] 10-02-2023 15:05-0500 Body weight 56.3 kg Richard Hilton DO Work Phone: [facility] 10-02-2023 15:05-0500 Diastolic blood pressure 64 mm[Hg] Richard Hilton DO Work Phone: [facility] 10-02-2023 15:05-0500 Systolic blood pressure 100 mm[Hg] Richard Hilton DO Work Phone: [facility] 05-28-2023 14:25-0400 Body height 157.48 cm iM Lang Other [facility] Other 05-28-2023 14:25-0400 Body mass index (BMI) [Ratio] 18.47 kg/m2 Mi Lang Other [facility] Other 05-28-2023 14:25-0400 Body temperature 97.5 [degF] Mi Lang Other [facility] Other 05-28-2023 14:25-0400 Body weight 45.81 kg Mi Lang Other [facility] Other 05-28-2023 14:25-0400 Diastolic blood pressure 72 mm[Hg] Mi Lang Other [facility] Other 05-28-2023 14:25-0400 Respiratory rate 18 /min Mi Lang Other [facility] Other 05-28-2023 14:25-0400 SaO2% (BldA) [Mass fraction] 100 % Mi Lang Other [facility] Other 05-28-2023 14:25-0400 Systolic blood pressure 115 mm[Hg] Mi Lang Other [facility] Other 02-21-2022 13:15-0400 Body height 157.48 cm Nataliia Paytonmond Other [facility] Other 02-21-2022 13:15-0400 Body mass index (BMI) [Ratio] 23.77 kg/m2 Nataliia Elisa Other [facility] Other 02-21-2022 13:15-0400 Body temperature 101.1 [degF] Nataliia Paytonmond Other [facility] Other 02-21-2022 13:15-0400 Body weight 58.97 kg Nataliia Paytonmond Other [facility] Other 02-21-2022 13:15-0400 Respiratory rate 20 /min Nataliia Paytonmond Other [facility] Other 02-21-2022 13:15-0400 SaO2% (BldA) [Mass fraction] 99 % Nataliia Paytonmond Other [facility] Other 12-11-2021 02:05-0400 Body weight 50.[address] DOCTOR LUNA [facility] Comment on above: Performed By: #### HBSANS #### [facility] [address] [place] [address] Dr. Marvin Ashford 11-07-2021 16:50-0400 Body height 160.02 cm Nataliia Pérez Other [facility] Other 11-07-2021 16:50-0400 Body mass index (BMI) [Ratio] 19.31 kg/m2 Nataliia Pérez Other [facility] Other 11-07-2021 16:50-0400 Body weight 49.44 kg Nataliia Pérez Other [facility] Other Encounters Encounter Date Encounter Type Care Provider Facility Start: 01-10-2024 End: 01-10-2024 ambulatory RICHARD HILTON Not Available Start: 01-02-2024 End: 01-02-2024 ambulatory RICHARD HILTON Not Available Start: 12-26-2023 End: 12-26-2023 ambulatory DANYELLE SAMIA Not Available Start: 12-13-2023 End: 12-14-2023 ambulatory JOEY WATTERS [facility] Start: 12-11-2023 End: 12-11-2023 ambulatory RICHARD HILTON Not Available Start: 11-27-2023 End: 11-27-2023 ambulatory DANYELLE SAMIA Not Available Start: 11-13-2023 End: 11-13-2023 ambulatory RICHARD HILTON Not Available Start: 10-30-2023 End: 10-30-2023 ambulatory RICHARD HILTON Not Available Start: 10-02-2023 End: 10-02-2023 ambulatory RICHARD HILTON Not Available Start: 10-02-2023 End: 10-02-2023 Office outpatient visit 15 minutes Richard Hilton DO Work Phone: [facility] Comment on above: Second trimester pre gnancy; with normal glucose tolerance test (GTT) Start: 08-30-2023 End: 08-30-2023 ambulatory DANYELLE SAMIA Not Available Start: 08-01-2023 End: 08-01-2023 ambulatory DANYELLE SAMIA Not Available Start: 05-28-2023 End: 05-28-2023 ambulatory Mi Lang Other [facility] Other Start: 05-28-2023 Office outpatient vi sit [...] 02-21-2022 End: 02-21-2022 ambulatory Nataliia Pérez Other [facility] Other Start: 02-21-2022 Office outpatient vi sit 15 minutes Nataliia Elisa [facility] Start: 02-09-2022 End: 02-10-[address] VIKTORIA MCCOLLUM Facility:[facility] Start: 12-19-2021 End: 12-20-[address] DOCTOR LUNA Facility:[facility] Start: 12-09-2021 End: 12-10-[address] DOCTOR LUNA Facility:[facility] Start: 11-07-2021 End: 11-07-2021 ambulatory Nataliia Pérez Other [facility] Other Start: 11-07-2021 Office outpatient vi sit 15 minutes Nataliia Elisa [facility] Start: 10-25-2021 End: 10-26-[address] VIKTORIA MCCOLLUM Facility:[facility] Start: 09-27-2021 End: 09-28-[address] VIKTORIA MCCOLLUM Facility:[facility] Start: 09-08-2021 End: 09-09-[address] VIKTORIA MCCOLLUM Facility:[facility] Start: 07-26-2021 ambulatory Iraida Oliveira ty:[facility] Start: 08-13-2018 End: 08-13-2018 Emergency department patient visit [facility] Start: 01-30-2018 End: 01-30-2018 Emergency department patient visit [facility] Procedures Date Procedure Procedure Detail Performing Clinician [...] AM EST Routine [facility] [address] [place] [id number] Richard Canela, DO [address] [place] [address] [facility] CBC panel - Blood by Automated count CBC Lab Routine with normal glucose tolerance test (GTT) Ordered: 10/02/2023 [facility] Comment on above: Ordered: 10/02/2023 Measurement of gluco se 1 hour after glucose challenge for glucose tolerance test GTT, 1 hour Lab Routine with normal glucose tolerance test (GTT) Ordered: 10/02/2023 [facility] Work Phone: Comment on above: Ordered: 10/02/2023 Payers Date Payer Category Payer Medicaid [employer] [place] [id number] 2022-Present [address] [place] [address] [id number] 2014 Unknown [id number] 2003 Unknown [id number] 2.16.840.1.752273.3.579.2.593 2003 Unknown [id number] 2.16.840.1.119748.3.579.2.593 2003 Unknown [id number] 2.16.840.1.404917.3.579.2.593 2003 Unknown [id number] 2.16.840.1.250510.3.579.2.593 2003 Unknown [id number] 2.16.840.1.129278.3.579.2.593 2003 Unknown [id number] 2.16.840.1.820975.3.579.2.593 2003 Unknown [id number] 2.16.840.1.031793.3.579.2.593 2003 Unknown [id number] 2.16.840.1.266212.3.579.2.593 2003 Unknown [id number] 2.16.840.1.868421.3.579.2.593 2003 Unknown [id number] 2.16.840.1.028091.3.579.2.593 2003 Unknown [id number] 2.16.840.1.544757.3.579.2.593 2003 Unknown [id number] 2.16.840.1.673146.3.579.2.175 2003 Unknown [id number] 2.16.840.1.063504.3.579.2.1259 2003 Unknown [id number] 2.16.840.1.917146.3.579.2.1259 2003 Unknown [id number] 2.16.840.1.950990.3.579.2.1259 2003 Unknown [id number] 2.16.840.1.926057.3.579.2.1259 2003 Unknown [id number] 2.16.840.1.424362.3.579.2.9 2003 Unknown [id number] 2.16.840.1.100746.3.579.2.1259 2003 Unknown [id number] 2.16.840.1.239162.3.579.2.9 2003 Unknown [id number] 2.16.840.1.902622.3.579.2.1259 2003 Unknown [id number] 2.16.840.1.541719.3.579.2.9 2003 Unknown [id number] 2.16.840.1.134199.3.579.2.1259 1984 Unknown [id number] 2.16.840.1.603060.3.579.2.174 1984 Unknown [id number] 2.16.840.1.825327.3.579.2.174 1984 Unknown [id number] 2.16.840.1.237398.3.579.2.727 1959 Self-pay 1959 Unknown [id number] Unknown [id number] 2.16.840.1.784348.3.579.2.593 Social History Date Type Detail Facility Start: 06-14-2023 Sex Assigned At [facility] Other Start: 06-14-2023 Tobacco smoking status ALIS Never smoked tobacco [facility] Start: 06-14-2023 Tobacco use and exposure Smokeless tobacco non-user [facility] Start: 10-02-2023 Alcohol intake Lifetime non-d misty (finding) [facility] Start: 06-14-2023 History of Social function [facility] Start: 05-02-2023 [facility] Start: 2005 [facility] Start: 05-22-2023 Gender identity Identifies as female gender (finding) [facility] History of Present illness Narrative 10-02-2023 Belinda Rankin, YAMILET - 10/02/2023 2:50 PM EST Note Date [...] nursing note reviewed. Exam conducted with a fire prevention bureau captain present. Vitals: Estimated body mass index is [...] Richard Canela DO documented in this encounter [facility] Evaluation note 05-28-2023 Note Date [...] fever. Patient/parent verbalized understanding of treatment plan. [facility] Other Evaluation note 02-21-2022 Note Date & Type Note Facility 02-21-2022 Evaluation note Encounter Date Diagnosis Assessment Notes Jan, Sore throat (ICD-10 - J02.9) Jan, COVID-19 (ICD-10 - U07.1) Drink plenty fluids, get plenty of rest. 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 You must quarantine for 5 days after the onset of your symptoms, then you must wear a mask when out and about for the next 5 days. [facility] Other Evaluation note 11-07-2021 Note Date & Type Note Facility 11-07-2021 Evaluation note Encounter Date Diagnosis Assessment Notes Oct, Left ear impacted cerumen (ICD-10 - H61.22) Drink plenty fluids, get plenty of rest. Do not use Q-tips in your ears. Follow-up with your family physician for any further concerns. Follow the cerumen impaction home care instructions. [facility] Other Evaluation note Note Date & Type [...] CREATED AUTHOR AUTHOR'S ORGANIZ ATION 05/30/2022 [facility] DATE CREATED AUTHOR AUTHOR'S ORGANIZ ATION 08/25/2023 [facility] DATE CREATED AUTHOR AUTHOR'S ORGANIZ ATION 01/05/2024 [facility] DATE CREATED AUTHOR AUTHOR'S ORGANIZ ATION 01/12/2024 [facility] Special[facility] EPIC REASON FOR [...] BE BASED ON THE PRIMARY CLINICAL RECORDS. [facility] provides no warranty or guarantee of the accuracy or completeness of information in this document.
[2024-01-15 23:21] VITALS: BP 128/93; PULSE 104; TEMP 36.1
[2024-01-15 23:43] LABS: Hematocrit 34.2 % (36.0-48.0); Hemoglobin 11.2 g/dL (12.0-16.0); Mean Corpuscular HGB Conc 32.7 g/dL (29.9-35.2); Mean Corpuscular Hemoglobin 29.4 pg (26.7-34.0); Mean Corpuscular Volume 89.8 fL (81.0-99.0); Mean Platelet Volume 10.2 fL (9.5-13.5); Platelet Count 199 10^3/uL (150-450); Red Blood Count 3.81 10^6/uL (4.20-5.40); Red Cell Distribution Width 16.6 % (11.0-15.0); White Blood Count 11.6 10^3/uL (4.0-11.0)
[2024-01-15 23:59] LABS: Amphetamine Screen Urine NEGATIVE (NEGATIVE); Barbiturates Screen Urine NEGATIVE (NEGATIVE); Benzodiazepines Screen Urine NEGATIVE (NEGATIVE); Buprenorphine Screen Urine NEGATIVE (NEGATIVE); Cannabinoid Screen Urine NEGATIVE (NEGATIVE); Cocaine Screen Urine NEGATIVE (NEGATIVE); Methadone Screen Urine NEGATIVE (NEGATIVE); Methamphetamines Screen Urine NEGATIVE (NEGATIVE); Opiate Screen Urine NEGATIVE (NEGATIVE); Oxycodone Screen Urine NEGATIVE (NEGATIVE); Phencyclidine Screen Urine NEGATIVE (NEGATIVE); Tricyclic Antidepressant Urine NEGATIVE (NEGATIVE)
[2024-01-16] VITALS (45 sets, daily range): BP systolic 88–159; BP diastolic 49–79; PULSE 61–134; TEMP 35.8–36.7
[2024-01-16] MEDS: OXYTOCIN/0.9 % SODIUM CHLORIDE 10 UNITS/500 ML PLAST..BAG 6 UNIT IV (00:05)
[2024-01-16] MEDS: 0.9 % SODIUM CHLORIDE 1,000 ML 125 ML IV ×2 (00:05→07:07)
[2024-01-16] MEDS: OXYTOCIN/0.9 % SODIUM CHLORIDE 10 UNITS/500 ML PLAST..BAG 60 UNIT IV (09:52)
[2024-01-16] MEDS: 0.9 % SODIUM CHLORIDE 1,000 ML 1000 ML IV (11:53)
[2024-01-16] MEDS: ROPIVACAINE HCL/PF 400 MG/200 ML PREMIX 6 MG EPIDURAL (12:28)
[2024-01-16] MEDS: OXYTOCIN/0.9 % SODIUM CHLORIDE 20 UNITS/1,000 ML PLAST..BAG 125 UNIT IV (12:57)
--- NOTE | 2024-01-16 13:38 | PM.OBPRCVD ---
Procedure events: Labor Induction and Polyhydramnios Intrapartal events: None Induction method: per pitocin protocol Delivery augmentation: rupture of membranes and pitocin Delivery monitor: external FHT and external uterine Route of delivery: Episiotomy Description: none L&D Laceration Description: none Estimated blood loss (mL): 200 Anesthesia type: Epidural Disposition: floor Delivery date: 01/16/24 Gender: male presentation: vertex Placental delivery description: Spontaneous cord description: 3 Vessels and Nuchal Cord (times 1) Labor State Duration Labor - Stage 3 Duration: 3 minutes Total Length of Latency: 5 hours and 3 minutes
[2024-01-17 06:00] LABS: Basophils Percent Auto 0.2 % (0.2-2.0); Eosinophils Percent Auto 0.1 % (0.9-7.0); Hemoglobin 9.6 g/dL (12.0-16.0); Immature Granulocytes Abs Auto 0.09 10^3/uL (0.00-0.03); Immature Granulocytes Pct Auto 0.6 % (0.0-0.5); Lymphocytes Absolute Auto 2.6 10^3/uL (1.2-3.8); Lymphocytes Percent Auto 17.2 % (20.5-60.0); Mean Corpuscular Hemoglobin 29.1 pg (26.7-34.0); Mean Corpuscular Volume 90.9 fL (81.0-99.0); Mean Platelet Volume 10.3 fL (9.5-13.5); Monocytes Absolute Auto 1.3 10^3/uL (0.3-0.8); Monocytes Percent Auto 8.3 % (1.7-12.0); Neutrophils Absolute Auto 11.2 10^3/uL (1.4-6.5); Neutrophils Percent Auto 73.6 % (43.0-75.0); Platelet Count 173 10^3/uL (150-450); Red Cell Distribution Width 16.8 % (11.0-15.0); White Blood Count 15.2 10^3/uL (4.0-11.0)
[2024-01-17 07:57] VITALS: BP 117/68; PULSE 74
[2024-01-17 08:00] VITALS: BP 117/68; PULSE 74; TEMP 36.5
[2024-01-17] MEDS: DOCUSATE SODIUM 100 MG CAPSULE PO (08:04)
--- NOTE | 2024-01-17 08:43 | PM.OBPN ---
OB - PN: Subj Subjective Patient comments: no complaints and pain well controlled [place] status: doing well Exam Constitutional Vital Signs, click to edit/add: Last Vital Signs Temp 97.7 F 01/17/24 08:00 Pulse 74 01/17/24 08:00 Resp 16 01/17/24 08:00 BP 117/68 01/17/24 08:00 O2 Del Method Room Air 01/17/24 08:00 Documenting provider has reviewed patient's vital signs: yes Common normals: no apparent distress Respiratory Common normals: clear to auscultation bilaterally Cardio Common normals: regular rate and regular rhythm GI Common normals: Normal to inspection, nondistended, normoactive bowel sounds present Extremity Common normals: no clubbing, cyanosis or edema and no calf tenderness Results Labs Labs: Short CBC 01/17/24 Range/Units 05:43 WBC 15.2 H (4.0-11.0) 10^3/uL Hgb 9.6 L (12.0-16.0) g/dL Hct 30.0 L (36.0-48.0) % Plt Count 173 (150-450) 10^3/uL OB - PN: A/P Plan - Vaginal Delivery day: 1 Plan: routine care, discharge home and follow up 6 weeks Time Spent with Patient Time: Total time spent is greater than 50% in coordination of care (as documented) at patient's floor/unit and/or counseling patient: Total time spent with greater than 50% in coordination of care (as documented) at patient's floor/unit and/or counseling patient: less than 15 minutes
== END 2024-01-17 16:10 | disposition home or self-care (01) | DRG 560 ==
PROVIDERS: Admitting Provider Obstetrics & Gynecology; Visit Provider Obstetrics & Gynecology
DX: O40.3XX0 Polyhydramnios, third trimester, not applicable or unspecified (principal); Z3A.39 39 weeks gestation of pregnancy; Z37.0 Single live birth; O69.81X0 Labor and delivery complicated by cord around neck, without compression, not applicable or unspecified
CPT/HCPCS: 36415; 59050; 59410; 80307; 85025; 85027; 86850; 86900; 86901; 96365; 96366; 96376

== ENCOUNTER 2025-07-01 15:09 | Outpatient (REF) | payer OTHER, SELFPAY ==
--- OUTSIDE RECORDS SUMMARY | 2024-08-29 04:30 | XMS_ITS ---
Author Organization [facility] es Address [address] [place] [address] Care Team Providers Care Production Metal Sprayer Name Role Phone Marcelo Lopez Primary Care Provider REASON FOR VISIT 2wk lab review Encounters Encounter Location Date Provider Diagnosis [facility] [address] [place] [address] 08/29/2024 Marcelo Lopez Plan Of Treatment No Information Progress Notes * GURWINDERYAREDONDOB: 3 (20 yo F)Acc No.[id number]:08/29/2024 Progress Notes Patient: JAMES CHILDS :?DEEPA SanchezOB:2005???Age:19 Y???Sex: FemaleDate:08/29/2024Phone:[phone]:[address] [place], [id number] Subjective: * Chief Complaints: * 2 wk lab review Billing Information: * Procedure Codes: * Electronic signature of Marcelo Lopez DO, [id number] on 07/01/2025 at 10:01 AM ESTSign off status: Pending * Provider: Lety Lopez DO Date: 0 08/29/2024 Generated for Printing/Faxing/eTransmitting on:?07/01/2025 10:01 AM EST
--- OUTSIDE RECORDS SUMMARY | 2024-11-03 04:45 | XMS_ITS ---
Author Organization [facility] Address [address] [place] [address] Care Team Providers Care Coping Machine Operator Name Role Phone Marcelo Lopez Primary Care Provider [phone] REASON FOR VISIT 2M IRON DEF Encounters Encounter Location Date Provider Diagnosis [facility] [address] [place] [address] 11/03/2024 Marcelo Lopez Plan Of Treatment No Information Progress Notes * YARED PURDYONDOB: 3 (20 yo F)Acc No.[id number]:11/03/2024 Progress Notes Patient: JAMES CHILDS :?DEEPA SanchezOB:2005???Age:19 Y???Sex: FemaleDate:11/03/2024Phone:[phone]:[address] [place], [id number] Subjective: * Chief Complaints: * 2 M IRON DEF Billing Information: * Procedure Codes: * Electronic signature of Marcelo Lopze DO, [id number] on 07/01/2025 at 10:01 AM ESTSign off status: Pending * Provider: Lety Lopez DO Date: 0 11/03/2024 Generated for Printing/Faxing/eTransmitting on:?07/01/2025 10:01 AM EST
--- OUTSIDE RECORDS SUMMARY | 2025-07-01 10:00 | XMS_ITS | Encounter Summary ---
Author Organization [facility] Address [address] [place] [address] Care Team Providers Care Precision Honer Name Role Phone Unavailable Primary Care Provider Unavailabl e Reason for Visit * ReasonCommentsWell Women Visit Encounter Details DateTypeDepartmentCare Team (Latest Contact Info)Vjmauhjumqj91/05/2025 10:00 AM ESTProcedure Visit [facility] [address] [address] Ranjana Benitez, CUSTOMER ACCOUNT REPRESENTATIVE [address] [place] [address] control counseling (Primary Dx); Well woman exam with routine gynecological exam Social History Tobacco UseTypesPacks/DayYears UsedDateSmoking Tobacco: NeverSmokeless Tobacco: NeverAlcohol UseStandard Drinks/WeekCommentsNever0 (1 standard drink = 0.6 oz pure alcohol)CommentsNoSex and Gender InformationValueDate RecordedSex Assigned at RsafwScubpy65/26/2023 4:07 PM EDTLegal EksPbbscp00/15/2023 6:37 PM EDTGender WxhkakciWjjaja86/26/2023 4:07 PM EDTSexual OrientationNot on file documented as of this encounter Last Filed Vital Signs Vital SignReadingTime TakenCommentsBlood Tbaapvbq30/7007/01/2025 10:17 AM EST Pulse--Temperature--Respiratory Rate--Oxygen Saturation--Inhaled Oxygen Concentration--Gaorji93 kg (101 lb 8 oz)07/01/2025 10:17 AM ESTHeight--Body Mass Index18.5603 12:00 PM EDTdocumented in this encounter Progress Notes * Ranjana Benitez NP - 07/01/2025 10:00 AM EST Reason for Appointment: Patient ID: Morena Harrell is a 20 y.o. female who presents for [facility] Women Visit Patient presents today for Annual Exam. MEDICATIONS No current outpatient medications ALLERGIES No Known Allergies PROBLEMS Active Ambulatory Problems Diagnosis Date Noted No Active Ambulatory Problems Resolved Ambulatory Problems Diagnosis Date Noted No Resolved Ambulatory Problems Past Medical History: Diagnosis Date 6 weeks follow-up ([facility]) Acute pharyngitis BMI 21.0-21.9, adult HISTORY PAST MEDICAL HISTORY SOCIAL HISTORY Past Medical History: Diagnosis Date 6 weeks follow-up ([facility]) Acute pharyngitis BMI 21.0-21.9, adult Social History Tobacco Use Smoking status: Never Smokeless tobacco: Never Substance Use Topics Alcohol use: Never Drug use: Never FAMILY HISTORY Family History Problem Relation Name Age of Onset Diabetes Maternal Grandfather Alhaji valerio Hypertension Paternal Grandmother Diabetes Paternal Grandfather Hypertension Paternal Grandfather No Known Problems Son Asthma Sister Elin harrell SURGICAL HISTORY History reviewed. No pertinent surgical history. REVIEW OF SYSTEMS Review of Systems: Review of Systems Constitutional: Negative. HENT: Negative. Eyes: Negative. Respiratory: Negative. Cardiovascular: Negative. Gastrointestinal: Negative. Genitourinary: Negative. Musculoskeletal: Negative. Skin: Negative. Neurological: Negative. All other systems reviewed and are negative. Hematological: Negative. Endocrine: Negative. Allergic/Immunologic: Negative. OBJECTIVE Objective: Physical Exam Constitutional: Appearance: Normal appearance. She [...] nursing note reviewed. Exam conducted with a professor of german present. Vitals: Estimated body mass index is 18.56 kg/m?? as calculated from the following: Height as of 11/17/22: 5' 2 . Weight as of this encounter: 101 lb 8 oz. BP: 96/70 Patient's last menstrual period was 06/07/2025 (approximate). Assessment/Plan ICD-10-CM 1. control counseling Z30.09 2. Well woman exam with routine gynecological exam Z01.419 POCT , urine manually resulted Pap Smear Annual Exam: Patient presents today for an annual exam. Patient states she is doing well and has no complaints. Pap was obtained without difficulty. Patient desires depo provera contraceptive and she will schedule a nurse visit for follow up and Depo. Orders Placed This Encounter Procedures POCT , urine manually resulted Follow Up: Patient is to return in one year for annual unless needed otherwise. Documented by Ranjana Benitez NP on behalf of: Ranjana Benitez NP documented in this encounter Plan of Treatment DateTypeDepartmentCare Team (Latest Contact Info)Nbgjcoydqan06/06/2025 1:40 PM ESTClinical Support CEDRICK DUMONT [address] [place] [address] [place] [address] 07/05/2026 11:00 AM ESTProcedure Visit NOMNancy DUMONT [address] [place] [address] [place] [address] Radha Valenzuela PA [address] [place] [address] NameTypePriorityAssociated DiagnosesOrder SchedulePap SmearPathology and CytologyRoutine Well woman exam with routine gynecological exam Ordered: 07/01/2025documented as of this encounter Procedures Procedure NamePriorityDate/TimeAssociated DiagnosisCommentsPOCT , URINE Ijbcoxw8607/01/2025 10:28 AM EST Well woman exam with routine gynecological exam documented in this encounter Results * POCT , urine manually resulted (07/01/2025 10:28 AM EST)Component ValueRef RangeTest MethodAnalysis TimePerformed AtPathologist SignaturePreg Test, UrNegativeNegativeSpecimen (Source)Anatomical Location / Laterality Collection Method / VolumeCollection TimeReceived LysdUeagi28/05/2025 10:28 AM EST Narrative Authorizing ProviderResult TypeResult StatusRanjana Benitez NPPOINT OF CARE TEST ENTER/EDIT ORDERABLESFinal Result documented in this encounter Visit Diagnoses Diagnosis control counseling- Primary Well woman exam with routine gynecological exam Routine gynecological examination documented in this encounter
--- OUTSIDE RECORDS SUMMARY | 2025-07-01 15:13 | XMS_ITS | Patient Health Record ---
Author Organization [facility] Servic es Address [address] [place] [place] [address] Care Team Providers Care Contact Clerk Name Role Phone Marcelo Lopez Primary Care Provider [phone] Allergies No Known Allergies Results Component Value Reference Range Flag Notes Vitamin B12 Reviewed date:08/19/2024 11:05:50 AM Interpretation: Performing Lab: Notes/Report: Vitamin B12 232 180-914 pg/mL N Comprehensive Metabolic Panel Reviewed date:08/19/2024 11:05:50 AM Interpretation: Performing Lab:, [facility], [address] [place] Notes/Report:Dfzlyur3505-618 mg/dLN Random Glucose Reference Range is dependent on time and content of last meal. Glucose of more than 200 mg/dL in a nonstressed, ambulatory subject supports the diagnosis of Diabetes Mellitus. ADA recommended reference range Blood Urea Rqqufrqi572-93 mg/dLNCreatinine0.670.60-1.20 mg/eUSDadeyy092443-438 mmol/LNPotassium4.63.5-5.1 mmol/EXHvrwvspz79165-621 mmol/LNCarbon Wrulkhe34.9 21.0-31.0 mmol/LNCalcium9.98.6-10.3 mg/dLNTotal Protein7.76.4-8.9 g/dLNAlbumin Level4.93.5-5.7 g/dLNGlobulin2.8Albumin/Globulin Ratio1.8Bilirubin,Total0.60.3- 1.0 mg/dLNAspartate Amino Jaejdmiyfmr9428-47 U/LNAlanine Xqvectjoymhoekcq999-26 U/LNAlkaline Clrghrxdtms3805-186 U/LNEstimated GFR>60.0Anion Gap12.76.0-15.0 meq/LNThyroid Stimulating Hormone Reviewed date:08/19/2024 11:05:50 AM Interpretation: Performing Lab: Notes/Report:Thyroid Stimulating Hormone0.580.45-5.33 u[iU]/mLNComplete Blood Count Auto Diff Reviewed date:08/19/2024 11:05:50 AM Interpretation: Performing Lab:, [facility], [address], [place] Notes/Report:White Blood Count5.03.8-11.6 10*3/uLNUncorrected WBC5.03.8-11.6 10*3/uLNRed Blood Count4.403.60-5.00 10*6/pVQCcuzmiahmh14.211.8-15.4 g/dLN Pepiohzwqc09.434.0-46.4 %NMean Corpuscular Bldmgo45.580-100 fLNMean Corpuscular Oivdoexkjk09.024.7-34.3 pgNMean Corpuscular HGB Conc33.532.0-35.0 g/dLNRed Cell Distribution Width12.911.9-15.3 %NPlatelet Ybday688533-194 10*3/uLNMean Platelet Volume8.76.3-10.7 fLNNeutrophils % (Auto)60.6. %Lymphocytes % (Auto)32.4. % Monocytes % (Auto)6.1. %Eosinophils % (Auto)0.3. %Basophils % (Auto)0.6. %NRBC% 0.10-0.5 /100{WBC}NNeutrophils # (Auto)3.11.8-7.7 10*3/uLNLymphocytes # (Auto) 1.61.00-4.8 10*3/uLNMonocytes # (Auto)0.30.0-0.8 10*3/uLNEosinophils # (Auto)0.0 0.0-0.45 10*3/uLNBasophils # (Auto)0.00.0-0.2 10*3/uLNFE PRO Reviewed date:08/19/2024 11:05:50 AM Interpretation: Performing Lab: Notes/Report:Qexw8874-502 ug/dLNTotal Iron Binding Wiipbqwl787612-025 ug/dLN% Iron Pakuizidhr61.420-50 %HWwzjpwenahn775211-495 mg/nWGDoimylje95.811.0-306.8 ng/mLL Reason For Referral No Information Medications Medication SIG (Take, Route, Frequency, Duration) Notes Start Date End Date Status Ferrous Sulfate 325 (65 Fe) MG Tablet 1 tablet Orally every other day; Duration: 90 days 5Active Social History Tobacco Use: Social History Observation Description Date Details (start date - stop date) Never Smoker NA - NA Social History GeneralSocial InfoQuestionAnswerNotesSubstance abuse/mental health issues of patient/familyPatient -DeniesAbility to understand healthcare/treatmentPatient: GoodSocial/Support Concerns:Patient:NoBehaviors affecting healthPoor/Risky Behaviors:Denies-Communication Barrier:Language Barrier?:Not NeededDrug/Alcohol: Social InfoQuestionAnswerNotesAUDIT-C (Standard)Did you have a drink containing alcohol in the past year?Yes? How often did you have six or more drinks on one occasion in the past year?Less than monthly (1 point)? How many drinks did you have on a typical day when you were drinking in the past year?1 or 2 drinks (0 point)? How often did you have a drink containing alcohol in the past year? Monthly or less (1 point)Sjnuti1NhnbwudipkaagtKmdtbjcbTtyzrkt Use:Social Info QuestionAnswerNotesTobacco Control (Standard)Tobacco use:Nonsmoker Problems Problem Type SNOMED Code ICD Code Onset Dates Problem Status W/U Status Risk Notes Problem Chronic fatigue syndrome (92539690) Chron ic fatigue (R53.82) ActiveconfirmedProblemDecrease in appetite (finding) (99261820)Decreased appetite (R63.0)Activeconfirmed Vital Signs Heart Rate 72 /min 09/10/2024 Uczhtjejyuy60.2 degrees Gxnmzfvvyf89/10/2025Respiratory Rate18 /min09/05/2024 Qlvvzdlz05 %09/10/2024lood pressure aijxiafcw51 mm Hg09/10/20246177Ewsipe84 in 09/10/2024lood pressure mm Hg09/10/20241425Sraiqg628 lbs09/10/2024MI 19.02 kg/m209/10/2024 Encounters Encounter Location Date Provider Diagnosis [facility] [address] [place] [address] 09/10/2024 Marcelo John LLQ abdominal pain R10.32 [facility] [address] [place] [address] 08/15/2024 Marcelo Lopze Chronic fatigue R53.82 ; Cold intolerance R68.89 ; Decreased appetite R63.0 ; Mild eczema L30.9 and Iron deficiency E61.1 [facility] [address] [place] [address] 09/05/2024 Marcelo John Iron deficiency E61. 1 Assessments Encounter Date Diagnosis (ICD Code) Assessment Notes Treatment Notes Treatment Clinical Notes Section Notes 08/15/2024 Cold intolerance (ICD-10 - R68.8 9) 08/15/2024hronic fatigue (ICD-10 - R53.82)Patient with issues with chronic fatigue and cold intolerance. We did discuss checking her iron level as she previously has been iron deficient. Will also check thyroid and other labs. We discussed that her decreased appetite and weight loss could also potentially be related to some of her stress and anxiety if these consider those. Will rule out other pathology in the meantime. May consider treatment of her anxiety in the future. We also discussed that her periods seem to be slightly longer than most men this may be the cause for her iron deficiency. May consider IUD placement in the future we discussed this some today.09/05/2024Iron deficiency (ICD-10 - E61.1)Patient with evidence of iron deficiency on labs with otherwise normal lab results. We did discuss treatment with iron and rechecking in a couple months. We also discussed treatment of her other concerns including her anxiety and heavy periods. Patient would like to hold off on treatment for these and is focused on her iron replacement as well as healthy diet and exercise.09/10/2024 LLQ abdominal pain (ICD-10 - R10.32)Patient with left lower quadrant pain. It is seen every recently significantly exacerbated while exercising. She did have 1 episode of a change in urinary symptoms but is a singular episode and this has not persisted and is less likely urinary tract related. Patient does not have a history of cyst to suggest ovarian cyst for etiology. No changes in pain patient's bowel habits any gastroenteritis or colitis. We did discuss options of all of these for the source of her pain. Given that it was exacerbated while exercising would also consider treatment for abdominal strain. Patient wishes to watch at this time and treat for abdominal strain. Prescription for abdominal binder to use when more active during the day for the next week or so was given to her today. RICE therapy discussed.08/15/2024ecreased appetite (ICD-10 - R63.0)08/15/2024Mild eczema (ICD-10 - L30.9)Patient with likely eczema today. She has been using some home lotion. We discussed the use of CeraVe or Aveeno for this. If this is ineffective would discuss topical steroid in the future. 08/15/2024Iron deficiency (ICD-10 - E61.1)08/15/2024OtherBody Mass Index: Care Instructions material was published, Body Mass Index: Care Instructions material was enulllf7509/10/2024OtherBody Mass Index: Care Instructions material was published Plan Of Treatment No Information Insurance Providers Payer Name Payer Address Payer Phone Subscriber Number Group Number Insured Name Patient Relationship to Insured Coverage Start Date Coverage End Date [employer] [place] Medicaid [address] [place] [address] [id number] Fredis PURDY - patient is the [id number] 2024Wrap [facility] CareSourcePO [address] [place] [id number], MADYSONSelf - patient is the [id number] 2024.Transport [facility] wrapPO [address] [place] [id number], MADYSONSelf - patient is the insured 2023 Medical (General) History Surgical History Surgery Date(Month/Year) Uterine inversion 2023 Hospitalization History Reason Date(Month/Year) childbirth x2
--- OUTSIDE RECORDS SUMMARY | 2025-07-01 15:13 | XMS_ITS | Encounter Summary ---
Author Organization [facility] Address [address] [place] [facility] [place] [address] Care Team Providers Care Gasoline Catalyst Operator Name Role Phone Unavailable Primary Care Provider Unavailabl e Encounter Details DateTypeDepartmentCare Team (Latest Contact Info)Gdrrulapnue31/10/2024Clinisync Result Encounter [facility] Unsolicited Richard Canela, [address] [place] [address] Social History Tobacco UseTypesPacks/DayYears UsedDateSmoking Tobacco: NeverSmokeless Tobacco: NeverAlcohol UseStandard Drinks/WeekCommentsNever0 (1 standard drink = 0.6 oz pure alcohol)CommentsYesSex and Gender InformationValueDate RecordedSex Assigned at AclfnHfhbsd32/26/2023 4:07 PM EDTLegal BrfWtxwve10/15/2023 6:37 PM EDTGender SpybjdbdJyhkax33/26/2023 4:07 PM EDTSexual OrientationNot on file documented as of this encounter Plan of Treatment DateTypeDepartmentCare Team (Latest Contact Info)Iaddxsdykgv89/06/2025 1:40 PM ESTClinical Support [facility] [address] [place] [address] [place] [address] 07/05/2026 11:00 AM ESTProcedure Visit [facility] [address] [place] [address] [place] [address] Radha Valenzuela PA [address] [place] [address] [place] [address] documented as of this encounter Procedures Procedure NamePriorityDate/TimeAssociated DiagnosisCommentsUS OB ANATOMY 09/05/2023 2:55 PM EST documented in this encounter Results * US OB ANATOMY (09/05/2023 2:55 PM EST)Anatomical RegionLateralityModalityOther Specimen (Source)Anatomical Location / LateralityCollection Method / Volume Collection TimeReceived Time09/05/2023 2:55 PM EST Narrative 09/05/2023 2:58 PM EST [facility] ?[address] ? [place] [address] ? Ultrasound Report ? Signed ? Patient: MORENA HARRELL ?MR#: [id number] ?? : 2005 ?Acct:[id number] ?? Age/Sex: 18 / F ?ADM Date: 09/05/23 ?? Loc: US ? Attending Dr: Richard Canela D.O. ? Ordering Physician: Richard Canela D.O. ?? Date of Service: 09/05/23 ?? Procedure(s): US OB anatomy ?? Accession Number(s): [id number] ? cc: Richard Canela D.O.; Physician,Non-Staff MMariana. ? [facility] ? [facility] ? [place] [address] ? Patient Name: ?? MORENA HARRELL ? MRN: [id number] ? date: 2005 ?Sex: F ?? Assigned Patient Location: US ?? Current Patient Location: US ?? Accession/Order Number: [id number] ?? Exam Date: 09/05/2023 ??13:10 ?Report Date: 09/05/2023 ??14:55 ? At the request of: ?? RICHARD ??HILTON ? Procedure: ??US OB anatomy ? EXAMINATION: US OB anatomy, US OB cervical length ? HISTORY: ANATOMY ? COMPARISON: No relevant comparison available. ? TECHNIQUE: Transabdominal sonographic examination was performed for ?? obstetrical ?? and evaluation. ? FINDINGS: ? Number: 1 ?? Heart Rate: Present; rate not recorded H.B. /min ?? Amniotic Fluid Volume: Subjectively normal ?? Placental Location: POSTERIOR with lower margin 7.0 cm from os. ?? Cervix Length: 4.2 cm, closed. ? ANATOMY: Normal Structures -cerebellum, choroid plexus, cisterna magna, ?? lateral ?? cerebral ventricles, orbits, midline falx, hard palate, four-chamber heart, ?? RVOT, LVOT, stomach, kidneys, bladder, umbilical cord insertion into abdomen, ?? three-vessel cord, cervical spine, thoracic spine, lumbar spine, sacral spine, ? right upper extremity, left upper extremity, right lower extremity, left lower ? extremity. ? SUBOPTIMALLY SEEN: None ?? ABNORMALITIES: None ? BIOMETRY: ?? BPD: 4.9 cm 20 weeks 5 days ?? HC: 18.3 cm 20 weeks 5 days ?? AC: 15.6 cm 20 weeks 5 days ?? FL: 3.2 cm 20 weeks 0 days ?? EFW:353.9 grams; 71% ?? FL/AC: 20.6 ?? FL/BPD: 66.2 ?? HC/AC: 1.2 ? GESTATIONAL AGE: ?? Age by EDC: 20 weeks 0 days ?? FRANCISCO by EDC: 01/23/2024 ?? Age by current US: 20 weeks 4 days ?? FRANCISCO by current US: 01/19/2024 ? US/US OB anatomy ?? IMPRESSION: ? 1. Single live intrauterine with growth detailed above. ? Electronically authenticated by: JOSE ??ALLISON ?? Date: 09/05/2023 ??14:55 ? Dictated By: ?Jose Knight M.D. ? Signed By: ?09/05/23 1458 ? DD/ 1455 ? TD/TT: ? Railroad Firer/Fireman: Procedure Note Radiology, Radiologist, MD - 09/05/2023 [place] [address] Ultrasound Report Signed Patient: MORENA HARRELL RMR#: [id number] : 2005Acct:[id number] Age/Sex: 18 / FADM Date: 09/05/23 Loc: US Attending Dr: Richard Canela D.O. Ordering Physician: Richard Canela D.O. Date of Service: 09/05/23 Procedure(s): US OB anatomy Accession Number(s): [id number] cc: Richard Canela D.O.; Physician,Non-Staff Taylor [address] [address] Patient Name: MORENA HARRELL MRN: [id number] date: 2005 Sex: F Assigned Patient Location: US Current Patient Location: US Accession/Order Number: [id number] Exam Date: 09/05/2023 13:10 Report Date: 09/05/2023 14:55 At the request of: RICHARD CANELA Procedure: US OB anatomy EXAMINATION: US OB anatomy, US OB cervical length HISTORY: ANATOMY COMPARISON: No relevant comparison available. TECHNIQUE: Transabdominal sonographic examination was performed for obstetrical and evaluation. FINDINGS: Number: 1 Heart Rate: Present; rate not recorded H.B. /min Amniotic Fluid Volume: Subjectively normal Placental Location: POSTERIOR with lower margin 7.0 cm from os. Cervix Length: 4.2 cm, closed. ANATOMY: Normal Structures -cerebellum, choroid plexus, cisterna magna, lateral cerebral ventricles, orbits, midline falx, hard palate, four-chamberheart, RVOT, LVOT, stomach, kidneys, bladder, umbilical cord insertion intoabdomen, three-vessel cord, cervical spine, thoracic spine, lumbar spine, sacralspine, right upper extremity, left upper extremity, right lower extremity, leftlower extremity. SUBOPTIMALLY SEEN: None ABNORMALITIES: None BIOMETRY: BPD: 4.9 cm 20 weeks 5 days HC: 18.3 cm 20 weeks 5 days AC: 15.6 cm 20 weeks 5 days FL: 3.2 cm 20 weeks 0 days EFW:353.9 grams; 71% FL/AC: 20.6 FL/BPD: 66.2 HC/AC: 1.2 GESTATIONAL AGE: Age by EDC: 20 weeks 0 days FRANCISCO by EDC: 01/23/2024 Age by current US: 20 weeks 4 days FRANCISCO by current US: 01/19/2024 US/US OB anatomy IMPRESSION: 1. Single live intrauterine with growth detailed above. Electronically authenticated by: JOSE KNIGHT Date: 09/05/2023 14:55 Dictated By: Jose Knight M.D. Signed By:09/05/23 1458 DD/ 1455 TD/TT: Railroad Firer/Fireman: Authorizing ProviderResult TypeResult StatusCorey Hilton DOCLINISYNC IMAGINGFinal Result documented in this encounter Visit Diagnoses Not on filedocumented in this encounter
--- OUTSIDE RECORDS SUMMARY | 2025-07-01 15:13 | XMS_ITS | Clinical Summary ---
Author Organization [facility] Address [address] [place] [address] Care Team Providers Care Family Practice Physician Assistant Name Role Phone Unavailable Primary Care Provider Unavailabl e Allergies No known active allergies Medications MedicationSigDispense QuantityRefillsLast FilledStart DateEnd DateStatus medroxyPROGESTERone (Depo-Provera) 150 MG/ML injection Indications: control counselingInject 1 mL (150 mg) into the shoulder, thigh, or buttocks every 3 (three) months 1 mL /ctive Vit-Fe Fumarate-FA (WesTab Plus) 27-1 MG tablet Discontinued norelgestromin-ethinyl estradiol (Xulane) 150-35 MCG/24HR Indications:6 weeks follow-up ([facility])Apply 1 patch each week for 3 weeks, then remove for 1 week. 3 patch 120Discontinued Encounters DateTypeDepartmentCare VvfyFrftephqelz41/05/2025 10:00 AM ESTProcedure Visit [facility] [address] [place] [address] Ranjana Benitez NP control counseling (Primary Dx); Well woman exam with routine gynecological exam07/01/2025amboo flowsheet [facility] [address] [place] [address] Ranjana Benitez NP 06/10/2025Results [facility] [address] [place] [address] Elaine Barron NP POCT , urine manually resulted, hCG, quantitative, , CBC and differential, Additional followed-up results: 9:55 AM EDTOffice Visit [facility] [address] [place] [address] Elaine Barron NP Fatigue, unspecified type (Primary Dx)06/08/2025Travelfrom Last 3 Months Family History Medical HistoryRelationNameCommentsDiabetesMaternal GrandfatherCarlos cains DiabetesPaternal GrandfatherHypertensionPaternal GrandfatherHypertensionPaternal GrandmotherAsthmaSisterKylee keeganNo Known ProblemsSonRelationNameStatus CommentsFatherAliveMaternal GrandfatherCarlos cainsMotherAlivePaternal GrandfatherPaternal GrandmotherSisterKylee keeganSonAlive Social History Tobacco UseTypesPacks/DayYears UsedDateSmoking Tobacco: NeverSmokeless Tobacco: Never Tobacco Cessation:Counseling Given: Not Answered Alcohol UseStandard Drinks/WeekCommentsNever0 (1 standard drink = 0.6 oz pure alcohol)CommentsNoSex and Gender InformationValueDate RecordedSex Assigned at MmuiwPxwzqf08/26/2023 4:07 PM EDTLegal LrcKnkvga41/15/2023 6:37 PM EDTGender HkdgtgxmOvbapz39/26/2023 4:07 PM EDTSexual OrientationNot on file Last Filed Vital Signs Vital SignReadingTime TakenCommentsBlood Ktjhwcfv58/7011 10:17 AM EST Vynye173406/08/2025 9:57 AM YKRYseqrkcxdcz37.1 ??C (98.7 ??F)06/08/2025 9:57 AM EDTRespiratory Rate--Oxygen Wtumhodihx54%06/08/2025 9:57 AM EDTInhaled Oxygen Concentration--Vgmzsh47 kg (101 lb 8 oz)07/01/2025 10:17 AM ZRJGtnvyt843.5 cm (5' 2 )11/17/2022 12:00 PM EDTBody Mass Index18.56011/17/2022 12:00 PM EDT Plan of Treatment DateTypeDepartmentCare Team (Latest Contact Info)Khedkjgibtu06/06/2025 1:40 PM ESTClinical Support [facility] [address] [facility] [place] [address] 07/05/2026 11:00 AM ESTProcedure Visit [facility] [address] [facility] [place] [address] Radha Valenzuela PA [address] [place] [address] Procedures Procedure NamePriorityDate/TimeAssociated DiagnosisCommentsPOCT , URINE Vmpdhnk9707/01/2025 10:28 AM EST Well woman exam with routine gynecological exam IRON + TRANSFERRIN + AAVBNpqiypr68/13/2025 10:46 AM EDT Fatigue, unspecified type ZWCZnbztrg35/13/2025 10:46 AM EDT Fatigue, unspecified type VITAMIN D 25 HYDROXY VVBPINweztjt20/13/2025 10:46 AM EDT Fatigue, unspecified type COMPREHENSIVE METABOLIC OHSYCYnhkshr55/13/2025 10:46 AM EDT Fatigue, unspecified type CBC (INCLUDES DIFF/PLT)Jutzsqm6606/08/2025 10:46 AM EDT Fatigue, unspecified type HCG, TOTAL, IEJpjxvxw90/13/2025 10:46 AM EDT Fatigue, unspecified type PNEUMONIA (HTRX)Qpohyiu2406/08/2025 10:21 AM EDT Fatigue, unspecified type POCT , NTFNYTjcxkwu73/13/2025 10:08 AM EDT Fatigue, unspecified type from Last 3 Months Results * POCT , urine manually resulted (07/01/2025 10:28 AM EST) Only the most recent of2 resultswithin the time period is included. ComponentValueRef RangeTest MethodAnalysis TimePerformed AtPathologist Signature Preg Test, UrNegativeNegativeSpecimen (Source)Anatomical Location / Laterality Collection Method / VolumeCollection TimeReceived MzvzDgrfl34/05/2025 10:28 AM EST Narrative Authorizing ProviderResult TypeResult StatusRanjana Benitez NPPOINT OF CARE TEST ENTER/EDIT ORDERABLESFinal Result * (ABNORMAL) Iron + transferrin + TIBC (06/08/2025 10:46 AM EDT)ComponentValue Ref RangeTest MethodAnalysis TimePerformed AtPathologist SignatureIron Bind.Cap.(TIBC)634857 - 450 ug/yGSBMKFSVDCXK555422 - 425 ug/oEABVUUSXRozc7968 - 159 ug/dLLABCORPIron Azgvaslnoo46(L)15 - 55 %UDDPFEWFHUQVKQIJSA545461 - 364 mg/dLLABCORPSpecimen (Source)Anatomical Location / LateralityCollection Method / VolumeCollection TimeReceived MhfaUhjol43/13/2025 10:46 AM EDT1 Narrative [facility] - 06/09/2025 7:06 AM EDT Performed at: 01 - [address] ??[id number] Medical Director: Eriberto Hawkins PhD, Phone: ??[phone] Authorizing ProviderResult TypeResult StatusRaalisha [facility] BLOOD ORDERABLESFinal ResultPerforming OrganizationAddressCity/State/ZIP CodePhone Number [facility] * Vitamin D 25 hydroxy Total (06/08/2025 10:46 AM EDT)ComponentValueRef Range Test MethodAnalysis TimePerformed AtPathologist SignatureVitamin D, 25-Hydroxy 30.030.0 - 100.0 ng/mLLABCORPComment: Vitamin D deficiency has been defined by the [place] of Medicine and an Endocrine Society practice guideline as a level of serum 25-OH vitamin D less than 20 ng/mL (1,2). The Endocrine Society went on to further define vitamin D insufficiency as a level between 21 and 29 ng/mL (2). 1. IOM ([place] of Medicine). 2010. Dietary reference ?? intakes for calcium and D. [place]: The ?? National [employer] Press. 2. Marvin MF, Allan NC, Will GRANADOS, et al. ?? Evaluation, treatment, and prevention of vitamin D ?? deficiency: an Endocrine Society clinical practice ?? guideline. JCEM. 2010; 96(7):1911-30. Specimen (Source)Anatomical Location / LateralityCollection Method / Volume Collection TimeReceived TimeBloodVenous blood specimen / Mffjyyz2806/08/2025 10:46 AM EDT1 Narrative [facility] - 06/09/2025 7:06 AM EDT Performed at: 01 - [address] ??[id number] Medical Director: Eriberto Hawkins PhD, Phone: ??[phone] Authorizing ProviderResult TypeResult StatusRachel [facility] BLOOD ORDERABLESFinal ResultPerforming OrganizationAddressCity/State/ZIP CodePhone Number [facility] * CBC and differential (06/08/2025 10:46 AM EDT)ComponentValueRef RangeTest MethodAnalysis TimePerformed AtPathologist SignatureWBC5.53.4 - 10.8 x10E3/uL LABCORPRBC3.983.77 - 5.28 x10E6/gGJYXTXNVYhw35.111.1 - 15.9 g/wEJAWWBGLVqv71.2 34.0 - 46.6 %MXPHCWVBQO5317 - 97 uQXHIFOYMAHQ43.426.6 - 33.0 xkRKPCRWZYWTR50.4 31.5 - 35.7 g/aUYAALZHRYDT29.111.7 - 15.4 %CANDVSBIhgtfdkrp701392 - 450 x10E3/lLCIMMCDMHbjshewgdyl00Vuv Estab. %EYKSGCVFonhas87Nol Estab. %[facility] Nvhgcunxc2Mvj Estab. %XWXBZNIRhf9Mmc Estab. %ZPCWPXSRscpy9Zko Estab. %[facility] Neutrophils Abs3.61.4 - 7.0 x10E3/uLLABCORPLymphs Abs1.50.7 - 3.1 x10E3/uL [facility]PMonocytesAbs0.30.1 - 0.9 x10E3/uLLABCORPEos Abs0.00.0 - 0.4 x10E3/uL [facility]ABC[facility]PBaso Abs0.00.0 - 0.2 x10E3/uLLABCORPImmature Kbjnoyzsrmsp9Bgf Estab. % [facility]ABC[facility]PImmature Grans Abs0.00.0 - 0.1 x10E3/uLLABCORPSpecimen (Source) Anatomical Location / LateralityCollection Method / VolumeCollection Time Received TimeBloodVenous blood specimen / Diaujtl4206/08/2025 10:46 AM EDT 06/08/2025 Narrative [facility] - 06/09/2025 7:06 AM EDT Performed at: 02 - [facility] [address], [address], [place], [place] ??[id number] Medical Director: Lisette Luke MD, Phone: ??[phone] Authorizing ProviderResult TypeResult StatusRachel [facility] BLOOD ORDERABLESFinal ResultPerforming OrganizationAddressCity/State/ZIP CodePhone Number [facility] * hCG, quantitative, (06/08/2025 10:46 AM EDT)ComponentValueRef Range Test MethodAnalysis TimePerformed AtPathologist SignaturehCG Beta Subunit Qn<1 mIU/mLLABCORPComment: ? Female (Non-) ?0 - ? 5 ?(Postmenopausal) ??0 - ? 8 ? Female () ? Weeks of Gestation ? 3 ?6 - ?71 ? 4 ? 10 - ?? 750 ? 5 ?217 - ??7138 ? 6 ?158 - 13650 ? 7 ? 3697 -664658 ? 8 ?80787 -527520 ? 9 ?47119 -561780 ?10 ?70566 -341152 ?12 ?09037 -470652 ?14 ?70466 - 81813 ?15 ?31044 - 47536 ?16 ? 0236 - 09063 ?17 ? 2677 - 04478 ?18 ? 8099 12559 Renata ECLIA methodology Specimen (Source)Anatomical Location / LateralityCollection Method / Volume Collection TimeReceived TimeBloodVenous blood specimen / Yoplrwc1506/08/2025 10:46 AM EDT1 Narrative [facility] - 06/09/2025 7:06 AM EDT Performed at: - [place] [address] [facility], [address] [place] [id number] Medical Director: Lisette Luke MD, Phone: ??[phone] Authorizing ProviderResult TypeResult StatusRachel L retickrLAB BLOOD ORDERABLESFinal ResultPerforming OrganizationAddressCity/State/[facility] CodePhone Number [facility] * TSH (06/08/2025 10:46 AM EDT)ComponentValueRef RangeTest MethodAnalysis Time Performed AtPathologist SignatureTSH0.4910.450 - 4.500 uIU/mLLABCORPSpecimen (Source)Anatomical Location / LateralityCollection Method / VolumeCollection TimeReceived TimeBloodVenous blood specimen / Zbcxmdv0706/08/2025 10:46 AM EDT 06/08/2025 Narrative [facility] - 06/09/2025 7:06 AM EDT Performed at: 02 - [facility] [address], [place] ??[id number] Medical Director: Lisette Luke MD, Phone: ??[phone] Authorizing ProviderResult TypeResult StatusRachel L Beatrice NPLAB BLOOD ORDERABLESFinal ResultPerforming OrganizationAddressCity/State/ZIP CodePhone Number [facility] * Comprehensive metabolic panel (06/08/2025 10:46 AM EDT)ComponentValueRef Range Test MethodAnalysis TimePerformed AtPathologist NxessnrdsMitrbij7260 - 99 mg/yBYQMXVOWGEW212 - 20 mg/dLLABCORPCreat0.710.57 - 1.00 mg/vHOSMOMKVBHPA738 >59 mL/min/1.73LABCORPBUN/Creat Rdipi979 - 15GSEJPCYJlqyxk657270 - 144 mmol/L [facility]PPotassium4.23.5 - 5.2 mmol/FBHBWULARteyjbzi87438 - 106 mmol/[facility] Carbon Kfjolpq9125 - 29 mmol/[facility]ABCORPCalcium9.28.7 - 10.2 mg/dLLABCORPProtein Total7.46.0 - 8.5 g/dLLABCORPAlbumin4.84.0 - 5.0 g/dLLABCORPGlobulin Total2.6 1.5 - 4.5 g/dLLABCORPBili Total0.40.0 - 1.2 mg/dLLABCORPAlk Zkhyeyfeakb1725 - 116 IU/AGJDVCWKGWT8683 - 59 IU/WTBCFTSPFDE531 - 35 IU/[facility]PSpecimen (Source)Anatomical Location / LateralityCollection Method / VolumeCollection TimeReceived TimeBloodVenous blood specimen / Kdnagsz0906/08/2025 10:46 AM EDT 06/08/2025 Narrative [facility] - 06/09/2025 7:06 AM EDT Performed at: 02 - [facility] [address] [facility], [address], [place], [place] ??[id number] Medical Director: Lisette Luke MD, Phone: ??[phone] Authorizing ProviderResult TypeResult StatusRachel L Beatrice NPLAB BLOOD ORDERABLESFinal ResultPerforming OrganizationAddressCity/State/ZIP CodePhone Number [facility] * PNEUMONIA (HTRX) (06/08/2025 10:21 AM EDT)ComponentValueRef RangeTest Method Analysis TimePerformed AtPathologist SignatureSTREPTOCOCCUS PYOGENES (GROUP A STREP) (RESPIRATORY)019.961 - 24.689 ppm06/09/2025 7:19 AM EDTHealthTrackRx at LabPortSTREPTOCOCCUS PYOGENES (GROUP A STREP) (RESPIRATORY)Not Bgjqlavb77.961 - 24.689 ppm06/09/2025 7:19 AM EDTHealthTrackRx at LabPortSTREPTOCOCCUS PNEUMONIAE (RESPIRATORY)019.961 - 24.689 ppm06/09/2025 7:19 AM EDT [facility] at LabPortSTREPTOCOCCUS PNEUMONIAE (RESPIRATORY)Not Detected 19.961 - 24.689 ppm06/09/2025 7:19 AM EDTHealthTrackRx at LabPortSTREPTOCOCCUS AGALACTIAE (GROUP B STREP) (RESPIRATORY)019.961 - 24.689 ppm06/09/2025 7:19 AM EDTHealthTrackRx at LabPortSTREPTOCOCCUS AGALACTIAE (GROUP B STREP) (RESPIRATORY)Not Gqmwgwto96.961 - 24.689 ppm06/09/2025 7:19 AM EDT [facility] at LabPortSTAPHYLOCOCCUS AUREUS (RESPIRATORY)019.961 - 24.689 ppm06/09/2025 7:19 AM EDTHealthTrackRx at LabPortSTAPHYLOCOCCUS AUREUS (RESPIRATORY)Not Thsxdjeg66.961 - 24.689 ppm06/09/2025 7:19 AM EDT [facility] at LabPortSERRATIA MARCESCENS (RESPIRATORY)019.961 - 24.689 ppm 06/09/2025 7:19 AM EDTHealthTrackRx at LabPortSERRATIA MARCESCENS (RESPIRATORY)Not Jhwpkmrj14.961 - 24.689 ppm06/09/2025 7:19 AM EDT [facility] at LabPortRESPIRATORY SYNCYTIAL VIRUS (RESPIRATORY)023.000 - 31.953 ppm06/09/2025 7:19 AM EDTHealthTrackRx at LabPortRESPIRATORY SYNCYTIAL VIRUS (RESPIRATORY)Not Ehfwoyhx11.000 - 31.953 ppm06/09/2025 7:19 AM EDT [facility] at LabPortPSEUDOMONAS AERUGINOSA (RESPIRATORY)019.961 - 24.689 ppm06/09/2025 7:19 AM EDTHealthTrackRx at LabPortPSEUDOMONAS AERUGINOSA (RESPIRATORY)Not Insezwpu65.961 - 24.689 ppm06/09/2025 7:19 AM EDT [facility] at LabPortPROTEUS MIRABILIS, VULGARIS (RESPIRATORY)019.961 - 24.689 ppm06/09/2025 7:19 AM EDTHealthTrackRx at LabPortPROTEUS MIRABILIS, VULGARIS (RESPIRATORY)Not Ozddcbni26.961 - 24.689 ppm06/09/2025 7:19 AM EDT [facility] at LabPortPARAINFLUENZA VIRUS (TYPES 1, 2, 3 ,4) (RESPIRATORY)0 23.000 - 31.487 ppm06/09/2025 7:19 AM EDTHealthTrackRx at LabPortPARAINFLUENZA VIRUS (TYPES 1, 2, 3 ,4) (RESPIRATORY)Not Xtpijfcv72.000 - 31.487 ppm 06/09/2025 7:19 AM EDTHealthTrackRx at LabPortMYCOPLASMA PNEUMONIAE (RESPIRATORY)019.961 - 24.689 ppm06/09/2025 7:19 AM EDTHealthTrackRx at LabPortMYCOPLASMA PNEUMONIAE (RESPIRATORY)Not Ouvyyqdq80.961 - 24.689 ppm 06/09/2025 7:19 AM EDTHealthTrackRx at LabPortMORAXELLA CATARRHALIS (RESPIRATORY)019.961 - 24.689 ppm06/09/2025 7:19 AM EDTHealthTrackRx at LabPortMORAXELLA CATARRHALIS (RESPIRATORY)Not Cbsewozq74.961 - 24.689 ppm 06/09/2025 7:19 AM EDTHealthTrackRx at LabPortLEGIONELLA PNEUMOPHILA (RESPIRATORY)019.961 - 24.689 ppm06/09/2025 7:19 AM EDTHealthTrackRx at LabPortLEGIONELLA PNEUMOPHILA (RESPIRATORY)Not Edxrlbxk18.961 - 24.689 ppm 06/09/2025 7:19 AM EDTHealthTrackRx at LabPortKLEBSIELLA PNEUMONIAE, OXYTOCA (RESPIRATORY)019.961 - 24.689 ppm06/09/2025 7:19 AM EDTHealthTrackRx at [facility] CollaborativeKLEBSIELLA PNEUMONIAE, OXYTOCA (RESPIRATORY)Not Baezpeyo05.961 - 24.689 ppm06/09/2025 7:19 AM EDTHealthTrackRx at LabPortINFLUENZA VIRUS, A, B (RESPIRATORY)023.000 - 29.803 ppm06/09/2025 7:19 AM EDTHealthTrackRx at LabDupont HospitalINFLUENZA VIRUS, A, B (RESPIRATORY)Not Cmgnmudm43.000 - 29.803 ppm 06/09/2025 7:19 AM EDTHealthTrackRx at [facility]MAN METAPNEUMOVIRUS (RESPIRATORY)023.000 - 33.630 ppm06/09/2025 7:19 AM EDTHealthTrackRx at [facility] METAPNEUMOVIRUS (RESPIRATORY)Not Oaadnktb74.000 - 33.630 ppm 06/09/2025 7:19 AM EDTHealthTrackRx at LabPortHAEMOPHILUS INFLUENZAE (RESPIRATORY)019.961 - 24.689 ppm06/09/2025 7:19 AM EDTHealthTrackRx at LabDupont HospitalHAEMOPHILUS INFLUENZAE (RESPIRATORY)Not Mqrjpgqd76.961 - 24.689 ppm 06/09/2025 7:19 AM EDTHealthTrackRx at LabPortESCHERICHIA COLI (RESPIRATORY)0 19.961 - 24.689 ppm06/09/2025 7:19 AM EDTHealthTrackRx at LabPortESCHERICHIA COLI (RESPIRATORY)Not Wbkglwku97.961 - 24.689 ppm06/09/2025 7:19 AM EDT [facility]ativeENTEROVIRUS D68 (RESPIRATORY)023.000 - 32.268 ppm 06/09/2025 7:19 AM EDTHealthTrackRx at LabDupont HospitalENTEROVIRUS D68 (RESPIRATORY)Not Zittdvtf49.000 - 32.268 ppm06/09/2025 7:19 AM EDTHealthTrackRx at LabPortOTHER CORONAVIRUSES (229E, NL63, HKU1, OC43) (RESPIRATORY)023.000 - 30.477 ppm 06/09/2025 7:19 AM EDTHealthTrackRx at LabDupont HospitalOTHER CORONAVIRUSES (229E, NL63, HKU1, OC43) (RESPIRATORY)Not Soieiqcm64.000 - 30.477 ppm06/09/2025 7:19 AM EDT [facility] at LabPortCHLAMYDIA PNEUMONIAE (RESPIRATORY)019.961 - 24.689 ppm 06/09/2025 7:19 AM EDTHealthTrackRx at LabPortCHLAMYDIA PNEUMONIAE (RESPIRATORY)Not Lbifuaqa70.961 - 24.689 ppm06/09/2025 7:19 AM EDT [facility] CollaborativeBORDETELLA PERTUSSIS, PARAPERTUSSIS, BRONCHISEPTICA (RESPIRATORY)019.961 - 24.689 ppm06/09/2025 7:19 AM EDTHealthTrackRx at [facility] CollaborativeBORDETELLA PERTUSSIS, PARAPERTUSSIS, BRONCHISEPTICA (RESPIRATORY)Not Cyakiutz40.961 - 24.689 ppm06/09/2025 7:19 AM EDTHealthTrackRx at [facility] ACINETOBACTER BAUMANNII (RESPIRATORY)019.961 - 24.689 ppm06/09/2025 7:19 AM EDTHealthTrackRx at [facility] CollaborativeACINETOBACTER BAUMANNII (RESPIRATORY)Not Detected 19.961 - 24.689 ppm06/09/2025 7:19 AM EDTHealthTrackRx at [facility] CollaborativeHTRX COVID-19 YPJNGTOTQAM962.000 - 31.947 ppm06/09/2025 7:19 AM EDTHealthTrackRx at [facility] HTRX COVID-19 CORONAVIRUSNot Ufwzsxkn04.000 - 31.947 ppm06/09/2025 7:19 AM EDT [facility] CollaborativeRHINOVIRUS/ENTEROVIRUS (RESPIRATORY)023.000 - 30.000 ppm06/09/2025 7:19 AM EDTHealthTrackRx at [facility] CollaborativeRHINOVIRUS/ENTEROVIRUS (RESPIRATORY)Not Dvqqannw06.000 - 30.000 ppm06/09/2025 7:19 AM EDT [facility] CollaborativeADENOVIRUS HADV-B (RESPIRATORY)023.000 - 31.833 ppm 06/09/2025 7:19 AM EDTHealthTrackRx at LabPortADENOVIRUS HADV-B (RESPIRATORY) Not Ieegisla94.000 - 31.833 ppm06/09/2025 7:19 AM EDTHealthTrackRx at [facility] ENTEROBACTER CLOACAE COMPLEX, KLEBSIELLA (ENTEROBACTER) AEROGENES (RESPIRAT0 19.961 - 24.689 ppm06/09/2025 7:19 AM EDTHealthTrackRx at [facility] CollaborativeENTEROBACTER CLOACAE COMPLEX, KLEBSIELLA (ENTEROBACTER) AEROGENES (RESPIRATNot Detected 19.961 - 24.689 ppm06/09/2025 7:19 AM EDTHealthTrackRx at [facility] CollaborativeSpecimen (Source)Anatomical Location / LateralityCollection Method / VolumeCollection TimeReceived QjqzLymqpjujw81/13/2025 10:21 AM EDT1 2:05 AM EDT Narrative Authorizing ProviderResult TypeResult StatusRachel L Cement NPLAB BLOOD ORDERABLESFinal ResultPerforming OrganizationAddressCity/State/ZIP CodePhone Number [facility] [address] [place] [address] from Last 3 Months Insurance * Guarantor: Roosevelt Harrell TypeRelation to PatientDate of BirthPhone Billing AddressPersonal/OylcnwCrhr[address] [address]
--- OUTSIDE RECORDS SUMMARY | 2025-07-01 15:13 | XMS_ITS | Encounter Summary ---
Author Organization [facility] Address [address] [facility] [place] [address] Care Team Providers Care Home Economist Consumer Service Name Role Phone Unavailable Primary Care Provider Unavailabl e Encounter Details DateTypeDepartmentCare Team (Latest Contact Info)Acrxgdodqcx92/02/2024Clinisync Result Encounter [facility] External Department Unsolicited Richard Canela DO [address] [place] [address] Social History Tobacco UseTypesPacks/DayYears UsedDateSmoking Tobacco: NeverSmokeless Tobacco: NeverAlcohol UseStandard Drinks/WeekCommentsNever0 (1 standard drink = 0.6 oz pure alcohol)CommentsYesSex and Gender InformationValueDate RecordedSex Assigned at ZtzvcMekfub76/26/2023 4:07 PM EDTLegal EqyVielyw10/15/2023 6:37 PM EDTGender TkdhyniaHvbeir66/26/2023 4:07 PM EDTSexual OrientationNot on file documented as of this encounter Plan of Treatment DateTypeDepartmentCare Team (Latest Contact Info)Xlexkychdxf66/06/2025 1:40 PM ESTClinical Support [facility] [address] [place] [address] [place] [address] 07/05/2026 11:00 AM ESTProcedure Visit [facility] [address] [place] [address] [place] [address] Radha Valenzuela PA [address] [place] [address] [place] [address] documented as of this encounter Procedures Procedure NamePriorityDate/TimeAssociated DiagnosisCommentsUS OB GROWTH 11/27/2023 11:28 AM EDT documented in this encounter Results * US OB GROWTH (11/27/2023 11:28 AM EDT)Anatomical RegionLateralityModalityOther Specimen (Source)Anatomical Location / LateralityCollection Method / Volume Collection TimeReceived Time11/27/2023 11:28 AM EDT Narrative 11/27/2023 11:31 AM EDT [facility] ?[address] ? [place] [address] ? Ultrasound Report ? Signed ? Patient: MORENA HARRELL ?MR#: [id number] ?? : 2005 ?Acct:[id number] ?? Age/Sex: 18 / F ?ADM Date: 11/27/23 ?? Loc: [facility] ? Attending Dr: Richard Canela D.O. ? Ordering Physician: Richard Canela D.O. ?? Date of Service: 11/27/23 ?? Procedure(s): US OB growth ?? Accession Number(s): [id number] ? cc: Richard Canela D.O.; Physician,Non-Staff M.D. ? [facility] ? [facility]. [facility] ? [place] [address] ? Patient Name: ?? MORENA HARRELL ? MRN: [id number] ? date: 2005 ?Sex: F ?? Assigned Patient Location: [facility] ?? Current Patient Location: [facility] ?? Accession/Order Number: [id number] ?? Exam Date: 11/27/2023 ??10:38 ?Report Date: 11/27/2023 ??11:28 ? At the request of: ?? RICHARD ??HILTON ? Procedure: ??US OB growth ? EXAMINATION: US OB growth ? HISTORY: LGA ? COMPARISON: Ultrasound OB anatomy 09/05/2023 ? FINDINGS: ? Heart Rate: 136.0 bpm ?? Number: 1.0 ?? Position: CEPHALIC ?? Amniotic Fluid Volume: 13.1 cm ?? Maximum Vertical Pocket: 4.4 cm ? BIOMETRY: ?? BPD: 7.5 cm cm; 30 weeks 1 days; 5% ?? HC: 30.2 cmcm; 33 weeks 4 days ; 58% ?? AC: 29.5 cm cm; 33 weeks 3 days; 88% ?? FL: 5.8 cm cm; 30 weeks 2 days; 6% ?? EFW: 1928.7 grams; 51% ?? FL/AC: 19.6 ?? FL/BPD: 77.0 ?? HC/AC: 1.0 ? GESTATIONAL AGE: ?? Age by EDC: 31 weeks 6 days ?? FRANCISCO by EDC: 01/23/2024 ?? Age by US: 31 weeks 2 days ?? FRANCISCO by US: 01/27/2024 ? US/US OB growth ?? IMPRESSION: ? 1. Single live intrauterine with growth detailed above. ?? 2. Mild dilation of left renal pelvis/hydronephrosis approaching upper limits ?? of normal (currently 8 mm in width). ?? 3. Trace amount of scrotal fluid/hydrocele. ? Electronically authenticated by: JOSE ??ALLISON ?? Date: 11/27/2023 ??11:28 ? Dictated By: ?Jose Knight M.D. ? Signed By: ?11/27/23 1131 ? DD/ 1128 ? TD/TT: ? Cnc Programmer: Procedure Note Radiology, Radiologist, - 11/27/2023 [place] [address] Ultrasound Report Signed Patient: MORENA HARRELL RMR#: [id number] : 2005Acct:[id number] Age/Sex: 18 / FADM Date: 11/27/23 Loc: [facility] Attending Dr: Richard Canela D.O. Ordering Physician: Richard Canela D.O. Date of Service: 11/27/23 Procedure(s): US OB growth Accession Number(s): [id number] cc: Richard Canela D.O.; Physician,Non-Staff M.DNickolas The [address] [address] Patient Name: MORENA HARRELL MRN: [id number] date: 2005 Sex: F Assigned Patient Location: [facility] Current Patient Location: [facility] Accession/Order Number: [id number] Exam Date: 11/27/2023 10:38 Report Date: 11/27/2023 11:28 At the request of: RICHARD CANELA Procedure: US OB growth EXAMINATION: US OB growth HISTORY: LGA COMPARISON: Ultrasound OB anatomy 09/05/2023 FINDINGS: Heart Rate: 136.0 bpm Number: 1.0 Position: CEPHALIC Amniotic Fluid Volume: 13.1 cm Maximum Vertical Pocket: 4.4 cm BIOMETRY: BPD: 7.5 cm cm; 30 weeks 1 days; 5% HC: 30.2 cmcm; 33 weeks 4 days ; 58% AC: 29.5 cm cm; 33 weeks 3 days; 88% FL: 5.8 cm cm; 30 weeks 2 days; 6% EFW: 1928.7 grams; 51% FL/AC: 19.6 FL/BPD: 77.0 HC/AC: 1.0 GESTATIONAL AGE: Age by EDC: 31 weeks 6 days FRANCISCO by EDC: 01/23/2024 Age by US: 31 weeks 2 days FRANCISCO by US: 01/27/2024 US/US OB growth IMPRESSION: 1. Single live intrauterine with growth detailed above. 2. Mild dilation of left renal pelvis/hydronephrosis approaching upperlimits of normal (currently 8 mm in width). 3. Trace amount of scrotal fluid/hydrocele. Electronically authenticated by: JOSE KNIGHT Date: 11/27/2023 11:28 Dictated By: Jose Knight M.D. Signed By:11/27/23 1131 DD/ 1128 TD/TT: Cnc Programmer: Authorizing ProviderResult TypeResult StatusCorey Hilton DOCLINISYNC IMAGINGFinal Result documented in this encounter Visit Diagnoses Not on filedocumented in this encounter
--- OUTSIDE RECORDS SUMMARY | 2025-07-01 15:13 | XMS_ITS | Encounter Summary ---
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 [address] [place] [address] Social History Tobacco UseTypesPacks/DayYears UsedDateSmoking Tobacco: NeverSmokeless Tobacco: NeverAlcohol UseStandard Drinks/WeekCommentsNever0 (1 standard drink = 0.6 oz pure alcohol)CommentsNoSex and Gender InformationValueDate RecordedSex Assigned at ZpmgpHqowhd84/26/2023 4:07 PM EDTLegal LjjHeeqbz78/15/2023 6:37 PM EDTGender OctcgapcIijywh62/26/2023 4:07 PM EDTSexual OrientationNot on file documented as of this encounter Plan of Treatment DateTypeDepartmentCare Team (Latest Contact Info)Onnwnjjbung93/06/2025 1:40 PM ESTClinical Support [facility] [address] [place] [address] 07/05/2026 11:00 AM ESTProcedure Visit [facility] [address] [place] [address] Radha Valenzuela PA [address] [place] [address] documented as of this encounter Visit Diagnoses Not on filedocumented in this encounter
--- OUTSIDE RECORDS SUMMARY | 2025-07-01 15:13 | XMS_ITS | Encounter Summary ---
Author Organization [facility] Address [address] [facility] [place] [address] Care Team Providers Care Neon Pumper Name Role Phone Unavailable Primary Care Provider Unavailabl e Encounter Details DateTypeDepartmentCare Team (Latest Contact Info)Hskxzcqqsjq78/10/2024Clinisync Result Encounter [facility] Unsolicited Richard Canela, [address] [facility] [place] [address] Social History Tobacco UseTypesPacks/DayYears UsedDateSmoking Tobacco: NeverSmokeless Tobacco: NeverAlcohol UseStandard Drinks/WeekCommentsNever0 (1 standard drink = 0.6 oz pure alcohol)CommentsYesSex and Gender InformationValueDate RecordedSex Assigned at MdowpEkirjz74/26/2023 4:07 PM EDTLegal OxlVnicxr02/15/2023 6:37 PM EDTGender FhuxqpjcVywkxz00/26/2023 4:07 PM EDTSexual OrientationNot on file documented as of this encounter Plan of Treatment DateTypeDepartmentCare Team (Latest Contact Info)Unuwbujvsti77/06/2025 1:40 PM ESTClinical Support [facility] [address] [place] [address] [place] [address] 07/05/2026 11:00 AM ESTProcedure Visit [facility] [address] [place] [address] [place] [address] Radha Valenzuela PA [address] [place] [address] [place] [address] documented as of this encounter Procedures Procedure NamePriorityDate/TimeAssociated DiagnosisCommentsUS OB CERVICAL LENGTH 09/05/2023 2:55 PM EST documented in this encounter Results * US OB CERVICAL LENGTH (09/05/2023 2:55 PM EST)Anatomical RegionLaterality ModalityOtherSpecimen (Source)Anatomical Location / LateralityCollection Method / VolumeCollection TimeReceived Time09/05/2023 2:55 PM EST Narrative 09/05/2023 2:58 PM EST [facility] ?[address] ? [place] [address] ? Ultrasound Report ? Signed ? Patient: GURWINDERMORENA Jacobs ?MR#: [id number] ?? : 2005 ?Acct:[id number] ?? Age/Sex: 18 / F ?ADM Date: 09/05/23 ?? Loc: US ? Attending Dr: Richard Canela D.O. ? Ordering Physician: Richard Canela D.O. ?? Date of Service: 09/05/23 ?? Procedure(s): US OB cervical length ?? Accession Number(s): [id number] ? cc: Richard Canela D.O.; Physician,Non-Staff M.D. ? [facility] ? [address] ? [place] [address] ? Patient Name: ?? MORENA Reynaldo CRAMERGURWINDER ? MRN: [id number] ? date: 2005 ?Sex: F ?? Assigned Patient Location: US ?? Current Patient Location: US ?? Accession/Order Number: [id number] ?? Exam Date: 09/05/2023 ??13:10 ?Report Date: 09/05/2023 ??14:55 ? At the request of: ?? RICHARD ??HILTON ? Procedure: ??US OB cervical length ? EXAMINATION: US OB anatomy, US OB [...] by current US: 01/19/2024 ? US/US OB cervical length ?? IMPRESSION: ? 1. Single live intrauterine with growth detailed above. ? Electronically authenticated by: JOSE ??ALLISON ?? Date: 09/05/2023 ??14:55 ? Dictated By: ?Jose Knight M.D. ? Signed By: ?09/05/23 1458 ? DD/ 1455 ? TD/TT: ? Ship'S Engineer: Procedure Note Radiology, Radiologist, MD - 09/05/[address] [address] Ultrasound Report Signed Patient: MORENA HARRELL RMR#: [id number] : 2005Acct:[id number] Age/Sex: 18 / FADM Date: 09/05/23 Loc: US Attending Dr: Richard Canela D.O. Ordering Physician: Richard Canela D.O. Date of Service: 09/05/23 Procedure(s): US OB cervical length Accession Number(s): [id number] cc: Richard Canela D.O.; Physician,Non-Staff [place] [address] Patient Name: MORENA HARRELL MRN: [facility]:[id number] date: 2005 Sex: F Assigned Patient Location: US Current Patient Location: US Accession/Order Number: [id number] Exam Date: 09/05/2023 13:10 Report Date: 09/05/2023 14:55 At the request of: RICHARD CANELA Procedure: US OB cervical length EXAMINATION: US OB anatomy, US OB cervical [...] FRANCISCO by current US: 01/19/2024 US/US OB cervical length IMPRESSION: 1. Single live intrauterine with growth detailed above. Electronically authenticated by: JOSE KNIGHT Date: 09/05/2023 14:55 Dictated By: Jose Knight M.D. Signed By:09/05/23 1458 DD/ 1455 TD/TT: Ship'S Engineer: Authorizing ProviderResult TypeResult StatusCorey Hilton DOCLINISYNC IMAGINGFinal Result documented in this encounter Visit Diagnoses Not on filedocumented in this encounter
--- OUTSIDE RECORDS SUMMARY | 2025-07-01 15:16 | XMS_ITS | CCD ---
Author Organization [facility] Care Team Providers Care Corrosion Technician Name Role Phone NATE SNELL Unavailable Unavailable [...] Unavailable MISC, DR MARIN Primary Care Unavailable HAY, DR LARA Consulting Unavailable HAY, DR LARA Attending Unavailable MISC, DR MARIN [...] RAMOS Consulting Unavailable EDWIGE SEGOVIA Consulting Unavailable NELI YANG Consulting Unava ilable VEDA, DR BLUM Procedure Practitioner Unava ilable VEDA, DR BLUM Attending Unavailable KARASIK, DR BLUM Admitting Unavailable KARASIK, DR BLUM Consulting Unavailable REQUEST, DR NONE LISTED Primary Care Unavaila ble WEST, DR JACOBO Bunn Consulting Unavailable KARASIK, DR BLUM Attending Unavailable KARASIK, DR BLUM Admitting Unavailable KARASIK, DR BLUM Consulting Unavailable REQUEST, NONE LISTED Primary Care Unavaila ble WEST, DR JACOBO Bunn Consulting Unavailable KARASIK, DR BLUM Attending Unavailable KARASIK, DR BLUM Admitting Unavailable KARASIK, DR BLUM Consulting Unavailable [facility], DR MARIN Primary Care Unavailable Mi Lang Unavailable Iraida Butcher Referring Unavailable Iraida Butcher Attending Unavailable Iraida Butcher Admitting Unavailable Unavailable Primary Care Provider UnavailJOEY Valladares Referring Unavailable DEBBY KUMAR Primary Care Unavailable Marcelo Lopez Attending Unavailable Marcelo Lopez Admitting Unavailable [facility] Attending Unavailable Medications Current Medications MedicationDrug Class(es)DatesSig (Normalized)Sig (Original)amoxicillin 500 mg oral capsule (1 source)Penicillin-class AntibacterialStart: 18-93-4702qyko 1 capsule by mouth every twelve hoursAmoxicillin 500 MG 1 capsule Orally Twice a day for 10 days May, Kuwbdu961 hr ethinyl estradiol 0.61948 mg/hr / norelgestromin 0.50797 mg/hr transdermal system (4 sources)Progestin, EstrogenStart: 03-13-2024 End: 22-65-5930ajmji 1 dose transdermal route every weeknorelgestromin-ethinyl estradiol (Xulane) 150-35 MCG/24HR Indications: 6 weeks follow-up ([facility]) Apply 1 patch each week for 3 weeks, then remove for 1 week. 3 patch 12 03/13/2024 07/01/2025 Discontinued1 ml medroxyPROGESTERone acetate 150 mg/ml injection (1 source)ProgestinStart: 07-01-2025 End: 26-76-7501ifbiwztVZYTOIEFEkpf (Depo-Provera) 150 MG/ML injection Indications: control counseling Inject1 mL (150 mg) into the shoulder, thigh, or buttocks every 3 (three) months 1 mL 3 07/01/2025 09/29/2025 Active Pre- (3 sources)Pre-Kailey ActivePrenatal Vit-Fe Fumarate-FA ( Plus) 27-1 MG tablet (2 sources) Vit-Fe Fumarate-FA ( Plus) 27-1 MG tablet 1 (one) time each day at the same time. 0 ActivePrenatal Vit-Fe Fumarate-FA (WesTab Plus) 27-1 MG tablet (4 sources)Start: 01-22-2024 End: 29-64-8901Lppilzpz Vit-Fe Fumarate-FA (WesTab Plus) 27-1 MG tablet 01/22/2024 07/01/2025 DiscontinuedStart: 61-22-6248Ntazyqxu Vit-Fe Fumarate-FA (WesTab Plus) 27-1 MG tablet 01/22/2024 Active Problems Active Problems Problem ClassificationProblemDateDocumented DateEpisodic/ChronicContraceptive and procreative management (3 sources)Encounter of female for testing for genetic disease carrier status for procreative management; Translations: [Patient encounter status]Onset: 80-00-7151RetdzuhbDzzbsglcbn during ; abruptio placenta; placenta previa (4 sources)Antepartum hemorrhage, unspecified, third trimester; Translations: [ANTEPARTUM HEMORR UNS 3RD TRIMESTER]Onset: 67-58-2002ZnuojfmyInvygckobsqpl and screening for infectious disease (5 sources)Encounter for screening for infections with a predominantly sexual mode of transmission; Translations: [Contact with and (suspected) exposure to infections with a predominantly sexual mode of transmission]Onset: 10-25-2021 EpisodicMalaise and fatigue (1 source)Chronic fatigue, unspecified; Translations: [Chronic fatigue, unspecified]Onset: 92-98-4366KeqndtoOwheonf and fatigue (2 sources)Fatigue; Translations: [Other fatigue]49-79-0515DsfxdajwXfjhnciyf disorders (4 sources)Irregular menstruation, unspecified; Translations: [IRREGULAR MENSTRUATION UNSPECIFIED]Onset: 07-21-8303GghafhpGlzsv complications of ; puerperium affecting management of mother (1 source)Obstetric laceration of cervix; Translations: [OBSTETRIC LACERATION OF CERVIX]Onset: 49-74-2147LwzwcjjbCpadx complications of ; puerperium affecting management of mother (1 source)Other immediate hemorrhage; Translations: [OTH IMMEDIATE HEMORRHAGE]Onset: 88-33-9245VgdjmmxcUwjet complications of ; puerperium affecting management of mother (1 source) inversion of uterus; Translations: [ INVERSION OF UTERUS]Onset: 47-82-9451ZkparhksWjlel complications of (2 sources)Supervision of other high risk pregnancies, second trimester; Translations: [Supervision of other high risk pregnancies, second trimester] Onset: 68-53-7112YrwdkxmtJfywa complications of (2 sources)Abnormal ultrasonic finding on screening of mother; Translations: [Abnormal ultrasonic finding on screening of mother] Onset: 43-56-3106EvsprvmoPvayc and delivery including normal (20 sources)Encounter for routine follow-up; Translations: [Encounter for supervision of normal first , third trimester]Onset: 09-29-2021 EpisodicOther screening for suspected conditions (not mental disorders or infectious disease) (14 sources)Encounter for screening for Streptococcus B; Translations: [Encounter for screening for diabetes mellitus]Onset: 46-51-6500TzcoxipzDmzqh upper respiratory infections (5 sources)Acute pharyngitis, unspecified; Translations: [Acute upper respiratory infection, unspecified]Onset: 08-13-2018 Resolved: 64-38-0944CmeaefajMxpimobq codes; unclassified (1 source)39 weeks gestation of ; Translations: [39 WEEKS GESTATION OF ]Onset: 93-50-1967BdxsseqeManyioda codes; unclassified (1 source)31 weeks gestation of ; Translations: [31 WEEKS GESTATION OF ]Onset: 33-81-8558NngnsjtfGukwqwhdtwkn (2 sources)COUGH, UNSPECIFIED; Translations: [COUGH, UNSPECIFIED]Onset: 82-27-0547Fqfvvlffczdu (1 source)CONTACT W/AND (SUSP) EXPOS COVID-19; Translations: [CONTACT W/AND (SUSP) EXPOS COVID-19]Onset: 05-29-2022 Past or Other Problems Problem ClassificationProblemDateDocumented DateEpisodic/ChronicOther ear and sense organ disorders (1 source)Impacted cerumen, left earOnset: 11-07-2021 Resolved: 14-78-3100OcgisapuRctrkavj codes; unclassified (1 source)20 weeks gestation of ; Translations: [20 WEEKS GESTATION OF ]Onset: 49-44-8119UdswqrafCmcngywxrnd injury; contusion (1 source)Contusion of left foot, initial encounter; Translations: [Contusion of left foot, initial encounter]Onset: 48-20-9678YnsmuhebCmpdlslyrvkj (1 source)COUGH, UNSPECIFIED; Translations: [COUGH, UNSPECIFIED]Onset: 40-51-8524Iqpms infection (1 source)COVID-19Onset: 02-21-2022 Resolved: 02-21-2022 Results Test NameValueInterpretationReference RangeFacilityHCG ( test) Ql (U)on 91-09-3802Uojbjdgokylhao and review of laboratory resultsNormalNOMS Healthcare Preg Test, UrNegativeNegativeNOMS HealthcareNOMS Rjdcdguwgl83-gozhgbopxphttg D3 [Mass/Vol]on 191597-oqbgxainyifttg D [Mass/Vol]30.0 ng/mL30.0 - 100.0 ng/mLNOMS HealthcareComment on above:Vitamin D deficiency has been defined by the [place] [employer] and an Endocrine Society practice guideline as a level of serum 25-OH vitamin D less than 20 ng/mL (1,2). The Endocrine Society went on to further define vitamin D insufficiency as a level between 21 and 29 ng/mL (2). 1. IOM ([place] [employer]). 2010. Dietary reference intakes for calcium and D. [place]: The National Academies Press. 2. Marvin MF, Allan NC, Will GRANADOS, et al. Evaluation, treatment, and prevention of vitamin D deficiency: an Endocrine Society clinical practice guideline. JCEM. 2010; 96(7):1911-30. CBC W Auto Differential panel (Bld)on 60-13-0235Aafjnhqso (Bld) [#/Vol]0.0 10*3/uLNOMS HealthcareBasophils/100 WBC (Bld)1 %Not Estab.[facility] Eosinophils (Bld) [#/Vol]0.0 10*3/uLNOMS HealthcareEosinophils/100 WBC (Bld)0 % Not Estab.[facility] HealthcareErythrocyte distribution width (RBC) [Ratio]12.1 %11.7 - 15.4 %[facility] HealthcareHematocrit (Bld) [Volume fraction]36.2 %34.0 - 46.6 %[facility] HealthcareHemoglobin (Bld) [Mass/Vol]12.1 g/dL11.1 - 15.9 g/dLMetropolitan Saint [facility] Center Immature granulocytes (Bld) [#/Vol]0.0 10*3/uLNOMS HealthcareImmature granulocytes/100 WBC (Bld)0 %Not Estab.[facility] HealthcareLymphocytes (Bld) [#/Vol] 1.5 10*3/uLNOMS HealthcareLymphocytes/100 WBC (Bld)28 %Not Estab.[facility] MCH (RBC) [Entitic mass]30.4 pg26.6 - 33.0 pgNOFitzgibbon HospitalMCHC (RBC) [Mass/Vol]33.4 g/dL31.5 - 35.7 g/dLMetropolitan Saint Louis Psychiatric CenterMCV (RBC) [Entitic vol]91 fL79 - 97 fLMetropolitan Saint Louis Psychiatric CenterMonocytes (Bld) [#/Vol]0.3 10*3/uLNOMS Healthcare Monocytes/100 WBC (Bld)6 %Not Estab.[facility] CenterNeutrophils (Bld) [#/Vol]3.6 10*3/uLNOMS HealthcareNeutrophils/100 WBC (Bld)65 %Not Estab.[facility] Platelets (Bld) [#/Vol]279 10*3/uLNOHI HealthcareRBC (Bld) [#/Vol]3.98 10*6/uL [facility] HealthcareWBC (Bld) [#/Vol]5.5 10*3/uLNOFitzgibbon HospitalLaboratory - Chemistry and Chemistry - challengeon [id number] [Mass/Vol]4.8 g/dL4.0 - 5.0 g/dL NOMS HealthcareALP [Catalytic activity/Vol]54 U/LNOMS HealthcareALT [Catalytic activity/Vol]13 U/LNOMS HealthcareAST [Catalytic activity/Vol]20 U/LNOMS HealthcareBilirubin [Mass/Vol]0.4 mg/dL0.0 - 1.2 mg/dLNOMS HealthcareCalcium [Mass/Vol]9.2 mg/dL8.7 - 10.2 mg/dLNOMS HealthcareChloride [Moles/Vol]105 mmol/L 96 - 106 mmol/LNOMS HealthcareCO2 [Moles/Vol]25 mmol/L20 - 29 mmol/LNOMS HealthcareCreatinine [Mass/Vol]0.71 mg/dL0.57 - 1.00 mg/dLNOMS Healthcare GFR/1.73 sq M.predicted among non-blacks MDRD (S/P/Bld) [Vol rate/Area]123 mL/min/{1.73_m2}59 - PINF mL/min/1.73NOMS HealthcareGlobulin (S) [Mass/Vol]2.6 g/dL1.5 - 4.5 g/dLNOMS HealthcareGlucose [Mass/Vol]91 mg/dL70 - 99 mg/dLNOMS HealthcareHCG.intact+Beta subunit Qn<1mIU/mLNOMS HealthcareComment on above: Female (Non-) 0 - 5 (Postmenopausal) 0 - 8 Female () Weeks of Gestation 3 6 - 71 4 10 - 750 5 217 - 4738 6 158 - 32842 7 2985 -152449 8 14620 -076087 9 53377 -018837 10 69485 -909102 12 21818 -989430 14 21051 - 81675 15 71980 - 68284 16 8739 - 90131 17 8075 - 85125 18 4894 - 77863 Renata ECLIA methodology Iron [Mass/Vol]43 ug/dL27 - 159 ug/dLNOMS HealthcareIron binding capacity [Mass/Vol]299 ug/dL250 - 450 ug/dLNOMS HealthcareIron binding capacity.unsaturated [Mass/Vol]256 ug/dL131 - 425 ug/dLNOMS HealthcareIron saturation [Mass fraction]14 %Low15 - 55 %NOMS HealthcarePotassium [Moles/Vol] 4.2 mmol/L3.5 - 5.2 mmol/LNOMS HealthcareProtein [Mass/Vol]7.4 g/dL6.0 - 8.5 g/dLNOMS HealthcareSodium [Moles/Vol]140 mmol/L134 - 144 mmol/LNOMS Healthcare Transferrin [Mass/Vol]242 mg/dL192 - 364 mg/dLNOMS HealthcareTSH Qn0.491 m[IU]/L NOMS HealthcareUrea nitrogen [Mass/Vol]13 mg/dL6 - 20 mg/dLNOMS HealthcareUrea nitrogen/Creatinine [Mass ratio]18 mg/mg9 - 23NOMS HealthcareLaboratory - Microbiology and Antimicrobial susceptibilityon 06-09-2025S. agalactiae Org specific cx Ql (Vag fld)0NOMS HealthcareS. agalactiae Org specific cx Ql (Vag fld)Not detectedNOMS ZgtjctekgyUTBS-PcV-9 (COVID-19) RNA SHANEKA+probe Ql (Unsp spec)0NOMS NzytoxqzkmFGGE-OoU-2 (COVID-19) RNA SHANEKA+probe Ql (Unsp spec)Not detectedNOMS HealthcareNo Panel Informationon 21-59-0903KGUOGWOKGSIMZ BAUMANNII (RESPIRATORY)0NOMS HealthcareACINETOBACTER BAUMANNII (RESPIRATORY)Not detected NOMS HealthcareADENOVIRUS HADV-B (RESPIRATORY)0NOMS HealthcareADENOVIRUS HADV-B (RESPIRATORY)Not detectedNOMS HealthcareBORDETELLA PERTUSSIS, PARAPERTUSSIS, BRONCHISEPTICA (RESPIRATORY)0NOMS HealthcareBORDETELLA PERTUSSIS, PARAPERTUSSIS, BRONCHISEPTICA (RESPIRATORY)Not detectedNOMS HealthcareCHLAMYDIA PNEUMONIAE (RESPIRATORY)0NOMS HealthcareCHLAMYDIA PNEUMONIAE (RESPIRATORY)Not detectedNOMS HealthcareENTEROBACTER CLOACAE COMPLEX, KLEBSIELLA (ENTEROBACTER) AEROGENES (VJUPKXJW9IHVQ HealthcareENTEROBACTER CLOACAE COMPLEX, KLEBSIELLA (ENTEROBACTER) AEROGENES (RESPIRATNot detectedNOMS HealthcareENTEROVIRUS D68 (RESPIRATORY)0NOMS HealthcareENTEROVIRUS D68 (RESPIRATORY)Not detectedNOMS HealthcareESCHERICHIA COLI (RESPIRATORY)0NOMS HealthcareESCHERICHIA COLI (RESPIRATORY)Not detectedNOMS HealthcareHAEMOPHILUS INFLUENZAE (RESPIRATORY)0NOMS HealthcareHAEMOPHILUS INFLUENZAE (RESPIRATORY)Not detectedNOMS HealthcareHUMAN METAPNEUMOVIRUS (RESPIRATORY)0NOMS HealthcareHUMAN METAPNEUMOVIRUS (RESPIRATORY)Not detectedNOMS HealthcareINFLUENZA VIRUS, A, B (RESPIRATORY)0NOMS HealthcareINFLUENZA VIRUS, A, B (RESPIRATORY)Not detectedNOMS HealthcareKLEBSIELLA PNEUMONIAE, OXYTOCA (RESPIRATORY)0NOMS HealthcareKLEBSIELLA PNEUMONIAE, OXYTOCA (RESPIRATORY)Not detectedNOMS HealthcareLEGIONELLA PNEUMOPHILA (RESPIRATORY)0[facility] LEGIONELLA PNEUMOPHILA (RESPIRATORY)Not detectedNOMS HealthcareMORAXELLA CATARRHALIS (RESPIRATORY)0NOMS HealthcareMORAXELLA CATARRHALIS (RESPIRATORY)Not detectedNOMS HealthcareMYCOPLASMA PNEUMONIAE (RESPIRATORY)0[facility] MYCOPLASMA PNEUMONIAE (RESPIRATORY)Not detectedNOMS HealthcareOTHER CORONAVIRUSES (229E, NL63, HKU1, OC43) (RESPIRATORY)0NOMS HealthcareOTHER CORONAVIRUSES (229E, NL63, HKU1, OC43) (RESPIRATORY)Not detectedNOMS Healthcare PARAINFLUENZA VIRUS (TYPES 1, 2, 3 ,4) (RESPIRATORY)0[facility] PARAINFLUENZA VIRUS (TYPES 1, 2, 3 ,4) (RESPIRATORY)Not detectedNOMS Healthcare PROTEUS MIRABILIS, VULGARIS (RESPIRATORY)0NOMS HealthcarePROTEUS MIRABILIS, VULGARIS (RESPIRATORY)Not detectedNOMS HealthcarePSEUDOMONAS AERUGINOSA (RESPIRATORY)0NOMS HealthcarePSEUDOMONAS AERUGINOSA (RESPIRATORY)Not detected NOMS HealthcareRESPIRATORY SYNCYTIAL VIRUS (RESPIRATORY)0[facility] RESPIRATORY SYNCYTIAL VIRUS (RESPIRATORY)Not detectedNOMS Healthcare RHINOVIRUS/ENTEROVIRUS (RESPIRATORY)0NOMS HealthcareRHINOVIRUS/ENTEROVIRUS (RESPIRATORY)Not detectedNOMS HealthcareSERRATIA MARCESCENS (RESPIRATORY)0NOMS HealthcareSERRATIA MARCESCENS (RESPIRATORY)Not detectedNOMS Healthcare STAPHYLOCOCCUS AUREUS (RESPIRATORY)0NOMS HealthcareSTAPHYLOCOCCUS AUREUS (RESPIRATORY)Not detectedNOMS HealthcareSTREPTOCOCCUS PNEUMONIAE (RESPIRATORY)0 NOMS HealthcareSTREPTOCOCCUS PNEUMONIAE (RESPIRATORY)Not detectedNOMS Healthcare STREPTOCOCCUS PYOGENES (GROUP A STREP) (RESPIRATORY)0[facility] STREPTOCOCCUS PYOGENES (GROUP A STREP) (RESPIRATORY)Not detectedNOMS Healthcare NOMS HealthcareInterpretation and review of laboratory resultsAbnormalNOHI HealthcarePerformed at: 02 - [facility] [address] , [address], [place], [place] [id number] Director Of Content And Programming: Lisette Luke MD, Phone: [phone] Healthcare Performed at: 01 - [address] [id number] Director Of Content And Programming: Eriberto Hawkins PhD, Phone: [phone] ( test) Ql (U)on 55-65-0203Meqebfvwgeovit and review of laboratory resultsNormal NOMS HealthcarePreg Test, UrNegativeNegativeNOAspirus [facility] Complete Blood Count Auto Diffon 78-81-1982Ewqpzgzzy (Bld) [#/Vol]0.0 10*3/uL Normal0.0-0.2The [facility] Health Physician GroupComment on above:Result Comment: PERFORMED BY: [place] [address] PATHOLOGIST METAL TEMPLATE MAKER QUAN SINGH M.D.Performed By: #### CBC, B12, FE PRO, TSH3, CMP #### [place] [address] USABasophils/100 WBC (Bld)0.6 %Normal.The [facility] Health Physician GroupComment on above:Performed By: #### CBC, B12, FE PRO, TSH3, CMP #### [place] [address] USAEosinophils (Bld) [#/Vol]0.0 10*3/uLNormal0.0-0.45The [facility] Health Physician GroupComment on above:Performed By: #### CBC, B12, FE PRO, TSH3, CMP #### [place] [address] USAEosinophils/100 WBC (Bld)0.3 %Normal.The [facility] Health Physician GroupComment on above:Performed By: #### CBC, B12, FE PRO, TSH3, CMP #### [place] [address] USAErythrocyte distribution width (RBC) [Ratio]12.9 %Normal 11.9-15.3The [facility] Health Physician GroupComment on above:Performed By: #### CBC, B12, FE PRO, TSH3, CMP #### [place] [address] USAHematocrit (Bld) [Volume fraction]39.4 %Xsiybv11.0-46.4The [facility] Health Physician GroupComment on above:Performed By: #### CBC, B12, FE PRO, TSH3, CMP #### [place] [address] USAHemoglobin (Bld) [Mass/Vol]13.2 g/bSWqqsre07.8-15.4The [facility] Health Physician GroupComment on above:Performed By: #### CBC, B12, FE PRO, TSH3, CMP #### [place] [address] USALymphocytes (Bld) [#/Vol]1.6 10*3/uLNormal1.00-4.8The [facility] Health Physician GroupComment on above:Performed By: #### CBC, B12, FE PRO, TSH3, CMP #### [place] [address] USALymphocytes/100 WBC (Bld)32.4 %Normal.The [facility] Health Physician GroupComment on above:Performed By: #### CBC, B12, FE PRO, TSH3, CMP #### [place] [address] USAMCH (RBC) [Entitic mass]30.0 qtPzghuu76.7-34.3The [facility] Health Physician GroupComment on above:Performed By: #### CBC, B12, FE PRO, TSH3, CMP #### [address]MCV (RBC) [Entitic vol]89.5 dFOsflgq55-669Psc [facility] Physician GroupComment on above:Performed By: #### CBC, B12, FE PRO, TSH3, CMP #### [place] [address] USAMean Corpuscular HGB Conc33.5 g/lXHqmqht44.0-35.0The [facility] Health Physician GroupComment on above:Performed By: #### CBC, B12, FE PRO, TSH3, CMP #### [place] [address] USAMonocytes (Bld) [#/Vol]0.3 10*3/uLNormal0.0-0.8The [facility] Health Physician GroupComment on above:Performed By: #### CBC, B12, FE PRO, TSH3, CMP #### [facility] [address] [place] [address] USAMonocytes/100 WBC (Bld)6.1 %Normal.The [facility] Health Physician GroupComment on above:Performed By: #### CBC, B12, FE PRO, TSH3, CMP #### [place] [address] USANeutrophils (Bld) [#/Vol]3.1 10*3/uLNormal1.8-7.7The [facility] Health Physician GroupComment on above:Performed By: #### CBC, B12, FE PRO, TSH3, CMP #### [place] [address] USANeutrophils/100 WBC (Bld)60.6 %Normal.The [facility] Health Physician GroupComment on above:Performed By: #### CBC, B12, FE PRO, TSH3, CMP #### [place] [address] USANRBC%0.1 /100{WBC}Normal0-0.5The [facility] Comment on above:Performed By: #### CBC, B12, FE PRO, TSH3, CMP #### [place] [address] USAPlatelet mean volume (Bld) [Entitic vol]8.7 fLNormal 6.3-10.7The [facility] Health Physician GroupComment on above:Performed By: #### CBC, B12, FE PRO, TSH3, CMP #### [place] [address] USAPlatelets (Bld) [#/Vol]284 10*3/pZAtqjoj473-951Hys [facility] Physician GroupComment on above:Performed By: #### CBC, B12, FE PRO, TSH3, CMP #### [place] [address] USARBC (Bld) [#/Vol]4.40 10*6/uLNormal3.60-5.00The [facility] Health Physician GroupComment on above:Performed By: #### CBC, B12, FE PRO, TSH3, CMP #### [place] [address] USAWBC (Bld) [#/Vol]5.0 10*3/uLNormal3.8-11.6The [facility] Health Physician GroupComment on above:Performed By: #### CBC, B12, FE PRO, TSH3, CMP #### [place] [address] USAComprehensive Metabolic Panelon 02-72-4578Wjjxlby [Mass/Vol]4.9 g/dLNormal3.5-5.7The [facility] Health Physician GroupComment on above: Performed By: #### CBC, B12, FE PRO, TSH3, CMP #### [place] [address] USAAlbumin/Globulin [Mass ratio]1.8 {ratio}NormalThe [facility]rium Health Physician GroupComment on above:Performed By: #### CBC, B12, FE PRO, TSH3, CMP #### [place] [address] USAALP [Catalytic activity/Vol]51 U/WCdydkn69-026Bfj [facility] Physician GroupComment on above:Performed By: #### CBC, B12, FE PRO, TSH3, CMP #### [place] [address] USAALT [Catalytic activity/Vol]10 U/LNormal7-52The [facility] Health Physician GroupComment on above:Performed By: #### CBC, B12, FE PRO, TSH3, CMP #### [place] [address] USAAnion gap [Moles/Vol]12.7 mmol/LNormal6.0-15.0The [facility] Health Physician GroupComment on above:Performed By: #### CBC, B12, FE PRO, TSH3, CMP #### [place] [address] USAAST [Catalytic activity/Vol]14 U/CZmrapk10-33Fzi [facility] Physician GroupComment on above:Performed By: #### CBC, B12, FE PRO, TSH3, CMP #### [place] [address] USABilirubin [Mass/Vol]0.6 mg/dLNormal0.3-1.0The [facility] Health Physician GroupComment on above:Performed By: #### CBC, B12, FE PRO, TSH3, CMP #### [place] [address] USACalcium [Mass/Vol]9.9 mg/dLNormal8.6-10.3The [facility] Health Physician GroupComment on above:Performed By: #### CBC, B12, FE PRO, TSH3, CMP #### [place] [address] USAChloride [Moles/Vol]106 mmol/RFcgfxi77-348Gqw [facility] Physician GroupComment on above:Performed By: #### CBC, B12, FE PRO, TSH3, CMP #### [place] [address] USACO2 [Moles/Vol]24.9 mmol/OEozscc49.0-31.0The [facility] Health Physician GroupComment on above:Performed By: #### CBC, B12, FE PRO, TSH3, CMP #### [place] [address] USACreatinine [Mass/Vol]0.67 mg/dLNormal0.60-1.20The [facility] Health Physician GroupComment on above:Performed By: #### CBC, B12, FE PRO, TSH3, CMP #### [place] [address] USAGFR/1.73 sq M.predicted MDRD (S/P/Bld) [Vol rate/Area] mL/min/{1.73_m2}NormalThe Atrium Health Physician GroupComment on above:Performed By: #### CBC, B12, FE PRO, TSH3, CMP #### [address] [address] USAGlobulin (S) [Mass/Vol]2.8 g/dLNormalThe [facility]rium Health Physician GroupComment on above:Performed By: #### CBC, B12, FE PRO, TSH3, CMP #### [place] [address] USAGlucose [Mass/Vol]93 mg/yZMlmltu63-884Qxm [facility] Physician GroupComment on above:Result Comment: Random Glucose Reference Range is dependent on time and content of last meal. Glucose of more than 200 mg/dL in a nonstressed, ambulatory subject supports the diagnosis of Diabetes Mellitus. ADA recommended reference rangePerformed By: #### CBC, B12, FE PRO, TSH3, CMP #### [place] [address] USAPotassium [Moles/Vol]4.6 mmol/LNormal3.5-5.1The [facility] Health Physician GroupComment on above:Performed By: #### CBC, B12, FE PRO, TSH3, CMP #### [place] [address] USAProtein [Mass/Vol]7.7 g/dLNormal6.4-8.9The [facility] Health Physician GroupComment on above:Performed By: #### CBC, B12, FE PRO, TSH3, CMP #### [place] [address] USASodium [Moles/Vol]139 mmol/GHywkta015-130Zlb [facility] Physician GroupComment on above:Performed By: #### CBC, B12, FE PRO, TSH3, CMP #### [place] [address] USAUrea nitrogen [Mass/Vol]17 mg/dLNormal7-25The [facility] Health Physician GroupComment on above:Performed By: #### CBC, B12, FE PRO, TSH3, CMP #### [place] [address] USAFE PROon 12--2023% Iron Pcabuimjds22.4 %Potzhj16-56Vxd [facility] Physician GroupComment on above:Performed By: #### CBC, B12, FE PRO, TSH3, CMP #### [place] [address] USAFerritin [Mass/Vol]10.8 ng/mLLow11.0-306.8The [facility] Health Physician GroupComment on above:Performed By: #### CBC, B12, FE PRO, TSH3, CMP #### [place] [address] USAIron [Mass/Vol]88 ug/vNLhpayd83-544Hrh [facility] Physician GroupComment on above:Performed By: #### CBC, B12, FE PRO, TSH3, CMP #### [place] [address] USATotal Iron Binding Rsytskch106 ug/xYJzsmis599-103Tbb [facility] Physician GroupComment on above:Performed By: #### CBC, B12, FE PRO, TSH3, CMP #### [place] [address] USATransferrin [Mass/Vol]248 mg/kMMnkuvj818-132Ooq [facility] Physician GroupComment on above:Performed By: #### CBC, B12, FE PRO, TSH3, CMP #### [place] [address] USAThyroid Stimulating Hormoneon 68-00-3759TJR Qn0.58 m[IU]/L Normal0.45-5.33The [facility] Residential CenterComment on above:Result Comment: PERFORMED BY: [place] [address] PATHOLOGIST METAL TEMPLATE MAKER QUAN SINGH M.D.Performed By: #### CBC, B12, FE PRO, TSH3, CMP #### [place] [address] USAVitamin B12on [id number] (Vitamin B12) [Mass/Vol] 232 pg/[id number] [facility] Physician GroupComment on above:Performed By: #### CBC, B12, FE PRO, TSH3, CMP #### [place] [address] USACoxsackie B Abon [id number] tp. B1<1:10Normal <1:10[facility] PresbyterianComment on above:Performed By: #### ACOXA9, APARVP, ACOXAB #### [facility] [address] [place] [address] Director Of Content And Programming: Demetrio Keller MD #### TOXOM, CMVG, CMVM, TOXOG #### [address] [address] Director Of Content And Programming: Marga Forbes. B2<1:10Normal<1:10[facility] PresbyterianComment on above:Performed By: #### ACOXA9, APARVP, ACOXAB #### [facility] [address] [place] [address] Director Of Content And Programming: Demetrio Keller MD #### TOXOM, CMVG, CMVM, TOXOG #### [facility] Laboratories [address] [place] [address] Director Of Content And Programming: Marga Forbes. B31:80Abnormal<1:10Wilson Memorial HospitalComment on above:Performed By: #### ACOXA9, APARVP, ACOXAB #### [facility] [address] [place] [address] Director Of Content And Programming: Demetrio Keller MD #### TOXOM, CMVG, CMVM, TOXOG #### [address] [address] Director Of Content And Programming: Marga Forbes B41:20Normal<1:10[facility] PresbyterianComment on above:Performed By: #### ACOXA9, APARVP, ACOXAB #### [facility] [address] [place] [address] Director Of Content And Programming: Demetrio Keller MD #### TOXOM, CMVG, CMVM, TOXOG #### [place] [id number] Director Of Content And Programming: Marga Forbes. B51:80Abnormal<1:10MerWest Los Angeles VA Medical CenterComment on above:Performed By: #### ACOXA9, APARVP, ACOXAB #### [address] [id number] Director Of Content And Programming: Demetrio Keller MD #### TOXOM, CMVG, CMVM, TOXOG #### [address] [address] Director Of Content And Programming: Marga Forbes. B6<1:10Normal<1:10[facility] HospitalComment on above:Result Comment: (NOTE) INTERPRETIVE INFORMATION: Coxsackie B Virus Single positive antibody titers of greater than or equal to 1:80 may indicate past or current infection. Sero- conversion or an increase in titers between acute and convalescent sera of at least fourfold is considered strong evidence of current or recent infection. Performed By: [employer] [address] [place] [address] Bag Adjuster: Ravi Mejia MD, PhD CLIA Number: [id number] By: #### ACOXA9, APARVP, ACOXAB #### [address] [id number] Director Of Content And Programming: Demetrio Keller MD #### TOXOM, CMVG, CMVM, TOXOG #### [place] [id number] Director Of Content And Programming: Marga Forbes A9 Titeron 76-39-1021Ezuqsaynt A9 Titer1:8Normal<1:8[facility] PresbyterianComment on above:Result Comment: (NOTE) INTERPRETIVE INFORMATION: Coxsackie A Serotype 9 Titer Single positive antibody titers of greater than 1:32 may indicate past or current infection. Seroconversion or an increase in titers between acute and convalescent sera of at least fourfold is considered strong evidence of current or recent infection. Performed By: [employer] [address] [place] [address] Bag Adjuster: Ravi Mejia MD, PhD CLIA Number: [id number] By: #### ACOXA9, APARVP, ACOXAB #### [address] [address] Director Of Content And Programming: Demetrio Keller MD #### TOXOM, CMVG, CMVM, TOXOG #### [address] [address] Director Of Content And Programming: Ankush Forebsvovirus B19 Panelon 00-97-7937Njuylwtuck IgG B196.58 IVHigh<=0.90Wilson [facility] HospitalComment on above:Result Comment: (NOTE) INTERPRETIVE INFORMATION: Parvovirus B19 Antibody, IgG 0.90 [...] in the same laboratory at the same time.Performed By: #### ACOXA9, APARVP, ACOXAB #### [employer] [address] [place] [address] Director Of Content And Programming: Demetrio Keller MD #### TOXOM, CMVG, CMVM, TOXOG #### [address] [id number] Director Of Content And Programming: Juliana Forbesvirus IgM B190.13 IVNormal<=0.90Wilson Memorial HospitalComment on above:Result Comment: (NOTE) INTERPRETIVE INFORMATION: Parvovirus B19 Antibody, IgM EFFECTIVE 07/05/2023 REFERENCE INTERVAL CHANGE Due to reagent kit computer engineering technologist recall, an alternate kit has been validated and implemented by [facility]. The following Reference Interval applies to [...] levels of specific IgM antibodies. Performed By: [employer] [address] [place] [address] Bag Adjuster: Ravi Mejia MD, PhD CLIA Number: [id number] By: #### ACOXA9, APARVP, ACOXAB #### [facility] [address] [place] [address] Director Of Content And Programming: Demetrio Keller MD #### TOXOM, CMVG, CMVM, TOXOG #### [facility] [employer] [address] [place] [address] Director Of Content And Programming: Kaila Forbes 45-13-5039Nasx Out ReportFORWARD UNITY KIT FED EX [phone] 1426NormalWilson Memorial HospitalComment on above:Performed By: #### CMIS #### [employer] [address] [place] [address] [phone] Director Of Content And Programming: Edy Mark MDToxoplasma Ab,IgGon 40-04-3056Huipzfgagd Ab,IgG <0.5[facility], Edwin ShawComment on above:Result Comment: REFERENCE RANGE: <6.3 NON-REACTIVE 6.4 TO 9.9 EQUIVOCAL >=10.0 REACTIVE THE PRESENCE OF TOXOPLASMA GONDII IgG ANTIBODIES IS INDICATIVE OF EXPOSURE TO THE PROTOZOAN. THE ABSENCE OF TOXOPLASMA IgG ANTIBODIES SUGGESTS THAT THE PATIENT HAS NOT BEEN EXPOSED TO THIS ORGANISM AND IS SUSCEPTIBLE TO PRIMARY INFECTION. DETERMINATION OF PRIMARY OR RECENT INFECTION REQUIRES DEMONSTRATING SEROCONVERSION BETWEEN ACUTE AND CONVALESCENT SERA.Performed By: #### ACOXA9, APARVP, ACOXAB #### [facility] [address] [place] [address] [phone] Director Of Content And Programming: Demetrio Keller MD #### TOXOM, CMVG, CMVM, TOXOG #### [place] [address] Director Of Content And Programming: Edy Mark MDToxoplasma Ab,IgMon 24-67-9591Xzdgnqepyl Ab,IgM 0.31 IndexNoAdams County HospitalComment on above:Result Comment: REFERENCE RANGE: <0.90 NON-REACTIVE 0.90 TO 0.99 INDETERMINANT >=1.00 REACTIVEPerformed By: #### ACOXA9, APARVP, ACOXAB #### [facility] [address] [place] [address] Director Of Content And Programming: Demetrio Keller MD #### TOXOM, CMVG, CMVM, TOXOG #### [place] [id number] Director Of Content And Programming: Edy Mark MDCMV Ab,IgGon 12-61-4658OBW Ab,LeM098.0High<0.5 Wilson Memorial HospitalComment on above:Result Comment: Reference Range: <0.5 Non Reactive 0.5 [...] within the context of clinical and other findings.Performed By: #### ACOXA9, APARVP, ACOXAB #### [facility] [address] [place], [place] [id number] Director Of Content And Programming: Demetrio Keller MD #### TOXOM, CMVG, CMVM, TOXOG #### [address] [id number] Director Of Content And Programming: APPLE ForbesMV Ab,IgMon 20-92-5283YJK Ab,IgM0.2Normal<0.7 Wilson Memorial HospitalComment on above:Result Comment: Reference Range: <0.7 Non Reactive 0.7 [...] with different assay methods cannot be used interchangeably.Performed By: #### ACOXA9 APARVP, ACOXAB #### [facility] [address] [place] [address] Director Of Content And Programming: Demetrio Keller MD #### TOXOM, CMVG, CMVM, TOXOG #### [facility] [employer] [address] [place] [address] [phone] Director Of Content And Programming: Kaila Forbes 15-36-0122Dteo NameUNITYNormal Wilson Memorial HospitalComment on above:Performed By: #### CMIS #### [facility] [address] [place] [address] [phone] Director Of Content And Programming: SIDNEY Forbes OB GROWTHon 07-50-9259N[address] [address] Ultrasound Report Signed Patient: JAMES HARRELL MR#: [id number] : 2005 Acct:[id number] Age/Sex: 18 / F ADM Date: 11/27/23 Loc: [facility] Attending Dr: Jd Canela D.O. Ordering Physician: Jd Canela D.O. Date of Service: 11/27/23 Procedure(s): US OB growth Accession Number(s): [id number] cc: Jd Canela D.O.; Physician,Non-Staff M.Melonie [address] [address] Patient Name: JAMES HARRELL MRN: [id number] date: 2005 Sex: F Assigned Patient Location: [facility] Current Patient Location: [facility] Accession/Order Number: [id number] Exam Date: 11/27/2023 10:38 Report Date: 11/27/2023 11:28 At the request of: JD CANELA Procedure: US OB growth EXAMINATION: US [...] of left renal pelvis/hydronephrosis approaching upper limits of normal (currently 8 mm in width). 3. Trace amount of scrotal fluid/hydrocele. Electronically authenticated by: VI COOPER Date: 11/27/2023 11:28 Dictated By: Vi Cooper M.D. Signed By: 11/27/23 1131 DD/ 1128 TD/TT: Sanforizing Machine Operator:TBHRadiology, Radiologist, MD - 11/27/2023 [place] [address] Ultrasound Report Signed Patient: JAMES HARRELL MR#: [id number] : 2005 Acct:[id number] Age/Sex: 18 / F ADM Date: 11/27/23 Loc: [facility] Attending Dr: Jd Canela D.O. Ordering Physician: Jd Canela D.O. Date of Service: 11/27/23 Procedure(s): US OB growth Accession Number(s): [id number] cc: Jd Canela D.O.; Physician,Non-Staff [place] The [place] [id number] Patient Name: JAMES HARRELL MRN: [id number] date: 2005 Sex: F Assigned Patient Location: [facility] Current Patient Location: [facility] Accession/Order Number: [id number] Exam Date: 11/27/2023 10:38 Report Date: 11/27/2023 11:28 At the request of: JD CANELA Procedure: US OB growth EXAMINATION: US [...] of left renal pelvis/hydronephrosis approaching upper limits of normal (currently 8 mm in width). 3. Trace amount of scrotal fluid/hydrocele. Electronically authenticated by: VI COOPER Date: 11/27/2023 11:28 Dictated By: Vi Cooper M.D. Signed By: 11/27/23 1131 DD/ 1128 TD/TT: Sanforizing Machine Operator: [facility] CenterRadiology Study observation (narrative)[facility] CenterUS OB GROWTHOrdered By: Radiologist Radiology on 32-36-4825TDVWMetropolitan Saint Louis Psychiatric Center Work Phone: Urinalysis macro (dipstick) panel (U)on 10-02-2023 Bilirubin, UANegativeNegative - 4(70) +++ mg/dLNOMS HealthcareBlood, UANegative Negative - 50 Oneal/mcLNOHI HealthcareClarity, UAClearNOHI HealthcareColor, UA YellowNOMS HealthcareGlucose, UANegativeNegative - 2000(110) ++++ mg/dLNOHI HealthcareInterpretation and review of laboratory resultsNormalNOFitzgibbon Hospital Ketones, UANegativeNegative - 160(16) ++++ mg/dLNOHI HealthcareLeukocytes, UA NegativeNegative - 500+++ Phillip/mcLNOMS HealthcareNitrite, UANegativeNegative - PositiveNOMS HealthcarepH, UA5.55 - 9NOMS HealthcareProtein, UANegativeNegative - 2000(20) ++++ mg/dLNOMS HealthcareSpec Grav, UA1.0101 - 1.03N[facility] Urobilinogen, UA1.00.2 - 12 mg/dLNOHI HealthcareNOMS HealthcareNo Panel InformationOrdered By: Radiologist Radiology on 40-35-2884DRPK [facility] Work Phone: No Panel Informationon 28-94-7247Douzfhmik Study observation (narrative)CEDRICK Gimenez OB ANATOMYon 56-20-9283Sy[address] [address] Ultrasound Report Signed Patient: JAMES HARRELL MR#: [id number] : 2005 Acct:[id number] Age/Sex: 18 / F ADM Date: 09/05/23 Loc: US Attending Dr: Jd Canela D.O. Ordering Physician: Jd Canela D.O. Date of Service: 09/05/23 Procedure(s): US OB anatomy Accession Number(s): [id number] cc: Jd Canela D.O.; Physician,Non-Staff M.Melonie The [address] [address] Patient Name: JAMES HARRELL MRN: [id number] date: 2005 Sex: F Assigned Patient Location: US Current Patient Location: US Accession/Order Number: [id number] Exam Date: 09/05/2023 13:10 Report Date: 09/05/2023 14:55 At the request of: JD CANELA Procedure: US OB anatomy EXAMINATION: US [...] kidneys, bladder, umbilical cord insertion into abdomen, three-vessel cord, cervical spine, thoracic spine, lumbar spine, sacral spine, right upper extremity, left upper extremity, right lower extremity, left lower extremity. SUBOPTIMALLY SEEN: None ABNORMALITIES: None BIOMETRY: [...] with growth detailed above. Electronically authenticated by: VI COOPER Date: 09/05/2023 14:55 Dictated By: Vi Cooper M.D. Signed By: 09/05/23 1458 DD/ 1455 TD/TT: Sanforizing Machine Operator:TBHRadiology, Radiologist, MD - 09/05/2023 [place] [address] Ultrasound Report Signed Patient: JAMES HARRELL MR#: [id number] : 2005 Acct:[id number] Age/Sex: 18 / F ADM Date: 09/05/23 Loc: US Attending Dr: Jd Canela D.O. Ordering Physician: Jd Canela D.O. Date of Service: 09/05/23 Procedure(s): US OB anatomy Accession Number(s): [id number] cc: Jd Canela D.O.; Physician,Non-Staff Taylor The [place] [id number] Patient Name: JAMES HARRELL MRN: [id number] date: 2005 Sex: F Assigned Patient Location: US Current Patient Location: US Accession/Order Number: [id number] Exam Date: 09/05/2023 13:10 Report Date: 09/05/2023 14:55 At the request of: JD CANELA Procedure: US OB anatomy EXAMINATION: US [...] kidneys, bladder, umbilical cord insertion into abdomen, three-vessel cord, cervical spine, thoracic spine, lumbar spine, sacral spine, right upper extremity, left upper extremity, right lower extremity, left lower extremity. SUBOPTIMALLY SEEN: None ABNORMALITIES: None BIOMETRY: [...] with growth detailed above. Electronically authenticated by: VI COOPER Date: 09/05/2023 14:55 Dictated By: Vi Cooper M.D. Signed By: 09/05/23 1458 DD/ 1455 TD/TT: Sanforizing Machine Operator: CEDRICK Mars OB CERVICAL LENGTHon 84-83-0049[place]cd[place] [address] Ultrasound Report Signed Patient: JAMES HARRELL MR#: [id number] : 2005 Acct:[id number] Age/Sex: 18 / F ADM Date: 09/05/23 Loc: US Attending Dr: Jd Canela D.O. Ordering Physician: Jd Canela D.O. Date of Service: 09/05/23 Procedure(s): US OB cervical length Accession Number(s): [id number] cc: Jd Canela D.O.; Physician,Non-Staff Taylor [address] [address] Patient Name: JAMES HARRELL MRN: [id number] date: 2005 Sex: F Assigned Patient Location: US Current Patient Location: US Accession/Order Number: [id number] Exam Date: 09/05/2023 13:10 Report Date: 09/05/2023 14:55 At the request of: JD CANELA Procedure: US OB cervical length EXAMINATION: [...] kidneys, bladder, umbilical cord insertion into abdomen, three-vessel cord, cervical spine, thoracic spine, lumbar spine, sacral spine, right upper extremity, left upper extremity, right lower extremity, left lower extremity. SUBOPTIMALLY SEEN: None ABNORMALITIES: None BIOMETRY: [...] with growth detailed above. Electronically authenticated by: VI COOPER Date: 09/05/2023 14:55 Dictated By: Vi Cooper M.D. Signed By: 09/05/23 1458 DD/ 1455 TD/TT: Sanforizing Machine Operator:CASSIDYadiologyoko, Radiologist, - 09/05/2023 [place] [address] Ultrasound Report Signed Patient: JAMES HARRELL MR#: [id number] : 2005 Acct:[id number] Age/Sex: 18 / F ADM Date: 09/05/23 Loc: US Attending Dr: Jd Canela D.O. Ordering Physician: Jd Canela D.O. Date of Service: 09/05/23 Procedure(s): US OB cervical length Accession Number(s): [id number] cc: Jd Canela D.O.; Physician,Non-Staff Taylor [facility] [place] [id number] Patient Name: JAMES HARRELL MRN: [id number] date: 2005 Sex: F Assigned Patient Location: US Current Patient Location: US Accession/Order Number: [id number] Exam Date: 09/05/2023 13:10 Report Date: 09/05/2023 14:55 At the request of: JD CANELA Procedure: US OB cervical length EXAMINATION: [...] kidneys, bladder, umbilical cord insertion into abdomen, three-vessel cord, cervical spine, thoracic spine, lumbar spine, sacral spine, right upper extremity, left upper extremity, right lower extremity, left lower extremity. SUBOPTIMALLY SEEN: None ABNORMALITIES: None BIOMETRY: [...] with growth detailed above. Electronically authenticated by: VI COOPER Date: 09/05/2023 14:55 Dictated By: Vi Cooper M.D. Signed By: 09/05/23 1458 DD/ 54 TD/TT: Sanforizing Machine Operator: CEDRICK Cortez Strepon 05-28-2023S. pyogenes Org specific cx Ql (Throat) PositiveNortmySchoolNotebook Other Quick StrepNoSmart Adventure Other 001-2819Jftra-37 PCR ([facility])on 40-31-8898TIAY-CoV-2 (COVID- 19) RNA SHANEKA+probe Ql (Unsp spec)Not detectedNormalNOT DETECTEDThe Memorial Health SystemComment on above:Result Comment: When diagnostic testing is negative, the [...] for this test is supported by the [employer] of Health and Human Service's declaration that circumstances exist to justify the emergency use of in vitro diagnostics for the detection and/or diagnosis of the virus that causes COVID-19. This EUA will remain in effect for the duration of the COVID-19 declaration justifying emergency of IVDs, unless it is terminated or revoked by the FDA (after which the test may no longer be used).Performed By: #### HBSANS #### [facility] [address] [place] [address] Dr. Marvin AshfordGROUP A STREP CULTUREon 05-26-2022. pyogenes Ag Ql (Unsp spec) Culture Observations: NEGATIVE FOR GROUP A STREPTOCOCCUS.NormalThe Memorial Health SystemComment on above: Performed By: #### CBC #### [facility] [address] [place] [address] Dr. Marvin AshfordSTREPT SCREENon 05-26-5650QMPFP SCREEN ANegativeNormalNEGATIVESelect Medical Specialty Hospital - Columbus SouthComment on above:Performed By: #### CBC #### [place] [address] Dr. Marvin RIVERA PLASMAon 24-90-7103CRTWO FROZ PLASMAUnit Blood Type A Pos Unit Number [id number] Status Information Transfused Product ID FFP Product Code [id number] State Health SystemComment on above:Performed By: #### FFP #### [place] [address] Dr[address] Marvin RIVERA PLASMAUnit Blood Type A Pos Unit Number [id number] Status Information Transfused Product ID FFP Product Code [id number] State Health SystemComment on above:Performed By: #### FFP #### [facility] [address] [place] [address] Dr. Marvin AshfordPRBC LEUKOREDUCEDon 03-76-7818SOG and Rh group Nom (Bld)Cross Match Result Compatible Unit Blood Type A Pos Unit Number [id number] Status Information Transfused Product ID Red Blood Cells Product Code [id number] Cross Match Result Compatible Unit Blood Type A Pos Unit Number [id number] Status Information Released Specimen Exp Date Product ID Red Blood Cells Product Code [id number] Children's Medical CenterComment on above:Performed By: #### PRBC #### [facility] [address] [place] [address] Dr. Marvin Olson and Rh group Nom (Bld)Cross Match Result Compatible Unit Blood Type A Pos Unit Number [id number] Status Information Released Specimen Exp Date Product ID Red Blood Cells Product Code [id number] Cross Match Result Compatible Unit Blood Type A Pos Unit Number [id number] Status Information Transfused Product ID Red Blood Cells Product Code [id number] Memorial Health SystemComment on above:Performed By: #### HBSANS #### [facility] [address] [place] [address] Dr. Marvin Botello AUTO DIFFon 09-95-2369FEQS #0.1 103/ulNormal0.0-0.1The Memorial Health SystemComment on above:Performed By: #### GBSCX #### [facility] [address] [place] [address] Dr. Marvin AshfordBasophils/100 WBC (Bld)0.3 %Normal0.2-2.0[facility] Comment on above:Performed By: #### GBSCX #### [facility] [address] [place] [address] Dr. Marvin Kat #0.0 103/ulNormal0.0-0.7The Memorial Health SystemComment on above: Performed By: #### GBSCX #### [facility] [address] [place] [address] Dr. Marvin Meraosinophils/100 WBC (Bld)0.2 %Critically low0.9-7.0The Memorial Health SystemComment on above:Performed By: #### GBSCX #### [facility] [address] [place] [address] Dr. Marvin Merarythrocyte distribution width (RBC) [Ratio]14.6 %Naxjst26.0-15.0 [facility] SouthComment on above:Performed By: #### GBSCX #### [facility] [address] [place] [address] Dr. Marvin AshfordHematocrit (Bld) [Volume fraction]25.6 %Critically low36.0-48.0 The [facility]ral HospitalComment on above:Performed By: #### GBSCX #### [facility] [address] [place] [address] Dr. Marvin AshfordHemoglobin (Bld) [Mass/Vol]8.8 g/dLCritically low12.0-16.0The [facility] Health SystemComment on above:Performed By: #### GBSCX #### [facility] [address] [place] [address] Dr. Marvin Perkins #0.14 10e3/ulCritically high0.00-0.03The [facility] Comment on above:Performed By: #### GBSCX #### [facility] [address] [place] [address] Dr. Marvin Perkins %0.9 %Critically high0.0-0.5The Memorial Health SystemComment on above:Performed By: #### GBSCX #### [facility] [address] [place] [address] Dr. Marvin Stockton #2.7 103/ulNormal1.2-3.8The Memorial Health SystemComment on above:Performed By: #### GBSCX #### [facility] [address] [place] [address] Dr. Marvin Rebolledohocytes/100 WBC (Bld)17.1 %Critically low20.5-60.0The Memorial Health SystemComment on above:Performed By: #### GBSCX #### [facility] [address] [place] [address] Dr. Marvin PoeUAL DIFF REQNONormalThe Memorial Health SystemComment on above: Performed By: #### GBSCX #### [facility] [address] [place] [address] Dr. Marvin Nuno (RBC) [Entitic mass]31.1 gvZzsjpd07.7-34.0The Memorial Health SystemComment on above:Performed By: #### GBSCX #### [facility] [address] [place] [address] Dr. Marvin MosesHC (RBC) [Mass/Vol]34.4 g/gGPkufew20.9-35.2The [facility] Health SystemComment on above:Performed By: #### GBSCX #### [facility] [address] [place] [address] Dr. Marvin MosesV (RBC) [Entitic vol]90.5 rJIvljhr28.0-99.0The [facility] Health SystemComment on above:Performed By: #### GBSCX #### [facility] [address] [place] [address] Dr. Marvin Olivares #1.0 103/ulCritically high0.3-0.8The [facility] Comment on above:Performed By: #### GBSCX #### [facility] [address] [place] [address] Dr. Marvin Richmondocytes/100 WBC (Bld)6.4 %Normal1.7-12.0[facility] Comment on above:Performed By: #### GBSCX #### [facility] [address] [place] [address] Dr. Marvin Teran #11.7 103/ulCritically high1.4-6.5The [facility] Comment on above:Performed By: #### GBSCX #### [facility] [address] [place] [address] Dr. Marvin Ericutrophils/100 WBC (Bld)75.1 %Critically high43.0-75.0The [facility] Health SystemComment on above:Performed By: #### GBSCX #### [facility] [address] [place] [address] Dr. Marvin Flynnlet mean volume (Bld) [Entitic vol]10.2 fLNormal9.5-13.5The [facility] Health SystemComment on above:Performed By: #### GBSCX #### [facility] [address] [place] [address] Dr. Marvin AshfordPLT114 103/ulCritically zpc461-355Wpn Memorial Health SystemComment on above:Performed By: #### GBSCX #### [facility] [address] [place] [address] Dr. Marvin AshfordRBC2.83 106/ulCritically low4.20-5.40The [facility] Hospitalment on above:Performed By: #### GBSCX #### [facility] [address] [place] [address] Dr. Marvin AshfordWBC15.5 103/ulCritically high4.0-11.0The [facility] Health SystemComment on above:Performed By: #### GBSCX #### [facility] [address] [place] [address] Dr. Marvin Botello AUTO DIFFon 04-49-7475BCGH #0.1 103/ulNormal0.0-0.1The [facility] on above:Performed By: #### CBC #### [facility] [address] [place] [address] Dr. Marvin AshfordBasophils/100 WBC (Bld)0.2 %Normal0.2-2.0The [facility] on above:Performed By: #### CBC #### [facility] [address] [place] [address] Dr. Marvin Kat #0.0 103/ulNormal0.0-0.7The [facility] on above: Performed By: #### CBC #### [facility] [address] [place] [address] Dr. Marvin Meraosinophils/100 WBC (Bld)0.0 %Critically low0.9-7.0The [facility] on above:Performed By: #### CBC #### [facility] [address] [place] [address] Dr. Marvin Merarythrocyte distribution width (RBC) [Ratio]14.1 %Bwaafr90.0-15.0 The [facility] Hospitalment on above:Performed By: #### CBC #### [facility] [address] [place] [address] Dr. Marvin AshfordHematocrit (Bld) [Volume fraction]26.6 %Critically low36.0-48.0 The [facility] Health SystemComment on above:Performed By: #### CBC #### [facility] [address] [place] [address] Dr. Marvin AshfordHemoglobin (Bld) [Mass/Vol]9.2 g/dLCritically low12.0-16.0The [facility] Health SystemComment on above:Performed By: #### CBC #### [facility] [address] [place] [address] Dr. Marvin Perkins #0.24 10e3/ulCritically high0.00-0.03[facility] Comment on above:Performed By: #### CBC #### [facility] [address] [place] [address] Dr. Marvin Perkins %1.0 %Critically high0.0-0.5The [facility] SystemComment on above:Performed By: #### CBC #### [facility] [address] [place] [address] Dr. Marvin Stockton #2.0 103/ulNormal1.2-3.8The [facility] SystemComment on above:Performed By: #### CBC #### [facility] [address] [place] [address] Dr. Marvin Rebolledohocytes/100 WBC (Bld)8.3 %Critically low20.5-60.0The [facility] SystemComment on above:Performed By: #### CBC #### [facility] [address] [place] [address] Dr. Marvin oPeUAL DIFF REQNONormalThe [facility] SystemComment on above: Performed By: #### CBC #### [facility] [address] [place] [address] Dr. Marvin Nuno (RBC) [Entitic mass]30.8 qrZwsogn17.7-34.0The [facility] SystemComment on above:Performed By: #### CBC #### [facility] [address] [place] [address] Dr. Marvin MosesHC (RBC) [Mass/Vol]34.6 g/xFIvbqdw73.9-35.2The [facility] SystemComment on above:Performed By: #### CBC #### [facility] [address] [address] [address] Marvin MosesV (RBC) [Entitic vol]89.0 fTBazidr25.0-99.0The [facility] SystemComment on above:Performed By: #### CBC #### [facility] [address] [address] [address] Marvin Olivares #2.6 103/ulCritically high0.3-0.8[facility] Comment on above:Performed By: #### CBC #### [facility] [address] [place] [address] Dr. Marvin Richmondocytes/100 WBC (Bld)10.6 %Normal1.7-12.0[facility] Comment on above:Performed By: #### CBC #### [facility] [address] [place] [address] Dr. Marvin Teran #19.3 103/ulCritically high1.4-6.5ThGood [facility] Comment on above:Performed By: #### CBC #### [facility] [address] [place] [address] Dr. Marvin Ericutrophils/100 WBC (Bld)79.9 %Critically high43.0-75.0The [facility] SystemComment on above:Performed By: #### CBC #### [facility] [address] [place] [address] Dr. Marvin Ojeda mean volume (Bld) [Entitic vol]9.7 fLNormal9.5-13.5The [facility] SystemComment on above:Performed By: #### CBC #### [facility] [address] [place] [address] Dr. Marvin George98 103/ulCritically usy120-154Jnr [facility] SystemComment on above:Performed By: #### CBC #### [facility] [address] [place] [address] Dr. Marvin RamosC2.99 106/ulCritically low4.20-5.40The [facility] SystemComment on above:Performed By: #### CBC #### [facility] [address] [address] [address] Marvin AshfordWBC24.1 103/ulCritically high4.0-11.0The [facility] HospitalComment on above:Performed By: #### CBC #### [facility] [address] [place] [address] Dr. Marvin Botello W MANUAL DIFFon [id number] LYMPH #NormalMartin Memorial Hospital HospitalComment on above:Performed By: #### HBSANS #### [facility] [address] [place] [address] Dr. Marvin CastroYPICAL LYMPH %NormalThe [facility] HospitalComment on above: Performed By: #### HBSANS #### [facility] [address] [place] [address] Dr. Marvin Holland #Normal0.0-0.3The [facility] SystemComment on above: Performed By: #### HBSANS #### [facility] [address] [place] [address] Dr. Marvin Holland %Normal0-5The [facility] SystemComment on above:Performed By: #### HBSANS #### [facility] [address] [place] [address] Dr. Marvin Mcarthur #0.00 103/ulNormal0.00-0.10The [facility] HospitalComment on above:Performed By: #### HBSANS #### [facility] [address] [place] [address] Dr. Marvin Mcarthur %0.0 %Critically low0.2-2.0The [facility] SystemComment on above:Performed By: #### HBSANS #### [facility] [address] [place] [address] Dr. Marvin Soliman #NormalThe [facility] HospitalComment on above:Performed By: #### HBSANS #### [facility] [address] [place] [address] Dr. Marvin AshfordBLAST %NormalThe [facility] SystemComment on above:Performed By: #### HBSANS #### [facility] [address] [place] [address] Dr. Marvin AshfordCORRECTED WBCNormal4.0-11.0The [facility] SystemComment on above: Performed By: #### HBSANS #### [facility] [address] [place] [address] Dr. Marvin Starkey #0.00 103/ulNormal0.00-0.70The [facility] SystemComment on above:Performed By: #### HBSANS #### [facility] [address] [place] [address] Dr. Marvin Starkey%0.0 %Critically low0.9-7.0The [facility] SystemComhen[facility] on above:Performed By: #### HBSANS #### [facility] [address] [place] [address] Dr. Marvin AshfordHCT25.6 %Critically low36.0-48.0The [facility] SystemComment on above:Performed By: #### HBSANS #### [facility] [address] [place] [address] Dr. Marvin AshfordHGB8.9 g/dlCritically low12.0-16.0The [facility] SystemComhen[facility] on above:Performed By: #### HBSANS #### [facility] [address] [place] [address] Dr. Marvin ZazuetaPOCHROMASIASMarion HospitalComhenry ford hospital on above: Performed By: #### HBSANS #### [facility] [address] [place] [address] Dr. Marvin White #1.92 103/ulNormal1.20-3.80The [facility] SystemComhen[facility] on above:Performed By: #### HBSANS #### [facility] [address] [place] [address] Dr. Marvin White%8.0 %Critically low20.5-60.0The [facility] HospitalComment on above:Performed By: #### HBSANS #### [facility] [address] [place] [address] Dr. Marvin MosesH31.0 hrTyerjj93.7-34.0The [facility] HospitalComment on above: Performed By: #### HBSANS #### [facility] [address] [place] [address] Dr. Marvin MosesHC34.8 g/gsLhniwv37.9-35.2The [facility] HospitalComment on above:Performed By: #### HBSANS #### [facility] [address] [place] [address] Dr. Marvin MosesV89.2 cENuffdt04.0-99.0The [facility] SystemComment on above: Performed By: #### HBSANS #### [facility] [address] [place] [address] Dr. Marvin ConnorELOCYTE #NormalThe [facility] SystemComhenry for[facility] hospital on above: Performed By: #### HBSANS #### [facility] [address] [place] [address] Dr. aMrvin PetersOCYTE %NormalThe [facility] SystemComhenry for[facility] hospital on above: Performed By: #### HBSANS #### [facility] [address] [place] [address] Dr. Marvin Bruce#0.48 103/ulNormal0.30-0.80The [facility] SystemComment on above:Performed By: #### HBSANS #### [facility] [address] [place] [address] Dr. Marvin Bruce%2.0 %Normal1.7-12.0The [facility] SystemComment on above: Performed By: #### HBSANS #### [facility] [address] [place] [address] Dr. Marvin RamosV10.2 fLNormal9.5-13.5The [facility] SystemComment on above: Performed By: #### HBSANS #### [facility] [address] [place] [address] Dr. Marvin James #NormalThe [facility] SystemComment on above:Performed By: #### HBSANS #### [facility] [address] [place] [address] Dr. Marvin AlfordOCYTE %NormalThe [facility] SystemComment on above:Performed By: #### HBSANS #### [facility] [address] [address] [address] Marvin SchroederBCNormalThe [facility] SystemComment on above:Performed By: #### HBSANS #### [facility] [address] [address] [address] Marvin DanielsT104 103/ulCritically res734-212Qvl [facility] SystemComment on above:Performed By: #### HBSANS #### [facility] [address] [place] [address] Dr. Marvin RamosC2.87 106/ulCritically low4.20-5.40The [facility] SystemComment on above:Performed By: #### HBSANS #### [facility] [address] [place] [address] Dr. Marvin DunlapW14.4 %Epyibe06.0-15.0The [facility] SystemComment on above: Performed By: #### HBSANS #### [facility] [address] [place] [address] Dr. Marvin Benjamin #21.60 103/ulCritically high1.40-6.50The [facility] Comment on above:Performed By: #### HBSANS #### [facility] [address] [place] [address] Dr. Marvin Benjamin %90.0 %Critically high43.0-75.0The [facility] SystemComment on above:Performed By: #### HBSANS #### [facility] [address] [place] [address] Dr. Marvin GarciaBC24.0 103/ulCritically high4.0-11.0The [facility] SystemComment on above:Performed By: #### HBSANS #### [facility] [address] [address] [address] Marvin Botello AUTO DIFFon [id number] #0.1 103/ulNormal0.0-0.1The [facility] Hospitalment on above:Performed By: #### CBC #### [facility] [address] [place] [address] Dr. Marvin AshfordBasophils/100 WBC (Bld)0.3 %Normal0.2-2.0[facility] Comment on above:Performed By: #### CBC #### [facility] [address] [place] [address] Dr. Marvin Kat #0.0 103/ulNormal0.0-0.7The [facility] SystemComment on above: Performed By: #### CBC #### [facility] [address] [place] [address] Dr. Marvin Meraosinophils/100 WBC (Bld)0.0 %Critically low0.9-7.0The [facility] SystemComment on above:Performed By: #### CBC #### [facility] [address] [place] [address] Dr. Marvin Merarythrocyte distribution width (RBC) [Ratio]13.3 %Wqjlfl02.0-15.0 [facility] Hospitalment on above:Performed By: #### CBC #### [facility] [address] [place] [address] Dr. Marvin AshfordHematocrit (Bld) [Volume fraction]26.6 %Critically low36.0-48.0 The [facility] Hospitalment on above:Performed By: #### CBC #### [facility] [address] [place] [address] Dr. Marvin AshfordHemoglobin (Bld) [Mass/Vol]9.0 g/dLCritically low12.0-16.0The [facility] Hospitalment on above:Performed By: #### CBC #### [facility] [address] [place] [address] Dr. Marvin Perkins #0.62 10e3/ulCritically high0.00-0.03The [facility] Comment on above:Performed By: #### CBC #### [facility] [address] [address] [address] Marvin Perkins %1.8 %Critically high0.0-0.5The [facility] SystemComment on above:Performed By: #### CBC #### [facility] [address] [address] [address] Marvin Stockton #1.1 103/ulCritically low1.2-3.8The [facility] Comment on above:Performed By: #### CBC #### [facility] [address] [address] [address] Marvin Rebolledohocytes/100 WBC (Bld)3.3 %Critically low20.5-60.0[facility]Comment on above:Performed By: #### CBC #### [facility] [address] [address] [address] Marvin Sampson DIFF REQNONormalThe [facility] SystemComment on above: Performed By: #### CBC #### [facility] [address] [place] [address] Dr. Marvin Nuno (RBC) [Entitic mass]31.9 xuTdlwav34.7-34.0[facility] SouthComment on above:Performed By: #### CBC #### [facility] [address] [place] [address] Dr. Marvin Moses (RBC) [Mass/Vol]33.8 g/yVNnakel40.9-35.2[facility] SouthComment on above:Performed By: #### CBC #### [facility] [address] [place] [address] Dr. Marvin Perez (RBC) [Entitic vol]94.3 aCYdtpvc13.0-99.0The [facility] SystemComment on above:Performed By: #### CBC #### [facility] [address] [address] [address] Marvin Olivares #2.3 103/ulCritically high0.3-0.8The [facility] Comment on above:Performed By: #### CBC #### [facility] [address] [place] [address] Dr. Marvin Richmondocytes/100 WBC (Bld)6.6 %Normal1.7-12.0The [facility] Comment on above:Performed By: #### CBC #### [facility] [address] [place] [address] Dr. Marvin Teran #30.2 103/ulCritically high1.4-6.5The [facility] Comment on above:Performed By: #### CBC #### [facility] [address] [place] [address] Dr. Marvin Ericutrophils/100 WBC (Bld)88.0 %Critically high43.0-75.0The [facility] SystemComment on above:Performed By: #### CBC #### [facility] [address] [place] [address] Dr. Marvin Flynnlet mean volume (Bld) [Entitic vol]10.2 fLNormal9.5-13.5The [facility] SystemComment on above:Performed By: #### CBC #### [facility] [address] [place] [address] Dr. Marvin AshfordPLT136 103/ulCritically sjv839-453Zvx [facility] SystemComment on above:Performed By: #### CBC #### [facility] [address] [place] [address] Dr. Marvin AshfordRBC2.82 106/ulCritically low4.20-5.40The [facility] SystemComment on above:Performed By: #### CBC #### [facility] [address] [place] [address] Dr. Marvin AshfordWBC34.3 103/ulCritically high4.0-11.0The [facility] SystemComment on above:Performed By: #### CBC #### [facility] [address] [place] [address] Dr. Marvin Botello AUTO DIFFon [id number] #0.0 103/ulNormal0.0-0.1The [facility] SystemComment on above:Performed By: #### CBC #### [facility] [address] [place] [address] Dr. Marvin AshfordBasophils/100 WBC (Bld)0.4 %Normal0.2-2.0[facility] Comment on above:Performed By: #### CBC #### [facility] [address] [place] [address] Dr. Marvin Kat #0.0 103/ulNormal0.0-0.7The [facility] SystemComment on above: Performed By: #### CBC #### [facility] [address] [place] [address] Dr. Marvin Meraosinophils/100 WBC (Bld)0.2 %Critically low0.9-7.0The [facility] SystemComment on above:Performed By: #### CBC #### [facility] [address] [place] [address] Dr. Marvin Merarythrocyte distribution width (RBC) [Ratio]12.9 %Mtxmdx87.0-15.0 [facility] SouthComment on above:Performed By: #### CBC #### [facility] [address] [place] [address] Dr. Marvin AshfordHematocrit (Bld) [Volume fraction]35.5 %Critically low36.0-48.0 [facility]Comment on above:Performed By: #### CBC #### [facility] [address] [place] [address] Dr. Marvin AshfordHemoglobin (Bld) [Mass/Vol]11.7 g/dLCritically low12.0-16.0The [facility] SystemComment on above:Performed By: #### CBC #### [facility] [address] [place] [address] Dr. Marvin Perkins #0.10 10e3/ulCritically high0.00-0.03[facility] Comment on above:Performed By: #### CBC #### [facility] [address] [address] [address] Marvin Perkins %0.9 %Critically high0.0-0.5The [facility] SystemComment on above:Performed By: #### CBC #### [facility] [address] [place] [address] Dr. Marvin Stockton #1.8 103/ulNormal1.2-3.8The [facility] SystemComment on above:Performed By: #### CBC #### [facility] [address] [place] [address] Dr. Marvin Rebolledohocytes/100 WBC (Bld)16.4 %Critically low20.5-60.0The [facility] SystemComment on above:Performed By: #### CBC #### [facility] [address] [place] [address] Dr. Marvin PoeUAL DIFF REQNONormalThe [facility] SystemComment on above: Performed By: #### CBC #### [facility] [address] [place] [address] Dr. Marvin Moses (RBC) [Entitic mass]30.7 bdSibfjn44.7-34.0The [facility] SystemComment on above:Performed By: #### CBC #### [facility] [address] [place] [address] Dr. Marvin Moses (RBC) [Mass/Vol]33.0 g/pYPguptr43.9-35.2The [facility] SystemComment on above:Performed By: #### CBC #### [facility] [address] [place] [address] Dr. Marvin Moses (RBC) [Entitic vol]93.2 oUDqwwyr54.0-99.0The [facility] SystemComment on above:Performed By: #### CBC #### [facility] [address] [place] [address] Dr. Marvin Olivares #0.8 103/ulNormal0.3-0.8The [facility] SystemComment on above:Performed By: #### CBC #### [facility] [address] [place] [address] Dr. Marvin Richmondocytes/100 WBC (Bld)7.8 %Normal1.7-12.0The [facility] Comment on above:Performed By: #### CBC #### [facility] [address] [place] [address] Dr. Marvin Teran #8.0 103/ulCritically high1.4-6.5ThGood [facility] Hospital Comment on above:Performed By: #### CBC #### [facility] [address] [place] [address] Dr. Marvin Ericutrophils/100 WBC (Bld)74.3 %Ifolat52.0-75.0The [facility] SystemComment on above:Performed By: #### CBC #### [facility] [address] [place] [address] Dr. Marvin Flynnlet mean volume (Bld) [Entitic vol]9.9 fLNormal9.5-13.5The [facility] SystemComment on above:Performed By: #### CBC #### [facility] [address] [place] [address] Dr. Marvin AshfordPLT211 103/buKgbrcm263-784Fhx [facility] SystemComment on above: Performed By: #### CBC #### [facility] [address] [place] [address] Dr. Marvin AshfordRBC3.81 106/ulCritically low4.20-5.40The [facility] SystemComment on above:Performed By: #### CBC #### [facility] [address] [place] [address] Dr. Marvin AshfordWBC10.7 103/ulNormal4.0-11.0The [facility] SystemComment on above:Performed By: #### CBC #### [facility] [address] [place] [address] Dr. Marvin Gerardovid-19 PCR (CVDTB)on [id number]-CoV-2 (COVID-19) RNA SHANEKA+probe Ql (Unsp spec)Not detectedNormalNOT DETECTEDThe [facility] Comment on above:Result Comment: When diagnostic testing is negative, the [...] for this test is supported by the [place] of Health and Human Service's declaration that circumstances exist to justify the emergency use of in vitro diagnostics for the detection and/or diagnosis of the virus that causes COVID-19. This EUA will remain in effect for the duration of the COVID-19 declaration justifying emergency of IVDs, unless it is terminated or revoked by the FDA (after which the test may no longer be used).Performed By: #### GBSCX #### [facility] [address] [place] [address] Dr. Marvin AshfordDRUG SCREEN RAPID (URINE)on [id number] [facility] SouthComment on above:Performed By: #### GBSCX #### [facility] [address] [place] [address] Dr. Marvin AshfordBARNegativeNormalNEGATIVESelect [facility] SouthComhen[facility] on above: Performed By: #### GBSCX #### [facility] [address] [place] [address] Dr. Marvin AshfordBUPNegativeNormalNEGATIVESelect [facility] SouthComhen[facility] on above: Performed By: #### GBSCX #### [facility] [address] [place] [address] Dr. Marvin AshfordBZONegativeNormalNEGATIVESelect [facility] SouthComment on above: Performed By: #### GBSCX #### [facility] [address] [place] [address] Dr. Marvin AshfordCOCNegativeNormalNEGATIVESelect [facility] SouthComment on above: Performed By: #### GBSCX #### [facility] [address] [place] [address] Dr. Marvin PickettWooster Community Hospital on above: Result Comment: AMP (Amphetamine): 500ng/mL, BAR (Barbituates): 200 ng/mL, BZO (Benzodiazepines): 150 ng/mL, BUP (Buprenorphine): 10 ng/mL, MYNOR (Cocaine): 150 ng/mL, mAMP (Methamphetamine): 500 ng/mL, MTD (Methadone): 200 ng/mL, OPI (Opiates): 100 ng/mL, OXY (Oxycodone): 100 ng/mL, PCP (Phencyclidine): 25 ng/mL, PPX (Propoxyphene): 300 ng/mL, THC (Cannabinoids): 50 ng/mL, TCA (Trycyclic Antidepressants): 300 ng/mLPerformed By: #### GBSCX #### [facility] [address] [place] [address] Dr. Marvin AshfordDRUG CUT HEADERDRUG CLASS TEST SYSTEM CUT-OFF CONCENTRATIONS ARE FOLLOWS:NormalThe [facility] SystemComhenry ford hospital on above:Performed By: #### GBSCX #### [facility] [address] [place] [address] Dr. Marvin AshfordmAMPNegativeNormalNEGATIVETrinity Health System on above: Performed By: #### GBSCX #### [facility] [address] [place] [address] Dr. Marvin AshfordMTDNegativeNormalNEGATIVESelect [facility] SouthComhenry for[facility] hospital on above: Performed By: #### GBSCX #### [facility] [address] [place] [address] Dr. Marvin ValentineINegativeNormalNEGATIVESelect Medical [facility] SouthComhen[facility] hospital on above: Performed By: #### GBSCX #### [facility] [address] [place] [address] Dr. Marvin AshfordOXYNegativeNormalNEGATIVESelect Medical [facility] SouthComhen[facility] hospital on above: Performed By: #### GBSCX #### [facility] [address] [place] [address] Dr. Marvin AshfordPCPNegativeNormalNEGATIVESelect [facility] SouthComment on above: Performed By: #### GBSCX #### [facility] [address] [place] [address] Dr. Marvin AshfordPPXNegativeNormalNEGATIVESelect Medical Special[facility] SouthComhen[facility] on above: Performed By: #### GBSCX #### [facility] [address] [place] [address] Dr. Marvin AshfordTCANegativeNormalNEGATIVESelect Medical [facility] SouthComhen[facility] hospital on above: Performed By: #### GBSCX #### [facility] [address] [place] [address] Dr. Marvin AshfordTHCNegativeNormalNEGATIVESelect Medical Special[facility] SouthComhen[facility] hospital on above: Performed By: #### GBSCX #### [facility] [address] [place] [address] Dr. Marvin AshfordTYPE AND SCREENon [id number] AND SCREENNegativeNormalThe [facility] SystemComhenry ford hospital on above:Performed By: #### TNS #### [facility] [address] [place] [address] Dr. Marvin AshfordCHLAMYDIA/GONOCOCCUS SHANEKA (SWAB/URINE/PAPon [id number] trachomatis, NAANegativeNormalNegativeSelect Medical Specialty [facility] SouthComhenry ford hospital on above: Performed By: #### CBC #### [facility] [address] [place] [address] Dr. Marvin AshfordNeisseria gonorrhoeae, NAANegativeNormalNegativeSelect Medical Specialty [facility] SouthComhenry for[facility] hospital on above:Performed By: #### CBC #### [facility] [address] [place] [address] Dr. Marvin AshfordGROUP B STREP CULTUREon 04-14-2022. agalactiae Ag Ql (Unsp spec) Culture Observations: NEGATIVE FOR GROUP B STREPTOCOCCUS.NormalThe [facility] on above: Performed By: #### GBSCX #### [facility] [address] [place] [address] Dr. Marvin AshfordCULTURE URINEon [id number] URINECulture Observations: NO GROWTH.NormalSelect Medical Specialty Hospital [facility] SouthComment on above:Performed By: #### HBSANS #### [facility] [address] [place] [address] Dr. Marvin Dominique (CLEAN/CATCH) FIRE EXTINGUISHER REPAIRER/MICRO IF IND.on [id number] Ql (U) NegativeNormalNEGATIVESelect Medical Specialty Hospital - Columbus SouthComment on above:Performed By: #### GBSCX #### [facility] [address] [address] [address] Marvin AshfordClarity (U)CLEARNormalCLEARSelect Medical Specialty Hospital - Columbus SouthComment on above: Performed By: #### GBSCX #### [facility] [address] [place] [address] Dr. Marvin Gerardolor (U)YELLOWNormalYELLOWSelect Medical Specialty Hospital - Columbus SouthComment on above: Performed By: #### GBSCX #### [facility] [address] [place] [address] Dr. Marvin AshfordGlucose Ql (U)NegativeNormalNEGATIVESelect Medical Specialty Hospital - Columbus SouthComment on above:Performed By: #### GBSCX #### [facility] [address] [address] [address] Marvin AshfordHemoglobin Ql (U)SMALLAbnormalNEGATIVESelect Medical [facility] on above:Performed By: #### GBSCX #### [facility] [address] [place] [address] Dr. Marvin AshfordKetones Ql (U)TRACEAbnormalNEGATIVESelect Medical Specialty Hospital - Columbus SouthComment on above:Performed By: #### GBSCX #### [facility] [address] [place] [address] Dr. Marvin AshfordLEUKOCYTESTRACEAbnormalNEGATIVESelect Medical Specialty Hospital - [facility] SouthComhenry ford hospital on above:Performed By: #### GBSCX #### [facility] [address] [place] [address] Dr. Marvin AshfordNitrite Ql (U)NegativeNormalNEGATIVESelect Medical Specialty Hospital - Columbus SouthComment on above:Performed By: #### GBSCX #### [facility] [address] [address] [address] Marvin AshfordpH (U)6.0 [pH]Normal5-9The Memorial Health SystemComment on above: Performed By: #### GBSCX #### [facility] [address] [address] [address] Marvin Stout GRAVITY1.398Urnmmm8.005-<=1.025The Memorial Health SystemComment on above:Performed By: #### GBSCX #### [facility] [address] [place] [address] Dr. Marvin Dominique PROTEINNegativeNormalNEGATIVE/ TRACEThe [facility] Comment on above:Performed By: #### GBSCX #### [facility] [address] [place] [address] Dr. Marvin Xiong MICRO INDINDICATEDOhio State Health SystemComment on above: Performed By: #### GBSCX #### [facility] [address] [place] [address] Dr. Marvin Torresgen Qn (U)1.0 {Ekta'U}/dLNormal0.2 - 1.0The [facility] Health SystemComment on above:Performed By: #### GBSCX #### [facility] [address] [place] [address] Dr. Marvin Goetz MICROSCOPIC ONLYon 18-86-5858AJPYSVRPVTQGBQglvsnnmVENS SEEN [facility] SouthComment on above:Performed By: #### GBSCX #### [facility] [address] [place] [address] Dr. Marvin Hernandez identified Cx Nom (U)INDICATEDNoBarney Children's Medical CenterComhenry ford hospital on above:Performed By: #### GBSCX #### [facility] [address] [place] [address] Dr. Marvin Bright SEENNormalNONE SEENSelect Medical Specialty Hospital - Columbus SouthComment on above:Performed By: #### GBSCX #### [facility] [address] [place] [address] Dr. Yilan ChangCrystals LM Nom (Urine sed)NONE SEENNormalNONE SEENThe Memorial Health SystemComhenry ford hospital on above:Performed By: #### GBSCX #### [facility] [address] [place] [address] Dr. Wong ChangEpithelial cells LM Ql (Urine sed)MANYAbnormalNONE SEEN /RAREThe [facility] on above:Performed By: #### GBSCX #### [facility] [address] [place] [address] Dr. Marvin AshfordMUCOUSTRACEAbnormalNONE SEENThe [facility] Health SystemComhenry ford hospital on above:Performed By: #### GBSCX #### [facility] [address] [place] [address] Dr. Marvin AshfordTwijvBXY3-1Dyqvkfna0-4Kgd [facility] SystemComhenry ford hospital on above:Performed By: #### GBSCX #### [facility] [address] [place] [address] Dr. Marvin AshfordWBC2-5AbnormalNONE SEENThe Memorial Health SystemComhenry ford hospital on above: Performed By: #### GBSCX #### [facility] [address] [place] [address] Dr. Marvin Simms PREG PLACENTAon [id number] PREG PLACENTAEXAM: US PREG CERVICAL LENGTH, US PREG PLACENTA [...] Electronically authenticated by: CHOCO SAUNDERS Date: 2022-03-09 17:20[facility] SystemCOVID + FLU Quick Testingon [id number]-CoV-2 (COVID-19) RNA SHANEKA+probe Ql (Unsp spec)PositiveNohawthorn children's psychiatric hospital SourceThought Other COVID + FLU Quick TestingNegativeNohawthorn children's psychiatric hospital Source[employer] Other Quick Strepon 02-21-2022. pyogenes Org specific cx Ql (Throat)NegativeSmart Adventure Other Quick StrepNoSmart Adventure Other GLUCOSE - 1HRon 27-12-0486Wphivqc [Mass/Vol]133 mg/dL Critically pett05-644Hat Memorial Health SystemComment on above:Performed By: #### GBSCX #### [facility] [address] [place] [address] Dr. Marvin AshfordHEMOGRAM AND PLATELon 70-47-0579Phalvcpyov (Bld) [Volume fraction]33.4 %Critically low36.0-48.0The [facility] Health SystemComment on above: Performed By: #### HH #### [facility] [address] [address] [address] Marvin AshfordHemoglobin (Bld) [Mass/Vol]11.3 g/dLCritically low12.0-16.0The [facility] Health SystemComment on above:Performed By: #### HH #### [facility] [address] [place] [address] Dr. Marvin Moses (RBC) [Entitic mass]31.9 ljIlield56.7-34.0The [facility] Health SystemComment on above:Performed By: #### HH #### [facility] [address] [place] [address] Dr. Marvin AshfordCOLER-GOLDWATER [facility] (RBC) [Mass/Vol]33.8 g/jKRgjsnr53.9-35.2The [facility] SystemComment on above:Performed By: #### HH #### [facility] [address] [place] [address] Dr. Marvin Moses (RBC) [Entitic vol]94.4 lLFznfsw36.0-99.0The [facility] SystemComment on above:Performed By: #### HH #### [facility] [address] [place] [address] Dr. Marvin AshfordPLT216 103/jyFycgzq533-998Uzh [facility] SystemComment on above: Performed By: #### HH #### [facility] [address] [place] [address] Dr. Marvin AshfordRBC3.54 106/ulCritically low4.20-5.40The [facility] Health SystemComhenry ford hospital on above:Performed By: #### HH #### [facility] [address] [place] [address] Dr. Marvin AshfordWBC10.1 103/ulNormal4.0-11.0The [facility] Health SystemComhenry ford hospital on above:Performed By: #### HH #### [facility] [address] [place] [address] Dr. Marvin AshfordUS PREG ANATOMY SINGLEon [id number] PREG ANATOMY SINGLE EXAMINATION: US PREG ANATOMY [...] Electronically authenticated by: JACOBO LATHAM Date: 2021-12-19 17:27[facility] Health SystemAF MATERNAL FOR SPINA BIFIDAon 17-70-5852RWK MoM0.90[facility] Health SystemComment on above:Performed By: #### HBSANS #### [facility] [address] [place] [address] Dr. Marvin Park Value54.5 ng/mLNBlanchard Valley Health System Blanchard Valley HospitalComment on above: Performed By: #### HBSANS #### [facility] [address] [place] [address] Dr. Marvin Park, Serum for Spina BifidaReTrumbull Regional Medical Center Comment on above:Performed By: #### HBSANS #### [facility] [address] [place] [address] Dr. Marvin CelesteWayne HospitalComment on above:Result Comment: Yanet Ribera, Ph.D., [facility] Director . References: Available Upon Request. . Multiples Of Median Cutoffs For AFP Elevations Hill 2.5 Black 2.8 IDD 2.0 Twins 4.5 Abbreviation Definitions IDD - Insulin Dep Diabetes OSBR - Open Spina Bifida Risk . For further inquiries contact [facility] at [phone].Performed By: #### HBSANS #### [facility] [address] [place] [address] Dr. Marvin Farias Age Collection Date18.6 [facility] Comment on above:Performed By: #### HBSANS #### [facility] [address] [place] [address] Dr. Marvin Gaona, Age Based onAs [facility] on above:Result Comment: Recalculations are not recommended when gestational dating by LMP and ultrasound are within 10 days.Performed By: #### HBSANS #### [facility] [address] [place] [address] Dr. Marvin AshfordInsulin Dep [facility] on above:Performed By: #### HBSANS #### [facility] [address] [place] [address] Dr. Marvin AshfordInterpretationPeoples Hospital on above: Result Comment: Interpretation: Screen Negative . This result is screen [...] Customer Services to discuss available options. The [place] [employer] recommends amniocentesis be offered to women age 35 and older.Performed By: #### HBSANS #### [facility] [address] [place] [address] Dr. Marvin Huerta [facility] EDD[age] [facility] on above:Performed By: #### HBSANS #### [facility] [address] [place] [address] Dr. Marvin Arnold [facility] on above: Performed By: #### HBSANS #### [facility] [address] [place] [address] Dr. Marvin AshfordOSBR Risk 1 [id number] Hospital on above: Performed By: #### HBSANS #### [facility] [address] [place] [address] Dr. Marvin Whitehead.[facility] on above:Result Comment: This test was developed and its performance characteristics determined by [employer]. It has not been cleared or approved by the Food and Drug Administration.Performed By: #### HBSANS #### [facility] [address] [place] [address] Dr. Marvin KhanCaucasianNormalThe Medina Hospitalment on above: Performed By: #### HBSANS #### [facility] [address] [place] [address] Dr. Marvin AshfordTest Results:NegativeNormUC West Chester Hospitalment on above: Performed By: #### HBSANS #### [facility] [address] [place] [address] Dr. Marvin Bates B SURFACE ANTIGEN SCREENon 98-84-5761ODwYa ScreenNegative NormalNegativeThe [facility] on above:Performed By: #### HBSANS #### [facility] [address] [place] [address] Dr. Marvin Elizabeth C VIRUS AB W/ REFLEX QUANTon 73-51-6560WLT AB<0.1Normal 0.0-0.9The [facility] on above:Performed By: #### CBC #### [facility] [address] [place] [address] Dr. Marvin AshfordInterpretation:CommentNoCenterville on above:Result Comment: Negative Not infected with HCV, unless recent infection is suspected or other evidence exists to indicate HCV infection.Performed By: #### CBC #### [facility] [address] [place] [address] Dr. Marvin MarquisV 1 AND 2 WITH REFLEXon 83-61-0178CRD Screen 4th Generation wRfxNon-ReactiveNormalNon ReactiveThe [facility] on above:Result Comment: HIV Negative HIV-1/HIV-2 antibodies and HIV-1 p24 antigen were NOT detected. There is no laboratory evidence of HIV infection.Performed By: #### GBSCX #### [facility] [address] [place] [address] Dr. Marvin AshfordRPR QUANTon 71-18-2441Byisy Plasma Reagin, QuantNon-Reactive NormalNonRea<1:1The [facility] on above:Performed By: #### CBC #### [facility] [address] [place] [address] Dr. Marvin Garrison AB IGGon 19-57-5651Fskfsoh Antibodies, IgG1.87 index NormalImmune >0.99The Memorial Health SystemComment on above:Result Comment: Non- immune <0.90 Equivocal 0.90 - 0.99 Immune >0.99Performed By: #### GBSCX #### [facility] [address] [place] [address] Dr. Marvin CurtisC AUTO DIFFon 49-06-5572QEQL #0.0 103/ulNormal0.0-0.1The [facility] Health SystemComment on above:Performed By: #### CBC #### [facility] [address] [place] [address] Dr. Marvin AshfordBasophils/100 WBC (Bld)0.3 %Normal0.2-2.0[facility] Comment on above:Performed By: #### CBC #### [facility] [address] [place] [address] Dr. Marvin Kat #0.0 103/ulNormal0.0-0.7The [facility] Health SystemComment on above: Performed By: #### CBC #### [facility] [address] [place] [address] Dr. Marvin Meraosinophils/100 WBC (Bld)0.1 %Critically low0.9-7.0The [facility] Health SystemComment on above:Performed By: #### CBC #### [facility] [address] [place] [address] Dr. Marvin Merarythrocyte distribution width (RBC) [Ratio]13.1 %Hqmpsu62.0-15.0 The Memorial Health SystemComment on above:Performed By: #### CBC #### [facility] [address] [place] [address] Dr. Marvin AshfordHematocrit (Bld) [Volume fraction]34.7 %Critically low36.0-48.0 The Memorial Health SystemComment on above:Performed By: #### CBC #### [facility] [address] [address] [address] Marvin AshfordHemoglobin (Bld) [Mass/Vol]11.6 g/dLCritically low12.0-16.0The [facility] Health SystemComment on above:Performed By: #### CBC #### [facility] [address] [place] [address] Dr. Marvin Perkins #0.04 10e3/ulCritically high0.00-0.03The [facility] Comment on above:Performed By: #### CBC #### [facility] [address] [place] [address] Dr. Marvin Perkins %0.5 %Normal0.0-0.5The [facility] Health SystemComment on above: Performed By: #### CBC #### [facility] [address] [place] [address] Dr. Marvin Stockton #1.9 103/ulNormal1.2-3.8The [facility] Health SystemComment on above:Performed By: #### CBC #### [facility] [address] [place] [address] Dr. Marvin Rebolledohocytes/100 WBC (Bld)22.4 %Obibuu82.5-60.0The [facility] Health SystemComment on above:Performed By: #### CBC #### [facility] [address] [place] [address] Dr. Marvin PoeUAL DIFF REQNONormalThe [facility] Health SystemComment on above: Performed By: #### CBC #### [facility] [address] [place] [address] Dr. Marvin Mosse (RBC) [Entitic mass]30.2 fmHtljtr72.7-34.0The [facility] Health SystemComment on above:Performed By: #### CBC #### [facility] [address] [place] [address] Dr. Marvin Moses (RBC) [Mass/Vol]33.4 g/qUWobsss23.9-35.2The [facility] Health SystemComment on above:Performed By: #### CBC #### [facility] [address] [address] [address] Mravin MosesV (RBC) [Entitic vol]90.4 oQQqitbm09.0-99.0The [facility] Health SystemComment on above:Performed By: #### CBC #### [facility] [address] [place] [address] Dr. Marvin Olivares #0.5 103/ulNormal0.3-0.8The [facility] Health SystemComment on above:Performed By: #### CBC #### [facility] [address] [place] [address] Dr. Marvin Richmondocytes/100 WBC (Bld)5.5 %Normal1.7-12.0The [facility] Comment on above:Performed By: #### CBC #### [facility] [address] [place] [address] Dr. Marvin Teran #6.2 103/ulNormal1.4-6.5The [facility] Health SystemComment on above:Performed By: #### CBC #### [facility] [address] [place] [address] Dr. Marvin Ericutrophils/100 WBC (Bld)71.2 %Lfhqxj19.0-75.0The [facility] Hospitalment on above:Performed By: #### CBC #### [facility] [address] [place] [address] Dr. Marvin Flynnlet mean volume (Bld) [Entitic vol]9.5 fLNormal9.5-13.5The [facility] Health SystemComment on above:Performed By: #### CBC #### [facility] [address] [place] [address] Dr. Marvin AshfordPLT243 103/rcSkoxsz225-981Joc Memorial Health SystemComment on above: Performed By: #### CBC #### [facility] [address] [place] [address] Dr. Marvin AshfordRBC3.84 106/ulCritically low4.20-5.40The [facility] Health SystemComment on above:Performed By: #### CBC #### [facility] [address] [address] [address] Marvin AshfordWBC8.7 103/ulNormal4.0-11.0The [facility] Health SystemComment on above: Performed By: #### CBC #### [facility] [address] [address] [address] Marvin AshfordCULTURE URINEon 08-34-9312VHIPCAE URINECulture Observations: NO GROWTH.NormalThe [facility]ral HospitalComment on above:Performed By: #### URCX #### [facility] [address] [address] [address] Marvin AshfordGLYCOHEMOGLOBIN A1Con 44-73-3755KOT RECOMMENDATIONADA THERAPEUTIC TARGET 6.0 - 7.0 ACTION SUGGESTED > 7.0NoBarney Children's Medical CenterComment on above:Performed By: #### CBC #### [facility] [address] [address] [address] Marvin AshfordGlucose [Mass/Vol]97 mg/dLNoBarney Children's Medical CenterComment on above:Performed By: #### CBC #### [facility] [address] [address] [address] Marvin AshfordHbA1c (Bld) [Mass fraction]5.0 %Normal<=6.0The [facility] Comment on above:Performed By: #### CBC #### [facility] [address] [address] [address] Marvin Omalley BOX TEST PT SEND OUTon 03-13-8541QXSJ TO REF LAB10/25/21 NormalSelect Medical Specialty Hospital - [facility] SouthComment on above:Performed By: #### CBC #### [facility] [address] [place] [address] Dr. Marvin AshfordTYPE AND SCREENon 89-20-6277NTIP AND SCREENNegativeNoBarney Children's Medical CenterComment on above:Performed By: #### TNS #### [facility] [address] [place] [address] Dr. Marvin AshfordUS PREG TVon [id number] PREG TVEXAMINATION: US PREG TV HISTORY: Missed period COMPARISON: [...] Electronically authenticated by: JACOBO LATHAM Date: 2021-09-27 14:04[facility] SystemUS PREG TVon [id number] PREG TVEXAMINATION: US PREG TV HISTORY: Missed period COMPARISON: [...] Electronically authenticated by: JACOBO LATHAM Date: 2021-09-08 14:11[facility] SystemGroup A Strep DNAon [id number] A Strep DNASpecimen Description .THROAT SWABSpecial Requests NOT REPORTEDDirect Exam Negative: Specimen negative for Streptococcus pyogenes by DNA amplification.Report Status FINAL 08/15/2018NoMercy Health West HospitalComment on above:Performed By: #### GASDNA ####[employer] [place] [address] [facility] [place] [address] Strep Gr A Direct Agon 08-13-2018S. pyogenes Ag IA Ql (Unsp spec)Specimen Description .THROATSpecial Requests NOT REPORTEDDirect Exam Rapid Strep A negative. A negat fuentes Rapid Group A Strep Screen result does not rule out the possibility of Group A Streptococci in the specimen. The [place] [employer] recommends confirmation testing. Therefore, a GroupA Strep DNA test will be performed. Report Status FINAL 08/13/2018[facility] HospitalComment on above: Performed By: #### SGPA ####[facility] [place] [address] XR FOOT LEFT (MIN 3 VIEWS)on [id number] FOOT LEFT (MIN 3 VIEWS)LEFT FOOT, 01/30/2018INDICATION: Foot pain.COMPARISON: None.FINDINGS: Three views of the left foot were obtained. There is no acute fracture or dislocation. Osseous structures are well mineralized. Visualized soft tissues appear unremarkable. No radiopaque foreign body.IMPRESSION: No acute osseous abn ormality.Interpreted by:MARÍA Quirosigned by:Robert Muse MD01/30/18inal resultNoMercy Health West Hospital Vital Signs Date TimeVital SignValuePerforming AjxvgmgbuIdtkjaqm55-89-9418 10:17-0500Body mass index (BMI) [Ratio]18.56 kg/f7LojhucmoRanjana Benitez MANAGER MANAGING Work Phone: [facility] CenterMhtrkigofa33-35-7511 10:17-0500Body xgduxa48.04 kgRanjana Benitez NP Work Phone: [facility] CenterPknjrlrbee67-64-9997 10:17-0500Diastolic blood qlmqbweh37 mm[Hg]Ranjana Benitez MANAGER MANAGING Work Phone: [facility] CenterCaabzxzjmx22-53-4535 10:17-0500Systolic blood uqbiislq08 mm[Hg]Ranjana Benitez MANAGER MANAGING Work Phone: [facility] CenterVzgqmvtezw85-61-1639 09:57-0400Body mass index (BMI) [Ratio]18.47 kg/b0TfhtnxMercy London MANAGER MANAGING Work Phone: NOFitzgibbon HospitalQaiiwyzedp21-94-9810 09:57-0400Body temperature 98.71 [degF][facility] MANAGER MANAGING Work Phone: [facility] CenterContfnbvpv81-05-7565 09:57-0400Body ijbsel90.81 kgRaalisha [place] MANAGER MANAGING Work Phone: [facility] CenterNpoaenchgu64-64-5410 09:57-0400Diastolic blood swihagym52 mm[Hg][facility] MANAGER MANAGING Work Phone: [facility] CenterVvmiezhueb20-08-8547 09:57-0400Heart rate77 /min [facility] MANAGER MANAGING Work Phone: [facility] CenterCbkfhzyerk46-90-9798 09:57-9796EwD2% (BldA) [Mass fraction]99 %[facility] MANAGER MANAGING Work Phone: [facility] CenterJvtuajulkz30-37-8452 09:57-0400Systolic blood rtbgassu139 mm[Hg][facility] MANAGER MANAGING Work Phone: [facility] CenterHhmnwxrqix41-00-5168 15:05-0500Body mass index (BMI) [Ratio]22.7 kg/t0UfpsbJd Canela DO Work Phone: [facility] CenterAicgobrnxz96-63-1635 15:05-0500Body lapcwv30.3 kg Jd Canela DO Work Phone: noFitzgibbon HospitalIipxebanhs01-51-8057 15:05-0500Diastolic blood cplndkuh91 mm[Hg]Jd Canela DO Work Phone: [facility] CenterPgysafuawu70-27-3273 15:05-0500Systolic blood uqetucjk867 mm[Hg]Jd Canela DO Work Phone: [facility] CenterSlhpsypcwg93-82-7113 14:25-0400Body efzvff177.48 Chet Lang Other [facility] [employer] Other 10-02-2023 14:25-0400Body mass index (BMI) [Ratio] 18.47 kg/v4YzecstMi Lang Other [facility]haw[facility] [employer] Other 10-02-2023 14:25-0400Body rlgbzacytcm05.5 [degF]Mi Forrestley Other [employer] Other 10-02-2023 14:25-0400Body mtozxg09.81 kgMi Lang Other [employer] Other 10-02-2023 14:25-0400Diastolic blood kqnotjnd93 mm[Hg] Mi Forrestley Other [employer] Other 10-02-2023 14:25-0400Respiratory rate18 /minMi Lagn Other [employer] Other 10-02-2023 14:25-9495JfZ1% (BldA) [Mass fraction]100 % Mi Forrestley Other [employer] Other 10-02-2023 14:25-0400Systolic blood mm[Hg] Mi Precious Other [employer] Other 06-28-2022 13:15-0400Body cobzsz301.48 cmPamelnaomi Pérez Other [employer] Other 06-28-2022 13:15-0400Body mass index (BMI) [Ratio] 23.77 kg/r4Mhebmkchristin Pérez Other [employer] Other 06-28-2022 13:15-0400Body hvpiexxwiaz151.1 [degF] Nataliia Pérez Other [employer] Other 06-28-2022 13:15-0400Body wkaorw03.97 kgNataliia Pérez Other [employer] Other 06-28-2022 13:15-0400Respiratory rate20 /minNataliia Pérez Other [employer] Other 06-28-2022 13:15-5127RdB3% (BldA) [Mass fraction]99 % Nataliia Pérez Other [employer] Other 04-17-2022 02:05-0400Body uqbowb05.8032 kgDR DOCTOR MISCThe Memorial Health SystemComment on above:Performed By: #### HBSANS #### [facility] [address] [place] [address] Dr. Marvin Ashford03-14-2022 16:50-0400Body jizjaj007.02 Shanika Pérez Other [employer] Other 03-14-2022 16:50-0400Body mass index (BMI) [Ratio] 19.31 kg/i9WjaytkNataliia Pérez Other [employer] Other 03-14-2022 16:50-0400Body enqpwh08.44 kgNataliia Pérez Other [employer] Other Encounters Encounter DateEncounter TypeCare ProviderFacilityStart: 07-01-2025 End: 99-45-3925Samrsk flowsMarilin Benitez MANAGER MANAGING Work Phone: [facility] OBGYNStart: 07-01-2025 End: 15-13-0800Srmkmd flowsMarilin Benitez MANAGER MANAGING Work Phone: [facility]BGYNStart: 07-01-2025 End: 49-46-6121Hjfixha encounter procedureRanjana Emmanuel MANAGER MANAGING Work Phone: noms HealthcareStart: 07-01-2025 End: 79-37-2780Uvdhzimx preventive med est patient 18-39 yrsRanjana Emmanuel MANAGER MANAGING Work Phone: noms [place] OBGYNComment on above: control counseling (Primary Dx); Well woman exam with routine gynecological examStart: 06-08-2025 End: 95-24-8044Paelqs outpatient new 45 minutesRachel Jules [place] MANAGER MANAGING Work Phone: noms [facility] Urgent CareComment on above:Fatigue, unspecified type (Primary Dx)Start: 06-08-2025 End: 80-02-1890stqzdmkmrwISPLHT L HOLBROOKNot AvailableStart: 08-15-2024 End: 96-71-3344puaukypufoIrkjo MarkhamFacility:[facility] Hospitaltart: 12-13-2023 End: 59-67-1454emqbphfyjrJQHRRFWillamette Valley Medical Centertart: 11-27-2023 End: 12-63-5456Vqcmgwykh Result EncounterCorey Hilton DO Work Phone: noms External Department UnsolicitedStart: 11-27-2023 End: 91-95-1821Brgojwxpu Result EncounterCorey Hilton DO Work Phone: noms External Department UnsolicitedStart: 10-02-2023 End: 10-69-0919Lbklbk outpatient visit 15 minutesCorey Hilton DO Work Phone: noms BCP OBComment on above:Second trimester ; with normal glucose tolerance test (GTT)Start: 09-05-2023 End: 71-74-5494Bscadvftm Result EncounterCorey Hilton DO Work Phone: noms External Department UnsolicitedStart: 09-05-2023 End: 07-30-5552Jqlljxunt Result EncounterCorey Hilton DO Work Phone: noms External Department UnsolicitedStart: 05-28-2023 End: 84-27-5394zaxwjdqrsePonhxr Bailey Other [employer] Other Start: 80-05-3587Utfdbv outpatient visit 15 minutes Mi LangFPG Urgent Care ClydeStart: 05-26-2022 End: 19-72-6594dmhtjyunviYM MAROC FRYFacility:R6Dxuet: 05-07-2022 End: 13-03-0069sfqoydyevtEU VIKTORIA MCCOLLUMFacility:O1Voauj: 05-01-2022 End: 73-21-1786Delwbqlbds and management of inpatientDR VIKTORIA MCCOLLUM Facility:W2Rngar: 04-14-2022 End: 40-86-7706tcdoshnbngXH VIKTORIA MCCOLLUMFacility:P0Awnaa: 03-09-2022 End: 04-16-5842cuchzoorrgJY JD FAZIOFacility:M1Vwqix: 02-21-2022 End: 40-53-7501loqsoaswhdXmhzum Dymond Other [employer] Other Start: 50-14-9517Vdcwkx outpatient visit 15 minutes Nataliia PérezFPG Urgent Care ClydeStart: 02-09-2022 End: 84-91-1199orlrflotzaIS VIKTORIA MCCOLLUMFacility:O9Iqbfz: 12-19-2021 End: 89-16-3576frsglbxdqcHJ DOCTOR MISCFacility:A7Vmbot: 12-09-2021 End: 12-97-8090taxcvkkttnBI DOCTOR MISCFacility:R1Xnslr: 11-07-2021 End: 29-25-9746dgyvxcspzcOkqtst Elisa Other [employer] [employer] Other Start: 05-82-6716Nlzigk outpatient visit 15 minutes Nataliia DymondFPG Urgent Care ClydeStart: 10-25-2021 End: 37-22-4524wmabkivuuuYE VIKTORIA MCCOLLUMFacility:B1Yyvip: 09-27-2021 End: 92-47-2018bdjseoarkfJX VIKTORIA MCCOLLUMFacility:A1Rwgar: 09-08-2021 End: 97-38-8528rcyvlpzgflTB VIKTORIA MCCOLLUMFacility:X8Wrtsj: 07-26-2021 ambulatoryAllkhalida SierraleFacility:FTMCStart: 08-13-2018 End: 02-15-8638Qnixdbsmy department patient visitDEBBY Carrera [facility] Systemtart: 01-30-2018 End: 60-87-4329Rrkfcsfmj department patient visitNATE [facility] Procedures DateProcedureProcedure DetailPerforming ClinicianStart: 06-42-2074Ltzzl test visual color cmprsn methsKristina Emmanuel MANAGER MANAGING Work Phone: Start: 29-89-2685Qsxcppvj blood count with white cell differential, automatedRachel L [place] MANAGER MANAGING Work Phone: Start: 92-87-3815Noqfecetekjqu metabolic panelRachel L Beatrice MANAGER MANAGING Work Phone: Start: 04-38-2173GVGJ + TRANSFERRIN + TIBCRachel L Beatrice MANAGER MANAGING Work Phone: Start: 99-69-3540UOAECLXSC (HTRX)[facility] L Beatrice MANAGER MANAGING Work Phone: Start: 63-78-7485Acfwl test visual color cmprsn methsRachel L Beatrice MANAGER MANAGING Work Phone: Start: 13-52-2028UT OB GROWTHCorey Hilton DO Work Phone: Start: 83-90-1694Qvagt dip stick/tablet rgnt non-auto w/o micrscpCorey Hilton DO Work Phone: Start: 33-51-3231GY OB ANATOMYCorey Hilton DO Work Phone: Start: 13-85-7221KW OB CERVICAL LENGTHCorey Hilton DO Work Phone: Start: 28-16-1724Oplvzv Cervix, Via Natural or Artificial OpeningDR DOCTOR MISCStart: 27-47-8566Saiyzpiq of Products of Conception, External ApproachDR DOCTOR MISCStart: 64-78-8796Zkvurlzbhuj of Nonautologous Fresh Plasma into Peripheral Vein, Percutaneous ApproachDR DOCTOR MISCStart: 39-79-5293Xxetcjzxwaog of Hormone into Female Reproductive, Via Natural or Artificial OpeningDR DOCTOR MISCStart: 96-55-3255Kziaydcywnhz of Other Hormone into Peripheral Vein, Percutaneous ApproachDR DOCTOR MISCStart: 20-45-7625Axcmdgzbjjxi of Hormone into Female Reproductive, Via Natural or Artificial OpeningDR DOCTOR MISCStart: 40-14-9299ARIEM A DNA PROBE, AMPLIFICATIONVESELIN DIMITROVStart: 65-48-7204CMZLC SCREEN GROUP A THROATVESELIN DIMITROVStart: 98-32-7365GZZZNYA CLARK 4VESELIN DIMITROVStart: 70-82-6489Ahuch foot complete minimum 3 viewsVESELIN CHANNING Plan of Treatment DateCare ActivityDetailAuthorStart: 07-05-2026 End: 23-39-1641Mgemtxm encounter zdhbfokds26/09/2026 11:00 AM EST Procedure Visit [facility] DUMONT [address] [place], [id number] Radha Valenzuela PA [address] [place] [address] CEDRICK BLEVINSGYNStart: 07-01-2025 End: 89-81-2827Crkcnlx encounter zhzunnuuy70/05/2025 10:00 AM EST Procedure Visit CEDRICK DUMONT [address] [place], [id number] Ranjana Benitez, SIS [address] [place] [id number] CEDRICK BLEVINSGYNStart: 10-30-2023 End: 99-20-8262Jhlykfr encounter gulgzjghl42/05/2024 11:20 AM EST Routine [facility] [address] [place] [id number] Jd Canela, DO [address] [place] [address] [facility] OBC panel - Blood by Automated countCBC Lab Routine with normal glucose tolerance test (GTT) Ordered: 10/02/2023[facility] HealthcareComment on above:Ordered: 10/02/2023ytology Cervical or vaginal smear or scraping studyPap Smear Pathology and Cytology Routine Well woman exam with routine gynecological exam Ordered: 07/01/2025[facility] Work Phone: comment on above:Ordered: 07/01/2025Measurement of glucose 1 hour after glucose challenge for glucose tolerance testGTT, 1 hour Lab Routine with normal glucose tolerance test (GTT) Ordered: 10/02/2023 [facility] Healthcare Work Phone: comment on above:Ordered: 10/02/2023 Payers DatePayer CategoryPayerPolicy [id number]CE MEDICAID CARESOURCE MEDICAID [place] [id number] 2022-Present [address] [place] [id number] Health Insurance [facility] MEDICAID [id number] [id number] 2.840.1.670501.3.57[id number] 2.16.840.1.327932.3.57[id number] 2.840.1.347728.3.57[id number] 2.840.1.904126.3.57[id number] 2.840.1.995244.3.57[id number] 2.840.1.925896.3.57[id number] 2.840.1.572687.3.57[id number] 2.840.1.404284.3.57[id number] 2.840.1.467753.3.57[id number] 2.840.1.172474.3.57[id number] 2.840.1.164984.3.57[id number] 2.840.1.648516.3.57[id number] 2.840.1.857858.3.57[id number] 2.840.1.773262.3.57[id number] 2.840.1.634283.3.57[id number] 2.840.1.360669.3.579.2.33024-77-2676Fdie-[id number] [id number] 2.16.840.1.3[id number] 2.16.840.1.016544.3.579.2.531 Social History DateTypeDetailFacilityStart: 06-14-2023 End: 06-74-5558Ywc [facility]igned At [facility] [employer] Other Start: 45-58-3980Aoovilx smoking status NHISNever smoked tobaccoNOMS HealthcareStart: 12-51-7517Tlgvrgu use and exposureSmokeless tobacco non-userNOMS HealthcareStart: 10-02-2023 End: 98-53-0590Whxjave intakeLifetime non-drinker (finding)[facility] HealthcareStart: 06-14-2023 End: 45-48-8762Zqhhxfr of Social functionNOMS HealthcareStart: 05-02-2023 PregnancyNOMS HealthcareStart: 92-88-0726Jni Assigned At [facility] HealthcareStart: 76-36-7831Jmeltn identityIdentifies as female gender (finding) [facility] HealthcareStart: 19-41-1715MfoRewnubAISB Healthcare History of Present illness Narrative 07-01-2025 Note Date & EvgyOilcHciwcurp75-11-3870 History of Present illness Narrative* Ranjana Benitez NP - 07/01/2025 10:00 AM EST Reason for Appointment: Patient ID: James Harrell is a 20 y.o. female who presents for Well Women Visit Patient presents today for Annual Exam. MEDICATIONS No current outpatient medications ALLERGIES No Known Allergies PROBLEMS Active Ambulatory Problems Diagnosis Date Noted No Active Ambulatory Problems Resolved Ambulatory Problems Diagnosis Date Noted No Resolved Ambulatory Problems Past Medical History: Diagnosis Date 6 weeks follow-up ([facility]) Acute pharyngitis BMI 21.0-21.9, adult HISTORY PAST MEDICAL HISTORY SOCIAL HISTORY Past Medical History: Diagnosis Date 6 weeks follow-up ([facility]) Acute pharyngitis BMI 21.0-21.9, adult Social History [...] nursing note reviewed. Exam conducted with a flight dynamicist present. Vitals: Estimated body mass index is 18.56 kg/m as calculated from the following: Height [...] of: Ranjana Benitez NP documented in this encounterNOMS Healthcare History of Present illness Narrative 06-08-2025 Note Date & JcgjAneoXwbhsrqu98-72-8404 History of Present illness Narrative* [facility] NP - 06/08/2025 9:55 AM EDT Images from the original note were not included. [address] , [address] [facility], [address] P: [phone] F: [phone] HPI Historian of HPI: patient Jamse Harrell is a 20 y.o. female who presents today to the Urgent Care with the following complaints and denials which have been present for 3 hour(s) pt states she woke up this morning feeling lightheaded and dizzy. Pt states she is currently on her menstrual cycle and is feeling very nausea. Ptdoes have a mild headache at this time as well. Pt admits to having stomach cramps as well but has subsided today. Pt states she did take an at home test which a fainted line is present, pthas a photo on her on her phone. Pt is unsure if she is at this time. A urine sample is being collected at this time. Pt denies currently breast feeding at this time. She also reports night sweats for 1 week. C/O Denies Symptom Comments [x] [] Headache [x] [] Nausea [x] [] Fatigued [] [x] Cough [] [x] Ear Pain [] [x] Fever [] [x] Chills [] [x] Nasal Congestion [] [x] Myalgia [] [x] Sinus Pain [] [x] Sinus Pressure Additional Comments: pt has not taken any OTC medications ROS A complete system ROS was performed and negative aside from the pertinent positives noted in the HPI and PE. IH Testing: PHYSICAL EXAM Physical Exam Vitals and nursing note reviewed. Constitutional: Appearance: Normal appearance. HENT: Head: Normocephalic and atraumatic. Right Ear: Tympanic membrane and ear canal normal. Left Ear: Ear canal normal. Nose: Nose normal. Right Sinus: No maxillary sinus tenderness or frontal sinus tenderness. Left Sinus: No maxillary sinus tenderness or frontal sinus tenderness. Mouth/Throat: Mouth: Mucous membranes are moist. Pharynx: Uvula midline. No pharyngeal swelling or posterior oropharyngeal erythema. Tonsils: No tonsillar exudate or tonsillar abscesses. Eyes: Pupils: Pupils are equal, round, and reactive to light. Cardiovascular: Rate and Rhythm: Normal rate and regular rhythm. Pulmonary: Effort: Pulmonary effort is normal. Breath sounds: Normal breath sounds. Abdominal: General: Bowel sounds are normal. Palpations: Abdomen is soft. Tenderness: There is no abdominal tenderness. Musculoskeletal: Cervical back: Neck supple. Skin: General: Skin is warm and dry. Neurological: General: No focal deficit present. Mental Status: She is alert and oriented to person, place, and time. Psychiatric: Mood and Affect: Mood normal. Behavior: Behavior normal. TREATMENT PLAN 1. Fatigue, unspecified type (Primary) Diagnosis/possible etiologies discussed. Will do serum HCG to rule out . Other labs ordered. She does have a history of iron deficiency anemia. Rest and push fluids. Follow-up with PCP if noimprovement this week. - POCT , urine manually resulted - hCG, quantitative, - CBC and differential - Comprehensive metabolic panel - Vitamin D 25 hydroxy Total - TSH - Iron + transferrin + TIBC documented in this encounterH[facility] History of Present illness Narrative 10-02-2023 Note Date & FzehIpikVnczwbpz61-70-4389 History of Present illness Narrative* Belinda Rankin LPN - 10/02/2023 2:50 PM EST Reason for Appointment: Patient ID: James Harrell is a 18 y.o. female who [...] nursing note reviewed. Exam conducted with a flight dynamicist present. Vitals: Estimated body mass index is [...] by Belinda Rankin LPN on behalf of: Jd Canela DO documented in this [facility] Evaluation note 05-28-2023 Note Date & IzitKuawDcdjevli39-75-8860 Evaluation note* Encounter Date Diagnosis Assessment Notes Treatment Notes Treatment Clinical Notes May, Sore throat (ICD-10 - J02.9) May,Strep pharyngitis (ICD-10 - J02.0)Rapid strep positive. Discussed strep is a bacterial throat infection. Will treat with amoxil. Discussed importance of finishing entire course of antibiotic. Recommend changing toothbrush and washingbedding after 48 hours on antibiotic to avoid re-exposure. Discussed less contagious after 24 hourson antibiotic. Avoid sharing cups or drinks. May use Tylenol/ibuprofen, warm salt water gargles, topical throat sprays or throat lozenges for symptomatic treatment. Fluids/rest encouraged. Follow-up with PCP if not gradually improving over the next 4 to 5 days or continuing fever. Patient/parent verbalized understanding of treatment plan. [facility] Other Evaluation note 02-21-2022 Note Date & GbwhLbvbOvooyxlv25-35-8061 Evaluation note* Encounter Date Diagnosis Assessment Notes Treatment Notes Treatment Clinical Notes Jan, Sore throat (ICD-10 - J02.9) Jan,OVID-19 (ICD-10 - U07.1)Drink plenty fluids, get plenty of rest. Notify your machine tack puller of your positive COVID results. You must quarantine for 5 days after the onset of your symptoms, then you must wear a mask when out and about for the next 5 days. [facility] Other Evaluation note 11-07-2021 Note Date & CyfiCxabTthsfpop95-01-3536 Evaluation note* Encounter Date Diagnosis Assessment Notes Treatment Notes Treatment Clinical Notes Oct, Left ear impacted cerumen (ICD-1 0 - H61.22) Drink plenty fluids, get plenty of rest. Do not use Q-tips in your ears. Follow- up with your familyphysician for any further concerns. Follow the cerumen impaction home care instructions. [facility] Other Evaluation note Note Date & TypeNoteFacilityEvaluation note* Diagnosis Second trimester state, incidental with normal glucose tolerance test (GTT) documented in this encounter [facility] Healthcare Evaluation note Note Date & TypeNoteFacilityEvaluation note* Diagnosis Fatigue, unspecified type- Primary documented in this encounter [facility] Healthcare Evaluation note Note Date & TypeNoteFacilityEvaluation note* Diagnosis control counseling- Primary Well woman exam with routine gynecological exam Routine gynecological examination documented in this encounter [facility] Healthcare Summary Purpose Family History No Family [...] section and content) DATE CREATED AUTHOR 08/19/2018 [facility] DATE CREATED AUTHOR AUTHOR'S ORGANIZ ATION 05/30/2022 [facility] DATE CREATED AUTHOR AUTHOR'S ORGANIZ ATION 08/25/2023 [facility] DATE CREATED AUTHOR AUTHOR'S ORGANIZ ATION 01/05/2024 [facility] DATE CREATED AUTHOR AUTHOR'S ORGANIZ ATION 08/19/2024 [facility] DATE CREATED AUTHOR AUTHOR'S ORGANIZ ATION 06/09/2025 [facility] EPIC REASON FOR VISIT (unrecogniz ed section and content) ReasonCommentsRoutine VisitReasonCommentsWell Women Visit FOR RECORDS PERTAINING TO PATIENTS WHO [...] BE BASED ON THE PRIMARY CLINICAL RECORDS. [employer] [facility]. provides no warranty or guarantee of the accuracy or completeness of information in this document.
[2025-07-03 13:08] LABS: Age Gdln ACOG Testing Note (.); IGP, rfx Aptima HPV ASCU Note (.)
== END 2025-07-01 15:10 | disposition home or self-care (01) ==
LOC: LAB 15:09
PROVIDERS: Visit Provider Nurse Practitioner Family
DX: Z01.419 Encounter for gynecological examination (general) (routine) without abnormal findings (principal)
CPT/HCPCS: 88175

== ENCOUNTER 2025-08-12 17:23 | Emergency (ER) | payer OTHER, SELFPAY ==
--- OUTSIDE RECORDS SUMMARY | 2024-11-03 04:45 | XMS_ITS ---
Author Organization [facility] Address [address] [place] [address] Care Team Providers Care Neurosurgery Research Director Name Role Phone Marcelo Lopez Primary Care Provider [phone] REASON FOR VISIT 2M IRON DEF Encounters Encounter Location Date Provider Diagnosis [facility] [address] [place] [address] 11/03/2024 Marcelo Lopez Plan Of Treatment No Information Progress Notes * YARED PURDYONDOB: 3 (20 yo F)Acc No.[id number]:11/03/2024 Progress Notes Patient: JAMES CHILDS :?DEEPA SanchezOB:2005???Age:19 Y???Sex: FemaleDate:11/03/2024Phone:[phone]:[address] [place], [id number] Subjective: * Chief Complaints: * 2 M IRON DEF Billing Information: * Procedure Codes: * Electronic signature of Marcelo Lopez DO, [id number] on 08/12/2025 at 06:16 PM ESTSign off status: Pending * Provider: Lety Lopez DO Date: 0 11/03/2024 Generated for Printing/Faxing/eTransmitting on:?08/12/2025 06:16 PM EST
[2025-08-12 17:30] VITALS: BP 136/86; PULSE 92; TEMP 37; O2SAT 99; BMI 18.3
--- NOTE | 2025-08-12 17:41 | ED.GENADUL1 ---
HPI HPI - General Adult General Chief complaint: Vaginal Bleeding Stated complaint: Menstrual problems Time Seen by Provider: 08/12/25 17:28 Source: patient Mode of arrival: walk-in History of Present Illness HPI narrative: 20 year old female presents to the ED for irregular vaginal bleeding. She was started on Depo injections on 07/02/25. States she had mild spotting, bleeding after the injection. Reports bleeding for the past 2 weeks. It has become heavier over the past 3 days. States she passed a clot today which caused her concern. States she used several tampons today between 1300 and 1500. The bleeding has decreased. Denies fever, chills, abd pain, SOB. Reports feeling dizzy earlier today. Related Data Home Medications ?Medication ?Instructions ?Recorded ?Confirmed No Known Home Medications 05/20/23 08/12/25 Allergies Allergy/AdvReac Type Severity Reaction Status Date / Time No Known Drug Allergies Allergy Verified 05/20/23 01:12 Opioid HPI Opioid Management Most Recent Opioid Data: Last Pain Scale 8 01/16/24, 12:39 Ur Phencyclidine Scrn, (NEGATIVE) Negative 01/15/24, 23:15 Review of Systems ROS Constitutional Denies: fever, chills or fatigue Cardiovascular Denies: chest pain Respiratory Denies: shortness of breath Gastrointestinal Denies: abdominal pain, nausea, vomiting or diarrhea Genitourinary Reports: vaginal bleeding; Denies: painful urination, urinary frequency, urinary urgency or blood in urine Musculoskeletal Denies: back pain or neck pain Neurological Reports: dizziness; Denies: headache PFSH PFSH Social History Smoking status: Never smoker Highest level of school completed/degree received: high school graduate Little interest or pleasure in doing things: not at all Feeling down, depressed, or hopeless: not at all Exam Constitutional Vital Signs, click to edit/add: Last Vital Signs Temp 98.6 F 08/12/25 17:30 Pulse 92 H 08/12/25 17:30 Resp 18 08/12/25 17:30 BP 136/86 08/12/25 17:30 Pulse Ox 99 08/12/25 17:30 O2 Del Method Room Air 08/12/25 17:30 Common normals: no apparent distress and oriented x3 General appearance: cooperative HENMT Common normals: moist oral mucous membranes Eye Common normals: conjunctivae normal and no scleral icterus Neck & C-Spine Common normals: supple Respiratory Common normals: normal respiratory effort Effort & inspection: able to speak in complete sentences and symmetric chest movement Cardio Common normals: regular rate and regular rhythm GI Common normals: soft to palpation and non-tender Neuro Common normals: oriented x3 and moves all extremities Sensorium/orientation: awake and alert Speech: speech normal Gait (neuro): normal gait Course Vital Signs Vital signs: Vital Signs Temperature 98.6 F 08/12/25 17:30 Pulse Rate 92 H 08/12/25 17:30 Respiratory Rate 18 08/12/25 17:30 Blood Pressure 136/86 08/12/25 17:30 Pulse Oximetry 99 08/12/25 17:30 Oxygen Delivery Method Room Air 08/12/25 17:30 Temperature 98.6 F 08/12/25 17:30 Pulse Rate 92 H 08/12/25 17:30 Respiratory Rate 18 08/12/25 17:30 Blood Pressure 136/86 08/12/25 17:30 Pulse Oximetry 99 08/12/25 17:30 Oxygen Delivery Method Room Air 08/12/25 17:30 Medical Decision Making MDM Narrative Medical decision making narrative: The patient had her first Depo injection on 07/02/25. She reported she has had irregular bleeding for the past 2 weeks. Hgb was 13. Urine was negative. Findings were discussed. The patient was hemodynamically stable. She was encouraged to follow up with her SOUVENIR ASSEMBLER tomorrow. Return to the ED for worsening symptoms. Medical Records Medical records reviewed: Yes I reviewed the patient's medical records Lab Data Lab results reviewed: Yes I reviewed the patient's lab results Labs: Lab Results 08/12/25 08/12/25 Range/Units 17:47 18:14 WBC 13.2 H (4.0-11.0) 10^3/uL RBC 4.30 (4.20-5.40) 10^6/uL Hgb 13.0 (12.0-16.0) g/dL Hct 38.7 (36.0-48.0) % MCV 90.0 (81.0-99.0) fL MCH 30.2 (26.7-34.0) pg MCHC 33.6 (29.9-35.2) g/dL RDW 11.8 (11.0-15.0) % Plt Count 267 (150-450) 10^3/uL MPV 9.5 (9.5-13.5) fL Neut % (Auto) 75.1 H (43.0-75.0) % Lymph % (Auto) 19.3 L (20.5-60.0) % Leake % (Auto) 4.8 (1.7-12.0) % Eos % (Auto) 0.0 L (0.9-7.0) % Baso % (Auto) 0.5 (0.2-2.0) % Neut # (Auto) 9.9 H (1.4-6.5) 10^3/uL Lymph # (Auto) 2.6 (1.2-3.8) 10^3/uL Leake # (Auto) 0.6 (0.3-0.8) 10^3/uL Eos # (Auto) 0.0 (0.0-0.7) 10^3/uL Baso # (Auto) 0.1 (0.0-0.1) 10^3/uL Abs Immat Gran (auto) 0.04 H (0.00-0.03) 10^3/uL Imm/Tot Granulo (auto) 0.3 (0.0-0.5) % PT 11.2 (9.0-11.6) sec INR 1.07 Sodium 138 (136-145) mmol/L Potassium 3.3 L (3.5-5.1) mmol/L Chloride 104 (98-107) mmol/L Carbon Dioxide 25.0 (21.0-32.0) mmol/L Anion Gap 12.3 BUN 11.0 (7.0-18.0) mg/dL Creatinine 0.68 (0.55-1.02) mg/dL Est GFR ( Amer) >60 (>=60 mL/min/1.73m^2) Est GFR (Non-Af Amer) >60 (>=60 mL/min/1.73m^2) BUN/Creatinine Ratio 16.2 Glucose 91 (74-106) mg/dL Calcium 9.2 (8.5-10.1) mg/dL Urine Color Lt. yellow (YELLOW) Urine Clarity Clear (CLEAR) Urine pH 6.0 (5.0-9.0) Ur Specific [place] 1.010 (1.005-1.025) Urine Protein Negative (NEG/TRACE) mg/dL Urine Glucose (UA) Negative (NEGATIVE) mg/dL Urine Ketones Negative (NEGATIVE) mg/dL Urine Occult Blood Large A (NEGATIVE) Urine Nitrite Negative (NEGATIVE) Urine Bilirubin Negative (NEGATIVE) Urine Urobilinogen 0.2 (0.2-1.0) EU/dL Ur Leukocyte Esterase Negative (NEGATIVE) Urine RBC 0-2 (0-2) #/HPF Urine WBC 0-2 A (NONE SEEN) #/HPF Ur Squamous Epith Cells Rare (NONE/RARE) #/LPF Ur Transition Epith Cell Rare A (NONE SEEN) #/LPF Urine Crystals None seen (None Seen) #/HPF Urine Bacteria Trace A (NONE SEEN) #/HPF Urine Casts None seen (NONE SEEN) #/LPF Urine Mucus None seen (NONE SEEN) Urine HCG, Qual Negative (NEGATIVE) Discharge Plan Discharge Chief Complaint: Vaginal Bleeding Clinical Impression: Abnormal uterine bleeding Patient Disposition: Home, Self-Care Time of Disposition Decision: 18:38 Condition: Good Mode of Transportation: Private Vehicle Prescriptions / Home Meds: No Action No Known Home Medications Print Language: Algerian Instructions: Medroxyprogesterone (By injection) (Depo-Provera, Depo-Provera..., Abnormal (Dysfunctional) Uterine Bleeding (ED) Additional Instructions: Thank you for trusting us with your care today. Please follow up with your SOUVENIR ASSEMBLER. Return to the emergency department if your condition worsens. Referrals: Jd Canela DO [Physician, SOUVENIR ASSEMBLER] - 1 week Physician,Non-Staff, [Primary Care Provider] - 1 week
[2025-08-12 17:53] LABS: Hematocrit 38.7 % (36.0-48.0); Hemoglobin 13.0 g/dL (12.0-16.0); Immature Granulocytes Abs Auto 0.04 10^3/uL (0.00-0.03); Immature Granulocytes Pct Auto 0.3 % (0.0-0.5); Lymphocytes Absolute Auto 2.6 10^3/uL (1.2-3.8); Mean Corpuscular HGB Conc 33.6 g/dL (29.9-35.2); Mean Corpuscular Hemoglobin 30.2 pg (26.7-34.0); Mean Corpuscular Volume 90.0 fL (81.0-99.0); Platelet Count 267 10^3/uL (150-450); Red Blood Count 4.30 10^6/uL (4.20-5.40); White Blood Count 13.2 10^3/uL (4.0-11.0)
[2025-08-12 18:06] LABS: Anion Gap 12.3; Blood Urea Nitrogen 11.0 mg/dL (7.0-18.0); Calcium 9.2 mg/dL (8.5-10.1); Carbon Dioxide 25.0 mmol/L (21.0-32.0); Chloride 104 mmol/L (98-107); Estimated GFR (African America >60 (>=60 mL/min/1.73m^2); Estimated GFR (Non-African Ame >60 (>=60 mL/min/1.73m^2); Glucose 91 mg/dL (74-106); Potassium 3.3 mmol/L (3.5-5.1); Sodium 138 mmol/L (136-145)
[2025-08-12 18:09] LABS: INR 1.07; Prothrombin Time 11.2 sec (9.0-11.6)
--- OUTSIDE RECORDS SUMMARY | 2025-08-12 18:15 | XMS_ITS | Clinical Summary ---
Author Organization [facility] Address [address], [address] [place] [address] Care Team Providers Care Looper Operator Name Role Phone Lizeth Mcintyre TECHNOLOGY SALES REPRESENTATIVE - AUTISM MOTOR SPECIALIST Primary Care Pro vider Allergies No known active allergies Medications MedicationSigDispense QuantityRefillsLast FilledStart DateEnd DateStatus Vit-Fe Fumarate-FA ( PLUS) 27-1 MG TABS Take 1 tablet by mouth every 24 hours12/11/2023ctive Polysaccharide Iron Complex 391.3 (180 Fe) MG CAPS Take 391.3 mg by mouth daily11/27/2023ctive Social History Tobacco UseTypesPacks/DayYears UsedDateSmoking Tobacco: NeverSmokeless Tobacco: Never Tobacco Cessation:Counseling Given: No Alcohol UseStandard Drinks/WeekCommentsNo0 (1 standard drink = 0.6 oz pure alcohol)CommentsNoSex and Gender InformationValueDate RecordedSex Assigned at BirthNot on fileLegal WgwIvmzna28/10/2013 5:54 PM ESTGender Identity Not on fileSexual OrientationNot on file Last Filed Vital Signs Vital SignReadingTime TakenCommentsBlood Wgloqxpc895/6005 2:35 PM EDT Ewrbn2199 2:35 PM GSNSpxtaihrbwf64.9 ??C (98.4 ??F)01/03/2024 2:35 PM EDTRespiratory Tlyp456801/03/2024 2:35 PM EDTOxygen Lqvorftvqy20%08/13/2018 7:01 PM ESTInhaled Oxygen Concentration--Cfhhka31.6 kg (149 lb)01/03/2024 2:35 PM EDT Deaxvh582 cm (5' 3 )01/03/2024 2:35 PM EDTBody Mass Index26.3905/04/2024 2:35 PM EDT Plan of Treatment Health MaintenanceDue DateLast DoneCommentsDepression Jgegcz1202/13/2015Varicella vaccine (1 of 2 - 13+ 2-dose series)02/14/2016HIV wkcigp3502/13/2018HPV vaccine (1 - 3-dose series)2018Chlamydia/GC peczrh9502/13/2019Meningococcal B vaccine (1 of 2 - Standard)2019Hepatitis C ynkytb151DTaP/Tdap/Td vaccine (1 - Tdap)2022Hepatitis B vaccine (1 of 3 - 19+ 3-dose series)2Pap smear02/14/2024Flu vaccine (#1)5COVID-19 Vaccine ( season) 2025Hepatitis A vaccineAged OutNo longer eligible based on patient's age to complete this topicHib vaccineAged OutNo longer eligible based on patient's age to complete this topicMeningococcal (ACWY) vaccineAged OutNo longer eligible based on patient's age to complete this topicPneumococcal 0-49 years VaccineAged OutNo longer eligible based on patient's age to complete this topicPolio vaccine Aged OutNo longer eligible based on patient's age to complete this topic Insurance Care Teams Team MemberRelationshipSpecialtyStart DateEnd Date Lizeth Mcintyre APRN - [place] PCP - GeneralFamily Medicine01/30/18
--- OUTSIDE RECORDS SUMMARY | 2025-08-12 18:17 | XMS_ITS | Patient Health Record ---
Author Organization [facility] Address [address] [place] [address] Care Team Providers Care Refrigeration Houseman Name Role Phone Marcelo Lopez Primary Care Provider [phone] Allergies No Known Allergies Results Component Value Reference Range Flag Notes Vitamin B12 Reviewed date:08/19/2024 11:05:50 AM Interpretation: Performing Lab: Notes/Report: Vitamin B12 232 180-914 pg/mL N Comprehensive Metabolic Panel Reviewed date:08/19/2024 11:05:50 AM Interpretation: Performing Lab:, [facility], [address] [place] Notes/Report:Gifguqj3663-847 mg/dLN Random Glucose Reference Range is dependent on time and content of last meal. Glucose of more than 200 mg/dL in a nonstressed, ambulatory subject supports the diagnosis of Diabetes Mellitus. ADA recommended reference range Blood Urea Bwnyqioa908-93 mg/dLNCreatinine0.670.60-1.20 mg/ySNGmtaaz820744-911 mmol/LNPotassium4.63.5-5.1 mmol/JLTtdgunhf40510-447 mmol/LNCarbon Dysqfbd74.9 21.0-31.0 mmol/LNCalcium9.98.6-10.3 mg/dLNTotal Protein7.76.4-8.9 g/dLNAlbumin Level4.93.5-5.7 g/dLNGlobulin2.8Albumin/Globulin Ratio1.8Bilirubin,Total0.60.3- 1.0 mg/dLNAspartate Amino Dlebfffjlzv1775-09 U/LNAlanine Dcnswiwdzneuvhrm964-60 U/LNAlkaline Dxcmqqiirwk1784-851 U/LNEstimated GFR>60.0Anion Gap12.76.0-15.0 meq/LNThyroid Stimulating Hormone Reviewed date:08/19/2024 11:05:50 AM Interpretation: Performing Lab: Notes/Report:Thyroid Stimulating Hormone0.580.45-5.33 u[iU]/mLNComplete Blood Count Auto Diff Reviewed date:08/19/2024 11:05:50 AM Interpretation: Performing Lab:, [facility], [address], [place] Notes/Report:White Blood Count5.03.8-11.6 10*3/uLNUncorrected WBC5.03.8-11.6 10*3/uLNRed Blood Count4.403.60-5.00 10*6/yDELtkvixzfdz24.211.8-15.4 g/dLN Jiocoatwlb89.434.0-46.4 %NMean Corpuscular Dfrhvh80.580-100 fLNMean Corpuscular Nucjkuotcb43.024.7-34.3 pgNMean Corpuscular HGB Conc33.532.0-35.0 g/dLNRed Cell Distribution Width12.911.9-15.3 %NPlatelet Uetkf605372-042 10*3/uLNMean Platelet Volume8.76.3-10.7 fLNNeutrophils % (Auto)60.6. %Lymphocytes % (Auto)32.4. % Monocytes % (Auto)6.1. %Eosinophils % (Auto)0.3. %Basophils % (Auto)0.6. %NRBC% 0.10-0.5 /100{WBC}NNeutrophils # (Auto)3.11.8-7.7 10*3/uLNLymphocytes # (Auto) 1.61.00-4.8 10*3/uLNMonocytes # (Auto)0.30.0-0.8 10*3/uLNEosinophils # (Auto)0.0 0.0-0.45 10*3/uLNBasophils # (Auto)0.00.0-0.2 10*3/uLNFE PRO Reviewed date:08/19/2024 11:05:50 AM Interpretation: Performing Lab: Notes/Report:Jnxj2543-760 ug/dLNTotal Iron Binding Afonxehl881559-548 ug/dLN% Iron Eaqniuekjb21.420-50 %SGazaletvvos393165-425 mg/cNSQhqdoqwc40.811.0-306.8 ng/mLL Reason For Referral No Information Medications [...] the past year? Monthly or less (1 point)Jmjeqq1VjzwgmzqbbjuemWpkkxdwyEsnzymr Use:Social Info QuestionAnswerNotesTobacco Control (Standard)Tobacco use:Nonsmoker Problems Problem Type SNOMED Code ICD Code Onset Dates Problem Status W/U Status Risk Notes Problem Chronic fatigue syndrome (15483086) Chron ic fatigue (R53.82) ActiveconfirmedProblemDecrease in appetite (finding) (73289916)Decreased appetite (R63.0)Activeconfirmed Vital Signs Heart Rate 72 /min 09/10/2024 Dqzxtoemzui90.2 degrees Eraojhzrxv64/10/2025Respiratory Rate18 /min09/05/2024 Cmeyuwxc19 %09/10/2024lood pressure zpxugdkop77 mm Hg09/10/20240497Egwbbq84 in 09/10/2024lood pressure sabjinpw133 mm Hg09/10/20244907Returj880 lbs09/10/2024MI 19.02 kg/m209/10/2024 Encounters Encounter Location Date Provider Diagnosis [facility] [address] [place] [address] 09/10/2024 Marcelo John LLQ abdominal pain R10.32 [facility] [address] [place] [address] 08/15/2024 Marcelo Lopez Chronic fatigue R53.82 ; Cold intolerance R68.89 ; Decreased appetite R63.0 ; Mild eczema L30.9 and Iron deficiency E61.1 [facility] [address] [place] [address] 09/05/2024 Marcelo John Iron deficiency E61. 1 [...] Body Mass Index: Care Instructions material was ilvyuuw4709/10/2024OtherBody Mass Index: Care Instructions material was published Plan Of Treatment No Information Insurance Providers Payer Name Payer Address Payer Phone Subscriber Number Group Number Insured Name Patient Relationship to Insured Coverage Start Date Coverage End Date [employer] [place] Medicaid [address] [place] [address] [id number] Fredis PURDY - patient is the [id number] 2024Wrap [facility] CareSourcePO [address] [place] [id number], MADYSONSelf - patient is the [id number] 2024.Transport [facility] wrapPO [address] [place] [id number], MADYSONSelf - patient is the insured 2023 Medical (General) History Surgical History Surgery Date(Month/Year) Uterine inversion 2023 Hospitalization History Reason Date(Month/Year) childbirth x2
--- OUTSIDE RECORDS SUMMARY | 2025-08-12 18:17 | XMS_ITS | Clinical Summary ---
Author Organization [facility] Address [address] [place] [address] Care Team Providers Care Outside Cutter Hand Name Role Phone Unavailable Primary Care Provider Unavailabl e Allergies No known active allergies Medications MedicationSigDispense QuantityRefillsLast FilledStart DateEnd DateStatus medroxyPROGESTERone (Depo-Provera) 150 MG/ML injection Indications: control counselingInject 1 mL (150 mg) into the shoulder, thigh, or buttocks every 3 (three) months 1 mL /ctiveHospital, Clinic, or Other Facility Administered MedicationOrdered DoseRouteFrequencyStart DateEnd DateStatus medroxyPROGESTERone (Depo-Provera) injection 150 mg Indications:Encounter for management and injection of depo-Nnarehu315 mgIMOnce 5Active Encounters DateTypeDepartmentCare GrinDsufqbbcnsn97/21/2025[place] [address] Tammy Casas MA 07/02/2025 1:40 PM [place] [phone] Encounter for management and injection of depo-Xtmadyi4207/01/2025 10:00 AM EST [place] [address] Ranjana Benitez NP control counseling (Primary Dx); Well woman exam with routine gynecological exam07/01/2025linisync Result Encounter [facility] External Department Unsolicited Ranjana Benitez NP 07/01/2025amboo flowsheet [facility] [address] [place] [phone] Ranjana Benitez NP 06/10/2025Results Follow-Up [facility] [address] [place] [phone] Elaine Barron NP POCT , urine manually resulted, hCG, quantitative, , CBC and differential, Additional followed-up results: 9:55 AM EDTOffice Visit [facility] [address] [place] [phone] Elaine Barron NP Fatigue, unspecified type (Primary Dx)06/08/2025Travelfrom Last 3 Months Family History Medical HistoryRelationNameCommentsDiabetesMaternal GrandfatherCarlos cains DiabetesPaternal GrandfatherHypertensionPaternal GrandfatherHypertensionPaternal GrandmotherAsthmaSisterKylee keeganNo Known ProblemsSonRelationNameStatus CommentsFatherAliveMaternal GrandfatherCarlos cainsMotherAlivePaternal GrandfatherPaternal GrandmotherSisterKylee keeganSonAlive Social History Tobacco UseTypesPacks/DayYears UsedDateSmoking Tobacco: NeverSmokeless Tobacco: Never Tobacco Cessation:Counseling Given: Not Answered Alcohol UseStandard Drinks/WeekCommentsNever0 (1 standard drink = 0.6 oz pure alcohol)CommentsNoSex and Gender InformationValueDate RecordedSex Assigned at LqqjyGwicax20/26/2023 4:07 PM EDTLegal UdfDosfzm21/15/2023 6:37 PM EDTGender JyxxwfktQxjlpe41/26/2023 4:07 PM EDTSexual OrientationNot on file Last Filed Vital Signs Vital SignReadingTime TakenCommentsBlood Ewtstnvv06/6007/02/2025 2:02 PM EST Xdcob631506/08/2025 9:57 AM JIOLvonoqcotho26.1 ??C (98.7 ??F)06/08/2025 9:57 AM EDTRespiratory Rate--Oxygen Vvrodsfyjy74%06/08/2025 9:57 AM EDTInhaled Oxygen Concentration--Njvlxr51.8 kg (101 lb)07/02/2025 2:02 PM HASFjvjnu020.5 cm (5' 2 )07/02/2025 2:02 PM ESTBody Mass Index18.4707/02/2025 2:02 PM EST Plan of Treatment DateTypeDepartmentCare Team (Latest Contact Info)Mqroincvpjd56/22/2026 1:10 PM ESTClinical Support [facility] [address] [place] [address] [place] [phone] 07/05/2026 11:00 AM ESTProcedure Visit [facility] [address] [place] [phone] Radha Valenzuela PA [address] [facility] [address] [place] [address] Procedures Procedure NamePriorityDate/TimeAssociated DiagnosisCommentsPOCT , URINE Zbmukzn2407/02/2025 1:55 PM EST Encounter for management and injection of depo-Provera POCT , SKQULUxhabsi85/05/2025 10:28 AM EST Well woman exam with routine gynecological exam IGP,APTIMA HPV,AGE WWYQHnmkinj13/05/2025 10:09 AM EST PAP TEST, VUWYMYDGNxatkhc53/05/2025 12:00 AM ESTIRON + TRANSFERRIN + TIBCRoutine 06/08/2025 10:46 AM EDT Fatigue, unspecified type ONNDbaolcr92/ 10:46 AM EDT Fatigue, unspecified type VITAMIN D 25 HYDROXY DLMFTLuhfxbf72/13/2025 10:46 AM EDT Fatigue, unspecified type COMPREHENSIVE METABOLIC SSNXYBjqktxo04/13/2025 10:46 AM EDT Fatigue, unspecified type CBC (INCLUDES DIFF/PLT)Hqwskqa0206/08/2025 10:46 AM EDT Fatigue, unspecified type HCG, TOTAL, FYZtpfelo91/13/2025 10:46 AM EDT Fatigue, unspecified type PNEUMONIA (HTRX)Vdhifyz8706/08/2025 10:21 AM EDT Fatigue, unspecified type POCT , NOXYQAnjrhvj99/13/2025 10:08 AM EDT Fatigue, unspecified type from Last 3 Months Results * POCT , urine manually resulted (07/02/2025 1:55 PM EST) Only the most recent of3 resultswithin the time period is included. ComponentValueRef RangeTest MethodAnalysis TimePerformed AtPathologist Signature Preg Test, UrNegativeNegativeSpecimen (Source)Anatomical Location / Laterality Collection Method / VolumeCollection TimeReceived CqvdXcfhr84/06/2025 1:55 PM EST Narrative Authorizing ProviderResult TypeResult StatusLifePoint Health TEST ENTER/EDIT ORDERABLESFinal Result * IGP,APTIMA HPV,AGE GDLN (07/01/2025 10:09 AM EST)ComponentValueRef RangeTest MethodAnalysis TimePerformed AtPathologist SignatureAGE GDLN ACOG TESTINGNote. TBHComment: ?? TESTS ? RESULT ??FLAG ??UNITS ?REF RANGE ??LAB ?? Clinician Provided Cytology Information ?? Source.............Cervix;Endocervix ?? No. of containers..01 ThinPrep Vial Age Algo ACOG Ayesha... ??21-29 ? 01 ?FLAG LEGEND: ?L-Low Normal,H-High Normal,LL-Alert Low,HH-Alert High <-Panic Low,>-Panic High,A-Abnormal,AA-Critical Abnormal Performed at: 01 =G ?[facility] ?? [address] [place] ??[address] ?? Jeri Jimenez MD, IGP, RFX APTIMA HPV ASCUNote.TBHComment: ?? TESTS ? RESULT ??FLAG ??UNITS ?REF RANGE ??LAB DIAGNOSIS: ?02 ?? NEGATIVE FOR INTRAEPITHELIAL LESION OR MALIGNANCY. Specimen adequacy: ?02 ?? Satisfactory for evaluation. ??Endocervical and/or squamous metaplastic ?? cells (endocervical component) are present. Performed by: ? 02 ?? Micaela Wild, Extension Service Specialist In Charge (ASCP) . ? 02 Note: ? Note ?02 ?? The Pap smear is a screening test designed to aid in the ?? detection of premalignant and malignant conditions of the ?? uterine cervix. ??It is not a diagnostic procedure and ?? should not be used as the sole means of detecting cervical ?? cancer. ??Both false-positive and false-negative reports do ?? occur. Test Methodology: ? Note ?02 ?? This liquid based ThinPrep(R) pap test was interpreted ?? using the VendRx(R) Genius(TM) Cervical Algorithm whole ?? slide imaging system. . ? 02 ?? The HPV DNA reflex criteria were not met with this specimen ?? result therefore, no HPV testing was performed. ?FLAG LEGEND: ?L-Low Normal,H-High Normal,LL-Alert Low,HH-Alert High <-Panic Low,>-Panic High,A-Abnormal,AA-Critical Abnormal Performed at: 02 WB ?[facility] [place] ?? [address] [place], [place] ??[address] ?? Jeri Jimenez MD, Performed at: ??=G - [facility] [address] ??[id number] Animal Husbandry Worker: Jeri Jimenez MD, Phone: ??[phone] Performed at: ??WB - [facility] [address] ??[id number] Animal Husbandry Worker: Jeri Jimenez MD, Phone: ??[phone] Specimen (Source)Anatomical Location / LateralityCollection Method / Volume Collection TimeReceived Time07/01/2025 10:09 AM EST07/01/2025 3:45 PM EST Narrative [facility] - 07/03/2025 1:08 PM EST BRUSH-SPATULA CERVIX ENDOCERVIX Authorizing ProviderResult TypeResult StatusRanjana Benitez NPLAB BLOOD ORDERABLESFinal ResultPerforming OrganizationAddressCity/State/ZIP CodePhone Number [facility] * PAP TEST, EXTERNAL (07/01/2025 12:00 AM EST) Narrative Authorizing ProviderResult TypeResult StatusRanjana Benitez NPLAB CYTOLOGY ORDERABLESFinal ResultPerforming OrganizationAddressty/State/ZIP CodePhone Number EXTERNAL LAB * (ABNORMAL) Iron + transferrin + TIBC (06/08/2025 10:46 AM EDT)ComponentValue Ref RangeTest MethodAnalysis TimePerformed AtPathologist SignatureIron Bind.Cap.(TIBC)307862 - 450 ug/fOZKSYMZBLGJG435551 - 425 ug/sMPUIRXABMblp0203 - 159 ug/dLLABCORPIron Pzhqjbmlej06(L)15 - 55 %VKFWQLURIVHAMHPHCG607556 - 364 mg/dLLABCORPSpecimen (Source)Anatomical Location / LateralityCollection Method / VolumeCollection TimeReceived LljlRlhtc93/13/2025 10:46 AM EDT1 Narrative [facility] - 06/09/2025 7:06 AM EDT Performed at: - [address] ??[id number] Animal Husbandry Worker: Eriberto Hawkins PhD, Phone: ??[phone] Authorizing ProviderResult TypeResult StatusRachel L [facility] BLOOD ORDERABLESFinal ResultPerforming OrganizationAddressCity/State/ZIP CodePhone Number [facility] * Vitamin D 25 hydroxy Total (06/08/2025 10:46 AM EDT)ComponentValueRef Range Test MethodAnalysis TimePerformed AtPathologist SignatureVitamin D, 25-Hydroxy 30.030.0 - 100.0 ng/mLLABCORPComment: Vitamin D deficiency has been defined by the [place] of [employer] and an Endocrine Society practice guideline as a level of serum 25-OH vitamin D less than 20 ng/mL (1,2). The Endocrine Society went on to further define vitamin D insufficiency as a level between 21 and 29 ng/mL (2). 1. IOM ([place] of Medicine). 2010. Dietary reference ?? intakes for calcium and D. [place]: The ?? National Academies Press. 2. Marvin MF, Allan NC, Will GRANADOS, et al. ?? Evaluation, treatment, and prevention of vitamin D ?? deficiency: an Endocrine Society clinical practice ?? guideline. JCEM. 2010; 96(7):1911-30. Specimen (Source)Anatomical Location / LateralityCollection Method / Volume Collection TimeReceived TimeBloodVenous blood specimen / Qfaflbi9806/08/2025 10:46 AM EDT1 Narrative [facility] - 06/09/2025 7:06 AM EDT Performed at: - [facility] [address] ??[id number] Animal Husbandry Worker: Eriberto Hawkins PhD, Phone: ??[phone] Authorizing ProviderResult TypeResult StatusRachel Jules [facility] BLOOD ORDERABLESFinal ResultPerforming OrganizationAddressCity/State/ZIP CodePhone Number [facility] * CBC and differential (06/08/2025 10:46 AM EDT)ComponentValueRef RangeTest MethodAnalysis TimePerformed AtPathologist SignatureWBC5.53.4 - 10.8 x10E3/uL LABCORPRBC3.983.77 - 5.28 x10E6/vMQIVKMPLLna38.111.1 - 15.9 g/yCJTKKBOCNbj12.2 34.0 - 46.6 %PEWXVMAHVW6685 - 97 cAOSAZJTSAKD37.426.6 - 33.0 txATFWHYXSLSF17.4 31.5 - 35.7 g/iKVCJGWLXFCS26.111.7 - 15.4 %URXFXXRRmjhgbene348964 - 450 x10E3/rJIDUJXGDJrjrwepczmp15Huv Estab. %ITUWWWVXexzbn42Wza Estab. %[facility] Ejgubjshu9Rew Estab. %EXWNFRSOxf1Tii Estab. %IKCYWUEEtgqi3Zzd Estab. %[facility] Neutrophils Abs3.61.4 - 7.0 x10E3/uLLABCORPLymphs Abs1.50.7 - 3.1 x10E3/uL [facility]PMonocytesAbs0.30.1 - 0.9 x10E3/uLLABCORPEos Abs0.00.0 - 0.4 x10E3/uL [facility]ABC[facility]PBaso Abs0.00.0 - 0.2 x10E3/uLLABCORPImmature Ugosvanbljww4Kwv Estab. % [facility]ABC[facility]PImmature Grans Abs0.00.0 - 0.1 x10E3/uLLABCORPSpecimen (Source) Anatomical Location / LateralityCollection Method / VolumeCollection Time Received TimeBloodVenous blood specimen / Uqgwkkq6406/08/2025 10:46 AM EDT 06/08/2025 Narrative [facility] - 06/09/2025 7:06 AM EDT Performed at: 02 - [facility] [place] [address], [address], [place], [place] ??[id number] Animal Husbandry Worker: Lisette Luke MD, Phone: ??[phone] Authorizing ProviderResult TypeResult StatusRachel Jules [place] NPLAB BLOOD ORDERABLESFinal ResultPerforming OrganizationAddressCity/State/ZIP CodePhone Number [...] ?217 [phone] ??[phone] ? 6 ?158 - [address]30 ? 7 ? [phone] ? 8 ?21430 -[phone] ? 9 ?26033 -[phone] ?10 ?60717 -973281 ?12 ?93060 -845223 ?14 ?15260 - 75175 ?15 ?63005 - 43892 ?16 ? 6676 - 59724 ?17 ? 2589 - 93686 ?18 ? 8099 - [phone] [facility] ECLIA methodology Specimen (Source)Anatomical Location / LateralityCollection Method / Volume Collection TimeReceived TimeBloodVenous blood specimen / Ueaqpdt7906/08/2025 10:46 AM EDT1 Narrative [facility] - 06/09/2025 7:06 AM EDT Performed at: 02 - [facility] [place] [address], [place] ??[id number] Animal Husbandry Worker: Lisette Luke MD, Phone: ??[phone] Authorizing ProviderResult TypeResult StatusRachel L [place] NPLAB BLOOD ORDERABLESFinal ResultPerforming OrganizationAddressCity/State/ZIP CodePhone Number [facility] * TSH (06/08/2025 10:46 AM EDT)ComponentValueRef RangeTest MethodAnalysis Time Performed AtPathologist SignatureTSH0.4910.450 - 4.500 uIU/mLLABCORPSpecimen (Source)Anatomical Location / LateralityCollection Method / VolumeCollection TimeReceived TimeBloodVenous blood specimen / Vwsuoho3606/08/2025 10:46 AM EDT 06/08/2025 Narrative [facility] - 06/09/2025 7:06 AM EDT Performed at: 02 - [place] [address] [facility], [address] [place] [id number] Animal Husbandry Worker: Lisette Luke MD, Phone: ??[phone] Authorizing ProviderResult TypeResult StatusRachel L Beatrcie NPLAB BLOOD ORDERABLESFinal ResultPerforming OrganizationAddressCity/State/ZIP CodePhone Number [facility] * Comprehensive metabolic panel (06/08/2025 10:46 AM EDT)ComponentValueRef Range Test MethodAnalysis TimePerformed AtPathologist HaslaugofQcltndt8894 - 99 mg/mDSCIYMYGLPQ292 - 20 mg/dLLABCORPCreat0.710.57 - 1.00 mg/mQFGMZUVALNHP993 >59 mL/min/1.73LABC[facility]PBUN/Creat Ggawv733 - 70GEGPTMONgsiuy112743 - 144 mmol/L [facility]PPotassium4.23.5 - 5.2 mmol/GKBRPHVUNronwamq28201 - 106 mmol/[facility] Carbon Nshmowm9784 - 29 mmol/[facility]ORPCalcium9.28.7 - 10.2 mg/dLLABCORPProtein Total7.46.0 - 8.5 g/dLLABCORPAlbumin4.84.0 - 5.0 g/dLLABCORPGlobulin Total2.6 1.5 - 4.5 g/dLLABCORPBili Total0.40.0 - 1.2 mg/dLLABCORPAlk Banbufyhzgi8389 - 116 IU/KQPIASIUCCT7576 - 59 IU/QKFHXYMEDIZ907 - 35 IU/[facility]PSpecimen (Source)Anatomical Location / LateralityCollection Method / VolumeCollection TimeReceived TimeBloodVenous blood specimen / Lfdqtxa7306/08/2025 10:46 AM EDT 06/08/2025 Narrative [facility] - 06/09/2025 7:06 AM EDT Performed at: 02 - [facility] [address], [address], [place], [place] ??[id number] Animal Husbandry Worker: Lisette Luke MD, Phone: ??[phone] Authorizing ProviderResult TypeResult StatusRachel L Beatrice NPLAB BLOOD ORDERABLESFinal ResultPerforming OrganizationAddressCity/State/ZIP CodePhone Number [facility] * PNEUMONIA (HTRX) (06/08/2025 10:21 AM EDT)ComponentValueRef RangeTest Method Analysis TimePerformed AtPathologist SignatureSTREPTOCOCCUS PYOGENES (GROUP A STREP) (RESPIRATORY)019.961 - 24.689 ppm06/09/2025 7:19 AM EDTHealthTrackRx at LabPortSTREPTOCOCCUS PYOGENES (GROUP A STREP) (RESPIRATORY)Not Fupzjiix12.961 - 24.689 ppm06/09/2025 7:19 AM EDTHealthTrackRx at LabPortSTREPTOCOCCUS PNEUMONIAE (RESPIRATORY)019.961 - 24.689 ppm06/09/2025 7:19 AM EDT [facility] at LabPortSTREPTOCOCCUS PNEUMONIAE (RESPIRATORY)Not Detected 19.961 - 24.689 ppm06/09/2025 7:19 AM EDTHealthTrackRx at LabPortSTREPTOCOCCUS AGALACTIAE (GROUP B STREP) (RESPIRATORY)019.961 - 24.689 ppm06/09/2025 7:19 AM EDTHealthTrackRx at LabPortSTREPTOCOCCUS AGALACTIAE (GROUP B STREP) (RESPIRATORY)Not Ybwdzcif87.961 - 24.689 ppm06/09/2025 7:19 AM EDT [facility] at LabPortSTAPHYLOCOCCUS AUREUS (RESPIRATORY)019.961 - 24.689 ppm06/09/2025 7:19 AM EDTHealthTrackRx at LabPortSTAPHYLOCOCCUS AUREUS (RESPIRATORY)Not Spniqkit64.961 - 24.689 ppm06/09/2025 7:19 AM EDT [facility] at LabPortSERRATIA MARCESCENS (RESPIRATORY)019.961 - 24.689 ppm 06/09/2025 7:19 AM EDTHealthTrackRx at LabPortSERRATIA MARCESCENS (RESPIRATORY)Not Ecrjqfia50.961 - 24.689 ppm06/09/2025 7:19 AM EDT [facility] at LabPortRESPIRATORY SYNCYTIAL VIRUS (RESPIRATORY)023.000 - 31.953 ppm06/09/2025 7:19 AM EDTHealthTrackRx at LabPortRESPIRATORY SYNCYTIAL VIRUS (RESPIRATORY)Not Copimaop94.000 - 31.953 ppm06/09/2025 7:19 AM EDT [facility] at LabPortPSEUDOMONAS AERUGINOSA (RESPIRATORY)019.961 - 24.689 ppm06/09/2025 7:19 AM EDTHealthTrackRx at LabPortPSEUDOMONAS AERUGINOSA (RESPIRATORY)Not Oxcthctf02.961 - 24.689 ppm06/09/2025 7:19 AM EDT [facility] at LabPortPROTEUS MIRABILIS, VULGARIS (RESPIRATORY)019.961 - 24.689 ppm06/09/2025 7:19 AM EDTHealthTrackRx at LabPortPROTEUS MIRABILIS, VULGARIS (RESPIRATORY)Not Cgiqjlfk59.961 - 24.689 ppm06/09/2025 7:19 AM EDT [facility] at LabPortPARAINFLUENZA VIRUS (TYPES 1, 2, 3 ,4) (RESPIRATORY)0 23.000 - 31.487 ppm06/09/2025 7:19 AM EDTHealthTrackRx at LabPortPARAINFLUENZA VIRUS (TYPES 1, 2, 3 ,4) (RESPIRATORY)Not Hunumihl62.000 - 31.487 ppm 06/09/2025 7:19 AM EDTHealthTrackRx at LabPortMYCOPLASMA PNEUMONIAE (RESPIRATORY)019.961 - 24.689 ppm06/09/2025 7:19 AM EDTHealthTrackRx at LabPortMYCOPLASMA PNEUMONIAE (RESPIRATORY)Not Xkpedbrv65.961 - 24.689 ppm 06/09/2025 7:19 AM EDTHealthTrackRx at LabPortMORAXELLA CATARRHALIS (RESPIRATORY)019.961 - 24.689 ppm06/09/2025 7:19 AM EDTHealthTrackRx at LabPortMORAXELLA CATARRHALIS (RESPIRATORY)Not Lbkavcdu81.961 - 24.689 ppm 06/09/2025 7:19 AM EDTHealthTrackRx at LabPortLEGIONELLA PNEUMOPHILA (RESPIRATORY)019.961 - 24.689 ppm06/09/2025 7:19 AM EDTHealthTrackRx at LabPortLEGIONELLA PNEUMOPHILA (RESPIRATORY)Not Ppifsamf59.961 - 24.689 ppm 06/09/2025 7:19 AM EDTHealthTrackRx at LabPortKLEBSIELLA PNEUMONIAE, OXYTOCA (RESPIRATORY)019.961 - 24.689 ppm06/09/2025 7:19 AM EDTHealthTrackRx at LabPortKLEBSIELLA PNEUMONIAE, OXYTOCA (RESPIRATORY)Not Dtrnrzuu17.961 - 24.689 ppm06/09/2025 7:19 AM EDTHealthTrackRx at LabPortINFLUENZA VIRUS, A, B (RESPIRATORY)023.000 - 29.803 ppm06/09/2025 7:19 AM EDTHealthTrackRx at LabPortINFLUENZA VIRUS, A, B (RESPIRATORY)Not Jwjancmi90.000 - 29.803 ppm 06/09/2025 7:19 AM EDTHealthTrackRx at LabEl[facility] HospitalHUMAN METAPNEUMOVIRUS (RESPIRATORY)023.000 - 33.630 ppm06/09/2025 7:19 AM EDTHealthTrackRx at [facility] METAPNEUMOVIRUS (RESPIRATORY)Not Jcthcfwo71.000 - 33.630 ppm 06/09/2025 7:19 AM EDTHealthTrackRx at LabPortHAEMOPHILUS INFLUENZAE (RESPIRATORY)019.961 - 24.689 ppm06/09/2025 7:19 AM EDTHealthTrackRx at LabPortHAEMOPHILUS INFLUENZAE (RESPIRATORY)Not Amizljfl84.961 - 24.689 ppm 06/09/2025 7:19 AM EDTHealthTrackRx at LabPortESCHERICHIA COLI (RESPIRATORY)0 19.961 - 24.689 ppm06/09/2025 7:19 AM EDTHealthTrackRx at LabPortESCHERICHIA COLI (RESPIRATORY)Not Pofzfgyj32.961 - 24.689 ppm06/09/2025 7:19 AM EDT [facility] at LabPortENTEROVIRUS D68 (RESPIRATORY)023.000 - 32.268 ppm 06/09/2025 7:19 AM EDTHealthTrackRx at LabPortENTEROVIRUS D68 (RESPIRATORY)Not Jouttogb86.000 - 32.268 ppm06/09/2025 7:19 AM EDTHealthTrackRx at LabPortOTHER CORONAVIRUSES (229E, NL63, HKU1, OC43) (RESPIRATORY)023.000 - 30.477 ppm 06/09/2025 7:19 AM EDTHealthTrackRx at LabPortOTHER CORONAVIRUSES (229E, NL63, HKU1, OC43) (RESPIRATORY)Not Vviijmhh98.000 - 30.477 ppm06/09/2025 7:19 AM EDT [facility] at LabPortCHLAMYDIA PNEUMONIAE (RESPIRATORY)019.961 - 24.689 ppm 06/09/2025 7:19 AM EDTHealthTrackRx at LabPortCHLAMYDIA PNEUMONIAE (RESPIRATORY)Not Supqkkcq95.961 - 24.689 ppm06/09/2025 7:19 AM EDT [facility] at LabPortBORDETELLA PERTUSSIS, PARAPERTUSSIS, BRONCHISEPTICA (RESPIRATORY)019.961 - 24.689 ppm06/09/2025 7:19 AM EDTHealthTrackRx at LabPortBORDETELLA PERTUSSIS, PARAPERTUSSIS, BRONCHISEPTICA (RESPIRATORY)Not Rwypmglg33.961 - 24.689 ppm06/09/2025 7:19 AM EDTHealthTrackRx at LabPort ACINETOBACTER BAUMANNII (RESPIRATORY)019.961 - 24.689 ppm06/09/2025 7:19 AM EDTHealthTrackRx at LabElkhart [facility] HospitalACINETOBACTER BAUMANNII (RESPIRATORY)Not Detected 19.961 - 24.689 ppm06/09/2025 7:19 AM EDTHealthTrackRx at LabElkhart [facility] HospitalHTRX COVID-19 DGYREXDBWHZ858.000 - 31.947 ppm06/09/2025 7:19 AM EDTHealthTrackRx at [facility] HTRX COVID-19 CORONAVIRUSNot Wvwfzhrp65.000 - 31.947 ppm06/09/2025 7:19 AM EDT [facility]ENTEROVIRUS (RESPIRATORY)023.000 - 30.000 ppm06/09/2025 7:19 AM EDTHealthTrackRx at [facility] HospitalRHINOVIRUS/ENTEROVIRUS (RESPIRATORY)Not Qfziwtqp06.000 - 30.000 ppm06/09/2025 7:19 AM EDT [facility] HospitalADENOVIRUS HADV-B (RESPIRATORY)023.000 - 31.833 ppm 06/09/2025 7:19 AM EDTHealthTrackRx at [facility] HospitalADENOVIRUS HADV-B (RESPIRATORY) Not Maexjknb14.000 - 31.833 ppm06/09/2025 7:19 AM EDTHealthTrackRx at LabPort ENTEROBACTER CLOACAE COMPLEX, KLEBSIELLA (ENTEROBACTER) AEROGENES (RESPIRAT0 19.961 - 24.689 ppm06/09/2025 7:19 AM EDTHealthTrackRx at [facility] HospitalENTEROBACTER CLOACAE COMPLEX, KLEBSIELLA (ENTEROBACTER) AEROGENES (RESPIRATNot Detected 19.961 - 24.689 ppm06/09/2025 7:19 AM EDTHealthTrackRx at LabPortSpecimen (Source)Anatomical Location / LateralityCollection Method / VolumeCollection TimeReceived OylrBidjdiltb25/13/2025 10:21 AM EDT1 2:05 AM EDT Narrative Authorizing ProviderResult TypeResult StatusRachel L [place] NPLAB BLOOD ORDERABLESFinal ResultPerforming OrganizationAddressCity/State/ZIP CodePhone Number [facility] [address] [place] [address] from Last 3 Months Insurance * Guarantor: Roosevelt Harrell TypeRelation to PatientDate of BirthPhone Billing AddressPersonal/XfxvcaDubf[address] [address]
[2025-08-12 18:20] LABS: Glucose Urine UA NEGATIVE (NEGATIVE)
[2025-08-12 18:24] LABS: HCG Qualitative Urine* NEGATIVE (NEGATIVE)
[2025-08-12 18:28] LABS: Cast Seen? NONE SEEN #/LPF (NONE SEEN); Crystals Seen? None Seen #/HPF (None Seen)
== END 2025-08-12 19:07 | disposition home or self-care (01) ==
PROVIDERS: Nurse Practitioner Family; Emergency Provider Emergency Medicine
DX: N93.9 Abnormal uterine and vaginal bleeding, unspecified (principal)
CPT/HCPCS: 36415; 80048; 81001; 84703; 85025; 85610; 99283